=== PATIENT | male | born 1980 | race Caucasian/White ===

== ENCOUNTER 2020-04-16 01:02 | Emergency (ER) | payer OTHER, SELFPAY ==
[2020-04-16 01:09] VITALS: BP 100/69; BP 103/38; PULSE 75; PULSE 77; RESP 20; TEMP 36.5; O2SAT 96; O2SAT 99; BMI 18.4
[2020-04-16 01:20] VITALS: RESP 22
--- NOTE | 2020-04-16 01:24 | PC.NURSE ---
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 PT WAS TRIPOD POSITON UPON EMS ARRIVAL AND PALE, PT WAS NOT BALE TO SPEAK IN FULL SENTENCES. PT PUT ON NOREBREATHER AND GIVEN 125MG SOLU-MEDROL HAVING GOOD EFFECT. PT NO LONGER TRIPOD POSTIION AND UPON ARRIVAL TO ED PT WAS REMOVED FROM NONREBREATHER. PLACED ON 1L VIA NASAL CANULLA AND PT APPEARING COMFORTABLE, SPO2 99% WHILE PT AWAKE. PT STATES THAT HE USED 1 BAG OF HEROIN PRIOR TO FALLING ASLEEP AND STATES HIS BREATHING GOT COMPROMISED DURING THAT TIME WELL. DR GIMENEZ MADE AWARE, THIS RN ASKING ABOUT ADDITIONAL MEDICATIONS SUCH MAG AND BLOOD WORK, NO NEW ORDERS AT THIS TIME EXCEPT FOR MICHELLE, RT AT BEDSIDE. WILL CONTINUE TO MONITOR
--- NOTE | 2020-04-16 01:25 | ED.SOB ---
HPI - SOB/Dyspnea General Chief Complaint: Dyspnea Stated Complaint: diff breathing Time Seen by Provider: 04/16/20 01:20 Source: patient Mode of arrival: EMS Limitations: no limitations History of Present Illness HPI Narrative: alessia woke up short of breath and called the ambulance, EMS gave him oxygen and solumedrol. Patient denies fever or other cold symptoms MD elicited complaint: shortness of breath Pertinent past history: COPD Onset (ago): hour(s) Severity: severe Exacerbating factors: deep breaths Relieving factors: oxygen Known history of: COPD Related Data Previous Rx's Medication Instructions Recorded prednisone 60 mg PO DAILY #12 tab 04/16/20 Allergies Allergy/AdvReac Type Severity Reaction Status Date / Time No Known Allergies Allergy Unverified 02/23/20 17:19 Review of Systems Constitutional: Constitutional: Reports no additional constitutional complaints Eyes: Eyes: Reports no additional eye complaints ENT: Denies dizziness Cardiovascular: Cardiovascular: Reports no additional cardiovascular complaints Respiratory: Respiratory: Reports as per HPI Gastrointestinal: Gastrointestinal: Reports no additional gastrointestinal complaints Musculoskeletal: Musculoskeletal: Reports no additional musculoskeletal complaints Integumentary/Breasts: Skin/Breast: Denies rash Neurologic: Reports system reviewed and no additional complaints, except as documented, Denies dizziness and Denies Sensory deficit (Neuro) Psychiatric: Psychiatric: Denies anxiety [facility] Past Medical History Medical History (Updated 04/16/20 @ 04:32 by Mitchel Keith MD) COPD (chronic obstructive pulmonary disease) Social History Social History Alcohol intake: never Smoking Status: Current every day smoker Use of substances other than those prescribed or required for medical reasons: No Advance Directives: No Advance Directives Information Provided: Yes Physical Exam Vital Signs: Vital Signs: Last Vital Signs Temp 97.7 F 04/16/20 01:09 Pulse 74 04/16/20 04:19 Resp 14 04/16/20 04:19 BP 99/56 L 04/16/20 04:19 Pulse Ox 98 04/16/20 04:19 Body Mass Index 18.4 Const: Other: male short of breath Nutritional Appearance: average body habitus Orientation/consciousness: oriented to person and patient oriented x3 Limitations: no limitations HENMT: Head: Yes normal to inspection Ears: external ears normal General nose exam: Normal external nose present Mouth: Normal oral and palatal mucosa present and oropharynx normal Throat: Yes posterior oropharynx normal Eyes: General: appearance normal, both eyes and all related structures Neck: Other: supple Neck: Yes normal visual inspection Chest: Chest palpation & inspection: normal inspection of the chest Resp: Other: bilateral wheezing, tight, fairly good air movement Cardio: Jugular venous distension: no JVD Rate: regular rate Rhythm: regular rhythm Heart sounds: S1 normal heart sound present and S2 normal heart sound present GI: Inspection: Yes normal to inspection Palpation (GI): Soft to palpation, nontender and No hepatosplenomegaly present Auscultation: normal bowel sounds : General: Yes no CVA tenderness Back/Spine/Pelvis: Back: no CVA tenderness Skin: General skin exam: no rashes or lesions noted Neuro: General: oriented to person and patient oriented x3 Cranial nerves: Yes CN's II-XII intact bilaterally Motor exam (neuro): 5/5 motor strength present throughout Sensory Exam: No Sensory deficit (Neuro) Extrem: General: Yes normal to inspection Psych: Appearance: grossly normal Course Course Course Narrative: breathing much better, moving better air, still with some wheezing MDM - SOB/Dyspnea MDM Narrative Medical decision making narrative: patient with COPD exacerbation looking better will dc on prednisone Discharge Plan Discharge Clinical Impression: Acute exacerbation of chronic obstructive airways disease Patient Disposition: Home, Self-Care Instructions: COPD (Chronic Obstructive Pulmonary Disease) (ED) Prescriptions: New prednisone 20 mg tablet 60 mg PO DAILY Qty: 12 RF: 0 Referrals: Physician,Unknown [Primary Care Provider] - 2 days
[2020-04-16] MEDS: Albuterol/Iprat 2.5/0.5MG 3 ML AMPUL.NEB INHALE ×2 (01:42→06:11)
[2020-04-16 02:00] VITALS: BP 101/60; PULSE 60; RESP 14; O2SAT 97
[2020-04-16] MEDS: 0.9 % Sodium Chloride 500 ML 999 ML IVCONT (02:45)
--- NOTE | 2020-04-16 03:30 | PC.NURSE ---
PT STATING THAT HE IS FEELING A BIT BETTER HOWEVER STILL C/O SOB AND BEING REALLY TIGHT DR GIMENEZ MADE AWARE AND ONCE AGAIN ASKED ABOUT ADDITONAL MEDS AND/OR IMAGING AND BLOOD WORK, DR GIMENEZ STATING THAT WE WILL WATCH HIM FOR IMPROVEMENT . WILL CONTINUE TO MONITOR, PT HR 60S, SPO2 94% WHILE RESTING, LS DIM AND WHEEZY BL AND THROUGHOUT. RT TO ADMINISTER ADDITIONAL TREATMENT
[2020-04-16] MEDS: Albuterol Sulfate (0.083%) 2.5 MG/3 ML VIAL.NEB INHALE (04:05)
[2020-04-16 04:19] VITALS: BP 99/56; PULSE 74; RESP 14; O2SAT 98
--- NOTE | 2020-04-16 04:19 | PC.NURSE ---
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 PT ADMITS TO SNORTING A BAG OF HEROIN PRIOR TO GOING TO SLEEP AND HAVING SIMILAR ISSUES IN THE PAST WITH THAT BEHAVIOR. PT WAS TRIPOD POSITION UPON EMS ARRIVAL AND PALE. PT PUT ON NONREBREATHER BY EMS AND IMPROVING WORK OF BREATHING ALONG WITH SPO2 100%. UPON ARRIVAL TO ED PT REMOVED FROM NONREBREATHER AND PLACED ON NASAL CANULLA AT 1L FOR COMFORT. PT LS DIMINISHED AND WHEEZY BL AND THROUGHOUT. DR GIMENEZ MADE AWARE OF PT STATUS ALONG WITH RESP AT BEDSIDE. PT RECEIVED 125MG OF SOLUMEDROL, THIS RN ASKING ABOUT BLOOD WORK AND MAG ADMINISTRATION, NO ORDERS BY PROVIDER EXCEPT FOR DUONEB TREATMENT. WILL CONTINUE TO MONITOR
--- NOTE | 2020-04-16 05:32 | PC.NURSE ---
PLAN FOR D/C HOME PER DR GIMENEZ, PT STATING THAT HE DOES NOT FEEL READY TO GO HOME AND DOES NOT WANT TO GET UP RIGHT NOW PT LS DIM AND WHEEZY STILL. DR GIMENEZ MADE AWARE, PLAN TO DO AMBULATION TRIAL DUE TO RISK FOR PT SAFETY
--- NOTE | 2020-04-16 05:45 | PC.NURSE ---
this rn doing ambulation trial with pt to check for spo2 desat, pt able to walk about 200 feet and then needed to return to room due to not being able to breath pt spo2 dipping from 97% to 93% and pt work of breathing increasing substantially. dr suárez made aware and at bedside auscultating pt lung sounds. dr suárez only ordering duoneb at this time, will continue to monitor
[2020-04-16 06:35] VITALS: BP 122/62; PULSE 92; RESP 14; TEMP 36.8; O2SAT 94
--- NOTE | 2020-04-17 08:25 | ECG_ITS ---
Test Reason : SOB Blood Pressure : / mmHG Vent. Rate : 076 BPM Atrial Rate : 076 BPM P-R Int : 158 ms QRS Dur : 084 ms QT Int : 400 ms P-R-T Axes : 072 080 065 degrees QTc Int : 450 ms Normal sinus rhythm Normal ECG No previous ECGs available Referred By: Mitchel Keith Electronically Signed By:EMILIA DICKENS MD
== END 2020-04-16 08:27 | disposition home or self-care (01) ==
PROVIDERS: Emergency Provider Emergency Medicine
DX: J44.1 Chronic obstructive pulmonary disease with (acute) exacerbation (principal); R06.00 Dyspnea, unspecified; F17.200 Nicotine dependence, unspecified, uncomplicated; Z71.6 Tobacco abuse counseling
CPT/HCPCS: 93005; 94640; 99284; 99285

== ENCOUNTER 2020-06-01 14:51 | Inpatient (IN) | payer OTHER, SELFPAY ==
[2020-06-01] VITALS (10 sets, daily range): BP systolic 107–126; BP diastolic 57–66; PULSE 73–112; RESP 16–24; TEMP 36.5–36.6; O2SAT 88–97; BMI 18.2
--- NOTE | 2020-06-01 15:02 | XR_ITS ---
EXAMINATION: XR CHEST CLINICAL INFORMATION: Shortness of breath COMPARISON: None TECHNIQUE: Frontal view of the chest was obtained. FINDINGS: No significant abnormality is noted involving the heart, lungs, mediastinum, bony thorax or soft tissues. XR/XR chest 1V IMPRESSION: Unremarkable examination.
--- NOTE | 2020-06-01 15:02 | ECG_ITS ---
Test Reason : RESP DISTRESS Blood Pressure : / mmHG Vent. Rate : 090 BPM Atrial Rate : 090 BPM P-R Int : 154 ms QRS Dur : 082 ms QT Int : 390 ms P-R-T Axes : 080 076 060 degrees QTc Int : 477 ms Normal sinus rhythm Normal ECG When compared with ECG of 16-APR-2020 01:16, No significant change was found Referred By: Keagan Harris Electronically Signed By:SHANNON BATEMAN MD
--- NOTE | 2020-06-01 15:03 | ED.URI ---
HPI - URI/Sore Throat General Chief Complaint: Upper Respiratory Symptoms Stated Complaint: SOB Time Seen by Provider: 06/01/20 15:01 Source: patient Mode of arrival: EMS Limitations: no limitations History of Present Illness HPI Narrative: This is a 39-year-old male with history of chronic obstructive pulmonary disease who currently smokes daily presents via EMS from home with complaint of shortness of breath in the setting of cough and slight congestion ongoing for past 5 days or so. Patient was found by EMS to be in moderate respiratory distress given DuoNeb in route along with Solu-Medrol IV and gradual fluids and transferred to emergency room. Patient upon arrival pulse ox 92% on room air reports to me that he has had these URI symptoms ongoing for past 5 days or so causing sensation and his COPD. He does report he has been here in the past in April we he did a short course of prednisone. MD elicited complaint: cough Onset (ago): day(s) Severity: moderate Able to tolerate fluids by mouth: Yes Relieving factors: nothing Associated symptoms: denies other symptoms Treatments prior to arrival: other (Given DuoNeb in route, 125 mg Solu-Medrol IV. ) Related Data Home Medications Medication Instructions Recorded Confirmed albuterol sulfate 2 puff INHALATION QID PRN 06/01/20 06/01/20 budesonide-formoterol 2 puff INHALATION DAILY 06/01/20 06/01/20 umeclidinium [Incruse Ellipta] 1 puff INHALATION DAILY 06/01/20 06/01/20 Allergies Allergy/AdvReac Type Severity Reaction Status Date / Time No Known Allergies Allergy Unverified 02/23/20 17:19 [facility] Past Medical History Medical History Anxiety COPD (chronic obstructive pulmonary disease) Opioid dependence Family History Family History Other Lung cancer Social History Social History Alcohol intake: unknown Smoking Status: Current every day smoker Smoked in Last 30 Days: Yes Use of substances other than those prescribed or required for medical reasons: Yes Substance Use Type: Heroin Substance Use Frequency: Daily Last Used Substance: Just Prior to Admission Any prior treatment program specific to substance use: No Advance Directives: No Advance Directives Information Provided: Yes Physical Exam Vital Signs: Vital Signs: Last Vital Signs Temp 97.9 F 06/01/20 14:55 Pulse 90 06/01/20 19:06 Resp 16 06/01/20 19:06 BP 117/57 L 06/01/20 19:06 Pulse Ox 92 06/01/20 19:06 Body Mass Index 18.2 Course Course Course Narrative: 1508 Interview 39-year-old male with history of COPD presenting with flare current everyday smoker worsening symptoms or past 5 days worse today since noon did receive a neb EN route as well as IV Solu-Medrol. On arrival moderate respiratory distress will check labs, treat with hour long neb, IV magnesium and monitor closely. He is afebrile, slightly tachycardic secondary to the albuterol use, hypoxic secondary to the COPD. Reevaluation(s) Reevaluation #1: Symptoms/lung sounds improved and he reports feeling better after 2nd treatment/hour long. Still feels somewhat short of breath but much improved since arrival. Pulse ox 88% on room air 2 L 92%. No signs or symptoms of infectious process. Plan for admission for COPD exacerbation. He does now admit to me that he does snort IV heroin. Being followed by pulmonology at [facility]. MDM - URI/Sore Throat Lab Data Result diagrams: 06/01/20 15:32 06/01/20 15:32 Labs: Lab Results 06/01/20 06/01/20 06/01/20 Range/Units 15:08 15:32 15:32 WBC 6.9 (4.8-10.8) X10*3/uL RBC 5.03 (4.60-5.80) X10*6/uL Hgb 15.3 (14.0-18.0) g/dl Hct 46.8 (42-52) % MCV 93.0 (80-98) fL MCH 30.4 (27.0-33.0) pg MCHC 32.7 (31.0-36.0) g/dl RDW 12.2 (11.0-16.0) % Plt Count 205 (160-400) X10*3/uL MPV 9.8 (9.4-12.4) fL Immature Gran % (Auto) 0.3 (0.0-0.4) % Neut % (Auto) 62.5 (45-73) % Lymph % (Auto) 17.4 L (20-40) % [place] % (Auto) 10.9 (2-11) % Eos % (Auto) 7.9 H (0-4) % Baso % (Auto) 1.0 (0-2) % Lymph # (Auto) 1.2 (1.2-4.9) X10*3/uL [place] # (Auto) 0.8 (0.1-1.2) X10*3/uL Eos # (Auto) 0.5 H (0.0-0.4) X10*3/uL Baso # (Auto) 0.1 (0.0-0.2) X10*3/uL Abs Immat Gran (auto) 0.02 (0.00-0.03) X10*3/uL Absolute Neuts (auto) 4.3 (2.0-8.3) X10*3/uL Absolute Nucleated RBC 0.000 (0.0-0.012) X10*3/uL Nucleated RBC % (auto) 0.0 (0.0-0.2) /100WBC Sodium 140 (135-145) mmol/L Potassium 4.4 (3.3-5.1) mmol/l Chloride 102 (96-108) mmol/L Carbon Dioxide 30 H (22-29) mmol/L Anion Gap 12 (12-20) BUN 13 (9-16) mg/dL Creatinine 0.95 (0.5-1.4) mg/dL Estim Creat Clear Calc 72.0 Estimated GFR > 60 Random Glucose 103 (60-115) mg/dL Calcium 8.8 (8.4-10.2) mg/dL Total Bilirubin 0.5 (0.0-1.0) mg/dL AST 28 (5-37) U/L ALT 15 (0-40) U/L Alkaline Phosphatase 69 (39-117) U/L Troponin I High Sens (<3.5-35.0) ng/L Total Protein 6.6 (6.5-8.0) g/dL Albumin 4.5 (3.5-5.0) g/dL Coronavirus (PCR) NEGATIVE (Negative) Influenza Type A (PCR) NEGATIVE (Negative) Influenza Type B (PCR) NEGATIVE (Negative) RSV RNA Qual (PCR) NEGATIVE (Negative) 06/01/20 Range/Units 15:32 WBC (4.8-10.8) X10*3/uL RBC (4.60-5.80) X10*6/uL Hgb (14.0-18.0) g/dl Hct (42-52) % MCV (80-98) fL MCH (27.0-33.0) pg MCHC (31.0-36.0) g/dl RDW (11.0-16.0) % Plt Count (160-400) X10*3/uL MPV (9.4-12.4) fL Immature Gran % (Auto) (0.0-0.4) % Neut % (Auto) (45-73) % Lymph % (Auto) (20-40) % [place] % (Auto) (2-11) % Eos % (Auto) (0-4) % Baso % (Auto) (0-2) % Lymph # (Auto) (1.2-4.9) X10*3/uL [place] # (Auto) (0.1-1.2) X10*3/uL Eos # (Auto) (0.0-0.4) X10*3/uL Baso # (Auto) (0.0-0.2) X10*3/uL Abs Immat Gran (auto) (0.00-0.03) X10*3/uL Absolute Neuts (auto) (2.0-8.3) X10*3/uL Absolute Nucleated RBC (0.0-0.012) X10*3/uL Nucleated RBC % (auto) (0.0-0.2) /100WBC Sodium (135-145) mmol/L Potassium (3.3-5.1) mmol/l Chloride (96-108) mmol/L Carbon Dioxide (22-29) mmol/L Anion Gap (12-20) BUN (9-16) mg/dL Creatinine (0.5-1.4) mg/dL Estim Creat Clear Calc Estimated GFR Random Glucose (60-115) mg/dL Calcium (8.4-10.2) mg/dL Total Bilirubin (0.0-1.0) mg/dL AST (5-37) U/L ALT (0-40) U/L Alkaline Phosphatase (39-117) U/L Troponin I High Sens 3.7 (<3.5-35.0) ng/L Total Protein (6.5-8.0) g/dL Albumin (3.5-5.0) g/dL Coronavirus (PCR) (Negative) Influenza Type A (PCR) (Negative) Influenza Type B (PCR) (Negative) RSV RNA Qual (PCR) (Negative) Discharge Plan Discharge Clinical Impression: COPD (chronic obstructive pulmonary disease), Opioid dependence, Acute respiratory failure with hypoxia Patient Disposition: Admitted As Inpatient Interventions: Admission Worksheet (ED) Last Done: 06/01/20 20:07
[2020-06-01] MEDS: 0.9 % Sodium Chloride 1,000 ML 999 ML IV (15:12)
[2020-06-01] MEDS: Magnesium Sulfate/H2O 2 GM/50 ML PIGGYBACK IV (15:12)
[2020-06-01 15:38] LABS: Basophils Absolute Auto 0.1 X10*3/uL (0.0-0.2); Eosinophils Absolute Auto 0.5 X10*3/uL (0.0-0.4); Eosinophils Percent Auto 7.9 % (0-4); Hematocrit 46.8 % (42-52); Hemoglobin 15.3 g/dl (14.0-18.0); Imm Gran Abs Auto 0.02 X10*3/uL (0.00-0.03); Imm Gran Pct Auto 0.3 % (0.0-0.4); Lymphocytes Absolute Auto 1.2 X10*3/uL (1.2-4.9); Lymphocytes Percent Auto 17.4 % (20-40); Mean Corpuscular HGB Conc 32.7 g/dl (31.0-36.0); Mean Corpuscular Hemoglobin 30.4 pg (27.0-33.0); Mean Platelet Volume 9.8 fL (9.4-12.4); Monocytes Absolute Auto 0.8 X10*3/uL (0.1-1.2); Monocytes Percent Auto 10.9 % (2-11); Neutrophils Absolute Auto 4.3 X10*3/uL (2.0-8.3); Neutrophils Percent Auto 62.5 % (45-73); Platelet Count 205 X10*3/uL (160-400); Red Blood Count 5.03 X10*6/uL (4.60-5.80); Red Cell Distribution Width 12.2 % (11.0-16.0); White Blood Count 6.9 X10*3/uL (4.8-10.8)
[2020-06-01] MEDS: Albuterol Sulfate (0.083%) 2.5 MG/3 ML VIAL.NEB 10 MG INHALE (15:38)
--- NOTE | 2020-06-01 15:38 | PC.NURSE ---
Pt presents to the ED via ambulance with c/o sob and difficulty breathing. He is alert, rr even and slightly labored with audible wheezes throughout. He is able to speak in brief sentences, skin is pwdi, and he is in nad. Pt seen by Keagan, CABIN EQUIPMENT SUPERVISOR and orders provided. IV line previously est. by ems. Medicated per emar. RT currently in room initiating hour long breathing treatment.
[2020-06-01 15:39] LABS: MANUAL DIFF FLAG NO
[2020-06-01 16:08] LABS: Influenza A PCR NEGATIVE (Negative); Influenza B PCR NEGATIVE (Negative); Resp Syncy Virus RNA Qual PCR NEGATIVE (Negative); SARS COV2 PCR INHOUSE NEGATIVE (Negative)
[2020-06-01 16:12] LABS: Alanine Aminotransferase 15 U/L (0-40); Albumin Level 4.5 g/dL (3.5-5.0); Alkaline Phosphatase 69 U/L (39-117); Anion Gap 12 (12-20); Aspartate Amino Transferase 28 U/L (5-37); Bilirubin Total 0.5 mg/dL (0.0-1.0); Blood Urea Nitrogen 13 mg/dL (9-16); Calcium 8.8 mg/dL (8.4-10.2); Carbon Dioxide 30 mmol/L (22-29); Chloride 102 mmol/L (96-108); Estimated Glomerular Filt Rate > 60; Glucose Random 103 mg/dL (60-115); Potassium 4.4 mmol/l (3.3-5.1); Sodium 140 mmol/L (135-145); Total Protein 6.6 g/dL (6.5-8.0)
[2020-06-01 16:16] LABS: Troponin-I High Sensitivity 3.7 ng/L (<3.5-35.0)
[2020-06-01] MEDS: Azithromycin 500 MG in 0.9 % Sodium Chloride 250 ML 125 MG IV (16:44)
--- NOTE | 2020-06-01 17:21 | P.HPHOSP_ITS ---
History of Present Illness Date of Service: 06/01/20 Chief Complaint: Shortness of breath 39-year-old male with significant past medical history of severe COPD, alpha-1 antitrypsin normal, actively using inhaled heroin, presented with shortness of breath for 1-2 days. Patient states that he is short of breath on minimal exertion, this is similar to his previous exacerbations. He states he is hospitalized several times a year. He denies any fevers, chills, chest pain. COVID swab was negative. Review of Systems Review of Systems: Constitutional: Denies fever, denies Chills Eyes: denies blurry vision ENT: denies sore throat CVS: denies chest pain Respiratory: dyspnea GI: no abdominal pain : denies dysuria MSK: denies neck pain Skin: denies rash Neuro: denies specific motor weakness Psych: denies suicidal ideation Endocrine: denies heat/cold intoleratnce Hematologic: denies easy bleeding Allergy: denies hives [facility] Medical History Anxiety COPD (chronic obstructive pulmonary disease) Opioid dependence Family History Other Lung cancer Social History Alcohol intake: unknown Smoking Status: Current every day smoker Smoked in Last 30 Days: Yes Use of substances other than those prescribed or required for medical reasons: Yes Substance Use Type: Heroin Substance Use Frequency: Daily Last Used Substance: Just Prior to Admission Any prior treatment program specific to substance use: No Advance Directives: No Advance Directives Information Provided: Yes Meds Allergies Allergy/AdvReac Type Severity Reaction Status Date / Time No Known Allergies Allergy Unverified 02/23/20 17:19 Home Medications Medication Instructions Recorded Confirmed Type albuterol sulfate 2 puff INHALATION QID PRN 06/01/20 06/01/20 History budesonide-formoterol 2 puff INHALATION DAILY 06/01/20 06/01/20 History umeclidinium [Incruse Ellipta] 1 puff INHALATION DAILY 06/01/20 06/01/20 History Physical Exam Vital Signs and Narrative: Vital Signs: Last Vital Signs Temp 97.9 F 06/01/20 14:55 Pulse 103 H 06/01/20 16:36 Resp 17 06/01/20 16:36 BP 126/66 06/01/20 16:36 Pulse Ox 89 L 06/01/20 16:50 Body Mass Index 18.2 General: Cachectic, some respiratory distress HEENT: atraumatic Neck: normal to visual inspection CVS: S1, S2, RRR Resp: Diminished Chest: non tender GI: soft, non tender, non distended : no CVA tenderness Skin: no rashes Extremities: no edema Neuro: Oriented X3, grossly intact Psych: cooperative, Results Labs CBC and Chem 7: 06/01/20 15:32 06/01/20 15:32 Labs: Laboratory Results - last 24 hr 06/01/20 06/01/20 06/01/20 15:08 15:32 15:32 MCV 93.0 MCH 30.4 MCHC 32.7 RDW 12.2 Plt Count 205 MPV 9.8 Immature Gran % (Auto) 0.3 Neut % (Auto) 62.5 Lymph % (Auto) 17.4 L [place] % (Auto) 10.9 Eos % (Auto) 7.9 H Baso % (Auto) 1.0 Lymph # (Auto) 1.2 [place] # (Auto) 0.8 Eos # (Auto) 0.5 H Baso # (Auto) 0.1 Abs Immat Gran (auto) 0.02 Absolute Neuts (auto) 4.3 Absolute Nucleated RBC 0.000 Nucleated RBC % (auto) 0.0 Anion Gap 12 Estim Creat Clear Calc 72.0 Estimated GFR > 60 Random Glucose 103 Calcium 8.8 Total Bilirubin 0.5 AST 28 ALT 15 Alkaline Phosphatase 69 Troponin I High Sens Total Protein 6.6 Albumin 4.5 Coronavirus (PCR) NEGATIVE Influenza Type A (PCR) NEGATIVE Influenza Type B (PCR) NEGATIVE RSV RNA Qual (PCR) NEGATIVE 06/01/20 15:32 MCV MCH MCHC RDW Plt Count MPV Immature Gran % (Auto) Neut % (Auto) Lymph % (Auto) [place] % (Auto) Eos % (Auto) Baso % (Auto) Lymph # (Auto) [place] # (Auto) Eos # (Auto) Baso # (Auto) Abs Immat Gran (auto) Absolute Neuts (auto) Absolute Nucleated RBC Nucleated RBC % (auto) Anion Gap Estim Creat Clear Calc Estimated GFR Random Glucose Calcium Total Bilirubin AST ALT Alkaline Phosphatase Troponin I High Sens 3.7 Total Protein Albumin Coronavirus (PCR) Influenza Type A (PCR) Influenza Type B (PCR) RSV RNA Qual (PCR) Imaging Radiologist's Impressions: Impressions Chest X-Ray 06/01/20 15:02 IMPRESSION: Unremarkable examination. Assessment and Plan (1) Acute respiratory failure with hypoxia: Status: Acute (2) Opioid dependence: Qualifiers: Substance use status: in withdrawal Qualified Code(s): F11.23 - Opioid dependence with withdrawal Status: Acute (3) COPD (chronic obstructive pulmonary disease): Qualifiers: COPD type: COPD with acute exacerbation Qualified Code(s): J44.1 - Chr onic obstructive pulmonary disease with (acute) exacerbation Problem details: PFT's Complete Date of test: 01/06/2020 Test list: [place] MVV VOL(Box) DLCO Lab: [facility] Name: ALEXANDRIA CRESPO Sex: M Age: 39 Race: W Height: 63 In Weight: 125 LB BMI: 22.2 Referring: Carlos Herrera M.D. SPIROMETRY: FEV1 0.86, 25%; FVC 3.24, 77%; FEV1/FVC 27.0%; PEFR 3.17, 36% Post FEV1 1.02, 30% (19%); FVC 3.37, 80% (4%); PEFR 2.75, 32%; (-13%) Slow Vital Capacity: 3.24 77% LUNG VOLUMES (Box): TLC 7.96, 142%; FRC 5.32, 205%; RV 4.72, 337%; sGaw 0.03, predicted > 0.12 DIFFUSING CAPACITY: DLCO and KCO are 46% predicted adjusted for lung volume, barometric pressure DLCO 13.01, 43%; not adjusted for Hb INTERPRETATION: Severe obstructive defect. The vital capacity is reduced, probably due to obstructive defect noted. No significant response to bronchodilator. Gold category 4. The MVV is reduced out of proportion to the FEV1, raising the question of respiratory muscle weakness. Lung volumes are increased, consistent with obstructive defect. The specific conductance is severely reduced, consistent with obstruction. The diffusing capacity is moderately reduced, although not adjusted for hemoglobin. The finding of obstruction, elevated lung volumes, with low DLCO is consistent with emphysema. Recommend check rest and walking O2 saturations as hypoxia can occur with DLCO this low. Recommend check hemoglobin to allow better estimation of predicted DLCO. normal alpha 1 antitrypsin Status: Acute 39-year-old male presented with shortness of breath Acute hypoxic respiratory failure secondary to COPD exacerbation Steroids, bronchodilators, ceftriaxone Patient follows with pulmonology in [facility], with Dr. Herrera Has had PFT showing severe COPD, CT showing bronchiectasis and mucus, no emphysema Alpha 1 antitrypsin was normal - 138 Requesting 2nd opinion with our online editor Opiate dependence Actively using heroin Concern for withdrawal Open to Suboxone
[2020-06-01 18:26] LABS: Glucose Urine UA 250 MG/DL (NEG); Leukocyte Esterase Urine NEG (NEG); Nitrite Urine NEG (NEG); PH 5.5 (5.0-8.0); Urine Blood NEG (NEG); Urine Ketones NEG (NEG); Urine Protein NEG (NEG-TRACE)
[2020-06-01 18:29] LABS: Appearance Urine CLEAR; Color Urine STRAW; UACC Culture Trigger NO
[2020-06-01 18:37] LABS: Mucus Urine TRACE /LPF; RBC Urine 0 /HPF (0); Squamous Epithelial Cell Urine TRACE /LPF; WBC Urine 0 /HPF (0-4)
[2020-06-01 18:53] LABS: Amphetamine Screen Urine Not Detected (Not Detect); Barbiturates, Urine Not Detected (Not Detect); Benzodiazepines Screen Urine Not Detected (Not Detect); Cannabinoid Screen Urine POSITIVE (Not Detect); Cocaine Screen Urine POSITIVE (Not Detect); Opiate Screen Urine POSITIVE (Not Detect); Phencyclidine Screen Urine Not Detected (Not Detect)
--- NOTE | 2020-06-01 20:03 | PC.NURSE ---
pt is changed over into hospital attire, belongings in bag and out of pt reach due to chronic herion user. pt is pleasant calm and cooperaitve, snacks given, report given to Miranda ugarte.
[2020-06-01] MEDS: cefTRIAXone sodium 1 GM in 0.9 % Sodium Chloride 50 ML IV (21:03)
[2020-06-01] MEDS: methylPREDNISolone Sod Succ/PF 125 MG/2 ML VIAL 60 MG IV (21:03)
[2020-06-01] MEDS: 0.9 % Sodium Chloride Flush 3 ML SYRINGE IVFLUSH (21:04)
[2020-06-02 04:00] VITALS: BP 112/64; PULSE 85; RESP 20; TEMP 36.7; O2SAT 95
[2020-06-02] MEDS: hydrOXYzine HCL 25 MG TABLET PO ×2 (05:05→13:09)
[2020-06-02 06:43] LABS: MANUAL DIFF FLAG NO
[2020-06-02 06:59] LABS: Basophils Percent Auto 0.1 % (0-2); Hematocrit 44.3 % (42-52); Hemoglobin 14.8 g/dl (14.0-18.0); Imm Gran Abs Auto 0.08 X10*3/uL (0.00-0.03); Imm Gran Pct Auto 0.5 % (0.0-0.4); Lymphocytes Absolute Auto 0.8 X10*3/uL (1.2-4.9); Lymphocytes Percent Auto 5.4 % (20-40); Mean Corpuscular HGB Conc 33.4 g/dl (31.0-36.0); Mean Corpuscular Hemoglobin 30.5 pg (27.0-33.0); Mean Corpuscular Volume 91.2 fL (80-98); Mean Platelet Volume 10.4 fL (9.4-12.4); Monocytes Absolute Auto 0.7 X10*3/uL (0.1-1.2); Monocytes Percent Auto 4.8 % (2-11); Neutrophils Absolute Auto 13.4 X10*3/uL (2.0-8.3); Neutrophils Percent Auto 89.2 % (45-73); Platelet Count 225 X10*3/uL (160-400); Red Blood Count 4.86 X10*6/uL (4.60-5.80); Red Cell Distribution Width 12.1 % (11.0-16.0); White Blood Count 15.1 X10*3/uL (4.8-10.8)
[2020-06-02 07:29] LABS: Anion Gap 13 (12-20); Blood Urea Nitrogen 14 mg/dL (9-16); Calcium 9.2 mg/dL (8.4-10.2); Carbon Dioxide 24 mmol/L (22-29); Chloride 109 mmol/L (96-108); Creatinine Clr Calc Pharmacy 92.4; Estimated Glomerular Filt Rate > 60; Glucose Random 110 mg/dL (60-115); Potassium 4.5 mmol/l (3.3-5.1); Sodium 141 mmol/L (135-145)
[2020-06-02 08:00] VITALS: BP 139/68; PULSE 105; RESP 20; TEMP 36.4; O2SAT 94
[2020-06-02] MEDS: methylPREDNISolone Sod Succ/PF 125 MG/2 ML VIAL 60 MG IV ×2 (08:05→20:37)
[2020-06-02] MEDS: Buprenorphine/Naloxone 4/1 mg FILM 1 FILM SUBLINGUAL ×2 (08:07→09:34)
[2020-06-02] MEDS: 0.9 % Sodium Chloride Flush 3 ML SYRINGE IVFLUSH ×3 (08:10→20:37)
[2020-06-02] MEDS: clonazePAM 0.5 MG TABLET PO ×2 (09:59→16:37)
[2020-06-02 10:31] LABS: Base Excess VBG 0.3 mmol/L; Blood Gas Serial # 5396; HCO3 VBG 23 mmol/L; Oxygen Saturation VBG 78.9 %; PCO2 VBG 32 mmhg; PO2 VBG 38 mmhg; pH VBG 7.48 (7.32-7.43)
--- NOTE | 2020-06-02 10:42 | PM.EVENT ---
Event Note Date of Service: 06/03/20 Event Note: I HAVE SEEN THIS 39 YEARS OLD GENTLEMAN FOR PULMONARY CONSULT. HISTORY REVIEWED AND HE WAS EXAMINED IN THE BED. LAB AND CHEST X-RAY REVIEWED. FULL NOTE IS DICTATED. A:ACUTE EXERBATION OF COPD/SEVERE EMPHYSEMA ACUTE RESP.FAILURE(HYPOXEMIA ) NICOTINE DEPENDANCE. NARCOTICS ABUSE . P: AGREE WITH CURRENT TREATMENT . WATCH FOR WITHDRAWL VENOUS BGs ORDERED TO MAKE SURE HE IS NOT CO2 RETAINER.
--- NOTE | 2020-06-02 11:45 | HO.PM.IMPN ---
Subjective Subjective Date of Service: 06/02/20 Interval History: opiate withdrawl Cardiovascular Cardiovascular: Reports no additional cardiovascular complaints Genitourinary Genitourinary: Reports no additional male genitourinary complaints Physical Exam Vital Signs: Vital Signs: Last Vital Signs Temp 97.5 F 06/02/20 08:00 Pulse 105 H 06/02/20 08:00 Resp 20 06/02/20 08:00 BP 139/68 06/02/20 08:00 Pulse Ox 94 06/02/20 08:00 Body Mass Index 18.2 General: AO X 3, anxious, cachectic Resp: diminished CVS: S1,S2,RRR GI: soft, non tender, non distended Neuro: motor grossly intact Psych: appropriate affect Objective Data Current Medications Generic Name Dose Route Start Last Admin Trade Name Freq PRN Reason Stop Dose Admin Albuterol/Ipratropium 3 ml 06/01/20 20:41 Albuterol/Iprat 2.5/0.5mg 3 Ml Ampul.Neb INHALE Q2H PRN sob Buprenorphine/Naloxone 1 film 06/01/20 20:41 06/02/20 08:07 Buprenorphine/Naloxone 4/1 Mg Film SUBLINGUAL 1 film Q12H PRN Administration withdrawl Clonazepam 0.5 mg 06/02/20 09:22 06/02/20 09:59 Clonazepam 0.5 Mg Tablet PO 0.5 mg TID PRN Administration withdrawl, anxiety Enoxaparin Sodium 30 mg 06/01/20 21:00 06/01/20 21:04 Enoxaparin Sodium 30 Mg/0.3 Ml Syringe SUBCUT Not Given Q24H [facility] Hydroxyzine HCl 25 mg 06/02/20 04:50 06/02/20 05:05 Hydroxyzine Hcl 25 Mg Tablet PO 25 mg Q8H PRN Administration anxiety/restlessness Ceftriaxone Sodium 1 gm/ 50 mls @ 100 mls/hr 06/01/20 20:41 06/01/20 21:41 Sodium Chloride IV Infused Q24H [facility] Infusion Methylprednisolone Sodium Succinate 60 mg 06/01/20 21:00 06/02/20 08:05 Methylprednisolone Sod Succ/Pf 125 Mg/2 Ml Vial IV 60 mg Q12H SULY Administration Non-Formulary Medication 2 puff 06/02/20 09:00 Budesonide-Formoterol INHALE DAILY [facility] Pharmacy Consult 1 each 06/01/20 16:45 Consult Rx Perform Med Rec MISCELLANE ONCE PRN Consult order Sodium Chloride 3 ml 06/02/20 00:00 06/02/20 08:10 0.9 % Sodium Chloride Flush 3 Ml Syringe IVFLUSH 3 ml QSHIFT SULY Administration Labs CBC & Chem 7: 06/02/20 06:33 06/02/20 06:33 Assessment and Plan (1) Acute respiratory failure with hypoxia: Status: Acute (2) Opioid dependence: Status: Acute (3) COPD (chronic obstructive pulmonary disease): Problem details: PFT's Complete Date of test: 01/06/2020 Test list: [place] MVV VOL(Box) DLCO Lab: [facility] Name: ALEXANDRIA CRESPO Sex: M Age: 39 Race: W Height: 63 In Weight: 125 LB BMI: 22.2 Referring: Carlos Herrera M.D. SPIROMETRY: FEV1 0.86, 25%; FVC 3.24, 77%; FEV1/FVC 27.0%; PEFR 3.17, 36% Post FEV1 1.02, 30% (19%); FVC 3.37, 80% (4%); PEFR 2.75, 32%; (-13%) Slow Vital Capacity: 3.24 77% LUNG VOLUMES (Box): TLC 7.96, 142%; FRC 5.32, 205%; RV 4.72, 337%; sGaw 0.03, predicted > 0.12 DIFFUSING CAPACITY: DLCO and KCO are 46% predicted adjusted for lung volume, barometric pressure DLCO 13.01, 43%; not adjusted for Hb INTERPRETATION: Severe obstructive defect. The vital capacity is reduced, probably due to obstructive defect noted. No significant response to bronchodilator. Gold category 4. The MVV is reduced out of proportion to the FEV1, raising the question of respiratory muscle weakness. Lung volumes are increased, consistent with obstructive defect. The specific conductance is severely reduced, consistent with obstruction. The diffusing capacity is moderately reduced, although not adjusted for hemoglobin. The finding of obstruction, elevated lung volumes, with low DLCO is consistent with emphysema. Recommend check rest and walking O2 saturations as hypoxia can occur with DLCO this low. Recommend check hemoglobin to allow better estimation of predicted DLCO. normal alpha 1 antitrypsin Status: Acute Assessment and Plan: 39-year-old male presented with shortness of breath Acute hypoxic respiratory failure secondary to COPD exacerbation Steroids, bronchodilators, ceftriaxone Patient follows with pulmonology in [facility], with Dr. Herrera Has had PFT showing severe COPD, CT showing bronchiectasis and mucus Alpha 1 antitrypsin was normal - 138 pulmonary appreciated Opiate dependence with withdrawl suboxone, klonipin,
--- NOTE | 2020-06-02 11:52 | CONS_ITS ---
DATE OF SERVICE: 06/02/2020 HISTORY OF PRESENT ILLNESS: This gentleman is a 39-year-old male, admitted yesterday with about 5 days history of nasal congestion and increased cough along with increased shortness of breath. Denies exposure to any sick people. Has had no fever, chills, or chest pain. Because of nasal congestion and increased cough, he feels more congested in the chest and has become more short of breath than usual. The patient presented to the emergency room and was borderline hypoxemic on room air. He is admitted for treatment of an acute exacerbation of his COPD. REVIEW OF SYSTEMS: Indicative of mild nasal congestion and increased cough. Otherwise, he denies chest pain. Denies any nausea or vomiting. Denies any urinary symptoms. Denies any musculoskeletal symptoms and denies any rash etc. PAST MEDICAL HISTORY: Reviewed and includes chronic anxiety syndrome. He has longstanding chronic obstructive pulmonary disease with extensive pulmonary emphysema. He is being followed by automotive parts counterperson at [facility] and the reports indicate that his alpha-1 antitrypsin level is normal. He has never been intubated or treated with vent support. PERSONAL HISTORY: He smokes 1 pack of cigarettes a day regularly. He is opioid dependent, uses heroin almost on a daily basis. PHYSICAL EXAMINATION: GENERAL: 39-year-old gentleman of a very thin build, lying down in the bed, and seemed to be somewhat anxious at this time. He is not too much interested in conversation at this time. VITAL SIGNS: His temperature is normal, heart rate is 20, respiratory rate 22. THROAT: Clear. No infection is noted. NECK: Trachea midline. No lymphadenopathy. No jugular venous distention. CHEST: Hyper-resonant on both sides. Breath sounds are diminished. I did not hear any wheezes or rhonchi. CARDIAC: PMI in 5th intercostal space at midclavicular line. HEART: Sounds normal. No murmurs or gallops. ABDOMEN: Flat, soft, and nontender. EXTREMITIES: No clubbing or varicosities. Peripheral pulses are normal. DIAGNOSTIC DATA: Chest x-ray, hyperinflated lungs on both sides consistent with pulmonary emphysema. No evidence of any infiltrate or mass. LABORATORY DATA: White cell count 15.1, however on 06/01, it was 6.9. Leukocytosis today is reflective of steroids use. Eosinophil count 0.5. Arterial blood gases not done yet. MICROBIOLOGY: None. CLINICAL IMPRESSION: The patient has acute exacerbation of his advanced chronic obstructive pulmonary disease. Severe pulmonary emphysema, probably as a result of long-time smoking. It is interesting to find that alpha-1 antitrypsin level is normal. Pulmonary function test report from [facility] is indicative of rather severe degree of chronic obstructive pulmonary disease. RECOMMENDATIONS: Treat him for acute exacerbation of COPD with IV Solu-Medrol for a few days, then prednisone for a few more days. Course of azithromycin. Continue DuoNeb updrafts q.6 hours p.r.n. Oxygen supplementation 2 L/minute and as needed. For long-term use, this patient has been on Symbicort 2 puffs b.i.d. and that can be replaced with Breo 200 one inhalation daily over here in the hospital. He has also been on Incruse Ellipta 1 inhalation daily, but over here in the hospital, DuoNeb updrafts q.6 hours will be fine. Venous blood gases are ordered just to make sure that he is not a CO2 retainer. The patient is to be watched closely for any withdrawal syndrome. For the long-term management, he needs to quit smoking and also needs to be rehabilitated from drug abuse. Once that is achieved, this gentleman may need referral to a tertiary center for consideration of lung transplant. Thank you very much for asking me to see this patient. After discharge, he should be encouraged to continue follow up with his automotive parts counterperson at [facility]. MD TOSHA Joseph/GREY / [phone]
[2020-06-02 12:00] VITALS: BP 113/67; PULSE 80; RESP 20; TEMP 37.3; O2SAT 96
--- NOTE | 2020-06-02 12:01 | MHC.CM.PN ---
DC PLAN HOME NO SERVCEIS PT HAS OWN TRANSPORTAION HOME
[2020-06-02] MEDS: ondansetron HCL 4 MG/2 ML VIAL IVPUSH (12:51)
[2020-06-02 13:32] VITALS: BMI 18.2
--- NOTE | 2020-06-02 13:34 | MHC.CLN ---
PT IS MILDLY MALNOURISHED WILL START ENSURE BID TO INCREASE KCALS SEE ALSO CLINICAL NUTRITION ASSESSMENT
[2020-06-02 15:42] VITALS: BP 128/60; PULSE 79; RESP 18; TEMP 36.5; O2SAT 96
[2020-06-02 19:12] VITALS: BP 113/60; PULSE 82; RESP 20; TEMP 37.2; O2SAT 94
[2020-06-02] MEDS: cefTRIAXone sodium 1 GM in 0.9 % Sodium Chloride 50 ML IV (20:33)
[2020-06-03 00:04] VITALS: BP 126/79; PULSE 60; RESP 14; TEMP 36.8; O2SAT 96
[2020-06-03] MEDS: clonazePAM 0.5 MG TABLET PO ×2 (00:55→08:08)
[2020-06-03 04:03] VITALS: BP 123/78; PULSE 65; RESP 14; TEMP 36.6; O2SAT 96
[2020-06-03 08:00] VITALS: BP 125/88; PULSE 60; RESP 18; TEMP 36.9; O2SAT 97
[2020-06-03] MEDS: 0.9 % Sodium Chloride Flush 3 ML SYRINGE IVFLUSH (08:08)
[2020-06-03] MEDS: methylPREDNISolone Sod Succ/PF 125 MG/2 ML VIAL 60 MG IV (08:09)
[2020-06-03] MEDS: Fluticasone/Vilanterol 200/25 BLST.W.DEV 1 PUFF INHALE (08:29)
[2020-06-03 08:30] VITALS: PULSE 64; O2SAT 94
--- NOTE | 2020-06-03 11:29 | P.DS_ITS ---
DS: Providers Provider Date of admission: 06/01/20 17:21 Primary care physician: Unknown Physician Consults: 06/01/20 20:41 Consult to Psychiatry Routine Consulting Provider: Yuki Stephens Reason for consultation: heroin withdrawl Consult to Pulmonology Routine Consulting Provider: Matthew Tran Reason for consultation: advanced COPD in 39 year old DS: Diagnosis Discharge Diagnosis (1) Acute respiratory failure with hypoxia: Status: Acute (2) Opioid dependence: Status: Acute (3) COPD (chronic obstructive pulmonary disease): Status: Acute Problem details: PFT's Complete Date of test: 01/06/2020 Test list: [place] MVV VOL(Box) DLCO Lab: [facility] Name: ALEXANDRIA CRESPO Sex: M Age: 39 Race: W Height: 63 In Weight: 125 LB BMI: 22.2 Referring: Carlos Herrera M.D. SPIROMETRY: FEV1 0.86, 25%; FVC 3.24, 77%; FEV1/FVC 27.0%; PEFR 3.17, 36% Post FEV1 1.02, 30% (19%); FVC 3.37, 80% (4%); PEFR 2.75, 32%; (-13%) Slow Vital Capacity: 3.24 77% LUNG VOLUMES (Box): TLC 7.96, 142%; FRC 5.32, 205%; RV 4.72, 337%; sGaw 0.03, predicted > 0.12 DIFFUSING CAPACITY: DLCO and KCO are 46% predicted adjusted for lung volume, barometric pressure DLCO 13.01, 43%; not adjusted for Hb INTERPRETATION: Severe obstructive defect. The vital capacity is reduced, probably due to obstructive defect noted. No significant response to bronchodilator. Gold category 4. The MVV is reduced out of proportion to the FEV1, raising the question of respiratory muscle weakness. Lung volumes are increased, consistent with obstructive defect. The specific conductance is severely reduced, consistent with obstruction. The diffusing capacity is moderately reduced, although not adjusted for hemoglobin. The finding of obstruction, elevated lung volumes, with low DLCO is consistent with emphysema. Recommend check rest and walking O2 saturations as hypoxia can occur with DLCO this low. Recommend check hemoglobin to allow better estimation of predicted DLCO. normal alpha 1 antitrypsin DS: Medications Discharge Medications Home Medications: Home Medications Medication Instructions Recorded Confirmed Incruse Ellipta 1 puff INHALATION DAILY 06/01/20 06/01/20 albuterol sulfate 2 puff INHALATION QID PRN 06/01/20 06/01/20 budesonide-formoterol 2 puff INHALATION DAILY 06/01/20 06/01/20 Previous Rx's Medication Instructions Recorded cefuroxime axetil 500 mg PO BID #10 tab 06/03/20 prednisone 40 mg PO DAILY #10 tab 06/03/20 DS: Summary Hospital Course Hospital Course: Patient was admitted for acute hypoxic respiratory failure secondary to COPD exacerbation complicated by opiate withdrawal. he was given steroids, antibiotics, bronchodilators, suboxone. his hypoxia and withdrawl symtpoms r esolved. he will be discharged home on 5 more days of prendiosne and ceftin. he will follow up with pulmoanry and may need referal for lung transplant. Time Spent with Patient Time attestation: Total time spent providing and/or coordinating discharge services: Physical Exam Vital Signs: Vital Signs: Last Vital Signs Temp 98.4 F 06/03/20 08:00 Pulse 64 06/03/20 08:30 Resp 18 06/03/20 08:00 BP 125/88 06/03/20 08:00 Pulse Ox 97 06/03/20 08:00 Body Mass Index 18.2 General: AO X 3, no acute distress Resp: diminished CVS: S1,S2,RRR GI: soft, non tender, non distended Neuro: motor grossly intact Psych: appropriate affect DS: Data Data Completed and Pending Labs on day of discharge: 06/01/20 15:01 0.9 % Sodium Chloride [Ns] 1,000 ml IV 999 mls/hr Albuterol Sulfate (0.083%) [Ventolin (0.083%)] 10 mg INHALE ONCE ONE Magnesium Sulfate/H2O 2 gm in 50 ml IV ONCE 06/01/20 15:02 ECG 12 lead EKG Stat EKG Documentation DIRECTED XR chest 1V Stat 06/01/20 15:08 SARS-CoV2/FLU/RSV Stat 06/01/20 15:32 Complete Blood Count Auto Diff Stat Comprehensive Met. Panel Stat Troponin-I High Sensitivity Stat 06/01/20 16:19 Azithromycin [Zithromax] 500 mg 0.9 % Sodium Chloride [Ns] 250 ml IV ONCE 06/01/20 16:41 Azithromycin [Zithromax] 500 mg IV .STK-MED ONE 06/01/20 17:15 Transfer Order Routine 06/01/20 18:06 Drug Screen Urine Stat UA ClnCatch+Micro w/rflx Cult Stat 06/01/20 Dinner Regular Diet 06/01/20 20:59 cefTRIAXone sodium [Rocephin] 1 gm .ROUTE .STK-MED ONE 06/01/20 21:23 RT Smoking Initial Cessation ONCE 06/02/20 06:33 Basic Metabolic Panel DAILY@0600 Complete Blood Count Auto Diff DAILY@0600 06/02/20 09:22 Buprenorphine/Naloxone 4/1 mg [Suboxone 4/1 mg] 1 film SUBLINGUAL ONCE ONE 06/02/20 10:02 Venous Blood Gas Stat 06/02/20 20:29 cefTRIAXone sodium [Rocephin] 1 gm .ROUTE .STK-MED ONE Laboratory Last Values WBC 15.1 X10*3/uL (4.8-10.8) H 06/02/20 06:33 RBC 4.86 X10*6/uL (4.60-5.80) 06/02/20 06:33 Hgb 14.8 g/dl (14.0-18.0) 06/02/20 06:33 Hct 44.3 % (42-52) 06/02/20 06:33 MCV 91.2 fL (80-98) 06/02/20 06:33 MCH 30.5 pg (27.0-33.0) 06/02/20 06:33 MCHC 33.4 g/dl (31.0-36.0) 06/02/20 06:33 RDW 12.1 % (11.0-16.0) 06/02/20 06:33 Plt Count 225 X10*3/uL (160-400) 06/02/20 06:33 MPV 10.4 fL (9.4-12.4) 06/02/20 06:33 Immature Gran % (Auto) 0.5 % (0.0-0.4) H 06/02/20 06:33 Neut % (Auto) 89.2 % (45-73) H 06/02/20 06:33 Lymph % (Auto) 5.4 % (20-40) L 12/26/20 06:33 [place] % (Auto) 4.8 % (2-11) 06/02/20 06:33 Eos % (Auto) 0.0 % (0-4) 06/02/20 06:33 Baso % (Auto) 0.1 % (0-2) 06/02/20 06:33 Lymph # (Auto) 0.8 X10*3/uL (1.2-4.9) L 06/02/20 06:33 [place] # (Auto) 0.7 X10*3/uL (0.1-1.2) 06/02/20 06:33 Eos # (Auto) 0.0 X10*3/uL (0.0-0.4) 06/02/20 06:33 Baso # (Auto) 0.0 X10*3/uL (0.0-0.2) 06/02/20 06:33 Abs Immat Gran (auto) 0.08 X10*3/uL (0.00-0.03) H 06/02/20 06:33 Absolute Neuts (auto) 13.4 X10*3/uL (2.0-8.3) H 06/02/20 06:33 Absolute Nucleated RBC 0.000 X10*3/uL (0.0-0.012) 06/02/20 06:33 Nucleated RBC % (auto) 0.0 /100WBC (0.0-0.2) 06/02/20 06:33 VBG pH 7.48 (7.32-7.43) H 06/02/20 10:02 VBG pCO2 32 mmhg 06/02/20 10:02 VBG pO2 38 mmhg 06/02/20 10:02 VBG HCO3 23 mmol/L 06/02/20 10:02 VBG O2 Saturation 78.9 % 06/02/20 10:02 VBG Base Excess 0.3 mmol/L 06/02/20 10:02 Sodium 141 mmol/L (135-145) 06/02/20 06:33 Potassium 4.5 mmol/l (3.3-5.1) 06/02/20 06:33 Chloride 109 mmol/L (96-108) H 06/02/20 06:33 Carbon Dioxide 24 mmol/L (22-29) 06/02/20 06:33 Anion Gap 13 (12-20) 06/02/20 06:33 BUN 14 mg/dL (9-16) 06/02/20 06:33 Creatinine 0.74 mg/dL (0.5-1.4) 06/02/20 06:33 Estim Creat Clear Calc 92.4 06/02/20 06:33 Estimated GFR > 60 06/02/20 06:33 Random Glucose 110 mg/dL (60-115) 06/02/20 06:33 Calcium 9.2 mg/dL (8.4-10.2) 06/02/20 06:33 Total Bilirubin 0.5 mg/dL (0.0-1.0) 06/01/20 15:32 AST 28 U/L (5-37) 06/01/20 15:32 ALT 15 U/L (0-40) 06/01/20 15:32 Alkaline Phosphatase 69 U/L (39-117) 06/01/20 15:32 Troponin I High Sens 3.7 ng/L (<3.5-35.0) 06/01/20 15:32 Total Protein 6.6 g/dL (6.5-8.0) 06/01/20 15:32 Albumin 4.5 g/dL (3.5-5.0) 06/01/20 15:32 Urine Color STRAW 06/01/20 18:06 Urine Appearance CLEAR 06/01/20 18:06 Urine pH 5.5 (5.0-8.0) 06/01/20 18:06 Ur Specific [place] 1.020 (1.005-1.025) 06/01/20 18:06 Urine Protein NEG MG/DL (NEG-TRACE) 06/01/20 18:06 Urine Glucose (UA) 250 MG/DL (NEG) H 06/01/20 18:06 Urine Ketones NEG MG/DL (NEG) 06/01/20 18:06 Urine Blood NEG (NEG) 06/01/20 18:06 Urine Nitrite NEG (NEG) 06/01/20 18:06 Ur Leukocyte Esterase NEG (NEG) 06/01/20 18:06 Urine RBC 0 /HPF (0) 06/01/20 18:06 Urine WBC 0 /HPF (0-4) 06/01/20 18:06 Ur Squamous Epith Cells TRACE /LPF 06/01/20 18:06 Urine Bacteria NONE /LPF 06/01/20 18:06 Urine Mucus TRACE /LPF 06/01/20 18:06 Urine Opiates Screen POSITIVE (Not Detect) H 06/01/20 18:06 Ur Barbiturates Screen Not Detected (Not Detect) 06/01/20 18:06 Ur Phencyclidine Scrn Not Detected (Not Detect) 06/01/20 18:06 Ur Amphetamines Screen Not Detected (Not Detect) 06/01/20 18:06 U Benzodiazepines Scrn Not Detected (Not Detect) 06/01/20 18:06 Urine Cocaine Screen POSITIVE (Not Detect) H 06/01/20 18:06 U Marijuana (THC) Screen POSITIVE (Not Detect) H 06/01/20 18:06 Coronavirus (PCR) NEGATIVE (Negative) 06/01/20 15:08 Influenza Type A (PCR) NEGATIVE (Negative) 06/01/20 15:08 Influenza Type B (PCR) NEGATIVE (Negative) 06/01/20 15:08 RSV RNA Qual (PCR) NEGATIVE (Negative) 06/01/20 15:08 Discharge Plan Discharge Patient Disposition: Home, Self-Care Referrals: Physician,Unknown [Primary Care Provider] - Discharge Medications: New prednisone 20 mg tablet 40 mg PO DAILY Qty: 10 RF: 0 cefuroxime axetil 500 mg tablet 500 mg PO BID Qty: 10 RF: 0 Continued albuterol sulfate 90 mcg/actuation HFA aerosol inhaler 2 puff inhalation QID PRN (Reason: wheezing) RF: 0 budesonide-formoterol 160-4.5 mcg/actuation HFA aerosol inhaler 2 puff inhalation DAILY RF: 0 Incruse Ellipta 62.5 mcg/actuation blister with device 1 puff inhalation DAILY RF: 0 Discharge Orders: Discharge Order (Routine); Ordered 06/03/20 Ordered By: Sreekanth Qureshi Activity on Discharge: As tolerated Visit Report Forms: Patient Portal Discharge page Care Plan Goals: manage chronic lung disease Health Concerns: opioid and nicotine dependence, copd Plan of Treatment: 5 days prednisone, ceftin.. stop all smoking and heroin, follow up with pulmonary for possible lung transplant referal
--- NOTE | 2020-06-03 11:44 | MHC.CM.PN ---
Pt to DC home today with no services.
== END 2020-06-03 12:19 | disposition home or self-care (01) | DRG 140 ==
LOC: HO.ED 15:24 → HO.IMC 18:19
PROVIDERS: Internal Medicine; Nurse Practitioner Primary Care; Admitting Provider Internal Medicine; Emergency Provider Emergency Medicine; Visit Provider Internal Medicine
DX: J43.9 Emphysema, unspecified (principal); J96.01 Acute respiratory failure with hypoxia; F17.210 Nicotine dependence, cigarettes, uncomplicated; Z71.6 Tobacco abuse counseling; Z20.828 Contact with and (suspected) exposure to other viral communicable diseases; Z79.899 Other long term (current) drug therapy
CPT/HCPCS: 0241U; 11104; 36415; 71045; 80048; 80053; 80307; 81001; 82803; 84484; 85025; 93005; 94640; 94644; 96365; 96366; 96367; 96375; 99285; J0456; J0573; J0696; J2405; J2930; J3475

== ENCOUNTER 2022-09-26 02:10 | Inpatient (IN) | payer OTHER, SELFPAY ==
[2022-09-26] VITALS (46 sets, daily range): BP systolic 78–182; BP diastolic 49–131; PULSE 65–136; RESP 8–42; TEMP 33–36; O2SAT 88–99; BMI 28.1; BMI 17.3; BMI 17.4
--- NOTE | ~2022-09-26 | XR_ITS ---
EXAMINATION: XR CHEST CLINICAL INFORMATION: Hypoxia COMPARISON: 10/04/2022 TECHNIQUE: Frontal view of the chest was obtained. FINDINGS: Endotracheal tube tip lies approximately 5.5 cm above the payal. Enteric tube courses below the diaphragm. Right IJ central line tip in the region of the distal SVC. Pigtail catheter overlies the left base. Lung volumes are symmetric. Persistent retrocardiac opacity, which may be slightly improved from prior. No appreciable pneumothorax. Trace left pleural effusion cannot be excluded. Right lung is well-aerated. The cardiomediastinal contour is unremarkable. No acute osseous findings are seen. XR/XR chest 1V IMPRESSION: Persistent retrocardiac opacity, similar to slightly improved from 10/04/2022. Trace left pleural effusion cannot be excluded.
--- NOTE | ~2022-09-26 | XR_ITS ---
EXAMINATION: XR CHEST CLINICAL INFORMATION: Fever and hypoxia COMPARISON: Previous chest x-rays most recent from 10/13/2022 TECHNIQUE: Frontal view of the chest was obtained. FINDINGS: There is a tracheostomy tube with tip 5 cm above the payal. The cardiac and mediastinal contours are stable. There is left lower lobe atelectasis similar to previous exams. The lungs are otherwise clear. No pleural effusion or pneumothorax. Degenerative changes of the spine. XR/XR chest 1V IMPRESSION: Satisfactory position of tracheostomy tube. Chronic left lower lobe atelectasis.
--- NOTE | ~2022-09-26 | XR_ITS ---
EXAMINATION: XR CHEST CLINICAL INFORMATION: Post intubation COMPARISON: 06/01/2020 TECHNIQUE: Frontal view of the chest was obtained. FINDINGS: Endotracheal tube tip lies approximately 4.5 cm above the payal. Enteric tube courses into the stomach with side-port in the region of the gastroesophageal junction. Lung volumes are symmetric. No focal consolidation is seen. No evidence of pneumothorax, significant pleural effusion, or overt pulmonary edema. The cardiomediastinal contour is unremarkable. No acute osseous findings are seen. XR/XR chest 1V IMPRESSION: Endotracheal tube tip 4.5 cm above the payal. Enteric tube side-port in the region of the gastroesophageal junction; consider advancement.
--- NOTE | ~2022-09-26 | XR_ITS ---
EXAMINATION: XR CHEST CLINICAL INFORMATION: Hypoxia COMPARISON: 09/25/2022 TECHNIQUE: Portable 7:37 AM view of the chest was obtained. FINDINGS: Support tubes stable. Central line stable Left-sided pigtail catheter in place. No significant measurable residual pneumothorax. Partial but improving left lower lobe atelectasis. Otherwise no new findings. XR/XR chest 1V IMPRESSION: No significant residual pneumothorax. Persistent but improving left lower lobe atelectasis.
--- NOTE | ~2022-09-26 | XR_ITS ---
EXAMINATION: XR CHEST CLINICAL INFORMATION: Pneumothorax COMPARISON: 10/09/2022 TECHNIQUE: Frontal view of the chest was obtained. FINDINGS: Redemonstrated tracheostomy tube. Right IJ central line tip lies in the region of the distal SVC. Redemonstrated left chest tube pigtail catheter. Gastrostomy tube overlies the left upper quadrant of the abdomen. Suboptimal assessment due to patient rotation. Persistent dense retrocardiac left basilar opacity which may reflect atelectasis in the left lower lobe. Right lung is well-aerated. No appreciable pneumothorax. The cardiomediastinal contour is unremarkable. No acute osseous findings are seen. XR/XR chest 1V IMPRESSION: No appreciable pneumothorax. Persistent dense retrocardiac left basilar opacity which may reflect atelectasis in the left lower lobe.
--- NOTE | ~2022-09-26 | MR_ITS ---
EXAMINATION: MR BRAIN WITHOUT CONTRAST CLINICAL INFORMATION: Persistent encephalopathy. COMPARISON: MRI dated 09/29/2022. TECHNIQUE: Multiplanar, multisequence imaging of the brain was performed without contrast. Limited study with motion artifacts. FINDINGS: Previous diffusion signal abnormality in the medial thalami has resolved. No new areas of restricted diffusion identified. No new brain parenchymal signal abnormality visible. The ventricles are normal in size. No mass effect or midline shift is seen. No extra-axial fluid collections are seen. The brainstem and cerebellum are normal. The gradient refocused acquisition demonstrates no pathologic magnetic susceptibility artifact to indicate underlying acute or chronic blood products. The craniovertebral junction, marrow signal, and midline structures are normal. The major intracranial flow voids at the level of the qawalangin of Bess are preserved. The dural venous sinus flow voids are maintained. There are worsened bilateral mastoid effusions with fluid in the nasal passages and pharyngeal airway; the patient is intubated. There is worsened mucosal disease and fluid in the sphenoid sinuses and left maxillary antrum. A focal 2 cm rounded area of diffusion signal abnormality in the left maxillary sinus may be due to proteinaceous material, otherwise nonspecific. MR/MR head/brain wo con IMPRESSION: Interval resolution of previous diffusion signal abnormality in the medial thalami. No new areas of restricted diffusion in the brain parenchyma. Increased fluid accumulation in the mastoid air cells and pharyngeal airway in the setting of intubation. Worsened fluid and mucosal disease in the sphenoid sinus cavities and in the left maxillary antrum. A 2 cm soft tissue focus in the left maxillary sinus dependently with diffusion signal abnormality may be due to development of a proteinaceous retention cyst; the possibility of sinonasal infectious etiology cannot be ruled out; clinically correlate. Imaging findings reported to Dr. Sullivan at 1:27 PM on 10/06/2022.
--- NOTE | ~2022-09-26 | MR_ITS ---
EXAMINATION: MR BRAIN WITHOUT CONTRAST CLINICAL INFORMATION: Persistent encephalopathy after cardiac arrest. COMPARISON: CT head from 09/26/2022. TECHNIQUE: MRI of the brain was obtained using routine sequences without contrast. FINDINGS: Symmetric restricted diffusion predominantly within the pulvinar and central regions of the thalami bilaterally. Associated T2 FLAIR hyperintensity in these regions. No additional restricted diffusion. No evidence of acute or chronic hemorrhagic products on heme-sensitive imaging. Few additional nonspecific scattered T2 FLAIR hyperintensities. The ventricles are normal in morphology and size. No abnormal mass effect. No midline shift. Normal appearance of the pituitary gland. The cerebellar tonsils are mildly low lying, positioned 0.4 cm below the foramen magnum. The CSF space of the foramen magnum is maintained. Normal arterial and venous vascular flow voids are present. The patient is intubated with orogastric tube in place. Normal, homogeneous marrow signal. Persistent metopic suture. Layering fluid within the pharynx, presumably related to intubation. Mild mucosal thickening of the paranasal sinuses. Moderate bilateral mastoid effusions. MR/MR head/brain wo con IMPRESSION: 1. Symmetric restricted diffusion predominantly within the pulvinar and central regions of the thalami bilaterally. This may represent evolving sequela of anoxic brain injury; however, toxic/metabolic etiologies could've a similar appearance in the appropriate clinical setting. 2. No demonstrated additional acute intracranial abnormalities. 3. Mild cerebellar tonsillar ectopia.
--- NOTE | ~2022-09-26 | XR_ITS ---
EXAMINATION: XR CHEST CLINICAL INFORMATION: Pneumothorax COMPARISON: 10/03/2022 TECHNIQUE: Frontal view of the chest was obtained. FINDINGS: Endotracheal tube terminates 5 cm above the payal. Enteric tube extends into the stomach. Right internal jugular central venous catheter terminates over the mid SVC. Cardiac leads overlie the chest. Left basilar chest tube remains in place. The lungs are well expanded. Reexpansion of the left lung. No significant pneumothorax seen at this time. Persistent retrocardiac opacity. The right lung is clear. No pleural effusion. The cardiomediastinal silhouette is within normal limits. XR/XR chest 1V IMPRESSION: 1. Endotracheal tube terminates 5 cm above the payal. 2. Reexpansion of the left lung with no significant pneumothorax seen at this time. Persistent retrocardiac opacity.
--- NOTE | ~2022-09-26 | XR_ITS ---
EXAMINATION: XR CHEST CLINICAL INFORMATION: Chest tube COMPARISON: 09/29/2022 TECHNIQUE: Frontal view of the chest was obtained. FINDINGS: The endotracheal tube terminates 5 cm above the payal. Enteric tube extends into the stomach. Right internal jugular central venous catheter terminates over the lower SVC. Pigtail catheter overlies the left lung base. There is a large left-sided pneumothorax which is increased from prior. Persistent retrocardiac opacity. No pleural effusion. The cardiomediastinal silhouette is normal in size. XR/XR chest 1V IMPRESSION: 1. Endotracheal tube terminating 5 cm above the payal. 2. Large left-sided pneumothorax is increased from prior. Left basilar pigtail catheter in place. 3. Persistent retrocardiac opacity. This critical result was discussed with Wisam Tabares NP by telephone at 10/03/2022 6:21 AM and it was ascertained that the content and urgency of the report was understood at the time of direct communication.
--- NOTE | ~2022-09-26 | MR_ITS ---
EXAMINATION: MR BRAIN WITHOUT CONTRAST CLINICAL INFORMATION: Status epilepticus COMPARISON: MRI head without contrast 10/06/2022 TECHNIQUE: Multiplanar multisequence MR imaging of the brain was obtained without intravenous contrast. FINDINGS: There is no acute infarct on diffusion-weighted imaging. There is no intracranial hemorrhage on iron-sensitive imaging. No extra-axial collection or mass effect/herniation. Normal parenchymal signal characteristics. No hydrocephalus. The ventricles are normal in morphology and size. The major flow voids at the skull base are preserved. The midline structures are normal. The cerebellar tonsils are normally positioned. The craniocervical junction is normal. Marrow signal is within normal limits. The visualized soft tissues are without significant abnormality. Bilateral mastoid effusions. Complete opacification of the sphenoid and left maxillary sinuses. Layering fluid in the posterior nasal cavity and nasopharynx MR/MR head/brain wo con IMPRESSION: No acute intracranial abnormality.
--- NOTE | ~2022-09-26 | XR_ITS ---
EXAMINATION: XR CHEST CLINICAL INFORMATION: Chest tube placement COMPARISON: 09/26/2022 TECHNIQUE: Frontal view of the chest was obtained. FINDINGS: Endotracheal tube terminates 5 cm above the payal. Enteric tube extends into the stomach. Left-sided chest tube in place. Cardiac leads overlie the chest. Right internal jugular central venous catheter terminates over the lower SVC. The lungs are well expanded. There is no focal consolidation, edema, or effusion. Small left apical pneumothorax is decreased from prior. The cardiomediastinal silhouette is within normal limits. No acute osseous abnormality. XR/XR chest 1V IMPRESSION: 1. Endotracheal tube terminating 5 cm above the payal. 2. Left-sided chest tube in place with decreased size of the small left apical pneumothorax.
--- NOTE | ~2022-09-26 | XR_ITS ---
EXAMINATION: XR CHEST CLINICAL INFORMATION: Status post chest tube clamping. COMPARISON: 10/08/2022 chest radiograph. TECHNIQUE: Frontal view of the chest was obtained. FINDINGS: Support devices: Endotracheal tube with tip terminating approximately 5.5 cm proximal to payal. Right internal jugular catheter with tip terminating in the superior vena cava. Left-sided pigtail chest tube with tip overlying the left lung base without significant change. A gastrostomy tube overlies the left upper quadrant of the abdomen. The lungs are clear. No pneumothorax. The heart and mediastinal structures are unremarkable. XR/XR chest 1V IMPRESSION: No significant change. No acute cardiopulmonary process. No pneumothorax.
--- NOTE | ~2022-09-26 | XR_ITS ---
EXAMINATION: XR CHEST CLINICAL INFORMATION: Reason for Exam hypoxia COMPARISON: Chest radiograph 09/27/2022 TECHNIQUE: One view of the chest FINDINGS: Endotracheal tube tip terminates approximately 3 cm above the payal. Right internal jugular central venous catheter tip terminates in the distal superior vena cava. Enteric tube courses below the level of the diaphragm tip not imaged. Left pigtail pleural catheter in place with slight increase in a small left apical pneumothorax. Right costophrenic angle is excluded from the [id number] limiting evaluation. No left pleural effusion. Similar left streaky basilar atelectasis. Unchanged cardiomediastinal silhouette, when accounting for differences in patient rotation. XR/XR chest 1V IMPRESSION: Left pigtail pleural catheter in place with slight increase in a small left apical pneumothorax.
--- NOTE | ~2022-09-26 | US_ITS ---
EXAMINATION: US VENOUS WITH DOPPLER UPPER EXTREMITY, RIGHT CLINICAL INFORMATION: edema cellulitis r/o dvt COMPARISON: None available. TECHNIQUE: Ultrasound of the upper extremity is performed using compression sonography and color and pulse Doppler flow with assessment of augmentation of flow. There is also imaging and Doppler assessment of the jugular and subclavian veins. Spectral analysis with color-flow imaging is performed. FINDINGS: Echogenic thrombus is evident within the right subclavian vein with minimal surrounding blood flow on color Doppler. This extends into the axillary vein where the thrombus appears occlusive. Additional thrombus is seen within the basilic and cephalic veins with occlusive segments in both hips. The right ulnar, radial, and brachial veins appear patent with normal compression and blood flow on Doppler Doppler. Monophasic waveforms on spectral Doppler are consistent with the more central, downstream thrombus. The right internal jugular vein was not assessed due to limited access as a result of catheter in place. Left internal jugular vein is patent. US/US venous duplex UE RT IMPRESSION: Right upper extremity thrombus in the subclavian, axillary, basilic, and cephalic veins with occlusive segments in the axillary, basilic, and cephalic.
--- NOTE | ~2022-09-26 | CT_ITS ---
EXAMINATION: CT HEAD WITHOUT CONTRAST CLINICAL INFORMATION: Cardiac arrest COMPARISON: None available. TECHNIQUE: Contiguous axial imaging was performed from the skull base to vertex without intravenous administration of contrast. This CT examination was performed using dose optimization techniques as appropriate, variously including the following: *Automated exposure control *Adjustment of mA and/or kV according to patient size (this includes techniques or standardized protocols for targeted exams where dose is matched to indication/reason for exam; i.e. extremities or head) *Use of iterative reconstruction technique DLP: 1426 mGy-cm FINDINGS: Suboptimal assessment in some regions due to motion artifact. There is no appreciable evidence of acute intracranial hemorrhage or territorial infarction. No abnormal mass-effect or midline shift is seen. Villanueva to white matter differentiation is well preserved. No extra-axial fluid collections are identified. The ventricles are normal in size. There is no abnormal attenuation within the brain parenchyma. The osseous structures and soft tissues are normal. Partially opacified bilateral ethmoid air cells. Small mucous retention cyst in the right maxillary sinus. The mastoid air cells are well-aerated. CT/CT head/brain wo IV con IMPRESSION: Suboptimal assessment in some regions due to motion artifact. No acute findings identified.
--- NOTE | ~2022-09-26 | XR_ITS ---
EXAMINATION: XR CHEST CLINICAL INFORMATION: Hypoxia COMPARISON: Chest x-rays of 09/28/2022, 09/27/2022 and 09/26/2022 TECHNIQUE: Chest 1 view; 2 images. Frontal view of the chest was obtained. FINDINGS: An endotracheal tube terminates 5 cm above the payal. An enteric tube courses below the diaphragm, the tip is external to the [id number]. The right internal jugular approach catheter tip projects over the expected location of the lower SVC. Left chest pigtail catheter is in place, considering technical differences it does not appear to be significantly changed in position. Cardiomediastinal silhouette is stable with normal cardiac size. The lungs are mildly hyperinflated. Very small left apical pneumothorax is suspected, likely not significantly changed compared to previous x-ray of 09/28/2022. Patchy airspace opacities are noted in the left mid and lower lung zone including in the left retrocardiac region which are new/increased compared to previous x-rays. No evidence of significant pleural effusion or changes of pulmonary edema. No displaced rib fractures are appreciated. XR/XR chest 1V IMPRESSION: 1. Endotracheal tube terminates 5 cm above the payal. Other tubes and lines as described above. 2. No significant interval change is noted in the small left apical pneumothorax compared to last chest x-ray. 3. New patchy airspace opacities in the left mid and lower lung zone including in the left retrocardiac region. These are nonspecific and could reflect inflammatory/infectious infiltrates and/or atelectasis. If there is history of trauma contusions can have similar appearance.
--- NOTE | ~2022-09-26 | US_ITS ---
EXAMINATION: US ABDOMEN LIMITED CLINICAL INFORMATION: Elevated LFTs with fever. COMPARISON: None available. TECHNIQUE: Real-time imaging of the right upper quadrant abdominal viscera. FINDINGS: PANCREAS: Normal. LIVER: The liver is enlarged and demonstrates borderline increased echogenicity suggesting hepatic steatosis. , The liver contour is normal. Parenchymal echogenicity is normal. No focal hepatic lesion. There is no intrahepatic biliary duct dilatation seen. The main portal vein is prominent at 1.4 cm. GALLBLADDER: The gallbladder is contracted with ringdown artifact at the fundus which could represent stones or sludge. Evaluation somewhat adequate because of contraction COMMON BILE DUCT: Normal in caliber measuring 0.2 cm in diameter. RIGHT KIDNEY: Normal. No hydronephrosis. No renal calculi or focal parenchymal lesions. The kidney measures 11.1 cm in maximum dimension. FREE FLUID: Trace amount of free fluid seen in Morison's pouch. US/US abdomen limited IMPRESSION: 1. Hepatomegaly with borderline increased echogenicity suggesting hepatic steatosis. 2. Contracted gallbladder with ringdown artifact at the fundus which could represent stones or sludge. Recommend a fasting exam if clinically important. 3. Trace amount of free fluid in Morison's pouch.
--- NOTE | ~2022-09-26 | XR_ITS ---
EXAMINATION: XR CHEST CLINICAL INFORMATION: Fever, white blood cell count COMPARISON: 10/10/2022 TECHNIQUE: Frontal view of the chest was obtained. FINDINGS: Redemonstrated tracheostomy tube. Persistent dense retrocardiac opacity. Right lung remains well-aerated. No evidence of pneumothorax. Trace left pleural effusion cannot be excluded. No overt pulmonary edema. The cardiomediastinal silhouette is stable. No acute osseous findings are seen. XR/XR chest 1V IMPRESSION: Persistent dense retrocardiac opacity, similar to prior, which may reflect atelectasis or possibly consolidation. Possible trace left pleural effusion.
--- NOTE | ~2022-09-26 | XR_ITS ---
EXAMINATION: XR CHEST CLINICAL INFORMATION: TLC placement COMPARISON: Chest 09/26/2022 at 2:25 AM. TECHNIQUE: Frontal view of the chest was obtained. FINDINGS: The new TLC catheter tip is in mid SVC. Endotracheal tube is approximately 2.7 cm above the payal. The enteric tube tip is below diaphragm with the end hole at the GE junction. There is a left pneumothorax extending from the left apex to the left base and approximately 20%. There is no mediastinal shift. There is no right-sided pneumothorax. No acute pneumonic process seen. There is no pleural effusion or limited exam XR/XR chest 1V IMPRESSION: New left-sided pneumothorax approximately 20%. No shift. New TLC catheter tip in mid SVC. Endotracheal tube is in satisfactory position. The end hole of the enteric tube is at the GE junction and needs to be advanced by 5 cm. No acute pneumonic process seen. Results were called to Timur the perennial house manager in ICU immediately after the read at 7:30 AM
--- NOTE | ~2022-09-26 | XR_ITS ---
EXAMINATION: XR CHEST CLINICAL INFORMATION: Assess for pneumothorax COMPARISON: 09/26/2022 TECHNIQUE: Frontal view of the chest was obtained. FINDINGS: Persistent trace left apical pneumothorax. Pigtail catheter remains in place unchanged. Support tubes and lines appear similar. Lungs notable for minor retrocardiac left lower lobe atelectasis. No CHF. XR/XR chest 1V IMPRESSION: Persistent trace left apical pneumothorax.
--- NOTE | 2022-09-26 02:12 | ECG_ITS ---
Test Reason : UNRESPONSIVE Blood Pressure : / mmHG Vent. Rate : 111 BPM Atrial Rate : 000 BPM P-R Int : 000 ms QRS Dur : 098 ms QT Int : 288 ms P-R-T Axes : 000 076 197 degrees QTc Int : 391 ms Atrial fibrillation with rapid ventricular response Marked ST abnormality, possible anterior subendocardial injury Abnormal ECG When compared to the previous EKG of 01 jun 2020, rhythm change Referred By: Mario Patterson Electronically Signed By:TJ MAGANA
--- NOTE | 2022-09-26 02:15 | ECG_ITS ---
Test Reason : OD Blood Pressure : / mmHG Vent. Rate : 074 BPM Atrial Rate : 074 BPM P-R Int : 164 ms QRS Dur : 088 ms QT Int : 432 ms P-R-T Axes : 077 078 046 degrees QTc Int : 479 ms Normal sinus rhythm Septal infarct , age undetermined Abnormal ECG When compared with ECG of 26-SEP-2022 02:12, Sinus rhythm has replaced Atrial fibrillation Vent. rate has decreased BY 37 BPM Septal infarct is now Present ST no longer depressed in Anterolateral leads Referred By: Mario Patterson Electronically Signed By:TJ MAGANA
--- NOTE | 2022-09-26 02:17 | ED_ITS ---
HPI - CPR General Chief Complaint: Cardiac Arrest/CPR Stated Complaint: Overdose? Time Seen by Provider: 09/26/22 02:15 Mode of arrival: other History of Present Illness HPI narrative: Patient brought by bystanders unresponsive history of drug overuse details not available patient came apneic cyanosed pale with asystole. CPR started immediately Ambu bagged, Narcanx2 was given in the triage Related Data Allergies Allergy/AdvReac Type Severity Reaction Status Date / Time No Known Allergies Allergy Verified 09/26/22 02:15 Review of Systems Review of Systems: Yes Unobtainable due to mental condition PMFSH Social History Social History Advance Directives: No Advance Directives Information Provided: No Physical Exam Vital Signs: Vital Signs: Last Vital Signs Temp 95.9 F L 09/26/22 06:00 Pulse 85 09/26/22 06:00 Resp 27 H 09/26/22 06:00 BP 96/55 L 09/26/22 06:00 Pulse Ox 91 L 09/26/22 06:00 O2 Del Method Mechanical Ventil ation 09/26/22 06:00 FiO2 100 09/26/22 06:00 BMI result Body Mass Index 17.3 Appearance: Pale vomitus in the mouth Eyes: Pupils dilated bilateral equal ENT: Vomitus in the mouth Neck: Normal inspection. Neck supple. CVS: Asystole CPR in progress Respiratory: No spontaneous respiration Abdomen: Soft not distend no signs of trauma Skin: Skin warm pale Extremities: No lower extremity edema. Neuro: Obtunded Medications Administered Generic Name Dose Route Start Last Admin Trade Name Freq PRN Reason Stop Dose Admin Chlorhexidine Gluconate 15 ml 09/26/22 06:00 09/26/22 06:49 Chlorhexidine Gluc Oral Rinse 15 Ml Mouthwash BUCCAL Not Given Q8H SULY Propofol 1,000 mg in 100 mls @ 0 mls/hr 09/26/22 02:30 09/26/22 05:41 Diprivan IVCONT 50 mcg/kg/min .Q0M SULY 24.49 mls/hr Administration Protocol Per Protocol Dexmedetomidine HCl 400 mcg in 100 mls @ 0 mls/hr 09/26/22 03:30 09/26/22 05:35 Precedex IVCONT 1 mcg/kg/hr .Q0M SULY 12.53 mls/hr Titration Protocol Per Protocol Sodium Chloride 1,000 mls @ 100 mls/hr 09/26/22 05:15 09/26/22 05:32 Sodium Chloride 0.45 % IVCONT 100 mls/hr .Q10H SULY Administration Discontinued Medications Generic Name Dose Route Start Last Admin Trade Name Freq PRN Reason Stop Dose Admin Albuterol Sulfate 10 mg 09/26/22 02:29 09/26/22 03:52 Albuterol Sulfate (0.083%) 2.5 Mg/3 Ml Vial.Neb INHALE 09/26/22 02:30 10 mg ONCE ONE Administration Fentanyl 50 mcg 09/26/22 05:06 09/26/22 05:00 Fentanyl Citrate/Pf 100 Mcg/2 Ml Vial IVPUSH 09/26/22 05:07 50 mcg ONCE ONE Administration Protocol Sodium Chloride 1,000 mls @ 999 mls/hr 09/26/22 02:15 09/26/22 03:38 Ns IV 09/26/22 03:15 Infused .Q1H1M ONE Infusion Magnesium Sulfate 2 gm in 50 mls @ 100 mls/hr 09/26/22 02:52 09/26/22 03:59 Magnesium Sulfate/H2o IV 09/26/22 03:21 Infused ONCE ONE Infusion Methylprednisolone Sodium Succinate 125 mg 09/26/22 02:51 09/26/22 03:09 Methylprednisolone Sod Succ 125 Mg/2 Ml Vial IVPUSH 09/26/22 02:52 125 mg ONCE ONE Administration Midazolam HCl 2 mg 09/26/22 04:10 09/26/22 04:17 Midazolam Hcl/Pf 2 Mg/2 Ml Vial IVPUSH 09/26/22 04:11 2 mg ONCE ONE Administration Propofol 20 mg 09/26/22 03:40 09/26/22 03:44 Propofol 200 Mg/20 Ml Vial IVPUSH 09/26/22 03:41 20 mg ONCE ONE Administration Medical Decision Making Medical Decision Making MDM Narrative: Patient with fentanyl overdose with history of asthma code in the field, ROSC after CPR and Narcan in the ER intubated admit to ICU for further evaluation Consult Healthcare Provider Management of the patient was discussed with: Sharepoint Application Developer Pastry Decorator Lab Data MDM Lab Attestation statement: I reviewed the patient's lab results. 09/26/22 02:19 04/21/23 02:19 Labs: Lab Results 09/26/22 09/26/22 09/26/22 Range/Units 02:19 02:19 02:19 WBC 12.9 H (4.8-10.8) X10*3/uL RBC 4.68 (4.60-5.80) X10*6/uL Hgb 14.3 (14.0-18.0) g/dl Hct 47.0 (42.0-52.0) % MCV 100.4 H (80.0-98.0) fL MCH 30.6 (27.0-33.0) pg MCHC 30.4 L (31.0-36.0) g/dl RDW 12.9 (11.0-16.0) % Plt Count 266 (160-400) X10*3/uL MPV 10.2 (9.4-12.4) fL Immature Gran % (Auto) 0.9 H (0.0-0.4) % Neut % (Auto) 28.9 L (45-73) % Lymph % (Auto) 48.4 H (20-40) % [place] % (Auto) 12.2 H (2-11) % Eos % (Auto) 8.4 H (0-4) % Baso % (Auto) 1.2 (0-2) % Lymph # (Auto) 6.2 H (1.2-4.9) X10*3/uL [place] # (Auto) 1.6 H (0.1-1.2) X10*3/uL Eos # (Auto) 1.1 H (0.0-0.4) X10*3/uL Baso # (Auto) 0.2 (0.0-0.2) X10*3/uL Abs Immat Gran (auto) 0.12 H (0.00-0.03) X10*3/uL Absolute Neuts (auto) 3.7 (2.0-8.3) x10*3/uL Absolute Nucleated RBC 0.020 H (0.0-0.012) X10*3/uL Nucleated RBC % (auto) 0.2 (0.0-0.2) /100WBC Smear Tech's Comments VERIFIED PT 15.5 H (10.0-13.1) SEC INR 1.3 H (0.9-1.1) Sodium 152 H (135-145) mmol/L Potassium 4.5 (3.3-5.1) mmol/L Chloride 108 (96-108) mmol/L Carbon Dioxide 19 L (22-29) mmol/L Anion Gap 30 H (12-20) BUN 13 (9-16) mg/dL Creatinine 1.21 (0.5-1.4) mg/dL Estim Creat Clear Calc 57.5 Estimated GFR > 60 Random Glucose 158 H (60-115) mg/dL Calcium 9.8 (8.4-10.2) mg/dL Total Bilirubin 0.3 (0.0-1.0) mg/dL AST 119 H (5-37) U/L ALT 65 H (0-40) U/L Alkaline Phosphatase 79 (39-117) U/L Troponin I High Sens (<3.5-35.0) ng/L Total Protein 5.7 L (6.5-8.0) g/dL Albumin 4.0 (3.5-5.0) g/dL COVID-19 (NIKKI) (Negative) COVID-19 Clin Com 09/26/22 09/26/22 Range/Units 02:20 02:20 WBC (4.8-10.8) X10*3/uL RBC (4.60-5.80) X10*6/uL Hgb (14.0-18.0) g/dl Hct (42.0-52.0) % MCV (80.0-98.0) fL MCH (27.0-33.0) pg MCHC (31.0-36.0) g/dl RDW (11.0-16.0) % Plt Count (160-400) X10*3/uL MPV (9.4-12.4) fL Immature Gran % (Auto) (0.0-0.4) % Neut % (Auto) (45-73) % Lymph % (Auto) (20-40) % [place] % (Auto) (2-11) % Eos % (Auto) (0-4) % Baso % (Auto) (0-2) % Lymph # (Auto) (1.2-4.9) X10*3/uL [place] # (Auto) (0.1-1.2) X10*3/uL Eos # (Auto) (0.0-0.4) X10*3/uL Baso # (Auto) (0.0-0.2) X10*3/uL Abs Immat Gran (auto) (0.00-0.03) X10*3/uL Absolute Neuts (auto) (2.0-8.3) x10*3/uL Absolute Nucleated RBC (0.0-0.012) X10*3/uL Nucleated RBC % (auto) (0.0-0.2) /100WBC Smear Tech's Comments PT (10.0-13.1) SEC INR (0.9-1.1) Sodium (135-145) mmol/L Potassium (3.3-5.1) mmol/L Chloride (96-108) mmol/L Carbon Dioxide (22-29) mmol/L Anion Gap (12-20) BUN (9-16) mg/dL Creatinine (0.5-1.4) mg/dL Estim Creat Clear Calc Estimated GFR Random Glucose (60-115) mg/dL Calcium (8.4-10.2) mg/dL Total Bilirubin (0.0-1.0) mg/dL AST (5-37) U/L ALT (0-40) U/L Alkaline Phosphatase (39-117) U/L Troponin I High Sens < 2.7 (<3.5-35.0) ng/L Total Protein (6.5-8.0) g/dL Albumin (3.5-5.0) g/dL COVID-19 (NIKKI) Negative (Negative) COVID-19 Clin Com See Note Procedures Intubation Time out performed: Yes Laryngoscope: Emmy ET Tube Size: 8 ET Tube Uncuffed: No Tube Secured Depth (cm): 24 Tube Secured Location: lips Tube Placement Confirmation: visualized tube passing through cords and equal breath sounds bilaterally Patient Tolerated Procedure: well Discharge Plan Discharge Clinical Impression: Overdose Patient Disposition: Admitted As Inpatient Interventions: Admission Worksheet (ED) Last Done: 09/26/22 04:53 Discharge Date/Time: 09/26/22 04:55
[2022-09-26] MEDS: 0.9 % Sodium Chloride 1,000 ML 999 ML IV (02:23)
[2022-09-26 02:26] LABS: Basophils Percent Auto 1.2 % (0-2); Imm Gran Abs Auto 0.12 X10*3/uL (0.00-0.03); Imm Gran Pct Auto 0.9 % (0.0-0.4); Red Cell Distribution Width 12.9 % (11.0-16.0); SCAN SMEAR FLAG 1
[2022-09-26 02:34] LABS: INTERNATIONAL NORM RATIO 1.3 (0.9-1.1); Prothrombin Time 15.5 SEC (10.0-13.1)
[2022-09-26] MEDS: propofoL 1,000 MG/100 ML VIAL 14.7 MG IVCONT (02:34)
[2022-09-26 02:38] LABS: Basophils Absolute Auto 0.2 X10*3/uL (0.0-0.2); Eosinophils Absolute Auto 1.1 X10*3/uL (0.0-0.4); Eosinophils Percent Auto 8.4 % (0-4); Hemoglobin 14.3 g/dl (14.0-18.0); Lymphocytes Percent Auto 48.4 % (20-40); MANUAL DIFF FLAG SCAN; Mean Corpuscular HGB Conc 30.4 g/dl (31.0-36.0); Mean Corpuscular Hemoglobin 30.6 pg (27.0-33.0); Mean Corpuscular Volume 100.4 fL (80.0-98.0); Mean Platelet Volume 10.2 fL (9.4-12.4); Monocytes Absolute Auto 1.6 X10*3/uL (0.1-1.2); Monocytes Percent Auto 12.2 % (2-11); NRBC Pct Auto 0.2 /100WBC (0.0-0.2); Neutrophils Absolute Auto 3.7 x10*3/uL (2.0-8.3); Neutrophils Percent Auto 28.9 % (45-73); Platelet Count 266 X10*3/uL (160-400); Red Blood Count 4.68 X10*6/uL (4.60-5.80); White Blood Count 12.9 X10*3/uL (4.8-10.8)
[2022-09-26 02:41] LABS: COVID-19 Test Negative (Negative); IDNOW Serial# BCCEAD1C
--- NOTE | 2022-09-26 02:43 | PC.NURSE ---
Addendum entered by Eri Perry RN 09/26/22 02:55: OG tube placed. orange/brown fluid coming out. Original Note: Pt was found in the backseat of a car, dropped off by 2 men who reported that the pt does have hx of drug use. Pt was unresponsive, no pulse, no breathing, with brown/blue skin color throughout. CPR was initiated and pt was brought to room 5. , respiratory, RN, techs at bedside. Bilateral IV's inserted, 2 mg narcan, 1 mg epi, and 1,000mL saline given through IV's per verbal order from Dr Todd. Pt was intubated and manual respirations continued. Pt did achieve ROSC and CPR was stopped. Propofol started. Initial RASS Score -5 POC was obtained, blood was sent to lab. A 16fr temp sensing swann catheter was inserted successfully. No initial output as pt had an episode of incontinence prior to insertion. Temp reading 94.5. Pt will likely be brought to ICU. Will continue to monitor with RT at bedside.
[2022-09-26 02:46] LABS: Alanine Aminotransferase 65 U/L (0-40); Alkaline Phosphatase 79 U/L (39-117); Anion Gap 30 (12-20); Aspartate Amino Transferase 119 U/L (5-37); Bilirubin Total 0.3 mg/dL (0.0-1.0); Blood Urea Nitrogen 13 mg/dL (9-16); Calcium 9.8 mg/dL (8.4-10.2); Carbon Dioxide 19 mmol/L (22-29); Chloride 108 mmol/L (96-108); Creatinine Clr Calc Pharmacy 57.5; Estimated Glomerular Filt Rate > 60; Glucose Random 158 mg/dL (60-115); Lymphocytes Absolute Auto 6.2 X10*3/uL (1.2-4.9); Potassium 4.5 mmol/L (3.3-5.1); SLIDE REVIEW VERIFIED; Sodium 152 mmol/L (135-145); Total Protein 5.7 g/dL (6.5-8.0)
[2022-09-26 02:55] LABS: Troponin-I High Sensitivity < 2.7 ng/L (<3.5-35.0)
--- NOTE | 2022-09-26 03:07 | PC.NURSE ---
Pt starting to move his extremities, propofol increased to 40 mcg/kg/hr. OG tube producing dark brown fluid. CO2 58. RT at bedside Temp 94.3. We will initiate the bare hugger.
[2022-09-26] MEDS: Magnesium Sulfate/H2O 2 GM/50 ML PIGGYBACK IV (03:09)
[2022-09-26] MEDS: methylPREDNISolone Sod Succ 125 MG/2 ML VIAL IVPUSH (03:09)
[2022-09-26] MEDS: dexmedeTOMIDidine HCL/NS 400 MCG/100 ML INFUS..BTL 12.53 MCG IVCONT ×4 (03:35→23:34)
[2022-09-26] MEDS: propofoL 200 MG/20 ML VIAL 20 MG IVPUSH (03:44)
--- NOTE | 2022-09-26 03:46 | PC.NURSE ---
Addendum entered by Eri Perry RN 09/26/22 03:48: Due to infiltration, precedex did not start until 03:47 Original Note: IV in right forearm infiltrated. Inserted new 18g into right hand. Pt still having nonpurposeful movements and tremors, asynchronous to vent.
[2022-09-26 03:47] LABS: Appearance Urine Cloudy; Color Urine Yellow; Glucose Urine UA 250 mg/dL (Negative); Leukocyte Esterase Urine Negative (Negative); Nitrite Urine Negative (Negative); Specific Gravity - Urine >= 1.030 (1.005-1.025); UMIC TRIGGER UACC YES; Urine Blood Large (3+) (Negative); Urine Ketones Negative (Negative); Urine Protein 100 (2+) mg/dL (Neg-Trace)
--- NOTE | 2022-09-26 03:49 | PC.NURSE ---
18g IV inserted into the right upper arm. Pt responding to pain. Precedex and proprofol are running.
[2022-09-26] MEDS: Albuterol Sulfate (0.083%) 2.5 MG/3 ML VIAL.NEB 10 MG INHALE (03:52)
--- NOTE | 2022-09-26 03:53 | PC.NURSE ---
Propofol running at 50 mcg/kg/hr into left AC Precedex running at 1 mcg/kg/hr into to right upper arm Pt still having unpurposeful movements and twitches.
[2022-09-26 03:56] LABS: Amphetamine Screen Urine Not Detected (Not Detect); Barbiturates, Urine Not Detected (Not Detect); Benzodiazepines Screen Urine Not Detected (Not Detect); Cannabinoid Screen Urine Not Detected (Not Detect); Cocaine Screen Urine POSITIVE (Not Detect); Fentanyl, urine POSITIVE (Not Detect); Opiate Screen Urine Not Detected (Not Detect); Phencyclidine Screen Urine Not Detected (Not Detect)
[2022-09-26 03:59] LABS: Bacteria Urine 3+ (None Seen); Granular Casts Urine Present; Hyaline Casts Urine >20 /LPF (0-2); Other Crystals Urine Present; RBC Urine >20 /HPF (0-2); UACC Culture Trigger YES; WBC Urine 21-50 /HPF (0-5)
--- NOTE | 2022-09-26 04:06 | PM.CCHP ---
History of Present Illness Date of Service: 09/26/22 Attending physician on admission: Daniel Sullivan Chief Complaint: Cardiac Arrest Mr. Pan is a 41-year-old male?with a reported history of drug abuse who was found unresponsive and brought into the emergency room by bystanders. The patient was cyanotic, apneic, in asystole. CPR with ambu bag was started immediately and he was given 4mg intranasal narcan. Rosc was acheived after 7 minutes of CPR with 1 mg of epi and an additional 2 mg of Narcan IV. Advanced airway obtained upon achieving ROSC. Laboratory data significant for WBC of 12.9,? sodium 152, potassium 4.5, chloride 108, CO2 19, AST 119, ALT 65. ? Urine drug screen was positive for fentanyl and cocaine. ? Imaging:??? Chest x-ray showed no focal lung consolidation.? No evidence of pneumothorax, pleural effusion, pulmonary edema. ED course:? the patient received 1 L normal saline, Solu-Medrol 125 mg, Mag sulfate 2 g in addition to ACLS meds. The patient is admitted to ICU for post cardiac arrest care. Review of Systems Review of Systems: Yes Unobtainable due to mental condition PMFSH Past Medical History Medical History Anxiety COPD (chronic obstructive pulmonary disease) Opioid dependence Family History Family History Other Lung cancer Social History Social History (System 09/26/22 @ 07:06 by Steph Moeller) Household Members: Friend(s) Housing: Apartment Do you presently have visiting nurse or other home services: No Alcohol intake: unknown Second Hand Smoke Exposure: No Substance Use Type: Crack/Cocaine, Marijuana and Opiates Advance Directives: No Advance Directives Information Provided: No service: No Meds Allergies Allergy/AdvReac Type Severity Reaction Status Date / Time No Known Allergies Allergy Unverified 09/26/22 07:06 Active Medications: Current Medications Chlorhexidine Gluconate (Chlorhexidine Gluc Oral Rinse 15 Ml Mouthwash) 15 ml BUCCAL Q8H SULY Heparin Sodium (Porcine) (Heparin Sodium,Porcine 5,000 Unit/Ml Vial) 5,000 unit SUBCUT Q12H SULY Propofol (Diprivan) 1,000 mg in 100 mls @ 0 mls/hr IVCONT .Q0M SULY; Protocol Last Titration: 09/26/22 03:13 Dose: 50 mcg/kg/min, 24.49 mls/hr Dexmedetomidine HCl (Precedex) 400 mcg in 100 mls @ 0 mls/hr IVCONT .Q0M SULY; Protocol Last Titration: 09/26/22 03:57 Dose: 1.2 mcg/kg/hr, 15.03 mls/hr Home Medications Medication Instructions Recorded Confirmed Last Taken Type albuterol sulfate 90 mcg/actuation 2 puff inhalation QID PRN wheezing 06/01/20 06/01/20 Unknown History aerosol inhaler budesonide-formoterol HFA 160 2 puff inhalation DAILY 06/01/20 06/01/20 Unknown History mcg-4.5 mcg/actuation aerosol inhaler umeclidinium 62.5 mcg/actuation 1 puff inhalation DAILY 06/01/20 06/01/20 Unknown History blister powder for inhalation (Incruse Ellipta) Physical Exam Vital Signs: Vital Signs: Last Vital Signs Temp 94.1 F L 09/26/22 03:54 Pulse 73 09/26/22 03:57 Resp 18 09/26/22 03:57 BP 155/89 H 09/26/22 03:57 Pulse Ox 98 09/26/22 03:57 O2 Del Method Mechanical Ventil ation 09/26/22 03:54 BMI result Body Mass Index 17.3 Const: Nutritional Appearance: thin Orientation/consciousness: Other orientation findings (Unresponsive) HEENT: Head: Yes normocephalic and Yes atraumatic General nose exam: Normal external nose present (Nares patent, septum midline, sinuses nontender bilaterally.) Mouth: Normal oral and palatal mucosa present (No thrush, tongue in midline, mucosa moist.) Throat: Yes other (No erythema, no exudate.) Eyes: Pupils: Fixed pupils bilaterally, Pupils not reactive bilaterally and Pupil size comments (2mm) bilaterally Neck: Neck: Yes supple (no thyromegaly, trachea midline.) Carotids: normal carotid upstroke Resp: Auscultation: clear to auscultation bilaterally Cardio: Jugular venous distension: no JVD Rate: regular rate Rhythm: regular rhythm Heart sounds: no gallops, no murmurs and no rubs Peripheral pulses: Peripheral pulses 2+ throughout GI: Palpation (GI): Soft to palpation (nondistended.) and nontender Skin: General skin exam: no rashes or lesions noted Neuro: Cranial nerves: No Normal gag reflex present (no cough) Comatose Patient: No response to noxious stimuli present Extrem: General: Yes capillary refill normal and Yes no clubbing, cyanosis or edema Results Labs 09/26/22 02:19 09/26/22 02:19 Labs: Laboratory Results - last 24 hr 09/26/22 09/26/22 09/26/22 02:19 02:19 02:19 MCV 100.4 H MCH 30.6 MCHC 30.4 L RDW 12.9 Plt Count 266 MPV 10.2 Immature Gran % (Auto) 0.9 H Neut % (Auto) 28.9 L Lymph % (Auto) 48.4 H [place] % (Auto) 12.2 H Eos % (Auto) 8.4 H Baso % (Auto) 1.2 Lymph # (Auto) 6.2 H [place] # (Auto) 1.6 H Eos # (Auto) 1.1 H Baso # (Auto) 0.2 Abs Immat Gran (auto) 0.12 H Absolute Neuts (auto) 3.7 Absolute Nucleated RBC 0.020 H Nucleated RBC % (auto) 0.2 Smear Tech's Comments VERIFIED PT 15.5 H INR 1.3 H Anion Gap 30 H Estim Creat Clear Calc 57.5 Estimated GFR > 60 Random Glucose 158 H Calcium 9.8 Total Bilirubin 0.3 AST 119 H ALT 65 H Alkaline Phosphatase 79 Troponin I High Sens Total Protein 5.7 L Albumin 4.0 Urine Color Urine Appearance Urine pH Ur Specific [place] Urine Protein Urine Glucose (UA) Urine Ketones Urine Blood Urine Nitrite Ur Leukocyte Esterase Urine RBC Urine WBC Ur Squamous Epith Cells Other Crystals Urine Bacteria Hyaline Casts Granular Casts Urine Opiates Screen Urine Fentanyl Screen Ur Barbiturates Screen Ur Phencyclidine Scrn Ur Amphetamines Screen U Benzodiazepines Scrn Urine Cocaine Screen U Marijuana (THC) Screen COVID-19 (NIKKI) COVID-19 Clin Com 09/26/22 09/26/22 09/26/22 02:20 02:20 03:40 MCV MCH MCHC RDW Plt Count MPV Immature Gran % (Auto) Neut % (Auto) Lymph % (Auto) [place] % (Auto) Eos % (Auto) Baso % (Auto) Lymph # (Auto) [place] # (Auto) Eos # (Auto) Baso # (Auto) Abs Immat Gran (auto) Absolute Neuts (auto) Absolute Nucleated RBC Nucleated RBC % (auto) Smear Tech's Comments PT INR Anion Gap Estim Creat Clear Calc Estimated GFR Random Glucose Calcium Total Bilirubin AST ALT Alkaline Phosphatase Troponin I High Sens < 2.7 Total Protein Albumin Urine Color Yellow Urine Appearance Cloudy Urine pH 6.0 Ur Specific [place] >= 1.030 H Urine Protein 100 (2+) H Urine Glucose (UA) 250 H Urine Ketones Negative Urine Blood Large (3+) H Urine Nitrite Negative Ur Leukocyte Esterase Negative Urine RBC >20 H Urine WBC 21-50 H Ur Squamous Epith Cells 3-5 Other Crystals Present Urine Bacteria 3+ Hyaline Casts >20 Granular Casts Present Urine Opiates Screen Urine Fentanyl Screen Ur Barbiturates Screen Ur Phencyclidine Scrn Ur Amphetamines Screen U Benzodiazepines Scrn Urine Cocaine Screen U Marijuana (THC) Screen COVID-19 (NIKKI) Negative COVID-19 Clin Com See Note 09/26/22 03:40 MCV MCH MCHC RDW Plt Count MPV Immature Gran % (Auto) Neut % (Auto) Lymph % (Auto) [place] % (Auto) Eos % (Auto) Baso % (Auto) Lymph # (Auto) [place] # (Auto) Eos # (Auto) Baso # (Auto) Abs Immat Gran (auto) Absolute Neuts (auto) Absolute Nucleated RBC Nucleated RBC % (auto) Smear Tech's Comments PT INR Anion Gap Estim Creat Clear Calc Estimated GFR Random Glucose Calcium Total Bilirubin AST ALT Alkaline Phosphatase Troponin I High Sens Total Protein Albumin Urine Color Urine Appearance Urine pH Ur Specific [place] Urine Protein Urine Glucose (UA) Urine Ketones Urine Blood Urine Nitrite Ur Leukocyte Esterase Urine RBC Urine WBC Ur Squamous Epith Cells Other Crystals Urine Bacteria Hyaline Casts Granular Casts Urine Opiates Screen Not Detected Urine Fentanyl Screen POSITIVE H Ur Barbiturates Screen Not Detected Ur Phencyclidine Scrn Not Detected Ur Amphetamines Screen Not Detected U Benzodiazepines Scrn Not Detected Urine Cocaine Screen POSITIVE H U Marijuana (THC) Screen Not Detected COVID-19 (NIKKI) COVID-19 Clin Com Imaging Radiologist's Impressions: Impressions Chest X-Ray 09/26/22 02:25 IMPRESSION: Endotracheal tube tip 4.5 cm above the payal. Enteric tube side-port in the region of the gastroesophageal junction; consider advancement. Assessment and Plan (1) Overdose: (2) Cardiac arrest: Plan Patient is a 41-year-old male with a history of drug abuse admitted to the ICU for care after cardiac arrest. Neuro:? Pt is unresponsive, fixed pupils, no cough/gag. Head/brain CT pending.? Cardiac:? s/p cardiac arrest. Sinus rhythm, HR in the 80s.?Keep MAP >65. No need for pressure support at this time, but will consider if patient becomes hypotensive. Pulmonary:? No acute issues Renal: Sodium 152. Urine specific gravity > 1.030. IVF ordered. Monitor electrolytes, urine output. Endo:? No acute issues.?? GI:? No acute issues. ID:? No acute issues Heme/Onc:? No acute issues. Psych: Substance abuse/overdose. Prophylaxis:? Heparin, Famotidine Diet:? NPO? Time Spent With Patient Time: Total time managing care of this patient today ____ minutes.
--- NOTE | 2022-09-26 04:10 | PC.NURSE ---
Spoke with Jacob MOORE to give report. Pt is not relaxed enough to get a CT so BLANKET FOLDER ordered 4 of versed.
[2022-09-26] MEDS: Midazolam HCl/PF 2 MG/2 ML VIAL IVPUSH ×2 (04:17→22:41)
--- NOTE | 2022-09-26 04:46 | PC.NURSE ---
Dosing weight for propofol is incorrect. Dose rate was confirmed by RN and charge. Calling pharmacy to get dosing changed and corrected.
[2022-09-26] MEDS: fentaNYL citrate/PF 100 MCG/2 ML VIAL 50 MCG IVPUSH (05:00)
[2022-09-26 05:09] LABS: ABG Base Excess -2.4 mmol/L; ABG HCO3 32 mmol/L (22-26); ABG pCO2 118 mmHg (32-45); ABG pH 7.03 (7.35-7.45); ABG pO2 583 mmHg (83-108)
[2022-09-26 05:23] LABS: ABG Refer to POC result
[2022-09-26] MEDS: Sodium Chloride 0.45 % 1,000 ML 100 ML IVCONT (05:32)
[2022-09-26] MEDS: propofoL 1,000 MG/100 ML VIAL 24.49 MG IVCONT ×5 (05:41→23:22)
[2022-09-26 06:15] LABS: ABG Base Excess 1.3 mmol/L; ABG HCO3 32 mmol/L (22-26); ABG pCO2 82 mmHg (32-45); ABG pH 7.19 (7.35-7.45); ABG pO2 78 mmHg (83-108)
[2022-09-26] MEDS: Norepinephrine Bitartrate/D5W 8 MG/250 ML PLAST..BAG 4.72 MG IV (06:30)
--- NOTE | 2022-09-26 06:36 | PC.NURSE ---
ADMIT TO 252-1 APPROX 04:10...INTUBATED/VCV-AC VENT SUPPORT INITIALY...PROPOFOL 50 MCG/KG/MIN AND PRECIDEX DRIP 1.4 MCG...UNRESPONSIVE..PUPILS FIXED AT 3MM...NO GAG/COUGH REFLEXES..EXTREMETIES FLACCID...RR 40-44 ON AC VENT SETTINGS...ALRMING HIGH PEAK PRESURES...ABG= pH 7.03 PCO2 118.....FENTANYL 50 MCG IVP X1 PREVIOUSLY GIVEN W/O EFFECT...RT PRESENT..VENT CHANGED TO CPAP 5/PSV 30 AND FIO2 1005....rr 30-34...REPEAT ABG= pH 7.19 PCO2 82... 1/2 NS STARTED 100 CC/HR...SBP 80'S ..PERIPHERAL LEVOPHED STARTED AND TITRATE TO 0.1 MC//MIN...NR NO ECTOPY
--- NOTE | 2022-09-26 07:00 | CA_ITS ---
Transthoracic Echocardiogram Patient (Last, First, Middle): Fletcher Berry, Gender: Male Date of : 1980 Age: 41 Procedure Date: 09/26/2022 Procedure Type: Transthoracic Echocardiogram Location: ICU Height: 170.18 cm Weight: 49.9 kg BSA: 1.57 m2 Heart Rate: 74 bpm BP: 101 / 64 mmHg Fixture Builder: SB Referring MD: Daniel Sullivan MD Symptoms: s/p cardiac arrest Study Quality: Technically Difficult ECG Rhythm: Sinus Conclusions: - Estimated LVEF about 40%. Basal segments are hypokinetic but apical portion contractile. - No obvious valvular pathology seen on this study. Findings Procedure Information The quality of the study was technically difficult. The study quality is limited by patients body habitus and the presence of a ventilator. Left Ventricle Normal left ventricular cavity size. There is normal left ventricular wall thickness. The left ventricular systolic function is mild to moderately decreased. Estimated LVEF about 40%. Basal segments are hypokinetic but apical portion contractile. Right Ventricle Normal right ventricular cavity size and systolic function. Atria Both atria are normal in size. Aortic Valve There is a normal trileaflet aortic valve. There is no aortic valve stenosis. There is no aortic valve regurgitation. Mitral Valve The mitral valve appears normal. There is no mitral valve regurgitation. There is no mitral valve stenosis. Pulmonic Valve The pulmonic valve is likely normal. Tricuspid Valve Normal tricuspid valve structure. There is trace tricuspid valve regurgitation. The right ventricular systolic pressure is not calculated. Great Vessels The aorta was not well visualized. Venous The inferior vena cava is mildly dilated. On ventilator. Pericardium/Pleural There is no evidence of pericardial effusion. Prior Study Comparison No prior study available for comparison. Recommendations, Care & Conclusions No obvious valvular pathology seen on this study. Measurements 2D Linear Measurements IVSd: 0.38 0.6-0.9/0.6-1.0 cm LVIDd: 4.63 3.9-5.3/4.2-5.9 cm LVIDd Index: 2.95 2.4-3.2/2.2-3.1 cm/m2 LVIDs: 3.55 2.0-3.6 cm LVPWd: 0.59 0.7-1.1 cm LV Mass: 79.91 67-162/88-224 g LV Mass Index: 50.90 43-95/49-115 g/m2 LVOT Diam: 1.60 3.0+(-)1.3 cm 2D Systolic Function EF 4C: 40.20 >55% Mitral Valve MV Pk E: 0.60 MV PK A: 0.68 MV Decel Time: 135.00 E/A: 0.90 E'Lateral: 8.58 E'Medial: 5.95 E/E' Med: 10.10 E/E' Lat: 7.00 PHT: 39.00 MVA PHT: 5.64 Decel [place]: 4.46 Aortic Valve AoV Pk Deep: 1.01 AoV Pk Grad: 4.00 VASYL: 1.73 LVOT LVOT Pk Deep: 0.84 LVOT Mn Deep: 0.59 LVOT VTI: 0.16 LVOT Pk Grad: 3.00 LVOT Mn Grad: 2.00 LVOT Diam: 1.60 LVOT Area: 2.01 Diastolic Function MV Pk E: 0.60 MV Pk A: 0.68 E/A: 0.90 E'Medial: 5.95 E/E' Med: 10.10 E' Laterial: 8.58 E/E' Lat: 7.00 Right Ventricle TAPSE (mm): 19.90 TVS' Deep: 10.70 Tricuspid Valve TR Pk Deep: 1.93 TR Pk Grad: 15.00 RA Press: 8.00 RVSP: 23.00 Great Vessels Aorta Sinus of Valsalva: 2.20 2.0-3.5 cm Pulmonary Valve PV Pk Deep: 0.68 Peak PV Grad: 2.00 Updated in Other Vendor System with Status of Final Neymar Gonzalez MD electronically signed on 09/26/2022 2:48:28 PM with status of Final
--- NOTE | 2022-09-26 07:17 | P.PCNCC_ITS ---
Procedures Date of Service Date of Service: 09/26/22 Central Line Placement Right IJ: Central Line Comments: The right neck was widely prepped and draped in full sterile fashion.? Under US? guidance, the right IJ vein was cannulated on the 1st pass of the 18 g thin wall needle, with return of dark, nonpulsatile blood. ? The wire was threaded without incident.? The 16 cm x 7 Amharic triple-lumen CVC was advanced into the vein up to the hub via the Seldinger technique without incident.? There was good blood return x3.? The catheter was sutured x2 and a Biopatch and dry sterile dressing were applied. Postop chest x-ray showed the line in good position with no pneumothorax.? The patient tolerated the procedure well with no complications. Consent for Procedure: Emergent-no informed consent obtained Time out performed: Yes Sterile Technique Used: Yes Patient placed on monitor/pulse ox: Yes prep: mask, gown and gloves Central line prep: Chlorhexidine scrub and sterile drapes applied Ultrasound used for placement: Yes Central line lumen inserted: triple Post procedure: sutured in place, good blood return, all ports aspirated, flushed, capped and sterile dressing applied Post procedure x-ray: tip of catheter in good position and no pneumothorax seen Patient tolerated procedure: well and no complications Complications: none
[2022-09-26 07:21] LABS: ABG Refer to POC result
[2022-09-26 07:35] LABS: Glucose, Whole Blood 71 mg/dL (60-115)
[2022-09-26] MEDS: Famotidine/PF 20 MG/2 ML VIAL IVPUSH (08:35)
[2022-09-26] MEDS: Heparin Sodium,Porcine 5,000 UNIT/ML VIAL 5000 UNIT SUBCUT ×2 (08:38→20:34)
[2022-09-26] MEDS: levETIRAcetam in NaCl (iso-os) 1,000 MG/100 ML PIGGYBACK 1000 MG IV (08:39)
--- NOTE | 2022-09-26 09:22 | PHA.MEDREC ---
Pharmacy Consult ? Medication Reconciliation Pharmacy has completed the medication reconciliation. Pt unable to provide any information. Med rec complete using claim history.
--- NOTE | 2022-09-26 10:13 | W.PM.CCHP ---
Procedures Date of Service Date of Service: 09/26/22 Chest Tube Chest Tube 1: Progress: Left midclavicular 14 [place] chest tube emergently placed using modified Seldinger technique for increasing pneumothorax with acute hypercapnia while on ventilatory support with no immediate complications. Chest tube secured to the skin with suture. Air bubbles in the collection chamber up on placement. Chest tube position and improvement in pneumothorax verified with chest x-ray.
[2022-09-26 10:40] LABS: ABG Base Excess -4.5 mmol/L; ABG HCO3 22 mmol/L (22-26); ABG pCO2 45 mmHg (32-45); ABG pH 7.29 (7.35-7.45); ABG pO2 82 mmHg (83-108)
--- NOTE | 2022-09-26 10:55 | MHC.CM.PN ---
This proposal lead writer met with patient's father and sister @ the bedside. they confirmed pt's current address and report that patient is living with roommate named Ozzy . They also report that patient has been sober for about 1 year, and has been to several rehab facilities including [facility] and [place]. They do not know if patient is currently employed. They are unable to verify if patient has PCP. It was also reported patient may be taking Suboxone. CM will continue to follow patient for discharge planning needs as appropriate. Thong Berry , Home: SisterHalina Raza [phone]
[2022-09-26] MEDS: Chlorhexidine Gluc Oral Rinse 15 ML MOUTHWASH BUCCAL ×2 (13:38→20:49)
[2022-09-26 14:20] LABS: ABG Refer to POC result
[2022-09-26] MEDS: levETIRAcetam 1,000 MG TABLET 1000 MG PO (20:48)
--- NOTE | 2022-09-26 23:30 | PC.NURSE ---
ASSUMED CARE OF PT AT 1900. PT ON PRESSURE SUPPORT VENT SETTINGS AND TOLERATING WELL ON PROPOFOL AND PRECEDEX DRIPS. NO COUGH OR GAG REFLEX NOTED AND NO RESPONSE TO PAIN. PT IS FLACCID. PUPILS 2MM AND RTL. PT WAS HAVING TWITCHING MOVEMENTS OF HIS UPPER BODY INTERMITTENTLY BUT AFTER DOING CARE AT 2230, TURNING, REPOSITIONING AND A PARTIAL BATH, PT STARTED ACTIVELY SEIZING ENTIRE BODY, FACE AND EXTREMITIES. 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 VERSED 2MG IV ORDERED AND GIVEN WITH IMPROVEMENT. NO SEIZURE ACTIVITY SINCE. VITALS STABLE. BP STABLE ON LEVOPHED DRIP. MONITOR SHOWS NSR, 60'S-70'S, NO ECTOPY. U/O GOOD. REPORT GIVEN TO ONCOMING OSCAR CORDOBA.
[2022-09-26] MEDS: Norepinephrine Bitartrate/D5W 8 MG/250 ML PLAST..BAG 12.26 MG IV (23:32)
[2022-09-27] VITALS (37 sets, daily range): BP systolic 84–114; BP diastolic 52–81; PULSE 68–90; RESP 14–30; TEMP 34.7–39.3; O2SAT 27–98; BMI 18.0
[2022-09-27] MEDS: Midazolam HCl/PF 2 MG/2 ML VIAL IVPUSH ×11 (03:00→21:56)
[2022-09-27] MEDS: dexmedeTOMIDidine HCL/NS 400 MCG/100 ML INFUS..BTL 12.53 MCG IVCONT ×3 (04:04→19:17)
[2022-09-27] MEDS: propofoL 1,000 MG/100 ML VIAL 24.49 MG IVCONT ×5 (04:06→23:34)
[2022-09-27 05:30] LABS: VBG Base Excess 3.8 mmol/L; VBG HCO3 30 mmol/L (22-26); VBG pCO2 51 mmHg; VBG pH 7.37 (7.32-7.43); VBG pO2 49 mmHg
[2022-09-27 05:33] LABS: Basophils Absolute Auto 0.1 X10*3/uL (0.0-0.2); Basophils Percent Auto 0.2 % (0-2); Hematocrit 44.2 % (42.0-52.0); Hemoglobin 15.2 g/dl (14.0-18.0); Imm Gran Abs Auto 0.29 X10*3/uL (0.00-0.03); Imm Gran Pct Auto 0.9 % (0.0-0.4); Lymphocytes Absolute Auto 1.3 X10*3/uL (1.2-4.9); Lymphocytes Percent Auto 3.8 % (20-40); MANUAL DIFF FLAG SCAN; Mean Corpuscular HGB Conc 34.4 g/dl (31.0-36.0); Mean Corpuscular Hemoglobin 30.3 pg (27.0-33.0); Mean Platelet Volume 9.9 fL (9.4-12.4); Monocytes Percent Auto 8.7 % (2-11); Neutrophils Absolute Auto 29.2 x10*3/uL (2.0-8.3); Neutrophils Percent Auto 86.4 % (45-73); Platelet Count 246 X10*3/uL (160-400); Red Blood Count 5.02 X10*6/uL (4.60-5.80); Red Cell Distribution Width 12.8 % (11.0-16.0); SCAN SMEAR FLAG 1
[2022-09-27 05:36] LABS: White Blood Count 33.8 X10*3/uL (4.8-10.8)
[2022-09-27 05:53] LABS: SLIDE REVIEW VERIFIED
[2022-09-27 05:54] LABS: Alanine Aminotransferase 108 U/L (0-40); Albumin Level 3.7 g/dL (3.5-5.0); Alkaline Phosphatase 88 U/L (39-117); Anion Gap 13 (12-20); Aspartate Amino Transferase 81 U/L (5-37); Bilirubin Total 0.5 mg/dL (0.0-1.0); Blood Urea Nitrogen 20 mg/dL (9-16); Calcium 8.9 mg/dL (8.4-10.2); Carbon Dioxide 24 mmol/L (22-29); Chloride 110 mmol/L (96-108); Creatinine Clr Calc Pharmacy 94.3; Estimated Glomerular Filt Rate > 60; Glucose Random 101 mg/dL (60-115); Magnesium 1.9 mg/dL (1.6-2.6); Phosphorus 3.7 mg/dL (2.7-4.5); Potassium 5.5 mmol/L (3.3-5.1); Sodium 141 mmol/L (135-145); Total Protein 5.6 g/dL (6.5-8.0)
[2022-09-27] MEDS: Chlorhexidine Gluc Oral Rinse 15 ML MOUTHWASH BUCCAL ×3 (06:00→22:12)
--- NOTE | 2022-09-27 06:17 | PC.NURSE ---
CARE ASSUMED 23:15....REMAINS TUBED/VENTED....CPAP/PSV VENT SUPPORT..RR 22-24...Ve 12-13 L/M.....CONTINUES PROPOFOL AND PRECIDEX DRIPS PER SERVICE CENTER MANAGER PER SHIFT REPORT AND ICU PARACHUTE/COMBATANT DIVER OFFICER...UNRESPONSIVE..NO GAG/COUGH REFLEXES..EXTREMETIES FLACCID...PUPILS 2-3MM AND MINIMALLY REACTIVE...TREMULOUS TWITCHING OF FACE TO NOXIOUS STIMULI...3AM PATIENT WITH GENERALIZED SEIZURE ACTIVITY..PARACHUTE/COMBATANT DIVER OFFICER AT BEDSIDE....VERSED 2MG IV GIVEN WITH RESOLUTION OF SEIZURE ACTIVITY...OG-TUBE ASPIRATED 650ML BROWN DRAINAGE 12AM...ADDITIONAL 150ML 6AM...RALPH WITH MARGINAL OUTPUT...AM WBC 33.8...BLOOD CULTURES AND LACTIC ORDERED/PENDING...URINE C&S PENDING FROM 09/26/22...LEFT APICAL PIGTAIL CHEST TUBE TO -20 CM SUCTION...(+) 1-2 AIR LEAK....AM CXR DONE AND REVIEWED BY PARACHUTE/COMBATANT DIVER OFFICER...NSR..NO ECTOPY
[2022-09-27 06:36] LABS: Lactic Acid 1.6 mmol/L (0.5-2.0)
[2022-09-27 07:36] LABS: Venous Blood Gas Refer to POC result
[2022-09-27] MEDS: Heparin Sodium,Porcine 5,000 UNIT/ML VIAL 5000 UNIT SUBCUT (08:32)
[2022-09-27] MEDS: Famotidine/PF 20 MG/2 ML VIAL IVPUSH (08:32)
[2022-09-27] MEDS: levETIRAcetam in NaCl (iso-os) 1,000 MG/100 ML PIGGYBACK 400 MG IV ×2 (08:39→19:48)
--- NOTE | 2022-09-27 09:29 | PM.CCPN ---
Subjective Subjective Date of Service: 09/27/22 Interval History: 41-year-old gentleman with underlying history of substance abuse admitted on 09/26/2022 with an out of hospital cardiac arrest with unclear down time. Patient was brought to ER without pulse with CPR started immediately and returned spontaneous circulation achieved after approximately 7 minutes with patient intubated during the CPR and transferred to the intensive care unit thereafter. Hospital course complicated by left-sided pneumothorax, likely secondary to CPR, now status post placement of chest tube, still with air leak. Also, developmental of myoclonic jerks, loaded with Keppra and phenytoin, still intermittently requiring Versed. Critical Care Time (minutes): 45 Physical Exam Vital Signs: Vital Signs: Last Vital Signs Temp 97.9 F 09/27/22 09:00 Pulse 70 09/27/22 09:00 Resp 22 H 09/27/22 09:00 BP 98/66 09/27/22 09:00 Pulse Ox 98 09/27/22 09:00 O2 Del Method Mechanical Ventil ation 09/27/22 09:00 O2 Flow Rate 40 09/26/22 20:55 FiO2 40 09/27/22 09:00 BMI result Body Mass Index 18.0 Const: General: no acute distress and other (comatose) Eyes: Sclerae: sclerae normal Pupils: Fixed pupils and Pinpoint pupils Neck: Neck: Yes no lymphadenopathy, Yes trachea midline and Yes supple Resp: Effort & Inspection: normal respiratory effort and no respiratory distress Auscultation: clear to auscultation bilaterally Cardio: Rate: regular rate Rhythm: regular rhythm Heart sounds: no gallops, no murmurs and no rubs GI: Palpation (GI): Soft to palpation and Other GI palpation findings present ( Nontender) Auscultation: normal bowel sounds Extrem: General: Yes no pedal edema, No clubbing and No cyanosis Objective Data Labs 09/27/22 05:25 09/27/22 05:25 Labs: Laboratory Results - last 24 hr 09/26/22 09/26/22 09/27/22 02:19 10:32 05:21 WBC RBC Hgb Hct MCV MCH MCHC RDW Plt Count MPV Immature Gran % (Auto) Neut % (Auto) Lymph % (Auto) [place] % (Auto) Eos % (Auto) Baso % (Auto) Lymph # (Auto) [place] # (Auto) Eos # (Auto) Baso # (Auto) Abs Immat Gran (auto) Absolute Neuts (auto) Absolute Nucleated RBC Nucleated RBC % (auto) Smear Tech's Comments Smear Path Review SEE NOTE O2 Saturation 96.0 ABG pH at Pt Temp 7.29 L ABG pCO2 at Pt Temp 45 ABG pO2 at Pt Temp 82 L ABG HCO3 22 ABG Base Excess (Actual) -4.5 VBG pH 7.37 VBG pCO2 51 VBG pO2 49 VBG HCO3 30 H VBG O2 Saturation 77.0 VBG Base Excess 3.8 Sodium Potassium Chloride Carbon Dioxide Anion Gap BUN Creatinine Estim Creat Clear Calc Estimated GFR Random Glucose Lactic Acid Calcium Phosphorus Magnesium Total Bilirubin AST ALT Alkaline Phosphatase Total Protein Albumin 09/27/22 09/27/22 09/27/22 05:25 05:25 05:25 WBC 33.8 H* RBC 5.02 Hgb 15.2 Hct 44.2 MCV 88.0 D MCH 30.3 MCHC 34.4 RDW 12.8 Plt Count 246 MPV 9.9 Immature Gran % (Auto) 0.9 H Neut % (Auto) 86.4 H Lymph % (Auto) 3.8 L [place] % (Auto) 8.7 Eos % (Auto) 0.0 Baso % (Auto) 0.2 Lymph # (Auto) 1.3 [place] # (Auto) 3.0 H Eos # (Auto) 0.0 Baso # (Auto) 0.1 Abs Immat Gran (auto) 0.29 H Absolute Neuts (auto) 29.2 H Absolute Nucleated RBC 0.000 Nucleated RBC % (auto) 0.0 Smear Tech's Comments VERIFIED Smear Path Review O2 Saturation ABG pH at Pt Temp ABG pCO2 at Pt Temp ABG pO2 at Pt Temp ABG HCO3 ABG Base Excess (Actual) VBG pH VBG pCO2 VBG pO2 VBG HCO3 VBG O2 Saturation VBG Base Excess Sodium 141 Cancelled Potassium 5.5 H D Cancelled Chloride 110 H Cancelled Carbon Dioxide 24 Cancelled Anion Gap 13 Cancelled BUN 20 H Cancelled Creatinine 0.77 Cancelled Estim Creat Clear Calc 94.3 Cancelled Estimated GFR > 60 Cancelled Random Glucose 101 Cancelled Lactic Acid Calcium 8.9 D Cancelled Phosphorus 3.7 Cancelled Magnesium 1.9 Cancelled Total Bilirubin 0.5 AST 81 H ALT 108 H Alkaline Phosphatase 88 Total Protein 5.6 L Albumin 3.7 Cancelled 09/27/22 06:18 WBC RBC Hgb Hct MCV MCH MCHC RDW Plt Count MPV Immature Gran % (Auto) Neut % (Auto) Lymph % (Auto) [place] % (Auto) Eos % (Auto) Baso % (Auto) Lymph # (Auto) [place] # (Auto) Eos # (Auto) Baso # (Auto) Abs Immat Gran (auto) Absolute Neuts (auto) Absolute Nucleated RBC Nucleated RBC % (auto) Smear Tech's Comments Smear Path Review O2 Saturation ABG pH at Pt Temp ABG pCO2 at Pt Temp ABG pO2 at Pt Temp ABG HCO3 ABG Base Excess (Actual) VBG pH VBG pCO2 VBG pO2 VBG HCO3 VBG O2 Saturation VBG Base Excess Sodium Potassium Chloride Carbon Dioxide Anion Gap BUN Creatinine Estim Creat Clear Calc Estimated GFR Random Glucose Lactic Acid 1.6 Calcium Phosphorus Magnesium Total Bilirubin AST ALT Alkaline Phosphatase Total Protein Albumin Progress Note: A&P Assessment and plan (1) Cardiac arrest: Status: Acute (2) Pneumothorax, left: Status: Acute (3) Acute respiratory failure with hypoxia: Status: Acute (4) Overdose: Status: Acute (5) Substance abuse: Status: Acute (6) Encephalopathy acute: Status: Acute Plan Assessment: 41-year-old gentleman with underlying substance abuse admitted with out of hospital cardiac arrest with CPR started in emergency room and return of spontaneous circulation achieved after approximately 7 minutes of CPR with patient intubated during the CPR Plan: Neuro: Acute encephalopathy after cardiac arrest, if no improvement will consider MRI. Lary and p.r.myrtle. Versed for seizures suppression. Cardiac: Out of hospital cardiac arrest with CPR in emergency room and return of spontaneous circulation achieved. Continue to titrate off pressors as tolerated. Results of 2D echocardiogram reviewed with cardiology and appear to show a Takotsubo's variant. Pulmonary: Intubated during the CPR, continue to titrate off as tolerated. Renal: No acute issues. Endo: No acute issues. GI: No acute issues. ID: No acute issues Heme/Onc: No acute issues. Psych: No acute issues. Miscellaneous: No acute issues. Prophylaxis: Heparin, famotidine Diet: NPO Critical care time spent: 45 minutes Quality Stroke Does the patient have a stroke diagnosis?: No VTE Prior VTE?: No VTE Risk Level:: Medical - moderate - high VTE Device Contraindication: N/A - Device Ordered VTE Drug Contraindication: N/A - Med Ordered
--- NOTE | 2022-09-27 14:01 | MHC.CM.PN ---
Pt remains on ventilatory support in ICU following CPR. ? assessment of neuro function as pt was pulseless >5 minutes. Family in to visit. CM to follow for finalization of d/c needs as pt's functional abilities cannot be assessed at this time.
[2022-09-27 14:07] LABS: Anion Gap 13 (12-20); Blood Urea Nitrogen 22 mg/dL (9-16); Calcium 8.9 mg/dL (8.4-10.2); Carbon Dioxide 25 mmol/L (22-29); Chloride 110 mmol/L (96-108); Creatinine Clr Calc Pharmacy 87.5; Estimated Glomerular Filt Rate > 60; Glucose Random 104 mg/dL (60-115); Potassium 5.7 mmol/L (3.3-5.1); Sodium 142 mmol/L (135-145)
--- NOTE | 2022-09-27 18:29 | PC.NURSE ---
PATIENT FOUND IN BED HAVING SEIZURE DURING MORNING ASSESSMENT. MD CONTACTED AND PRN IVP 2MG VERSED ORDER PLACED. 2 MG VERSED IVP GIVEN WITH GOOD EFFECT NOTICED AFTER APPROXIMATELY 15-20 SECONDS, WITH COMPLETE STOP OF CONVULSIONS AFTER APPROXIMATELY 30 SECONDS. MD ORDERED PHENYTOIN GTT AFTER THIRD SEIZURE. PHENYTOIN GTT GIVEN, SEE EMAR. SEIZURES ACTIVITY CONTINUED THROUGHOUT DAY. OVER THE COURSE OF THE DAY THE PATIENT WOULD CONTINUE TO HAVE A TOTAL OF 7 SEIZURES. PRN VERSED GIVEN FOR EACH WITH SIMILAR EFFECT NOTED PREVIOUSLY DESCRIBED. SEE EMAR FOR COMPLETE LIST OF TIMES AND DOCUMENTATION. PATIENT NOTICED TO BE CONNECTED TO INTERMITTANT WALL SUCTION WHILE HAVE LARGE AMOUNTS OF BROWN GASTRIC CONTENTS BEING EMPTIED. MD MADE AWARE, PO KEPPRA SWITCHED TO IV KEPPRA. PATIENT BATHED, REPOSITIONED Q2HR, ROUTINE ORAL CARE PREFORMED, PATIENT AND FAMILY INFORMED ON CURRENT HEALTH STATUS.
[2022-09-27] MEDS: Norepinephrine Bitartrate/D5W 8 MG/250 ML PLAST..BAG 12.26 MG IV (19:10)
[2022-09-27] MEDS: Acetaminophen 325 MG TABLET 650 MG PO (19:34)
[2022-09-28] VITALS (40 sets, daily range): BP systolic 102–146; BP diastolic 62–87; PULSE 70–126; RESP 11–36; TEMP 34.1–39; O2SAT 78–99; BMI 17.9
[2022-09-28] MEDS: Midazolam HCl/PF 2 MG/2 ML VIAL IVPUSH ×9 (02:04→13:42)
[2022-09-28] MEDS: dexmedeTOMIDidine HCL/NS 400 MCG/100 ML INFUS..BTL 12.53 MCG IVCONT ×3 (02:09→18:03)
[2022-09-28] MEDS: propofoL 1,000 MG/100 ML VIAL 24.49 MG IVCONT ×4 (04:55→22:42)
[2022-09-28 05:29] LABS: VBG Base Excess 6.6 mmol/L; VBG HCO3 30 mmol/L (22-26); VBG pCO2 41 mmHg; VBG pH 7.47 (7.32-7.43); VBG pO2 47 mmHg
[2022-09-28 05:30] LABS: Venous Blood Gas Refer to POC result
[2022-09-28 05:33] LABS: Basophils Absolute Auto 0.1 X10*3/uL (0.0-0.2); Basophils Percent Auto 0.4 % (0-2); Hematocrit 42.2 % (42.0-52.0); Hemoglobin 13.9 g/dl (14.0-18.0); Imm Gran Abs Auto 0.25 X10*3/uL (0.00-0.03); Imm Gran Pct Auto 1.1 % (0.0-0.4); Lymphocytes Absolute Auto 1.5 X10*3/uL (1.2-4.9); Lymphocytes Percent Auto 6.8 % (20-40); MANUAL DIFF FLAG SCAN; Mean Corpuscular HGB Conc 32.9 g/dl (31.0-36.0); Mean Corpuscular Hemoglobin 30.2 pg (27.0-33.0); Mean Corpuscular Volume 91.5 fL (80.0-98.0); Mean Platelet Volume 10.6 fL (9.4-12.4); Monocytes Absolute Auto 2.7 X10*3/uL (0.1-1.2); Monocytes Percent Auto 12.2 % (2-11); Neutrophils Absolute Auto 17.5 x10*3/uL (2.0-8.3); Neutrophils Percent Auto 79.5 % (45-73); Platelet Count 200 X10*3/uL (160-400); Red Blood Count 4.61 X10*6/uL (4.60-5.80); Red Cell Distribution Width 13.8 % (11.0-16.0); SCAN SMEAR FLAG 1; White Blood Count 22.1 X10*3/uL (4.8-10.8)
[2022-09-28 05:51] LABS: SLIDE REVIEW VERIFIED
[2022-09-28] MEDS: Chlorhexidine Gluc Oral Rinse 15 ML MOUTHWASH BUCCAL ×3 (05:58→20:19)
[2022-09-28 06:19] LABS: Alanine Aminotransferase 63 U/L (0-40); Albumin Level 3.4 g/dL (3.5-5.0); Alkaline Phosphatase 77 U/L (39-117); Anion Gap 12 (12-20); Aspartate Amino Transferase 37 U/L (5-37); Bilirubin Total 0.5 mg/dL (0.0-1.0); Blood Urea Nitrogen 20 mg/dL (9-16); Calcium 8.6 mg/dL (8.4-10.2); Carbon Dioxide 26 mmol/L (22-29); Chloride 111 mmol/L (96-108); Creatinine Clr Calc Pharmacy 91.4; Estimated Glomerular Filt Rate > 60; Glucose Random 106 mg/dL (60-115); Magnesium 1.7 mg/dL (1.6-2.6); Phosphorus 2.5 mg/dL (2.7-4.5); Potassium 4.2 mmol/L (3.3-5.1); Sodium 145 mmol/L (135-145); Total Protein 5.3 g/dL (6.5-8.0)
[2022-09-28] MEDS: Famotidine/PF 20 MG/2 ML VIAL IVPUSH (08:17)
[2022-09-28] MEDS: levETIRAcetam in NaCl (iso-os) 1,000 MG/100 ML PIGGYBACK 400 MG IV ×2 (08:23→20:17)
[2022-09-28] MEDS: Midazolam HCl/NS 50 MG/50 ML PLAST..BAG IVCONT (09:56)
--- NOTE | 2022-09-28 11:26 | P.PNCC_ITS ---
Subjective Subjective Date of Service: 09/28/22 Interval History: 41-year-old gentleman with underlying history of substance abuse admitted on 09/26/2022 with an out of hospital cardiac arrest with unclear down time. Patient was brought to ER without pulse with CPR started immediately and returned spontaneous circulation achieved after approximately 7 minutes with patient intubated during the CPR and transferred to the intensive care unit thereafter. Hospital course complicated by left-sided pneumothorax, likely secondary to CPR, now status post placement of chest tube, still with air leak. Also, developmental of myoclonic jerks, loaded with Keppra and phenytoin, still intermittently requiring Versed. Overnight worsening myoclonus burden, started on Versed drip. Critical Care Time (minutes): 30 Physical Exam Vital Signs: Vital Signs: Last Vital Signs Temp 97.0 F 09/28/22 11:00 Pulse 71 09/28/22 11:00 Resp 27 H 09/28/22 11:00 BP 109/71 09/28/22 11:00 Pulse Ox 92 09/28/22 11:00 O2 Del Method Mechanical Ventil ation 09/28/22 11:00 O2 Flow Rate 40 09/28/22 03:00 FiO2 40 09/28/22 11:00 BMI result Body Mass Index 17.9 Const: General: no acute distress and other (comatose) Eyes: Sclerae: sclerae normal Pupils: Fixed pupils and Pinpoint pupils Neck: Neck: Yes no lymphadenopathy, Yes trachea midline and Yes supple Resp: Auscultation: clear to auscultation bilaterally Cardio: Rate: regular rate Rhythm: regular rhythm Heart sounds: no gallops, no murmurs and no rubs GI: Palpation (GI): Soft to palpation and Other GI palpation findings present ( Nontender) Auscultation: normal bowel sounds Extrem: General: Yes no pedal edema, No clubbing and No cyanosis Objective Data Labs 09/28/22 05:25 09/28/22 05:25 Labs: Laboratory Results - last 24 hr 09/27/22 09/28/22 09/28/22 13:49 05:21 05:25 WBC 22.1 H RBC 4.61 Hgb 13.9 L Hct 42.2 MCV 91.5 MCH 30.2 MCHC 32.9 RDW 13.8 Plt Count 200 MPV 10.6 Immature Gran % (Auto) 1.1 H Neut % (Auto) 79.5 H Lymph % (Auto) 6.8 L [place] % (Auto) 12.2 H Eos % (Auto) 0.0 Baso % (Auto) 0.4 Lymph # (Auto) 1.5 [place] # (Auto) 2.7 H Eos # (Auto) 0.0 Baso # (Auto) 0.1 Abs Immat Gran (auto) 0.25 H Absolute Neuts (auto) 17.5 H Absolute Nucleated RBC 0.000 Nucleated RBC % (auto) 0.0 Smear Tech's Comments VERIFIED VBG pH 7.47 H VBG pCO2 41 VBG pO2 47 VBG HCO3 30 H VBG O2 Saturation 76.0 VBG Base Excess 6.6 Sodium 142 Potassium 5.7 H Chloride 110 H Carbon Dioxide 25 Anion Gap 13 BUN 22 H Creatinine 0.83 Estim Creat Clear Calc 87.5 Estimated GFR > 60 Random Glucose 104 Calcium 8.9 Phosphorus Magnesium Total Bilirubin AST ALT Alkaline Phosphatase Total Protein Albumin 09/28/22 05:25 WBC RBC Hgb Hct MCV MCH MCHC RDW Plt Count MPV Immature Gran % (Auto) Neut % (Auto) Lymph % (Auto) [place] % (Auto) Eos % (Auto) Baso % (Auto) Lymph # (Auto) [place] # (Auto) Eos # (Auto) Baso # (Auto) Abs Immat Gran (auto) Absolute Neuts (auto) Absolute Nucleated RBC Nucleated RBC % (auto) Smear Tech's Comments VBG pH VBG pCO2 VBG pO2 VBG HCO3 VBG O2 Saturation VBG Base Excess Sodium 145 Potassium 4.2 D Chloride 111 H Carbon Dioxide 26 Anion Gap 12 BUN 20 H Creatinine 0.79 Estim Creat Clear Calc 91.4 Estimated GFR > 60 Random Glucose 106 Calcium 8.6 Phosphorus 2.5 L Magnesium 1.7 Total Bilirubin 0.5 AST 37 ALT 63 H Alkaline Phosphatase 77 Total Protein 5.3 L Albumin 3.4 L Microbiology Microbiology Results: Microbiology 09/27/22 06:18 Blood - Venous Blood Culture - Preliminary No growth after 24 hours. 09/27/22 06:18 Blood - Venous Blood Culture - Preliminary No growth after 24 hours. 09/26/22 03:34 Urine clean catch - Urine brown top Urine Culture - Final No growth. Progress Note: A&P Assessment and plan (1) Encephalopathy acute: Status: Acute (2) Substance abuse: Status: Acute (3) Pneumothorax, left: Status: Acute (4) Acute respiratory failure with hypoxia: Status: Acute (5) Overdose: Status: Acute (6) Cardiac arrest: Status: Acute Plan Assessment: 41-year-old gentleman with underlying substance abuse admitted with out of hospital cardiac arrest with CPR started in emergency room and return of spontaneous circulation achieved after approximately 7 minutes of CPR with patient intubated during the CPR Plan: Neuro: Acute encephalopathy after cardiac arrest with worsening myoclonus, now on Keppra, phenytoin, propofol/Versed drips. MRI brain in a.m. Cardiac: Out of hospital cardiac arrest with CPR in emergency room and return of spontaneous circulation achieved. Continue to titrate off pressors as tolerated. Results of 2D echocardiogram reviewed with cardiology and appear to show a Takotsubo's variant. Pulmonary: Intubated during the CPR, continue to titrate off as tolerated. Renal: No acute issues. Endo: No acute issues. GI: No acute issues. ID: No acute issues Heme/Onc: No acute issues. Psych: No acute issues. Miscellaneous: No acute issues. Prophylaxis: Heparin, famotidine Diet: NPO Critical care time spent: 30 minutes Quality Stroke Does the patient have a stroke diagnosis?: No VTE Prior VTE?: No VTE Risk Level:: Medical - moderate - high VTE Device Contraindication: N/A - Device Ordered VTE Drug Contraindication: N/A - Med Ordered
[2022-09-28] MEDS: fentaNYL citrate/PF 100 MCG/2 ML VIAL 50 MCG IVPUSH (13:21)
[2022-09-28] MEDS: Cisatracurium Besylate 20 MG/10 ML VIAL IVPUSH ×2 (13:38→15:14)
[2022-09-28] MEDS: Norepinephrine Bitartrate/D5W 8 MG/250 ML PLAST..BAG 10.37 MG IV (15:39)
[2022-09-28] MEDS: Cisatracurium Besylate 100 MG in 0.9 % Sodium Chloride 40 ML IVCONT (16:47)
--- NOTE | 2022-09-28 19:08 | W.PM.CCHP ---
Procedures Date of Service Date of Service: 09/28/22 Bronchoscopy Bronchoscopy Comments: Patient with progressive development of hypoxia refractory to 100% FiO2 via ventilator with some improvement with in-line suctioning. Emergent bedside bronchoscopy for secretion clearance performed with flexible bronchoscope advanced cleared ET tube through the tracheobronchial tree with copious mucoid secretions cleared bilaterally and normal mucosa noted under the secretions. Patient with improvement in oxygenation after procedure. Patient tolerated procedure well.
--- NOTE | 2022-09-28 19:16 | PC.NURSE ---
PATIENT FOUND IN BED HAVING SEIZURE DURING MORNING ASSESSMENT. 2 MG VERSED IVP GIVEN WITH GOOD EFFECT NOTICED AFTER APPROXIMATELY 15-20 SECONDS, WITH COMPLETE STOP OF CONVULSIONS AFTER APPROXIMATELY 30 SECONDS. SEIZURES ACTIVITY CONTINUED THROUGHOUT MORNING AND INTO AFTERNOON. OVER THE COURSE OF THE SHIFT THE PATIENT WOULD CONTINUE TO HAVE SEIZURES. PRN VERSED GIVEN FOR EACH WITH SIMILAR EFFECT NOTED PREVIOUSLY DESCRIBED. SEE EMAR FOR COMPLETE LIST OF TIMES AND DOCUMENTATION. MD AND RN CONVERSATION HELD ABOUT PATIENT TREATMENT AND GOALS. MD ORDERED VERSED GTT TO BE ADMINISTER. SEE EMAR. PATIENT BEGAN TO HAVE SIGNS OF RESPIRATORY DISTRESS. WOB INCREASED TO HIGH 30'S. MD CONTACTED, FENTANYL IVP ORDERED, SEE EMAR. NO EFFECTED NOTED POST ADMINISTRATION. RN PREFORMED DEEP SUCTION, LAVAGE WITH NO EFFECT. RT CONTACTED. MD RECONTACTED. PATIENT WOB LOW TO MID 40'S. NIMBEX IVP PRN AND GTT ORDERED. NIMBEX PRN IVP GIVEN WITH GOOD EFFECT, RT SWITCHING PATIENT TO ACVC VENT SETTING. PATIENT IN SYNCHRONY WITH VENT, NO SIGNS OF DISTRESS. SEE EMAR. SECOND PRN IVP NIMBEX GIVEN TO PATIENT WHILE WAITING FOR NIMBEX GTT TO BE MADE AND DELIVERED BY PHARMACY. SEE EMAR. PATIENT BATHED, REPOSITIONED Q2HR, ROUTINE ORAL CARE PREFORMED, PATIENT AND FAMILY INFORMED ON CURRENT HEALTH STATUS.
[2022-09-28] MEDS: Ampicillin Sodium/Sulbactam Na 3 GM in 0.9 % Sodium Chloride 100 ML IV (19:40)
[2022-09-28] MEDS: Tobramycin Sulfate 80 MG/2 ML VIAL 300 MG INHALE (22:21)
[2022-09-29] VITALS (39 sets, daily range): BP systolic 90–131; BP diastolic 58–82; PULSE 110–128; RESP 18–44; TEMP 33.8–39.4; O2SAT 89–97; BMI 19.0
--- NOTE | 2022-09-29 | ECG_ITS ---
Test Reason : tachycardia Blood Pressure : / mmHG Vent. Rate : 115 BPM Atrial Rate : 115 BPM P-R Int : 136 ms QRS Dur : 086 ms QT Int : 344 ms P-R-T Axes : 080 086 057 degrees QTc Int : 475 ms Sinus tachycardia Biatrial enlargement Anterior infarct , age undetermined Abnormal ECG When compared with ECG of 26-SEP-2022 02:12, Sinus rhythm has replaced Atrial fibrillation ST no longer depressed in Anterolateral leads T wave inversion no longer evident in Inferior leads T wave inversion no longer evident in Lateral leads Referred By: Janis Rowan Electronically Signed By:Junaid Marmolejo
--- NOTE | 2022-09-29 | EEG_ITS ---
FINDINGS: Background activity consists of a low voltage frequencies with superimposed burst-suppression patterns of polyspike discharges lasting up to 2 seconds followed by periods of bursts and suppression in a generalized distribution. IMPRESSION: This is a markedly abnormal EEG with a burst-suppression pattern that is generally seen with very severe hypoxic encephalopathy and has poor prognostic signs. MD JORDEN Hays/GREY / [id number]
[2022-09-29] MEDS: Cisatracurium Besylate 100 MG in 0.9 % Sodium Chloride 40 ML IVCONT (00:11)
[2022-09-29] MEDS: Midazolam HCl/NS 50 MG/50 ML PLAST..BAG IVCONT ×2 (00:12→10:09)
[2022-09-29] MEDS: Ampicillin Sodium/Sulbactam Na 3 GM in 0.9 % Sodium Chloride 100 ML IV ×4 (01:45→19:30)
[2022-09-29] MEDS: propofoL 1,000 MG/100 ML VIAL 24.49 MG IVCONT ×4 (03:22→14:05)
[2022-09-29 05:35] LABS: VBG Base Excess -3.6 mmol/L; VBG HCO3 30 mmol/L (22-26); VBG pCO2 101 mmHg; VBG pH 7.07 (7.32-7.43); VBG pO2 60 mmHg
[2022-09-29 05:37] LABS: Venous Blood Gas Refer to POC result
[2022-09-29 05:44] LABS: Hematocrit 52.9 % (42.0-52.0); Hemoglobin 15.9 g/dl (14.0-18.0); Mean Corpuscular HGB Conc 30.1 g/dl (31.0-36.0); Mean Corpuscular Hemoglobin 30.5 pg (27.0-33.0); Mean Corpuscular Volume 101.5 fL (80.0-98.0); Mean Platelet Volume 10.8 fL (9.4-12.4); Platelet Count 221 X10*3/uL (160-400); Red Blood Count 5.21 X10*6/uL (4.60-5.80)
[2022-09-29 05:46] LABS: VBG Base Excess -2.5 mmol/L; VBG HCO3 31 mmol/L (22-26); VBG pCO2 102 mmHg; VBG pH 7.08 (7.32-7.43); VBG pO2 60 mmHg
[2022-09-29] MEDS: Chlorhexidine Gluc Oral Rinse 15 ML MOUTHWASH BUCCAL ×3 (05:54→20:33)
[2022-09-29 05:55] LABS: WBC ABN SCTR FOR CBC 1
[2022-09-29 05:56] LABS: White Blood Count 32.7 X10*3/uL (4.8-10.8)
[2022-09-29 06:01] LABS: Venous Blood Gas Refer to POC result
[2022-09-29 06:01] LABS: Alanine Aminotransferase 49 U/L (0-40); Albumin Level 3.5 g/dL (3.5-5.0); Alkaline Phosphatase 100 U/L (39-117); Anion Gap 20 (12-20); Aspartate Amino Transferase 37 U/L (5-37); Bilirubin Total 0.5 mg/dL (0.0-1.0); Blood Urea Nitrogen 35 mg/dL (9-16); Carbon Dioxide 30 mmol/L (22-29); Chloride 108 mmol/L (96-108); Creatinine Clr Calc Pharmacy 65.8; Estimated Glomerular Filt Rate > 60; Glucose Random 79 mg/dL (60-115); Magnesium 2.4 mg/dL (1.6-2.6); Phosphorus 8.3 mg/dL (2.7-4.5); Potassium 5.4 mmol/L (3.3-5.1); Sodium 153 mmol/L (135-145)
[2022-09-29 06:06] LABS: Band Neutrophils Percent 25 % (3-5); Lymphocytes Absolute Manual 0.3 X10*3/uL (1.2-4.9); Lymphocytes Percent Manual 1 % (20-40); Metamyelocytes Percent 3 %; Monocytes Absolute Manual 2.9 X10*3/uL (0.1-1.2); Monocytes Percent Manual 9 % (2-11); Neutrophils Absolute Manual 28.4 X10*3/uL (2.0-8.3); Neutrophils Percent Manual 62 % (45-73)
[2022-09-29 06:07] LABS: Platelet Estimate NORMAL (NORMAL); Platelet Morphology Comment NORMAL; RBC Morphology NORMAL
[2022-09-29 06:10] LABS: Dohle Bodies PRESENT; Toxic Vacuolation PRESENT
[2022-09-29] MEDS: Dextrose 5 % 1,000 ML 50 ML IVCONT (06:27)
[2022-09-29 06:43] LABS: VBG HCO3 31 mmol/L (22-26); VBG pCO2 101 mmHg; VBG pO2 70 mmHg
[2022-09-29] MEDS: Tobramycin Sulfate 80 MG/2 ML VIAL 300 MG INHALE ×2 (07:39→20:17)
[2022-09-29] MEDS: Famotidine/PF 20 MG/2 ML VIAL IVPUSH (08:02)
[2022-09-29] MEDS: levETIRAcetam in NaCl (iso-os) 1,000 MG/100 ML PIGGYBACK 400 MG IV ×2 (08:02→20:27)
[2022-09-29 08:48] LABS: VBG Base Excess -1.3 mmol/L; VBG HCO3 30 mmol/L (22-26); VBG pCO2 86 mmHg; VBG pH 7.14 (7.32-7.43); VBG pO2 55 mmHg
[2022-09-29 09:40] LABS: VBG Base Excess 0.6 mmol/L; VBG HCO3 28 mmol/L (22-26); VBG pCO2 60 mmHg; VBG pH 7.28 (7.32-7.43); VBG pO2 48 mmHg
--- NOTE | 2022-09-29 09:57 | MHC.CLN ---
F/U DISCUSSED AT ROUNDS WITH PT REMAINS NPO MRI SCHEDULED FOR TODAY PT WITH POOR PROGNOSIS FOLLOWING WITH TEAM CONSULT RD IF NUTRITION TO ADVANCE
--- NOTE | 2022-09-29 10:46 | MHC.CM.PN ---
Patient remains in ICU, CM will continue to follow for needs as appropriate.
[2022-09-29 11:02] LABS: Venous Blood Gas Refer to POC result
[2022-09-29 11:02] LABS: Venous Blood Gas Refer to POC result
--- NOTE | 2022-09-29 11:06 | P.PNCC_ITS ---
Subjective Subjective Date of Service: 09/29/22 Interval History: 41-year-old gentleman with underlying history of substance abuse admitted on 09/26/2022 with an out of hospital cardiac arrest with unclear down time. Patient was brought to ER without pulse with CPR started immediately and returned spontaneous circulation achieved after approximately 7 minutes with patient intubated during the CPR and transferred to the intensive care unit thereafter. Hospital course complicated by left-sided pneumothorax, likely secondary to CPR, now status post placement of chest tube, still with air leak. Also, developmental of myoclonic jerks, loaded with Keppra and phenytoin, still intermittently requiring Versed. Overnight with increasing ventilation requirements. Critical Care Time (minutes): 45 Physical Exam Vital Signs: Vital Signs: Last Vital Signs Temp 101.5 F H 09/29/22 10:00 Pulse 118 H 09/29/22 10:00 Resp 33 H 09/29/22 10:00 BP 105/69 09/29/22 10:00 Pulse Ox 93 09/29/22 10:00 O2 Del Method Mechanical Ventil ation 09/29/22 10:00 O2 Flow Rate 40 09/28/22 03:00 FiO2 60 09/29/22 11:01 BMI result Body Mass Index 19.0 Const: General: other (comatose) Eyes: Sclerae: sclerae normal Neck: Neck: Yes no lymphadenopathy, Yes trachea midline and Yes supple Resp: Auscultation: crackles (Bibasilar) Cardio: Rate: tachycardic Rhythm: regular rhythm Heart sounds: no gallops, no murmurs and no rubs GI: Palpation (GI): Soft to palpation and Other GI palpation findings present ( Nontender) Auscultation: normal bowel sounds Extrem: General: Yes no pedal edema, No clubbing and No cyanosis Objective Data Labs 09/29/22 05:22 09/29/22 05:22 Labs: Laboratory Results - last 24 hr 09/29/22 09/29/22 09/29/22 05:22 05:22 05:26 WBC 32.7 H* RBC 5.21 Hgb 15.9 Hct 52.9 H D MCV 101.5 H D MCH 30.5 MCHC 30.1 L RDW 14.0 Plt Count 221 MPV 10.8 Immature Gran % (Auto) Cancelled Neut % (Auto) Cancelled Lymph % (Auto) Cancelled [place] % (Auto) Cancelled Eos % (Auto) Cancelled Baso % (Auto) Cancelled Lymph # (Auto) Cancelled [place] # (Auto) Cancelled Eos # (Auto) Cancelled Baso # (Auto) Cancelled Abs Immat Gran (auto) Cancelled Absolute Neuts (auto) Cancelled Absolute Nucleated RBC 0.000 Nucleated RBC % (auto) 0.0 Neutrophils % (Manual) 62 Band Neutrophils % 25 H Lymphocytes % (Manual) 1 L Monocytes % (Manual) 9 Metamyelocytes % 3 Abs Neuts (Manual) 28.4 H Lymphocytes # (Manual) 0.3 L Monocytes # (Manual) 2.9 H Metamyelocytes # 1.0 Toxic Vacuolation PRESENT Dohle Bodies PRESENT Platelet Estimate NORMAL Plt Morphology Comment NORMAL RBC Morphology NORMAL VBG pH 7.07 L* VBG pCO2 101 VBG pO2 60 VBG HCO3 30 H VBG O2 Saturation 86.0 VBG Base Excess -3.6 Sodium 153 H Potassium 5.4 H D Chloride 108 Carbon Dioxide 30 H Anion Gap 20 BUN 35 H Creatinine 1.16 Estim Creat Clear Calc 65.8 Estimated GFR > 60 Random Glucose 79 Calcium 9.0 Phosphorus 8.3 H Magnesium 2.4 Total Bilirubin 0.5 AST 37 ALT 49 H Alkaline Phosphatase 100 Total Protein 6.0 L Albumin 3.5 09/29/22 09/29/22 09/29/22 05:37 06:32 08:40 WBC RBC Hgb Hct MCV MCH MCHC RDW Plt Count MPV Immature Gran % (Auto) Neut % (Auto) Lymph % (Auto) [place] % (Auto) Eos % (Auto) Baso % (Auto) Lymph # (Auto) [place] # (Auto) Eos # (Auto) Baso # (Auto) Abs Immat Gran (auto) Absolute Neuts (auto) Absolute Nucleated RBC Nucleated RBC % (auto) Neutrophils % (Manual) Band Neutrophils % Lymphocytes % (Manual) Monocytes % (Manual) Metamyelocytes % Abs Neuts (Manual) Lymphocytes # (Manual) Monocytes # (Manual) Metamyelocytes # Toxic Vacuolation Dohle Bodies Platelet Estimate Plt Morphology Comment RBC Morphology VBG pH 7.08 L* 7.10 L* 7.14 L* VBG pCO2 102 101 86 VBG pO2 60 70 55 VBG HCO3 31 H 31 H 30 H VBG O2 Saturation 87.0 94.0 84.0 VBG Base Excess -2.5 TNP -1.3 Sodium Potassium Chloride Carbon Dioxide Anion Gap BUN Creatinine Estim Creat Clear Calc Estimated GFR Random Glucose Calcium Phosphorus Magnesium Total Bilirubin AST ALT Alkaline Phosphatase Total Protein Albumin 09/29/22 09:31 WBC RBC Hgb Hct MCV MCH MCHC RDW Plt Count MPV Immature Gran % (Auto) Neut % (Auto) Lymph % (Auto) [place] % (Auto) Eos % (Auto) Baso % (Auto) Lymph # (Auto) [place] # (Auto) Eos # (Auto) Baso # (Auto) Abs Immat Gran (auto) Absolute Neuts (auto) Absolute Nucleated RBC Nucleated RBC % (auto) Neutrophils % (Manual) Band Neutrophils % Lymphocytes % (Manual) Monocytes % (Manual) Metamyelocytes % Abs Neuts (Manual) Lymphocytes # (Manual) Monocytes # (Manual) Metamyelocytes # Toxic Vacuolation Dohle Bodies Platelet Estimate Plt Morphology Comment RBC Morphology VBG pH 7.28 L VBG pCO2 60 VBG pO2 48 VBG HCO3 28 H VBG O2 Saturation 82.0 VBG Base Excess 0.6 Sodium Potassium Chloride Carbon Dioxide Anion Gap BUN Creatinine Estim Creat Clear Calc Estimated GFR Random Glucose Calcium Phosphorus Magnesium Total Bilirubin AST ALT Alkaline Phosphatase Total Protein Albumin Microbiology Microbiology Results: Microbiology 09/27/22 06:18 Blood - Venous Blood Culture - Preliminary No growth after 48 hours. 09/27/22 06:18 Blood - Venous Blood Culture - Preliminary No growth after 48 hours. 09/26/22 03:34 Urine clean catch - Urine brown top Urine Culture - Final No growth. Progress Note: A&P Assessment and plan (1) Acute kidney injury: Status: Acute (2) Encephalopathy acute: Status: Acute (3) Substance abuse: Status: Acute (4) Pneumothorax, left: Status: Acute (5) Acute respiratory failure with hypoxia: Status: Acute (6) Overdose: Status: Acute (7) Cardiac arrest: Status: Acute Plan Assessment: 41-year-old gentleman with underlying substance abuse admitted with out of hospital cardiac arrest with CPR started in emergency room and return of spontaneous circulation achieved after approximately 7 minutes of CPR with patient intubated during the CPR Plan: Neuro: Acute encephalopathy after cardiac arrest with worsening myoclonus, now on Keppra, phenytoin, propofol/Versed drips. MRI brain today. Cardiac: Out of hospital cardiac arrest with CPR in emergency room and return of spontaneous circulation achieved. Continue to titrate off pressors as tolerated. Results of 2D echocardiogram reviewed with cardiology and appear to show a Takotsubo's variant. Pulmonary: Intubated during the CPR, continue to titrate off as tolerated. Overnight with increased FiO2 requirements and large born of secretions requiring bedside bronchoscopy with secretion clearance with improvement in FiO2 requirements. Started on nebulized tobramycin and Unasyn. Renal: Acute kidney injury likely secondary to volume depletion, started on IV fluids. Continue to monitor renal indices and urine output. Endo: No acute issues. GI: Persistent feculent output through G-tube, likely secondary to GI mucosal ischemia. No evidence of metabolic acidosis. ID: Cultures negative to date. Likely leukocytosis from stress response. Now on empiric Unasyn and tobramycin for increased pulmonary secretions. Chest x- ray without evidence of consolidation. Heme/Onc: No acute issues. Psych: No acute issues. Miscellaneous: No acute issues. Prophylaxis: Heparin, famotidine Diet: NPO Critical care time spent: 45 minutes Quality Stroke Does the patient have a stroke diagnosis?: No VTE Prior VTE?: No VTE Risk Level:: Medical - moderate - high VTE Device Contraindication: N/A - Device Ordered VTE Drug Contraindication: N/A - Med Ordered
--- NOTE | 2022-09-29 11:08 | P.CDIM_ITS ---
PROVIDER RESPONSE TEXT: To clarify, the appropriate diagnosis supported by the clinical indicators: Anoxic QUERY TEXT: PHYSICIAN'S DOCUMENTATION REQUEST Date of Query: 09/29/2022 09:30 AM EDT Patient Name: ALEXANDRIA CRESPO Admit Date: 09/26/2022 Dear Daniel Sullivan, A review of the medical record indicates additional documentation may be needed. Please review below and update the documentation accordingly. Clinical Indicators: ED: 09/26 - Patient with Fentanyl overdose, Narcan given in Ed triage, CPR, intubated and admitted to ICU. Urine drug screening positive for Fentanyl and Cocaine. PN 09/28 - Acute encephalopathy after cardiac arrest now with worsening myoclonus, now on Keppra, phen ytoin, propofol/Versed drips. Based on the above, please further specify, in the Progress Notes, the known or suspected type of the documented encephalopathy: Metabolic Toxic Toxic metabolic Anoxic Other Other (explain) Clinically unable to determine (explain) Thank you, Melba Child, CCS, CDIS Use of terms such as suspected, likely, concern for, or probable (associated with a specific diagnosi s that is being evaluated, monitored, or treated as if it exists) are acceptable and can be coded in the inpatient se tting, when documented at the time of discharge. Please use your independent medical judgment in providing your response. THIS QUERY IS PART OF THE PERMANENT MEDICAL RECORD
[2022-09-29] MEDS: Cisatracurium Besylate 20 MG/10 ML VIAL IVPUSH (11:50)
--- NOTE | 2022-09-29 13:03 | PC.RT ---
11:35 pt placed on transport vent for transport to MRI. pt tolerating settings well. pt placed on MRI table for scan, tolerated trip well. pt returned to INC at 12:45, placed back on vent, on previous vent settings. pt appears comfortable at this time. h/r 119/r/r 32, spo2 94%.
[2022-09-29] MEDS: Heparin Sodium,Porcine 5,000 UNIT/ML VIAL 5000 UNIT SUBCUT ×2 (13:12→19:32)
--- NOTE | 2022-09-29 15:32 | PC.NURSE ---
Addendum entered by Mariela Johns RN 09/29/22 17:10: Plan for EEG tomorrow; Proprofol & Versed to be turned off in AM per MD VO. Family updated by MD. ANABELLE updated. Unable to obtained end tidal on monitor - RT called to bedside to change out. Continued on standby at this time. Original Note: Assumed care at 0700; Patient sedated on Propofol & Versed, Nimbex turned off at 0830 by MD; Absent cough, gag & pain response, flaccid all four extremities, pupils PERRLA 3mm. Temp up to 101.1 - MD aware, no new orders. Initiate cooling blanket protocol if >103.0 per MD. BC negative x2. MRI ordered and complete - see report. Neuro consulted and pending. ST 110's, no ectopy, T wave elevation - no new orders per MD; No edema; Positive pedal pulses w/ Doppler. Off Pressor support, MAP maintaining >65. K 5.4, Phos 8.3 - MD aware, no new orders. R IJ TLC, #18 RAC, #18 RH, #20 LAC - all patent w/ good blood return, dressing dated & c/d/i. LS clear throughout right, intermittent in/ex rhonchi left; no in line secretions, small amount of cream oral secretions. 0840 VBGs: 7.14/86/55/30 - vent settings changed from AC 32/430/10/90% to AC 32/500/10/60% by MD, MV 15.4; repeat VBGs @ 0931: 7.28/60/48/28 - no new vent changes per MD. Continued on Tobramycin & Unasyn. R anterior chest tube in place, -20 continuos suction, no tidaling - md aware, no air leak, no crepitus, dressing c/d/i, approx 20cc serous output. Continued NPO; OGT patent to low intermittent wall suction; approx 150cc dark brown foul smelling output. Absent bowel sounds. No BM during hospital course. Lerma patent draining dark yellow urine; U/O increased to 200cc/hr but back down to 0-30cc/hr. D5 @ 50cc/hr continued, NA 153. Skin pink, dry, warm. No skin integrity concerns; Prevlon system in place; On turning bed w/ repo q2hr; Oral care completed q2hr. [employer] consulted and at bedside for chart review & accepted for donation; Awaiting family arrival for conversation regarding MRI results.
--- NOTE | 2022-09-29 15:34 | MHC.CM.PN ---
PER EMR REVIEW, PT REMAINS IN ICU, VENTED WITH CHEST TUBE. BRAIN MRI DONE TODAY. CM WILL CONTINUE TO FOLLOW FOR PLAN.
[2022-09-29] MEDS: propofoL 1,000 MG/100 ML VIAL 15.03 MG IVCONT (19:32)
[2022-09-30] VITALS (32 sets, daily range): BP systolic 107–136; BP diastolic 59–91; PULSE 73–125; RESP 24–32; TEMP 33.8–39.2; O2SAT 88–100; BMI 19.1
[2022-09-30] MEDS: propofoL 1,000 MG/100 ML VIAL 15.03 MG IVCONT (00:14)
[2022-09-30] MEDS: Ampicillin Sodium/Sulbactam Na 3 GM in 0.9 % Sodium Chloride 100 ML IV ×4 (01:59→19:30)
[2022-09-30] MEDS: Dextrose 5 % 1,000 ML 50 ML IVCONT (02:00)
[2022-09-30] MEDS: Chlorhexidine Gluc Oral Rinse 15 ML MOUTHWASH BUCCAL ×3 (04:24→21:11)
[2022-09-30] MEDS: Heparin Sodium,Porcine 5,000 UNIT/ML VIAL 5000 UNIT SUBCUT ×3 (04:24→19:30)
[2022-09-30 04:34] LABS: VBG Base Excess 6.9 mmol/L; VBG HCO3 29 mmol/L (22-26); VBG pCO2 35 mmHg; VBG pH 7.52 (7.32-7.43); VBG pO2 47 mmHg
[2022-09-30 04:37] LABS: Venous Blood Gas Refer to POC result
[2022-09-30 05:46] LABS: Basophils Absolute Auto 0.1 X10*3/uL (0.0-0.2); Basophils Percent Auto 0.5 % (0-2); Eosinophils Absolute Auto 0.1 X10*3/uL (0.0-0.4); Eosinophils Percent Auto 0.3 % (0-4); Hemoglobin 13.9 g/dl (14.0-18.0); Imm Gran Abs Auto 0.37 X10*3/uL (0.00-0.03); Imm Gran Pct Auto 1.6 % (0.0-0.4); Lymphocytes Absolute Auto 0.9 X10*3/uL (1.2-4.9); Lymphocytes Percent Auto 4.2 % (20-40); MANUAL DIFF FLAG SCAN; Mean Corpuscular HGB Conc 32.3 g/dl (31.0-36.0); Mean Corpuscular Hemoglobin 30.2 pg (27.0-33.0); Mean Corpuscular Volume 93.3 fL (80.0-98.0); Mean Platelet Volume 11.5 fL (9.4-12.4); Monocytes Absolute Auto 1.7 X10*3/uL (0.1-1.2); Monocytes Percent Auto 7.4 % (2-11); Neutrophils Absolute Auto 19.4 x10*3/uL (2.0-8.3); Platelet Count 181 X10*3/uL (160-400); Red Blood Count 4.61 X10*6/uL (4.60-5.80); SCAN SMEAR FLAG 1; White Blood Count 22.6 X10*3/uL (4.8-10.8)
[2022-09-30 05:50] LABS: Anion Gap 17 (12-20); Blood Urea Nitrogen 35 mg/dL (9-16); Calcium 8.3 mg/dL (8.4-10.2); Carbon Dioxide 29 mmol/L (22-29); Chloride 107 mmol/L (96-108); Creatinine Clr Calc Pharmacy 89.8; Estimated Glomerular Filt Rate > 60; Glucose Random 206 mg/dL (60-115); Magnesium 2.2 mg/dL (1.6-2.6); Phosphorus 1.6 mg/dL (2.7-4.5); Potassium 3.8 mmol/L (3.3-5.1); Sodium 149 mmol/L (135-145)
[2022-09-30 06:11] LABS: SLIDE REVIEW VERIFIED
[2022-09-30] MEDS: Famotidine/PF 20 MG/2 ML VIAL IVPUSH (07:31)
[2022-09-30] MEDS: Tobramycin Sulfate 80 MG/2 ML VIAL 300 MG INHALE ×2 (07:36→20:38)
[2022-09-30] MEDS: levETIRAcetam in NaCl (iso-os) 1,000 MG/100 ML PIGGYBACK 400 MG IV ×2 (08:35→21:11)
[2022-09-30] MEDS: Potassium Phosphate/NS 15 MMOL/250 ML PLAST..BAG 62.5 MMOL IV ×2 (08:41→12:39)
[2022-09-30] MEDS: Albumin Human 25 % 100 ML IV ×3 (08:41→20:25)
--- NOTE | 2022-09-30 09:00 | P.CDIM_ITS ---
PROVIDER RESPONSE TEXT: To clarify, the appropriate diagnosis supported by the clinical indicators: Hypernatremia or other etiology of lab findings QUERY TEXT: PHYSICIAN'S DOCUMENTATION REQUEST Date of Query: 09/30/2022 08:21 AM EDT Patient Name: ALEXANDRIA CRESPO Admit Date: 09/26/2022 Dear Daniel Sullivan, A review of the medical record indicates additional documentation may be needed. Please review below and update the documentation accordingly. Clinical Indicators: LAB FINDINGS: sodium 153 H IV fluids Based on the above, is there a diagnosis that correlates to these lab findings above: Hypernatremia or other etiology of lab findings Other Unable to determine Other (explain) Clinically unable to determine (explain) Thank you, Melba Child, CCS, CDIS Use of terms such as suspected, likely, concern for, or probable (associated with a specific diagnosi s that is being evaluated, monitored, or treated as if it exists) are acceptable and can be coded in the inpatient se tting, when documented at the time of discharge. Please use your independent medical judgment in providing your response. THIS QUERY IS PART OF THE PERMANENT MEDICAL RECORD
[2022-09-30] MEDS: Midazolam HCl/PF 2 MG/2 ML VIAL 4 MG IVPUSH (10:29)
--- NOTE | 2022-09-30 10:29 | MHC.CLN ---
F/U PT REMAINS INTUBATED AND SEDATED DISCUSSED AT ROUNDS WITH TF STARTED PROMOTE AT 20ML/HR RECOMMEND CHANGING FORMULA TO JEVITY 1.0 AT MAX GOAL RATE 60ML/HR TO RPOVIDE 1526KCALS (30KCALS/KG), 64G PROTEIN, 1274ML FROM FORMULA MONITOR TOLERANCE, RESIDUALS AND LYTES
--- NOTE | 2022-09-30 10:54 | P.PNCC_ITS ---
Subjective Subjective Date of Service: 09/30/22 Interval History: 41-year-old gentleman with underlying history of substance abuse admitted on 09/26/2022 with an out of hospital cardiac arrest with unclear down time. Patient was brought to ER without pulse with CPR started immediately and returned spontaneous circulation achieved after approximately 7 minutes with patient intubated during the CPR and transferred to the intensive care unit thereafter. Hospital course complicated by left-sided pneumothorax, likely secondary to CPR, now status post placement of chest tube, still with air leak. Also, developmental of myoclonic jerks, loaded with Keppra and phenytoin, still intermittently requiring Versed. MRI with bilateral cell line make lesions, but no diffuse injury. Evaluated by neurology, EEG today consistent with status epilepticus vs diffuse anoxia. No events overnight. Critical Care Time (minutes): 60 Physical Exam Vital Signs: Vital Signs: Last Vital Signs Temp 100.4 F 09/30/22 10:00 Pulse 113 H 09/30/22 10:00 Resp 29 H 09/30/22 10:00 BP 127/83 09/30/22 10:00 Pulse Ox 93 09/30/22 10:00 O2 Del Method Mechanical Ventil ation 09/30/22 10:00 O2 Flow Rate 40 09/28/22 03:00 FiO2 50 09/30/22 10:00 BMI result Body Mass Index 19.1 Const: General: other (comatose) Eyes: Sclerae: sclerae normal Neck: Neck: Yes no lymphadenopathy, Yes trachea midline and Yes supple Resp: Effort & Inspection: normal respiratory effort and no respiratory distress Auscultation: clear to auscultation bilaterally Cardio: Rate: tachycardic Rhythm: regular rhythm Heart sounds: no gallops, no murmurs and no rubs GI: Palpation (GI): Soft to palpation and Other GI palpation findings present ( Nontender) Auscultation: normal bowel sounds Extrem: General: Yes no pedal edema, No clubbing and No cyanosis Objective Data Labs 09/30/22 04:26 09/30/22 04:26 Labs: Laboratory Results - last 24 hr 09/30/22 09/30/22 09/30/22 04:26 04:26 04:26 WBC 22.6 H RBC 4.61 Hgb 13.9 L Hct 43.0 MCV 93.3 D MCH 30.2 MCHC 32.3 RDW 14.0 Plt Count 181 MPV 11.5 Immature Gran % (Auto) 1.6 H Neut % (Auto) 86.0 H Lymph % (Auto) 4.2 L [place] % (Auto) 7.4 Eos % (Auto) 0.3 Baso % (Auto) 0.5 Lymph # (Auto) 0.9 L [place] # (Auto) 1.7 H Eos # (Auto) 0.1 Baso # (Auto) 0.1 Abs Immat Gran (auto) 0.37 H Absolute Neuts (auto) 19.4 H Absolute Nucleated RBC 0.000 Nucleated RBC % (auto) 0.0 Smear Tech's Comments VERIFIED VBG pH 7.52 H VBG pCO2 35 VBG pO2 47 VBG HCO3 29 H VBG O2 Saturation 84.0 VBG Base Excess 6.9 Sodium 149 H Potassium 3.8 D Chloride 107 Carbon Dioxide 29 Anion Gap 17 BUN 35 H Creatinine 0.85 Estim Creat Clear Calc 89.8 Estimated GFR > 60 Random Glucose 206 H Calcium 8.3 L D Phosphorus 1.6 L Magnesium 2.2 Albumin 3.0 L Microbiology Microbiology Results: Microbiology 09/27/22 06:18 Blood - Venous Blood Culture - Preliminary No growth after 48 hours. 09/27/22 06:18 Blood - Venous Blood Culture - Preliminary No growth after 48 hours. 09/26/22 03:34 Urine clean catch - Urine brown top Urine Culture - Final No growth. Progress Note: A&P Assessment and plan (1) Encephalopathy acute: Status: Acute (2) Acute kidney injury: Status: Acute (3) Substance abuse: Status: Acute (4) Pneumothorax, left: Status: Acute (5) Acute respiratory failure with hypoxia: Status: Acute (6) Overdose: Status: Acute (7) Cardiac arrest: Status: Acute (8) Hyperkalemia: Status: Acute Plan Assessment: 41-year-old gentleman with underlying substance abuse admitted with out of hospital cardiac arrest with CPR started in emergency room and return of spontaneous circulation achieved after approximately 7 minutes of CPR with patient intubated during the CPR Plan: Neuro: Acute encephalopathy after cardiac arrest with worsening myoclonus, now on Keppra, phenytoin, propofol/Versed drips. MRI brain with bilateral thalamic injury, but no evidence of diffuse injury. neurology service care appreciated. EEG today with status epilepticus versus diffuse anoxia. Loaded with phenobarb. Continue Keppra, Dilantin, Versed and propofol drips. Repeat EEG in a.m.. Cardiac: Out of hospital cardiac arrest with CPR in emergency room and return of spontaneous circulation achieved. Continue to titrate off pressors as tolerated. Results of 2D echocardiogram reviewed with cardiology and appear to show a Takotsubo's variant. Pulmonary: Intubated during the CPR, continue to titrate off as tolerated. Overnight with increased FiO2 requirements and large burden of secretions requiring bedside bronchoscopy with secretion clearance with improvement in FiO2 requirements. Continue on nebulized tobramycin and Unasyn. Renal: Acute kidney injury likely secondary to volume depletion, Improved with IV fluids. Non oliguric. Continue to monitor renal indices and urine output. Endo: No acute issues. GI: Persistent feculent output through G-tube, likely secondary to GI mucosal ischemia. No evidence of metabolic acidosis. ID: Cultures negative to date. Likely leukocytosis from stress response. Now on empiric Unasyn and tobramycin for increased pulmonary secretions. Chest x- ray without evidence of consolidation. Heme/Onc: No acute issues. Psych: No acute issues. Miscellaneous: No acute issues. Prophylaxis: Heparin, famotidine Diet: tube feeds Critical care time spent: 60 minutes Quality Stroke Does the patient have a stroke diagnosis?: No VTE Prior VTE?: No VTE Risk Level:: Medical - moderate - high VTE Device Contraindication: N/A - Device Ordered VTE Drug Contraindication: N/A - Med Ordered
--- NOTE | 2022-09-30 11:04 | PM.NEUROCN ---
History of Present Illness Data of Consult Service Date: 09/30/22 Primary Care Provider: None Physician HPI Reason for consult: Encephalopathy 41 years old man with cardiac arrest and ultimately intubated and admitted in hospital. He was also noted to be seizing or shaking all over and was treated with and tie epileptics. This consultation was requested because of abnormal MRI that was obtained. He was unable to provide any history. Review of Systems Review of Systems: Could not be done with [facility] Past Medical History Medical History (Updated 09/29/22 @ 11:07 by Daniel Sullivan MD) Anxiety COPD (chronic obstructive pulmonary disease) Depression Opioid dependence Family History Family History Other Lung cancer Social History Social History (System 09/26/22 @ 07:06 by Steph Moeller) Household Members: Friend(s) Housing: Apartment Do you presently have visiting nurse or other home services: No Alcohol intake: unknown Second Hand Smoke Exposure: No Substance Use Type: Crack/Cocaine, Marijuana and Opiates Currently Displaying Signs/Symptoms of Drug Intoxication Withdrawal: No Advance Directives: No Advance Directives Information Provided: No service: No Current occupational status: other Meds Allergies Allergy/AdvReac Type Severity Reaction Status Date / Time No Known Allergies Allergy Verified 09/26/22 09:09 Active Medications: Current Medications Chlorhexidine Gluconate (Chlorhexidine Gluc Oral Rinse 15 Ml Mouthwash) 15 ml BUCCAL Q8H [facility] Last Admin: 09/30/22 04:24 Dose: 15 ml Cisatracurium Besylate (Cisatracurium Besylate 20 Mg/10 Ml Vial) 20 mg IVPUSH Q30M PRN PRN Reason: ventilator synchrony Last Admin: 09/28/22 15:14 Dose: 20 mg Famotidine (Famotidine/Pf 20 Mg/2 Ml Vial) 20 mg IVPUSH DAILY [facility] Last Admin: 09/30/22 07:31 Dose: 20 mg Heparin Sodium (Porcine) (Heparin Sodium,Porcine 5,000 Unit/Ml Vial) 5,000 unit SUBCUT Q8H [facility] Last Admin: 09/30/22 04:24 Dose: 5,000 unit Propofol (Diprivan) 1,000 mg in 100 mls @ 0 mls/hr IVCONT .Q0M [facility]; Protocol Last Titration: 09/30/22 07:11 Dose: 0 mcg/kg/min, 0 mls/hr Norepinephrine Bitartrate (Levophed) 8 mg in 250 mls @ 0 mls/hr IV .Q0M [facility]; Protocol Last Titration: 09/29/22 14:54 Dose: Infused Levetiracetam (Keppra) 1,000 mg in 100 mls @ 400 mls/hr IV Q12H [facility] Last Infusion: 09/30/22 09:04 Dose: Infused Phenytoin Sodium 150 mg/ (Sodium Chloride) 103 mls @ 100 mls/hr IV BID [facility] Last Infusion: 09/30/22 09:42 Dose: Infused Midazolam HCl (Versed) 50 mg in 50 mls @ 2 mls/hr IVCONT .Q24H [facility] Last Infusion: 09/30/22 07:12 Dose: 0 mg/hr, 0 mls/hr Cisatracurium Besylate 100 mg/ (Sodium Chloride) 50 mls @ 3.12 mls/hr IVCONT .Q16H2M [facility]; Protocol Last Admin: 09/29/22 20:37 Dose: Not Given Ampicillin Sodium/Sulbactam (Sodium 3 gm/ Sodium Chloride) 100 mls @ 200 mls/hr IV Q6H [facility] Last Infusion: 09/30/22 08:01 Dose: Infused Dextrose (D5w) 1,000 mls @ 50 mls/hr IVCONT .Q20H [facility] Last Admin: 09/30/22 02:00 Dose: 50 mls/hr Potassium Phosphate (Kphos) 15 mmol in 250 mls @ 62.5 mls/hr IV Q4H [facility] Stop: 09/30/22 16:29 Last Admin: 09/30/22 08:41 Dose: 62.5 mls/hr Albumin Human (Kedbumin 25 %) 100 mls @ 100 mls/hr IV Q6H [facility] Stop: 10/01/22 03:29 Last Infusion: 09/30/22 09:42 Dose: Infused Midazolam HCl (Midazolam Hcl/Pf 2 Mg/2 Ml Vial) 2 mg IVPUSH Q15M PRN PRN Reason: Seizures Last Admin: 09/28/22 13:42 Dose: 2 mg Tobramycin Sulfate (Tobramycin Sulfate 80 Mg/2 Ml Vial) 300 mg INHALE RBID [facility] Last Admin: 09/30/22 07:36 Dose: 300 mg Home Medications Medication Instructions Recorded Confirmed Last Taken Type albuterol sulfate 90 mcg/actuation 2 puff inhalation QID PRN wheezing 06/01/20 09/26/22 Unknown History aerosol inhaler Physical Exam Vital Signs: Vital Signs: Last Vital Signs Temp 100.4 F 09/30/22 10:00 Pulse 113 H 09/30/22 10:00 Resp 29 H 09/30/22 10:00 BP 127/83 09/30/22 10:00 Pulse Ox 93 09/30/22 10:00 O2 Del Method Mechanical Ventil ation 09/30/22 10:00 O2 Flow Rate 40 09/28/22 03:00 FiO2 50 09/30/22 11:02 BMI result Body Mass Index 19.1 Neuro: Other: Examination was done of propofol. He was intubated and unresponsive to verbal and pain stimuli. Pupils were about 3-4 mm probably reactive. I was able to move his eyes. Corneal reflexes were absent. Gag reflex was absent. Deep tendon reflexes were absent with flat plantars. There was no movement or posturing. Results Labs 09/30/22 04:26 09/30/22 04:26 Labs: Short CBC 09/30/22 Range/Units 04:26 WBC 22.6 H (4.8-10.8) X10*3/uL Hgb 13.9 L (14.0-18.0) g/dl Hct 43.0 (42.0-52.0) % Plt Count 181 (160-400) X10*3/uL BMP 09/30/22 04:26 Sodium 149 H Potassium 3.8 D Chloride 107 Carbon Dioxide 29 BUN 35 H Creatinine 0.85 Calcium 8.3 L D Liver Function 09/30/22 Range/Units 04:26 Albumin 3.0 L (3.5-5.0) g/dL EEG revealed burst suppression pattern. MRI of brain revealed mid thalamic bilateral hyper intensity of nonspecific nature Microbiology Microbiology Results: Microbiology 09/27/22 06:18 Blood - Venous Blood Culture - Preliminary No growth after 48 hours. 09/27/22 06:18 Blood - Venous Blood Culture - Preliminary No growth after 48 hours. 09/26/22 03:34 Urine clean catch - Urine brown top Urine Culture - Final No growth. 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 There is also possibility of nonconvulsive status epilepticus. My recommendation is to add phenobarbital. He is already treated with levetiracetam and phenytoin. Prognosis of this condition is poor but because of his relatively young age and not too much pathology seen on his brain MRI, I recommend further treatment. As far as his brain examination is concerned, no cortical signs were noted and some brainstem signs were present. Time Spent With Patient Time: Total time managing care of this patient today ____ minutes. Procedures Date of Service Date of Service: 09/30/22
[2022-09-30] MEDS: propofoL 1,000 MG/100 ML VIAL 9.02 MG IVCONT ×2 (12:36→19:29)
[2022-09-30] MEDS: Midazolam HCl/NS 50 MG/50 ML PLAST..BAG IVCONT (14:50)
[2022-09-30] MEDS: Midazolam HCl/PF 2 MG/2 ML VIAL IVPUSH ×2 (17:57→18:33)
[2022-09-30] MEDS: Albuterol Sulfate (0.083%) 2.5 MG/3 ML VIAL.NEB INHALE (20:38)
[2022-10-01] VITALS (31 sets, daily range): BP systolic 112–134; BP diastolic 66–96; PULSE 68–117; RESP 15–36; TEMP 34.6–38.8; O2SAT 91–100; BMI 19.1
[2022-10-01] MEDS: Ampicillin Sodium/Sulbactam Na 3 GM in 0.9 % Sodium Chloride 100 ML IV ×4 (01:46→19:33)
[2022-10-01] MEDS: Albumin Human 25 % 100 ML IV (01:46)
[2022-10-01] MEDS: propofoL 1,000 MG/100 ML VIAL 9.02 MG IVCONT ×3 (02:38→19:26)
[2022-10-01] MEDS: Albuterol Sulfate (0.083%) 2.5 MG/3 ML VIAL.NEB INHALE ×2 (04:22→20:00)
[2022-10-01] MEDS: Heparin Sodium,Porcine 5,000 UNIT/ML VIAL 5000 UNIT SUBCUT ×2 (04:33→19:47)
[2022-10-01 04:57] LABS: VBG Base Excess 7.1 mmol/L; VBG HCO3 29 mmol/L (22-26); VBG pCO2 33 mmHg; VBG pH 7.55 (7.32-7.43); VBG pO2 43 mmHg
[2022-10-01 05:01] LABS: Venous Blood Gas Refer to POC result
[2022-10-01] MEDS: Chlorhexidine Gluc Oral Rinse 15 ML MOUTHWASH BUCCAL ×3 (05:01→21:36)
[2022-10-01 05:09] LABS: Basophils Percent Auto 0.2 % (0-2); Eosinophils Absolute Auto 0.1 X10*3/uL (0.0-0.4); Eosinophils Percent Auto 0.7 % (0-4); Hematocrit 33.8 % (42.0-52.0); Hemoglobin 10.9 g/dl (14.0-18.0); Imm Gran Abs Auto 0.21 X10*3/uL (0.00-0.03); Imm Gran Pct Auto 1.3 % (0.0-0.4); Lymphocytes Absolute Auto 1.2 X10*3/uL (1.2-4.9); Lymphocytes Percent Auto 7.2 % (20-40); MANUAL DIFF FLAG SCAN; Mean Corpuscular HGB Conc 32.2 g/dl (31.0-36.0); Mean Corpuscular Hemoglobin 29.4 pg (27.0-33.0); Mean Corpuscular Volume 91.1 fL (80.0-98.0); Monocytes Absolute Auto 1.7 X10*3/uL (0.1-1.2); Monocytes Percent Auto 10.2 % (2-11); Neutrophils Percent Auto 80.4 % (45-73); Platelet Count 123 X10*3/uL (160-400); Red Blood Count 3.71 X10*6/uL (4.60-5.80); Red Cell Distribution Width 13.9 % (11.0-16.0); SCAN SMEAR FLAG 1; White Blood Count 16.2 X10*3/uL (4.8-10.8)
[2022-10-01 05:25] LABS: Anion Gap 11 (12-20); Blood Urea Nitrogen 25 mg/dL (9-16); Calcium 8.4 mg/dL (8.4-10.2); Carbon Dioxide 31 mmol/L (22-29); Chloride 113 mmol/L (96-108); Creatinine Clr Calc Pharmacy 119.7; Estimated Glomerular Filt Rate > 60; Glucose Random 128 mg/dL (60-115); Phosphorus 1.1 mg/dL (2.7-4.5); Potassium 2.7 mmol/L (3.3-5.1); Sodium 152 mmol/L (135-145)
[2022-10-01 05:30] LABS: SLIDE REVIEW VERIFIED
[2022-10-01] MEDS: Midazolam HCl/PF 2 MG/2 ML VIAL IVPUSH ×5 (05:30→19:41)
[2022-10-01] MEDS: Potassium Phosphate/NS 15 MMOL/250 ML PLAST..BAG 62.5 MMOL IV ×2 (06:25→10:29)
[2022-10-01] MEDS: Lactulose 20 GM/30 ML SOLUTION OG-TUBE (07:33)
[2022-10-01] MEDS: Famotidine/PF 20 MG/2 ML VIAL IVPUSH (08:07)
[2022-10-01] MEDS: levETIRAcetam in NaCl (iso-os) 1,000 MG/100 ML PIGGYBACK 400 MG IV ×2 (08:08→21:36)
[2022-10-01] MEDS: Tobramycin Sulfate 80 MG/2 ML VIAL 300 MG INHALE ×2 (08:51→19:58)
--- NOTE | 2022-10-01 09:00 | EEG_ITS ---
This is a 16-channel portable EEG performed in ICU. The patient is intubated and unresponsive. Propofol and Versed were stopped for this EEG. EEG again revealed a typical burst suppression pattern with suppression of amplitudes for few seconds, followed by half second to 2-3 seconds of generalized sharply controlled activity. During later part of the tracing, propofol was restarted and amplitude declined. IMPRESSION: No significant change from yesterday's EEG of generalize discharges suggestive of status epilepticus versus burst suppression pattern from anoxic encephalopathy. MD VISHNU Stewart/GREY / [id number]
[2022-10-01] MEDS: Potassium Chloride/H20 40 MEQ/100 ML PIGGYBACK 100 MEQ IV (09:05)
[2022-10-01] MEDS: Midazolam HCl/PF 2 MG/2 ML VIAL 4 MG IVPUSH ×2 (09:06→09:11)
--- NOTE | 2022-10-01 10:24 | MHC.CLN ---
F/U PT REMAINS INTUBATED AND SEDATED DISCUSSED AT ROUNDS WITH PT RECEIVING JEVITY 1.0 AT MAX GOAL RATE 60ML/HR WITH 300ML Q 4 HRS PROVIDES 1526KCALS (30KCALS/KG), 64G PROTEIN (1.3G/KG), 3074ML TOTAL WATER FROM FORMULA AND FLUSHES (61ML/KG) MONITOR TOLERANCE, RESIDUALS AND LYTES
--- NOTE | 2022-10-01 11:12 | W.PM.CCHP ---
Procedures Date of Service Date of Service: 10/01/22 Lumbar Puncture Lumbar Puncture Comments: An elective lumbar puncture performed after obtaining informed consent in L3/L4 intervertebral space with 24 gauge needle obtaining sample for testing. Patient tolerated procedure well. Consent for Procedure: Elective - informed consent obtained Time out performed: No Patient position: left lateral decubitus Skin prep: Povidone-Iodine 1% Spinal needle gauge: 24G Interspace used: L3-L4 Fluid initially obtained: clear Complications: none
--- NOTE | 2022-10-01 11:26 | P.PNCC_ITS ---
Subjective Subjective Date of Service: 10/01/22 Interval History: 41-year-old gentleman with underlying history of substance abuse admitted on 09/26/2022 with an out of hospital cardiac arrest with unclear down time. Patient was brought to ER without pulse with CPR started immediately and returned spontaneous circulation achieved after approximately 7 minutes with patient intubated during the CPR and transferred to the intensive care unit thereafter. Hospital course complicated by left-sided pneumothorax, likely secondary to CPR, now status post placement of chest tube, still with air leak. Also, developmental of myoclonic jerks, loaded with Keppra and phenytoin, still intermittently requiring Versed. MRI with bilateral cell line make lesions, but no diffuse injury. Evaluated by neurology, EEG today consistent with status epilepticus vs diffuse anoxia. Repeat EEG today with status epilepticus, interrupted with Versed 4 mg x2. Lumbar puncture obtained after neurology rec ommendations. No events overnight. Critical Care Time (minutes): 60 Physical Exam Vital Signs: Vital Signs: Last Vital Signs Temp 98.5 F 10/01/22 11:00 Pulse 97 10/01/22 11:00 Resp 20 10/01/22 11:00 BP 117/70 10/01/22 11:00 Pulse Ox 95 10/01/22 11:00 O2 Del Method Mechanical Ventil ation 10/01/22 11:00 O2 Flow Rate 40 09/28/22 03:00 FiO2 40 10/01/22 11:00 BMI result Body Mass Index 19.1 Const: General: other (comatose) Eyes: Sclerae: sclerae normal Neck: Neck: Yes no lymphadenopathy, Yes trachea midline and Yes supple Resp: Auscultation: clear to auscultation bilaterally Cardio: Rate: regular rate Rhythm: regular rhythm Heart sounds: no gallops, no murmurs and no rubs GI: Palpation (GI): Soft to palpation and Other GI palpation findings present ( Nontender) Auscultation: normal bowel sounds Extrem: General: Yes no pedal edema, No clubbing and No cyanosis Objective Data Labs 10/01/22 04:42 10/01/22 04:42 Labs: Laboratory Results - last 24 hr 10/01/22 10/01/22 10/01/22 04:42 04:42 04:48 WBC 16.2 H RBC 3.71 L Hgb 10.9 L D Hct 33.8 L D MCV 91.1 MCH 29.4 MCHC 32.2 RDW 13.9 Plt Count 123 L D MPV 11.0 Immature Gran % (Auto) 1.3 H Neut % (Auto) 80.4 H Lymph % (Auto) 7.2 L [place] % (Auto) 10.2 Eos % (Auto) 0.7 Baso % (Auto) 0.2 Lymph # (Auto) 1.2 [place] # (Auto) 1.7 H Eos # (Auto) 0.1 Baso # (Auto) 0.0 Abs Immat Gran (auto) 0.21 H Absolute Neuts (auto) 13.0 H Absolute Nucleated RBC 0.000 Nucleated RBC % (auto) 0.0 Smear Tech's Comments VERIFIED VBG pH 7.55 H VBG pCO2 33 VBG pO2 43 VBG HCO3 29 H VBG O2 Saturation 76.0 VBG Base Excess 7.1 Sodium 152 H Potassium 2.7 L D Chloride 113 H Carbon Dioxide 31 H Anion Gap 11 L BUN 25 H Creatinine 0.64 Estim Creat Clear Calc 119.7 Estimated GFR > 60 Random Glucose 128 H Calcium 8.4 Phosphorus 1.1 L Magnesium 2.0 Albumin 4.0 Microbiology Microbiology Results: Microbiology 09/27/22 06:18 Blood - Venous Blood Culture - Preliminary No growth after 48 hours. 09/27/22 06:18 Blood - Venous Blood Culture - Preliminary No growth after 48 hours. 09/26/22 03:34 Urine clean catch - Urine brown top Urine Culture - Final No growth. Progress Note: A&P Assessment and plan (1) Acute kidney injury: Status: Acute (2) Encephalopathy acute: Status: Acute (3) Status epilepticus: Status: Acute (4) Substance abuse: Status: Acute (5) Pneumothorax, left: Status: Acute (6) Acute respiratory failure with hypoxia: Status: Acute (7) Overdose: Status: Acute (8) Cardiac arrest: Status: Acute Plan Assessment: 41-year-old gentleman with underlying substance abuse admitted with out of hospital cardiac arrest with CPR started in emergency room and return of spontaneous circulation achieved after approximately 7 minutes of CPR with patient intubated during the CPR Plan: Neuro: Acute encephalopathy after cardiac arrest with worsening myoclonus, now on Keppra, phenytoin, propofol/Versed drips. MRI brain with bilateral thalamic injury, but no evidence of diffuse injury. neurology service care appreciated. Repeat EEG today with status epilepticus versus diffuse anoxia. Interrupted with Versed 4 mg x2. Lumbar puncture performed and specimen sent for testing. Continue Keppra, Dilantin, Versed and propofol drips. Repeat EEG in a.m.. Cardiac: Out of hospital cardiac arrest with CPR in emergency room and return of spontaneous circulation achieved. Continue to titrate off pressors as tolerated. Results of 2D echocardiogram reviewed with cardiology and appear to show a Takotsubo's variant. Pulmonary: Intubated during the CPR, continue to titrate off as tolerated. Renal: Acute kidney injury likely secondary to volume depletion, resolved. Continue to monitor renal indices and urine output. Endo: No acute issues. GI: Persistent feculent output through G-tube, likely secondary to GI mucosal ischemia. No evidence of metabolic acidosis. ID: Cultures negative to date. Likely leukocytosis from stress response. Now on empiric Unasyn and tobramycin for increased pulmonary secretions. Empiric acyclovir and vancomycin added after lumbar puncture. Heme/Onc: No acute issues. Psych: No acute issues. Miscellaneous: No acute issues. Prophylaxis: Heparin, famotidine Diet: tube feeds Critical care time spent: 60 minutes Quality Stroke Does the patient have a stroke diagnosis?: No VTE Prior VTE?: No VTE Risk Level:: Medical - moderate - high VTE Device Contraindication: N/A - Device Ordered VTE Drug Contraindication: N/A - Med Ordered
[2022-10-01] MEDS: vancomycin HCL 1,500 MG in 0.9 % Sodium Chloride 500 ML 333.33 MG IV (11:46)
[2022-10-01 11:57] LABS: CSF Appearance Clear, Colorless
[2022-10-01 11:58] LABS: CSF Tube # 1
[2022-10-01 12:06] LABS: Glucose CSF 94 mg/dL; Total Protein CSF 24.8 mg/dL (15-45)
[2022-10-01 13:00] LABS: Appearance CSF CLEAR; CSF Tube # 3; Color CSF COLORLESS; Neutrophils CSF 100 %; Red Blood Cell CSF 3 MM*3; White Blood Cell CSF 1 MM*3
--- NOTE | 2022-10-01 13:10 | P.CDIM_ITS ---
PROVIDER RESPONSE TEXT: To clarify, the appropriate diagnosis supported by the clinical indicators: Underweight QUERY TEXT: PHYSICIAN'S DOCUMENTATION REQUEST Date of Query: 10/01/2022 08:35 AM EDT Patient Name: ALEXANDRIA CRESPO Admit Date: 09/26/2022 Dear Daniel Sullivan, A review of the medical record indicates additional documentation may be needed. Please review below and update the documentation accordingly. Clinical Indicators: Nutrition notes 09/26 - Underweight, inadequate oral intake, currently NPO BMI 17.4 Follow with team for nutritional support. If possible, please provide an associated diagnosis related to the abnormal BMI, such as: Underweight Weight loss Anorexia Unable to determine Other (explain) Clinically unable to determine (explain) Thank you, Melba Child, CCS, CDIS Use of terms such as suspected, likely, concern for, or probable (associated with a specific diagnosi s that is being evaluated, monitored, or treated as if it exists) are acceptable and can be coded in the inpatient se tting, when documented at the time of discharge. Please use your independent medical judgment in providing your response. THIS QUERY IS PART OF THE PERMANENT MEDICAL RECORD
--- NOTE | 2022-10-01 13:18 | PHA.PROG ---
Admission Date/Time: September 26, 2022 02:59 Indication: Other Weight in k.4 kg Adjusted body weight in K.8 Terrell body weight in K.1 Obesity Dosing Indication % IBW: Not Obese Serum Creatinine - Last 168 Hours 09/26/22 09/27/22 09/27/22 02:19 05:25 05:25 Creatinine 1.21 0.77 Cancelled 09/27/22 09/28/22 09/29/22 13:49 05:25 05:22 Creatinine 0.83 0.79 1.16 09/30/22 10/01/22 04:26 04:42 Creatinine 0.85 0.64 Estimated CrCl and GFR - Last 168 Hours 09/26/22 09/27/22 09/27/22 02:19 05:25 05:25 Estim Creat Clear Calc 57.5 94.3 Cancelled Estimated GFR > 60 > 60 Cancelled 09/27/22 09/28/22 09/29/22 13:49 05:25 05:22 Estim Creat Clear Calc 87.5 91.4 65.8 Estimated GFR > 60 > 60 > 60 09/30/22 10/01/22 04:26 04:42 Estim Creat Clear Calc 89.8 119.7 Estimated GFR > 60 > 60 Vancomycin Loading Dose: 1500 mg x 1 Current Vancomycin Dosing Regimen: 1000 mg Q12H Vancomycin Monitoring using AUC goal of 400 - 600 range with trough as surrogate marker: 445 mg/L/hr Date and Time for next Vancomycin Level to be drawn: 10/03 @1000 Pharmacist Comments on Vancomycin Plan: Getting level after 4 doses due to the timing of the medication. I want pharmacy to be able to follow and change any dosing based on levels. Vancomycin dosing will take advantage of [employer] as a clinical decision support tool that uses Bayesian modeling to calculate individual patient's pharmacokinetic parameters and forecast the patient's drug concentration time course with the target goal AUC 24 range of 400 - 600 mg/L/hr.
[2022-10-01 13:22] LABS: Cryptococcus neoformans/gattii Not Detected (Not Detect.); Enterovirus Not Detected (Not Detect.); Escherichia coli K1 Not Detected (Not Detect.); Haemophilus influenzae Not Detected (Not Detect.); Herpes simplex virus 1 Not Detected (Not Detect.); Herpes simplex virus 2 Not Detected (Not Detect.); Human herpesvirus 6 Not Detected (Not Detect.); Human parechovirus Not Detected (Not Detect.); Listeria monocytogenes Not Detected (Not Detect.); Neisseria meningitidis Not Detected (Not Detect.); Streptococcus agalactiae Not Detected (Not Detect.); Streptococcus pneumoniae Not Detected (Not Detect.); Varicella zoster virus Not Detected (Not Detect.)
--- NOTE | 2022-10-01 14:27 | P.CNNE_ITS ---
History of Present Illness Data of Consult Service Date: 10/01/22 Primary Care Provider: None Physician HPI Reason for consult: Encephalopathy 41 years old man status post cardiac arrest brought to hospital and intubated. EEG yesterday was suggestive of either severe anoxic encephalopathy or status epilepticus. He was treated with multiple antiepileptics an EEG was repeated this morning. There has been no significant change in his clinical status. Review of Systems Review of Systems: Could not be done with [facility] Past Medical History Medical History (Updated 10/01/22 @ 11:28 by Daniel Sullivan MD) Anxiety COPD (chronic obstructive pulmonary disease) Depression Opioid dependence Family History Family History Other Lung cancer Social History Social History (System 09/26/22 @ 07:06 by Steph Moeller) Household Members: Friend(s) Housing: Apartment Do you presently have visiting nurse or other home services: No Alcohol intake: unknown Second Hand Smoke Exposure: No Substance Use Type: Crack/Cocaine, Marijuana and Opiates Currently Displaying Signs/Symptoms of Drug Intoxication Withdrawal: No Advance Directives: No Advance Directives Information Provided: No service: No Current occupational status: other Meds Allergies Allergy/AdvReac Type Severity Reaction Status Date / Time No Known Allergies Allergy Verified 09/26/22 09:09 Active Medications: Current Medications Albuterol Sulfate (Albuterol Sulfate (0.083%) 2.5 Mg/3 Ml Vial.Neb) 2.5 mg INHALE Q4H PRN PRN Reason: Wheezing Last Admin: 10/01/22 04:22 Dose: 2.5 mg Chlorhexidine Gluconate (Chlorhexidine Gluc Oral Rinse 15 Ml Mouthwash) 15 ml BUCCAL Q8H [facility] Last Admin: 10/01/22 13:46 Dose: 15 ml Cisatracurium Besylate (Cisatracurium Besylate 20 Mg/10 Ml Vial) 20 mg IVPUSH Q30M PRN PRN Reason: ventilator synchrony Last Admin: 09/28/22 15:14 Dose: 20 mg Famotidine (Famotidine/Pf 20 Mg/2 Ml Vial) 20 mg IVPUSH DAILY [facility] Last Admin: 10/01/22 08:07 Dose: 20 mg Heparin Sodium (Porcine) (Heparin Sodium,Porcine 5,000 Unit/Ml Vial) 5,000 unit SUBCUT Q8H [facility] Last Admin: 10/01/22 11:05 Dose: Not Given Propofol (Diprivan) 1,000 mg in 100 mls @ 0 mls/hr IVCONT .Q0M [facility]; Protocol Last Admin: 10/01/22 13:45 Dose: 30 mcg/kg/min, 9.02 mls/hr Norepinephrine Bitartrate (Levophed) 8 mg in 250 mls @ 0 mls/hr IV .Q0M [facility]; Protocol Last Titration: 09/29/22 14:54 Dose: Infused Levetiracetam (Keppra) 1,000 mg in 100 mls @ 400 mls/hr IV Q12H [facility] Last Infusion: 10/01/22 09:02 Dose: Infused Phenytoin Sodium 150 mg/ (Sodium Chloride) 103 mls @ 100 mls/hr IV BID [facility] Last Infusion: 10/01/22 09:12 Dose: Infused Midazolam HCl (Versed) 50 mg in 50 mls @ 2 mls/hr IVCONT .Q24H [facility] Last Infusion: 10/01/22 09:56 Dose: 2 mg/hr, 2 mls/hr Cisatracurium Besylate 100 mg/ (Sodium Chloride) 50 mls @ 3.12 mls/hr IVCONT .Q16H2M [facility]; Protocol Last Admin: 10/01/22 06:50 Dose: Not Given Ampicillin Sodium/Sulbactam (Sodium 3 gm/ Sodium Chloride) 100 mls @ 200 mls/hr IV Q6H [facility] Last Admin: 10/01/22 13:46 Dose: 200 mls/hr Acyclovir Sodium 554 mg/ (Sodium Chloride) 111.08 mls @ 111.08 mls/hr IV Q8H [facility] Last Infusion: 10/01/22 13:44 Dose: Infused Vancomycin HCl 1,000 mg/ (Sodium Chloride) 270 mls @ 270 mls/hr IV Q12H [facility] Midazolam HCl (Midazolam Hcl/Pf 2 Mg/2 Ml Vial) 2 mg IVPUSH Q15M PRN PRN Reason: Seizures Last Admin: 10/01/22 08:26 Dose: 2 mg Pharmacy Consult (Consult Rx Vancomycin Dosing) 1 each MISCELLANE DAILY PRN PRN Reason: Consult order Tobramycin Sulfate (Tobramycin Sulfate 80 Mg/2 Ml Vial) 300 mg INHALE RBID [facility] Last Admin: 10/01/22 08:51 Dose: 300 mg Home Medications Medication Instructions Recorded Confirmed Last Taken Type albuterol sulfate 90 mcg/actuation 2 puff inhalation QID PRN wheezing 06/01/20 09/26/22 Unknown History aerosol inhaler Physical Exam Vital Signs: Vital Signs: Last Vital Signs Temp 101.2 F H 10/01/22 14:00 Pulse 111 H 10/01/22 14:00 Resp 25 H 10/01/22 14:00 BP 131/76 10/01/22 14:00 Pulse Ox 92 10/01/22 14:00 O2 Del Method Mechanical Ventil ation 10/01/22 14:00 O2 Flow Rate 40 09/28/22 03:00 FiO2 40 10/01/22 14:00 BMI result Body Mass Index 19.1 Neuro: Other: No significant change Results Labs 10/01/22 04:42 10/01/22 04:42 Labs: Short CBC 10/01/22 Range/Units 04:42 WBC 16.2 H (4.8-10.8) X10*3/uL Hgb 10.9 L D (14.0-18.0) g/dl Hct 33.8 L D (42.0-52.0) % Plt Count 123 L D (160-400) X10*3/uL BMP 10/01/22 04:42 Sodium 152 H Potassium 2.7 L D Chloride 113 H Carbon Dioxide 31 H BUN 25 H Creatinine 0.64 Calcium 8.4 Liver Function 10/01/22 Range/Units 04:42 Albumin 4.0 (3.5-5.0) g/dL EEG did not reveal any significant change compared to yesterday's E Microbiology Microbiology Results: Microbiology 10/01/22 11:14 Cerebrospinal Fluid Gram Stain - Final 10/01/22 11:14 Cerebrospinal Fluid CSF Examination - Final 10/01/22 11:14 Cerebrospinal Fluid Fluid Description - Final 09/27/22 06:18 Blood - Venous Blood Culture - Preliminary No growth after 48 hours. 09/27/22 06:18 Blood - Venous Blood Culture - Preliminary No growth after 48 hours. 09/26/22 03:34 Urine clean catch - Urine brown top Urine Culture - Final No growth. Assessment and Plan (1) Status epilepticus: Status: Acute No change clinically or electrophysiologically. At this time my recommendation is to cover him with acyclovir and perform lumbar puncture to rule out any signs of viral encephalitis. I recommend sending for meningoencephalitis panel. Time Spent With Patient Time: Total time managing care of this patient today ____ minutes. Procedures Date of Service Date of Service: 10/01/22
[2022-10-01] MEDS: Midazolam HCl/NS 50 MG/50 ML PLAST..BAG IVCONT (16:06)
--- NOTE | 2022-10-01 16:31 | PC.NURSE ---
Assumed care at 0700. Sedated on Propofol & Versed per EMAR. Positive cough, absent gag and pain response. Pupils 4mm PERRLA. Continued on Keppra & Dilantin. EEG ordered and completed - Prop & Versed paused per MD SORIANO. Continued seizure activity during EEG - see report. MD at bedside. Versed 4mg IVP x2 ordered and administered per MD w/o effect. Neuro at bedside. Lumbar puncture preformed at bedside by Jig Borer - labs pending. Started on Acyclovir q8 & Vanco BID - loading dose administered and trough ordered for 10/02 1000. Plan for repeat EEG tomorrow. Temp up to 101.8 - MD notified and cooling blanket restarted. Sinus 90-100's, no ectopy or ST changes. R IJ TLC patent w/ good blood return, dressing changed. PRN angios patent w/ good blood return. K 2.7 & Phos 1.1 - completed KPhos 15mmol x2 & KCL 40meq x1 per EMAR. Repeat labs for AM ordered. 1200 Heparin held post LP. Pneumatics in place. Continued off pressors, MAP maintaining >65. LS expiratory rhonchi right, clear left. #8 ETT, 25cm @ lip. VBGs: 7.55/33/43/29. Vent settings changed from AC 18/500/5/40% to AC 18/400/5/40%, O2 sat maintaining >95%. Continued on Unasyn, Tobra & Duonebs. RT at bedside for CPT. Abdomen soft, positive bowel sounds q4 quadrants. Lactulose x1 administered. Patient had large hard BM then multiple liquid BMs - rectal tube placed and patent. Continued on Jevity @ goal rate, no residuals. NA 152 - water flushes increased from 120 q4hr to 300 q4hr, tolerating well. Continued on Pepcid for PPI. Lerma patent, draining concentrated dark yellow urine. Approx. 10-150cc/hr. Stage 1 L buttocks - barrier cream applied, patient on turning bed and repo q2hr. Prevlon system in place. Patient bathed, oral care q2hr. Family at bedside and updated by . NEDS updated by this RN & MD.
[2022-10-01] MEDS: vancomycin HCL 1,000 MG in 0.9 % Sodium Chloride 250 ML 270 MG IV (23:31)
[2022-10-02] VITALS (32 sets, daily range): BP systolic 104–140; BP diastolic 63–94; PULSE 66–110; RESP 18–39; TEMP 35–38.3; O2SAT 88–100; BMI 19.5
[2022-10-02] MEDS: Midazolam HCl/PF 2 MG/2 ML VIAL IVPUSH ×5 (00:13→06:06)
[2022-10-02] MEDS: Ampicillin Sodium/Sulbactam Na 3 GM in 0.9 % Sodium Chloride 100 ML IV ×4 (02:09→20:16)
[2022-10-02] MEDS: propofoL 1,000 MG/100 ML VIAL 9.02 MG IVCONT ×3 (02:13→20:17)
[2022-10-02] MEDS: Heparin Sodium,Porcine 5,000 UNIT/ML VIAL 5000 UNIT SUBCUT ×3 (03:51→20:16)
[2022-10-02] MEDS: Chlorhexidine Gluc Oral Rinse 15 ML MOUTHWASH BUCCAL ×3 (05:10→20:16)
[2022-10-02 05:18] LABS: VBG Base Excess -0.7 mmol/L; VBG HCO3 22 mmol/L (22-26); VBG pCO2 31 mmHg; VBG pH 7.45 (7.32-7.43); VBG pO2 44 mmHg
[2022-10-02 05:29] LABS: Venous Blood Gas Refer to POC result
[2022-10-02 05:31] LABS: MANUAL DIFF FLAG NO
[2022-10-02 05:35] LABS: Basophils Percent Auto 0.4 % (0-2); Eosinophils Absolute Auto 0.4 X10*3/uL (0.0-0.4); Eosinophils Percent Auto 3.3 % (0-4); Hematocrit 34.7 % (42.0-52.0); Hemoglobin 11.2 g/dl (14.0-18.0); Imm Gran Pct Auto 0.9 % (0.0-0.4); Lymphocytes Absolute Auto 1.1 X10*3/uL (1.2-4.9); Lymphocytes Percent Auto 10.4 % (20-40); Mean Corpuscular HGB Conc 32.3 g/dl (31.0-36.0); Mean Corpuscular Hemoglobin 29.4 pg (27.0-33.0); Mean Corpuscular Volume 91.1 fL (80.0-98.0); Mean Platelet Volume 11.1 fL (9.4-12.4); Monocytes Absolute Auto 1.4 X10*3/uL (0.1-1.2); Monocytes Percent Auto 12.4 % (2-11); Neutrophils Absolute Auto 7.9 x10*3/uL (2.0-8.3); Neutrophils Percent Auto 72.6 % (45-73); Platelet Count 116 X10*3/uL (160-400); Red Blood Count 3.81 X10*6/uL (4.60-5.80); Red Cell Distribution Width 14.2 % (11.0-16.0); White Blood Count 10.9 X10*3/uL (4.8-10.8)
[2022-10-02 05:54] LABS: Albumin Level 3.3 g/dL (3.5-5.0); Anion Gap 11 (12-20); Blood Urea Nitrogen 13 mg/dL (9-16); Calcium 7.9 mg/dL (8.4-10.2); Carbon Dioxide 23 mmol/L (22-29); Chloride 114 mmol/L (96-108); Creatinine Clr Calc Pharmacy 145.1; Estimated Glomerular Filt Rate > 60; Glucose Random 103 mg/dL (60-115); Magnesium 1.7 mg/dL (1.6-2.6); Phosphorus 2.9 mg/dL (2.7-4.5); Potassium 3.4 mmol/L (3.3-5.1); Sodium 145 mmol/L (135-145)
[2022-10-02] MEDS: Tobramycin Sulfate 80 MG/2 ML VIAL 300 MG INHALE ×2 (07:57→19:56)
[2022-10-02] MEDS: levETIRAcetam in NaCl (iso-os) 1,000 MG/100 ML PIGGYBACK 400 MG IV ×2 (08:02→20:17)
[2022-10-02] MEDS: Famotidine/PF 20 MG/2 ML VIAL IVPUSH (08:06)
[2022-10-02] MEDS: Midazolam HCl/PF 2 MG/2 ML VIAL 4 MG IVPUSH ×11 (08:10→23:45)
[2022-10-02] MEDS: Potassium Chloride/H20 40 MEQ/100 ML PIGGYBACK 100 MEQ IV (08:21)
[2022-10-02] MEDS: Magnesium Sulfate/D5W 1 GM/100 ML PIGGYBACK IV (08:21)
--- NOTE | 2022-10-02 09:00 | EEG_ITS ---
This is a 16-channel portable EEG performed in ICU. This EEG is compared to previous 2 days of EEG. This EEG again continues to reveal generalize sharply controlled discharges followed by complete resolution of the rhythm. No significant change from previous EEGs was noted. Cardiac lead did not reveal any significant abnormality. IMPRESSION: This EEG continues to reveal signs of small generalize epileptiform discharges suggestive of status epilepticus. MD VISHNU Stewart/GREY / [id number]
[2022-10-02 10:35] LABS: Vancomycin Random 6.5 mcg/mL (15-20)
--- NOTE | 2022-10-02 11:04 | HE.PHANOTE ---
VANCO DOSING BASED ON SCR AND TROUGH DOSE INCREASE TO 1250 Q 12H. MAY HAVE TO INCREASE TO 1000Q8 STARTING 10/03. NEXT TROUGH 10/03 @ 1000
[2022-10-02] MEDS: vancomycin HCL 1,250 MG in 0.9 % Sodium Chloride 250 ML 166.67 MG IV (11:45)
--- NOTE | 2022-10-02 11:57 | P.PNCC_ITS ---
Subjective Subjective Date of Service: 10/02/22 Interval History: 41-year-old gentleman with underlying history of substance abuse admitted on 09/26/2022 with an out of hospital cardiac arrest with unclear down time. Patient was brought to ER without pulse with CPR started immediately and returned spontaneous circulation achieved after approximately 7 minutes with patient intubated during the CPR and transferred to the intensive care unit thereafter. Hospital course complicated by left-sided pneumothorax, likely secondary to CPR, now status post placement of chest tube, still with air leak. Also, developmental of myoclonic jerks, loaded with Keppra and phenytoin, still intermittently requiring Versed. MRI with bilateral cell line make lesions, but no diffuse injury. Evaluated by neurology, EEG today consistent with status epilepticus vs diffuse anoxia. Lumbar puncture obtained after neurology recommendations. EEG today with the same pattern Of status epilepticus versus diffuse anoxia. No events overnight. Critical Care Time (minutes): 45 Physical Exam Vital Signs: Vital Signs: Last Vital Signs Temp 98.2 F 10/02/22 10:59 Pulse 72 10/02/22 10:59 Resp 18 10/02/22 10:59 BP 112/85 10/02/22 10:59 Pulse Ox 92 10/02/22 10:59 O2 Del Method Mechanical Ventil ation 10/02/22 10:59 O2 Flow Rate 40 09/28/22 03:00 FiO2 35 10/02/22 11:36 BMI result Body Mass Index 19.5 Const: General: other (comatose) Eyes: Sclerae: sclerae normal Neck: Neck: Yes no lymphadenopathy, Yes trachea midline and Yes supple Resp: Auscultation: clear to auscultation bilaterally Cardio: Rate: regular rate Rhythm: regular rhythm Heart sounds: no gallops, no murmurs and no rubs GI: Palpation (GI): Soft to palpation and Other GI palpation findings present ( Nontender) Auscultation: normal bowel sounds Extrem: General: Yes no pedal edema, No clubbing and No cyanosis Objective Data Labs 10/02/22 05:04 10/02/22 05:04 Labs: Laboratory Results - last 24 hr 10/01/22 10/01/22 10/01/22 11:14 11:14 11:15 WBC RBC Hgb Hct MCV MCH MCHC RDW Plt Count MPV Immature Gran % (Auto) Neut % (Auto) Lymph % (Auto) [place] % (Auto) Eos % (Auto) Baso % (Auto) Lymph # (Auto) [place] # (Auto) Eos # (Auto) Baso # (Auto) Abs Immat Gran (auto) Absolute Neuts (auto) Absolute Nucleated RBC Nucleated RBC % (auto) VBG pH VBG pCO2 VBG pO2 VBG HCO3 VBG O2 Saturation VBG Base Excess Sodium Potassium Chloride Carbon Dioxide Anion Gap BUN Creatinine Estim Creat Clear Calc Estimated GFR Random Glucose Calcium Phosphorus Magnesium Albumin CSF Tube Number 3 1 CSF Volume 2.0 CSF Appearance CLEAR CSF Color COLORLESS CSF WBC 1 CSF RBC 3 CSF Neutrophils 100 CSF Appearance (b) Clear, Colorless CSF Glucose 94 CSF Total Protein 24.8 CSF C.neoform/gat PCR Not Detected CSF CMV DNA (PCR) Not Detected CSF Enterovirus (PCR) Not Detected CSF E. coli K1 (PCR) Not Detected CSF H. influenzae (PCR) Not Detected CSF HSV I (PCR) Not Detected CSF HSV II (PCR) Not Detected CSF HHV 6 (PCR) Not Detected CSF L.monocytogenes PCR Not Detected CSF N. meningitidis PCR Not Detected CSF Parechovirus (PCR) Not Detected CSF S. agalactiae (PCR) Not Detected CSF S. pneumoniae (PCR) Not Detected CSF VZV (PCR) Not Detected Random Vancomycin 10/02/22 10/02/22 10/02/22 05:04 05:04 05:09 WBC 10.9 H RBC 3.81 L Hgb 11.2 L Hct 34.7 L MCV 91.1 MCH 29.4 MCHC 32.3 RDW 14.2 Plt Count 116 L MPV 11.1 Immature Gran % (Auto) 0.9 H Neut % (Auto) 72.6 Lymph % (Auto) 10.4 L Charlotte % (Auto) 12.4 H Eos % (Auto) 3.3 Baso % (Auto) 0.4 Lymph # (Auto) 1.1 L Charlotte # (Auto) 1.4 H Eos # (Auto) 0.4 Baso # (Auto) 0.0 Abs Immat Gran (auto) 0.10 H Absolute Neuts (auto) 7.9 Absolute Nucleated RBC 0.000 Nucleated RBC % (auto) 0.0 VBG pH 7.45 H VBG pCO2 31 VBG pO2 44 VBG HCO3 22 VBG O2 Saturation 72.0 VBG Base Excess -0.7 Sodium 145 Potassium 3.4 D Chloride 114 H Carbon Dioxide 23 Anion Gap 11 L BUN 13 Creatinine 0.53 Estim Creat Clear Calc 145.1 Estimated GFR > 60 Random Glucose 103 Calcium 7.9 L Phosphorus 2.9 Magnesium 1.7 Albumin 3.3 L CSF Tube Number CSF Volume CSF Appearance CSF Color CSF WBC CSF RBC CSF Neutrophils CSF Appearance (b) CSF Glucose CSF Total Protein CSF C.neoform/gat PCR CSF CMV DNA (PCR) CSF Enterovirus (PCR) CSF E. coli K1 (PCR) CSF H. influenzae (PCR) CSF HSV I (PCR) CSF HSV II (PCR) CSF HHV 6 (PCR) CSF L.monocytogenes PCR CSF N. meningitidis PCR CSF Parechovirus (PCR) CSF S. agalactiae (PCR) CSF S. pneumoniae (PCR) CSF VZV (PCR) Random Vancomycin 10/02/22 09:57 WBC RBC Hgb Hct MCV MCH MCHC RDW Plt Count MPV Immature Gran % (Auto) Neut % (Auto) Lymph % (Auto) Charlotte % (Auto) Eos % (Auto) Baso % (Auto) Lymph # (Auto) Charlotte # (Auto) Eos # (Auto) Baso # (Auto) Abs Immat Gran (auto) Absolute Neuts (auto) Absolute Nucleated RBC Nucleated RBC % (auto) VBG pH VBG pCO2 VBG pO2 VBG HCO3 VBG O2 Saturation VBG Base Excess Sodium Potassium Chloride Carbon Dioxide Anion Gap BUN Creatinine Estim Creat Clear Calc Estimated GFR Random Glucose Calcium Phosphorus Magnesium Albumin CSF Tube Number CSF Volume CSF Appearance CSF Color CSF WBC CSF RBC CSF Neutrophils CSF Appearance (b) CSF Glucose CSF Total Protein CSF C.neoform/gat PCR CSF CMV DNA (PCR) CSF Enterovirus (PCR) CSF E. coli K1 (PCR) CSF H. influenzae (PCR) CSF HSV I (PCR) CSF HSV II (PCR) CSF HHV 6 (PCR) CSF L.monocytogenes PCR CSF N. meningitidis PCR CSF Parechovirus (PCR) CSF S. agalactiae (PCR) CSF S. pneumoniae (PCR) CSF VZV (PCR) Random Vancomycin 6.5 L Microbiology Microbiology Results: Microbiology 10/01/22 11:14 Cerebrospinal Fluid Gram Stain - Final 10/01/22 11:14 Cerebrospinal Fluid CSF Examination - Final 10/01/22 11:14 Cerebrospinal Fluid Fluid Description - Final 10/01/22 11:14 Cerebrospinal Fluid CSF Culture - Preliminary No growth after 1 day 09/27/22 06:18 Blood - Venous Blood Culture - Final No growth after 5 days. 09/27/22 06:18 Blood - Venous Blood Culture - Final No growth after 5 days. 09/26/22 03:34 Urine clean catch - Urine brown top Urine Culture - Final No growth. Progress Note: A&P Assessment and plan (1) Status epilepticus: Status: Acute (2) Acute kidney injury: Status: Acute (3) Encephalopathy acute: Status: Acute (4) Substance abuse: Status: Acute (5) Pneumothorax, left: Status: Acute (6) Acute respiratory failure with hypoxia: Status: Acute (7) Overdose: Status: Acute (8) Cardiac arrest: Status: Acute Plan Assessment: 41-year-old gentleman with underlying substance abuse admitted with out of hospital cardiac arrest with CPR started in emergency room and return of spontaneous circulation achieved after approximately 7 minutes of CPR with patient intubated during the CPR Plan: Neuro: Acute encephalopathy after cardiac arrest with worsening myoclonus, now on Keppra, phenytoin, propofol/Versed drips. MRI brain with bilateral thalamic injury, but no evidence of diffuse injury. Neurology service care appreciated. Repeat EEG today with status epilepticus versus diffuse anoxia. Lumbar puncture performed results normal. Continue Keppra, Dilantin, Versed and propofol drips. Discussions of goals of care ongoing with family. Cardiac: Out of hospital cardiac arrest with CPR in emergency room and return of spontaneous circulation achieved. Continue to titrate off pressors as tolerated. Results of 2D echocardiogram reviewed with cardiology and appear to show a Takotsubo's variant. Pulmonary: Intubated during the CPR, continue to titrate off as tolerated. Renal: Acute kidney injury likely secondary to volume depletion, resolved. Cont inue to monitor renal indices and urine output. Endo: No acute issues. GI: No acute issues. ID: Cultures negative to date. Likely leukocytosis from stress response. Now on empiric Unasyn and tobramycin for increased pulmonary secretions. Empiric acyclovir and vancomycin added after lumbar puncture. Heme/Onc: No acute issues. Psych: No acute issues. Miscellaneous: No acute issues. Prophylaxis: Heparin, famotidine Diet: tube feeds Critical care time spent: 45 minutes Quality Stroke Does the patient have a stroke diagnosis?: No VTE Prior VTE?: No VTE Risk Level:: Medical - moderate - high VTE Device Contraindication: N/A - Device Ordered VTE Drug Contraindication: N/A - Med Ordered
--- NOTE | 2022-10-02 14:13 | MHC.CM.PN ---
Pt continues on ventilatory support in ICU: LP preliminary results do not indicate infection: brain imaging consistent w/anoxic injury: Family will consider STONECUTTER ASSISTANT status once all tests have resulted and options for recovery are poor. CM to follow. No referrals made or d/c planning finalized.
[2022-10-02] MEDS: Midazolam HCl/NS 50 MG/50 ML PLAST..BAG IVCONT (16:53)
[2022-10-03] VITALS (29 sets, daily range): BP systolic 102–144; BP diastolic 72–98; PULSE 72–130; RESP 15–44; TEMP 35–38.6; O2SAT 90–100; BMI 19.4
[2022-10-03] MEDS: vancomycin HCL 1,250 MG in 0.9 % Sodium Chloride 250 ML 166.67 MG IV (00:04)
[2022-10-03] MEDS: propofoL 1,000 MG/100 ML VIAL 9.02 MG IVCONT ×3 (01:36→21:09)
[2022-10-03] MEDS: Ampicillin Sodium/Sulbactam Na 3 GM in 0.9 % Sodium Chloride 100 ML IV ×4 (02:39→19:18)
[2022-10-03] MEDS: Heparin Sodium,Porcine 5,000 UNIT/ML VIAL 5000 UNIT SUBCUT ×3 (03:38→19:19)
[2022-10-03 04:28] LABS: VBG Base Excess 0.5 mmol/L; VBG HCO3 25 mmol/L (22-26); VBG pCO2 39 mmHg; VBG pH 7.41 (7.32-7.43); VBG pO2 50 mmHg
[2022-10-03 04:41] LABS: Basophils Absolute Auto 0.1 X10*3/uL (0.0-0.2); Basophils Percent Auto 0.5 % (0-2); Hematocrit 39.2 % (42.0-52.0); Hemoglobin 12.6 g/dl (14.0-18.0); Imm Gran Abs Auto 0.19 X10*3/uL (0.00-0.03); Imm Gran Pct Auto 1.2 % (0.0-0.4); Lymphocytes Absolute Auto 1.6 X10*3/uL (1.2-4.9); Lymphocytes Percent Auto 9.9 % (20-40); MANUAL DIFF FLAG SCAN; Mean Corpuscular HGB Conc 32.1 g/dl (31.0-36.0); Mean Corpuscular Volume 90.3 fL (80.0-98.0); Mean Platelet Volume 10.9 fL (9.4-12.4); Monocytes Absolute Auto 1.6 X10*3/uL (0.1-1.2); Monocytes Percent Auto 9.7 % (2-11); Neutrophils Absolute Auto 11.8 x10*3/uL (2.0-8.3); Neutrophils Percent Auto 72.7 % (45-73); Platelet Count 146 X10*3/uL (160-400); Red Blood Count 4.34 X10*6/uL (4.60-5.80); Red Cell Distribution Width 13.7 % (11.0-16.0); SCAN SMEAR FLAG 1; White Blood Count 16.2 X10*3/uL (4.8-10.8)
[2022-10-03 05:03] LABS: SLIDE REVIEW VERIFIED
[2022-10-03 05:06] LABS: Anion Gap 12 (12-20); Blood Urea Nitrogen 13 mg/dL (9-16); Calcium 8.4 mg/dL (8.4-10.2); Carbon Dioxide 24 mmol/L (22-29); Chloride 113 mmol/L (96-108); Creatinine Clr Calc Pharmacy 139.6; Estimated Glomerular Filt Rate > 60; Glucose Random 109 mg/dL (60-115); Magnesium 1.8 mg/dL (1.6-2.6); Phosphorus 3.6 mg/dL (2.7-4.5); Sodium 145 mmol/L (135-145)
[2022-10-03] MEDS: Chlorhexidine Gluc Oral Rinse 15 ML MOUTHWASH BUCCAL ×3 (05:20→21:05)
[2022-10-03 05:22] LABS: Venous Blood Gas Refer to POC result
[2022-10-03] MEDS: Midazolam HCl/PF 2 MG/2 ML VIAL 4 MG IVPUSH ×16 (06:24→22:37)
--- NOTE | 2022-10-03 06:36 | PC.NURSE ---
CARE AUMED 23;15...PROPOFOL AND VERSED DRIPS MAINTAINED PER AUG..REMAINS TUBED/VENTED...VCV VENT SUPPORT...CONTINUED INTERMITTANT SEIZURE ACTIVITY...PRN VERSED X2 GIVEN...LEFT APICAL CHEST TUBE REMAINED CLAMPED OVERNIGHT...44 28-32...NSR HR 80'S-90'S...INCREASED RR/HR THIS AM...CXR DONE...RETURN OF PNEUMOTHORAX PER PARIMUTUEL TICKET CHECKER...CHEST TUBE RETURNED TO -20CM SUCTION...TRANSIENT AIRLEAK OBTAINED THEN NO FURTHER AIRLEAK...(+) FLUCTUATION IN TUBE...SUCTION INCREASED TO -30CM PER PARIMUTUEL TICKET CHECKER...HR DIRECTOR UPDATED BY PARIMUTUEL TICKET CHECKER..RADIOLOGY PAGED FOR REPEAT STAT CXR...FIO2 TITRATED FROM 40% TO 60%...CURRENTLY RR 36/BP 135/86/HR 120
[2022-10-03] MEDS: Famotidine/PF 20 MG/2 ML VIAL IVPUSH (08:29)
[2022-10-03] MEDS: Tobramycin Sulfate 80 MG/2 ML VIAL 300 MG INHALE ×2 (08:32→19:03)
[2022-10-03] MEDS: levETIRAcetam in NaCl (iso-os) 1,000 MG/100 ML PIGGYBACK 400 MG IV ×2 (08:33→20:19)
--- NOTE | 2022-10-03 09:52 | MHC.CM.PN ---
Addendum entered by Elza Merida 10/03/22 10:20: Pt does not have a HCP and will need guardianship pursuance for placement. Will await peg/trach orders then request guardianship through the court. Original Note: Pt remains on vent support in ICU: Per MD, neuro cannot say w/certainty that pt will not have some recovery as MRI didn't support catastrophic damage. Family is opting to continue full support and MD will discuss trach/peg and LTAC w/family in anticipation of future care needs. CM to follow up w/family next week for information on options. Will refer to MELINA in the interim. CM to follow
[2022-10-03] MEDS: Midazolam HCl/NS 50 MG/50 ML PLAST..BAG IVCONT ×2 (10:06→21:07)
--- NOTE | 2022-10-03 10:48 | MHC.CLN ---
F/U PT REMAINS INTUBATED AND SEDATED DISCUSSED AT ROUNDS WITH PT RECEIVING JEVITY 1.0 AT MAX GOAL RATE 60ML/HR WITH 240ML Q 4 HRS PROVIDES 1526KCALS (30KCALS/KG), 64G PROTEIN (1.3G/KG), 2714ML TOTAL WATER FROM FORMULA AND FLUSHES (49ML/KG) TOLERATING WELL WITH LOW RESIDUALS CONTINUE TO MONITOR TOLERANCE, RESIDUALS AND LYTES
[2022-10-03 11:06] LABS: Vancomycin Random 7.6 mcg/mL (15-20)
--- NOTE | 2022-10-03 11:50 | P.PNCC_ITS ---
Subjective Subjective Date of Service: 10/03/22 Interval History: 41-year-old gentleman with underlying history of substance abuse admitted on 09/26/2022 with an out of hospital cardiac arrest with unclear down time. Patient was brought to ER without pulse with CPR started immediately and returned spontaneous circulation achieved after approximately 7 minutes with patient intubated during the CPR and transferred to the intensive care unit thereafter. Hospital course complicated by left-sided pneumothorax, likely secondary to CPR, now status post placement of chest tube, still with air leak. Also, developmental of myoclonic jerks, loaded with Keppra and phenytoin, still intermittently requiring Versed. MRI with bilateral cell line make lesions, but no diffuse injury. Evaluated by neurology, EEG today consistent with status epilepticus vs diffuse anoxia. Lumbar puncture obtained after neurology recommendations. EEG today with the same pattern Of status epilepticus versus diffuse anoxia. Chest tube clamped overnight, but with redevelopment of pneumothorax, restarted on suction. Today with minimal improvement - pupils are now reactive to light bilaterally. Critical Care Time (minutes): 45 Physical Exam Vital Signs: Vital Signs: Last Vital Signs Temp 100.8 F H 10/03/22 11:00 Pulse 110 H 10/03/22 11:00 Resp 32 H 10/03/22 11:00 BP 128/75 10/03/22 11:00 Pulse Ox 100 10/03/22 11:00 O2 Del Method Mechanical Ventil ation 10/03/22 11:00 O2 Flow Rate 40 09/28/22 03:00 FiO2 60 10/03/22 11:42 BMI result Body Mass Index 19.4 Const: General: no acute distress and other (comatose) Eyes: Sclerae: sclerae normal Pupils: Equal, round and reactive pupils present Neck: Neck: Yes no lymphadenopathy, Yes trachea midline and Yes supple Resp: Effort & Inspection: normal respiratory effort and no respiratory distress Auscultation: clear to auscultation bilaterally Cardio: Rate: regular rate Rhythm: regular rhythm Heart sounds: no gallops, no murmurs and no rubs GI: Palpation (GI): Soft to palpation and Other GI palpation findings present ( Nontender) Auscultation: normal bowel sounds Neuro: Cranial nerves: Yes Equal, round and reactive pupils present Extrem: General: Yes no pedal edema, No clubbing and No cyanosis Objective Data Labs 10/03/22 04:25 10/03/22 04:25 Labs: Laboratory Results - last 24 hr 10/03/22 10/03/22 10/03/22 04:20 04:25 04:25 WBC 16.2 H RBC 4.34 L Hgb 12.6 L Hct 39.2 L MCV 90.3 MCH 29.0 MCHC 32.1 RDW 13.7 Plt Count 146 L D MPV 10.9 Immature Gran % (Auto) 1.2 H Neut % (Auto) 72.7 Lymph % (Auto) 9.9 L [place] % (Auto) 9.7 Eos % (Auto) 6.0 H Baso % (Auto) 0.5 Lymph # (Auto) 1.6 [place] # (Auto) 1.6 H Eos # (Auto) 1.0 H Baso # (Auto) 0.1 Abs Immat Gran (auto) 0.19 H Absolute Neuts (auto) 11.8 H Absolute Nucleated RBC 0.000 Nucleated RBC % (auto) 0.0 Smear Tech's Comments VERIFIED VBG pH 7.41 VBG pCO2 39 VBG pO2 50 VBG HCO3 25 VBG O2 Saturation 77.0 VBG Base Excess 0.5 Sodium 145 Potassium 4.0 Chloride 113 H Carbon Dioxide 24 Anion Gap 12 BUN 13 Creatinine 0.56 Estim Creat Clear Calc 139.6 Estimated GFR > 60 Random Glucose 109 Calcium 8.4 D Phosphorus 3.6 Magnesium 1.8 Random Vancomycin 10/03/22 10:22 WBC RBC Hgb Hct MCV MCH MCHC RDW Plt Count MPV Immature Gran % (Auto) Neut % (Auto) Lymph % (Auto) Cand[place] % (Auto) Eos % (Auto) Baso % (Auto) Lymph # (Auto) [place] # (Auto) Eos # (Auto) Baso # (Auto) Abs Immat Gran (auto) Absolute Neuts (auto) Absolute Nucleated RBC Nucleated RBC % (auto) Smear Tech's Comments VBG pH VBG pCO2 VBG pO2 VBG HCO3 VBG O2 Saturation VBG Base Excess Sodium Potassium Chloride Carbon Dioxide Anion Gap BUN Creatinine Estim Creat Clear Calc Estimated GFR Random Glucose Calcium Phosphorus Magnesium Random Vancomycin 7.6 L Microbiology Microbiology Results: Microbiology 10/01/22 11:14 Cerebrospinal Fluid Gram Stain - Final 10/01/22 11:14 Cerebrospinal Fluid CSF Examination - Final 10/01/22 11:14 Cerebrospinal Fluid Fluid Description - Final 10/01/22 11:14 Cerebrospinal Fluid CSF Culture - Preliminary No growth after 2 days 09/27/22 06:18 Blood - Venous Blood Culture - Final No growth after 5 days. 09/27/22 06:18 Blood - Venous Blood Culture - Final No growth after 5 days. 09/26/22 03:34 Urine clean catch - Urine brown top Urine Culture - Final No growth. Progress Note: A&P Assessment and plan (1) Status epilepticus: Status: Acute (2) Hyperkalemia: Status: Acute (3) Acute kidney injury: Status: Acute (4) Encephalopathy acute: Status: Acute (5) Substance abuse: Status: Acute (6) Pneumothorax, left: Status: Acute (7) Acute respiratory failure with hypoxia: Status: Acute (8) Overdose: Status: Acute (9) Cardiac arrest: Status: Acute Plan Assessment: 41-year-old gentleman with underlying substance abuse admitted with out of hospital cardiac arrest with CPR started in emergency room and return of spontaneous circulation achieved after approximately 7 minutes of CPR with patient intubated during the CPR Plan: Neuro: Acute encephalopathy after cardiac arrest with worsening myoclonus, now on Keppra, phenytoin, propofol/Versed drips. MRI brain with bilateral thalamic injury, but no evidence of diffuse injury. Neurology service care appreciated. Repeat EEG with continuation of status epilepticus versus diffuse anoxia. Lumbar puncture performed are results normal. Continue Keppra, Dilantin, Versed and propofol drips. Discussions of goals of care ongoing with family. Today with minimal improvements - opens his eyes and pupils reactive bilaterally to light. Cardiac: Out of hospital cardiac arrest with CPR in emergency room and return of spontaneous circulation achieved. Continue to titrate off pressors as tolerated. Results of 2D echocardiogram reviewed with cardiology and appear to show a Takotsubo's variant. Pulmonary: Intubated during the CPR, continue to titrate off as tolerated. Renal: Acute kidney injury likely secondary to volume depletion, resolved. Continue to monitor renal indices and urine output. Endo: No acute issues. GI: No acute issues. ID: Cultures negative to date. Now on empiric Unasyn and tobramycin for increased pulmonary secretions. Empiric acyclovir and vancomycin stopped as lumbar puncture results are normal. Heme/Onc: No acute issues. Psych: No acute issues. Miscellaneous: No acute issues. Prophylaxis: Heparin, famotidine Diet: tube feeds Critical care time spent: 45 minutes Quality Stroke Does the patient have a stroke diagnosis?: No VTE Prior VTE?: No VTE Risk Level:: Medical - moderate - high VTE Device Contraindication: N/A - Device Ordered VTE Drug Contraindication: N/A - Med Ordered
[2022-10-04] VITALS (32 sets, daily range): BP systolic 99–150; BP diastolic 56–91; PULSE 111–127; RESP 26–40; TEMP 34.9–38.7; O2SAT 63–97; BMI 19.3
[2022-10-04 00:03] LABS: Glucose, Whole Blood 152 mg/dL (60-115)
[2022-10-04] MEDS: Ampicillin Sodium/Sulbactam Na 3 GM in 0.9 % Sodium Chloride 100 ML IV ×4 (02:07→19:13)
[2022-10-04] MEDS: Midazolam HCl/PF 2 MG/2 ML VIAL 4 MG IVPUSH ×6 (03:25→11:15)
[2022-10-04] MEDS: propofoL 1,000 MG/100 ML VIAL 9.02 MG IVCONT (04:07)
[2022-10-04] MEDS: Heparin Sodium,Porcine 5,000 UNIT/ML VIAL 5000 UNIT SUBCUT ×3 (04:08→19:13)
[2022-10-04] MEDS: Chlorhexidine Gluc Oral Rinse 15 ML MOUTHWASH BUCCAL ×3 (05:11→21:04)
[2022-10-04 05:33] LABS: VBG Base Excess 0.6 mmol/L; VBG HCO3 23 mmol/L (22-26); VBG pCO2 31 mmHg; VBG pH 7.47 (7.32-7.43); VBG pO2 54 mmHg
[2022-10-04 05:37] LABS: Venous Blood Gas Refer to POC result
[2022-10-04 05:57] LABS: Basophils Absolute Auto 0.1 X10*3/uL (0.0-0.2); Basophils Percent Auto 0.4 % (0-2); Eosinophils Absolute Auto 0.6 X10*3/uL (0.0-0.4); Eosinophils Percent Auto 2.6 % (0-4); Hematocrit 39.3 % (42.0-52.0); Hemoglobin 12.9 g/dl (14.0-18.0); Imm Gran Pct Auto 1.8 % (0.0-0.4); Lymphocytes Absolute Auto 1.8 X10*3/uL (1.2-4.9); Lymphocytes Percent Auto 8.1 % (20-40); MANUAL DIFF FLAG SCAN; Mean Corpuscular HGB Conc 32.8 g/dl (31.0-36.0); Mean Corpuscular Hemoglobin 29.7 pg (27.0-33.0); Mean Corpuscular Volume 90.3 fL (80.0-98.0); Monocytes Absolute Auto 1.8 X10*3/uL (0.1-1.2); Monocytes Percent Auto 7.8 % (2-11); Neutrophils Absolute Auto 17.9 x10*3/uL (2.0-8.3); Neutrophils Percent Auto 79.3 % (45-73); Platelet Count 257 X10*3/uL (160-400); Red Blood Count 4.35 X10*6/uL (4.60-5.80); Red Cell Distribution Width 13.5 % (11.0-16.0); SCAN SMEAR FLAG 1; White Blood Count 22.6 X10*3/uL (4.8-10.8)
[2022-10-04 06:13] LABS: Albumin Level 3.5 g/dL (3.5-5.0); Anion Gap 13 (12-20); Blood Urea Nitrogen 16 mg/dL (9-16); Calcium 8.4 mg/dL (8.4-10.2); Carbon Dioxide 23 mmol/L (22-29); Chloride 110 mmol/L (96-108); Estimated Glomerular Filt Rate > 60; Glucose Random 123 mg/dL (60-115); Magnesium 1.8 mg/dL (1.6-2.6); Phosphorus 3.1 mg/dL (2.7-4.5); Potassium 4.2 mmol/L (3.3-5.1); Sodium 142 mmol/L (135-145)
[2022-10-04 06:18] LABS: SLIDE REVIEW VERIFIED
[2022-10-04] MEDS: Nystatin Oral Susp 500,000 UNIT/5 ML ORAL.SUSP 500000 UNIT BUCCAL ×3 (06:23→21:04)
[2022-10-04] MEDS: Tobramycin Sulfate 80 MG/2 ML VIAL 300 MG INHALE ×2 (07:41→18:57)
[2022-10-04] MEDS: levETIRAcetam in NaCl (iso-os) 1,000 MG/100 ML PIGGYBACK 400 MG IV ×2 (08:43→20:57)
[2022-10-04] MEDS: Famotidine/PF 20 MG/2 ML VIAL IVPUSH (08:44)
[2022-10-04] MEDS: Midazolam HCl/NS 50 MG/50 ML PLAST..BAG IVCONT ×2 (09:25→19:13)
[2022-10-04 11:17] LABS: Glucose, Whole Blood 139 mg/dL (60-115)
[2022-10-04] MEDS: propofoL 1,000 MG/100 ML VIAL 15.03 MG IVCONT ×3 (11:44→23:44)
--- NOTE | 2022-10-04 12:26 | PM.CCPN ---
Subjective Subjective Date of Service: 10/04/22 Interval History: 41-year-old gentleman with underlying history of substance abuse admitted on 09/26/2022 with an out of hospital cardiac arrest with unclear down time. Patient was brought to ER without pulse with CPR started immediately and returned spontaneous circulation achieved after approximately 7 minutes with patient intubated during the CPR and transferred to the intensive care unit thereafter. Hospital course complicated by left-sided pneumothorax, likely secondary to CPR, now status post placement of chest tube, still with air leak. Also, developmental of myoclonic jerks, loaded with Keppra and phenytoin, still intermittently requiring Versed. MRI with bilateral cell line make lesions, but no diffuse injury. Evaluated by neurology, EEG today consistent with status epilepticus vs diffuse anoxia. Lumbar puncture obtained after neurology recommendations. EEG today with the same pattern Of status epilepticus versus diffuse anoxia. No events overnight, myoclonus this a.m., given additional Versed and phenobarbital. Critical Care Time (minutes): 45 Physical Exam Vital Signs: Vital Signs: Last Vital Signs Temp 100.9 F H 10/04/22 12:00 Pulse 124 H 10/04/22 12:00 Resp 26 H 10/04/22 12:00 BP 132/82 10/04/22 12:00 Pulse Ox 93 10/04/22 12:00 O2 Del Method Mechanical Ventil ation 10/04/22 12:00 O2 Flow Rate 40 09/28/22 03:00 FiO2 50 10/04/22 12:00 BMI result Body Mass Index 19.3 Const: General: no acute distress and other (comatose) Eyes: Sclerae: sclerae normal Pupils: Equal, round and reactive pupils present Neck: Neck: Yes no lymphadenopathy, Yes trachea midline and Yes supple Resp: Effort & Inspection: normal respiratory effort and no respiratory distress Auscultation: clear to auscultation bilaterally Cardio: Rate: tachycardic Rhythm: regular rhythm Heart sounds: no gallops, no murmurs and no rubs GI: Palpation (GI): Soft to palpation and Other GI palpation findings present ( Nontender) Auscultation: normal bowel sounds Neuro: Cranial nerves: Yes Equal, round and reactive pupils present Extrem: General: Yes no pedal edema, No clubbing and No cyanosis Objective Data Labs 10/04/22 05:06 10/04/22 05:06 Labs: Laboratory Results - last 24 hr 10/03/22 10/04/22 10/04/22 23:57 05:06 05:06 WBC 22.6 H RBC 4.35 L Hgb 12.9 L Hct 39.3 L MCV 90.3 MCH 29.7 MCHC 32.8 RDW 13.5 Plt Count 257 D MPV 11.0 Immature Gran % (Auto) 1.8 H Neut % (Auto) 79.3 H Lymph % (Auto) 8.1 L Major % (Auto) 7.8 Eos % (Auto) 2.6 Baso % (Auto) 0.4 Lymph # (Auto) 1.8 Major # (Auto) 1.8 H Eos # (Auto) 0.6 H Baso # (Auto) 0.1 Abs Immat Gran (auto) 0.40 H Absolute Neuts (auto) 17.9 H Absolute Nucleated RBC 0.000 Nucleated RBC % (auto) 0.0 Smear Tech's Comments VERIFIED VBG pH VBG pCO2 VBG pO2 VBG HCO3 VBG O2 Saturation VBG Base Excess Sodium 142 Potassium 4.2 Chloride 110 H Carbon Dioxide 23 Anion Gap 13 BUN 16 Creatinine 0.63 Estim Creat Clear Calc 123.0 Estimated GFR > 60 POC Glucose 152 H Random Glucose 123 H Calcium 8.4 Phosphorus 3.1 Magnesium 1.8 Albumin 3.5 10/04/22 10/04/22 05:26 11:14 WBC RBC Hgb Hct MCV MCH MCHC RDW Plt Count MPV Immature Gran % (Auto) Neut % (Auto) Lymph % (Auto) Major % (Auto) Eos % (Auto) Baso % (Auto) Lymph # (Auto) Major # (Auto) Eos # (Auto) Baso # (Auto) Abs Immat Gran (auto) Absolute Neuts (auto) Absolute Nucleated RBC Nucleated RBC % (auto) Smear Tech's Comments VBG pH 7.47 H VBG pCO2 31 VBG pO2 54 VBG HCO3 23 VBG O2 Saturation 85.0 VBG Base Excess 0.6 Sodium Potassium Chloride Carbon Dioxide Anion Gap BUN Creatinine Estim Creat Clear Calc Estimated GFR POC Glucose 139 H Random Glucose Calcium Phosphorus Magnesium Albumin Microbiology Microbiology Results: Microbiology 10/01/22 11:14 Cerebrospinal Fluid Gram Stain - Final 10/01/22 11:14 Cerebrospinal Fluid CSF Examination - Final 10/01/22 11:14 Cerebrospinal Fluid Fluid Description - Final 10/01/22 11:14 Cerebrospinal Fluid CSF Culture - Final No growth after 3 days. 09/27/22 06:18 Blood - Venous Blood Culture - Final No growth after 5 days. 09/27/22 06:18 Blood - Venous Blood Culture - Final No growth after 5 days. 09/26/22 03:34 Urine clean catch - Urine brown top Urine Culture - Final No growth. Progress Note: A&P Assessment and plan (1) Status epilepticus: Status: Acute (2) Encephalopathy acute: Status: Acute (3) Substance abuse: Status: Acute (4) Pneumothorax, left: Status: Acute (5) Acute respiratory failure with hypoxia: Status: Acute (6) Overdose: Status: Acute (7) Cardiac arrest: Status: Acute Plan Assessment: 41-year-old gentleman with underlying substance abuse admitted with out of hospital cardiac arrest with CPR started in emergency room and return of spontaneous circulation achieved after approximately 7 minutes of CPR with patient intubated during the CPR Plan: Neuro: Acute encephalopathy after cardiac arrest with worsening myoclonus, now on Keppra, phenytoin, propofol/Versed drips. MRI brain with bilateral thalamic injury, but no evidence of diffuse injury. Neurology service care appreciated. Repeat EEG with continuation of status epilepticus versus diffuse anoxia. Lumbar puncture performed are results normal. Continue Keppra, Dilantin, Versed and propofol drips. Discussions of goals of care ongoing with family. Cardiac: Out of hospital cardiac arrest with CPR in emergency room and return of spontaneous circulation achieved. Continue to titrate off pressors as tolerated. Results of 2D echocardiogram reviewed with cardiology and appear to show a Takotsubo's variant. Pulmonary: Intubated during the CPR, continue to titrate off as tolerated. Renal: Acute kidney injury likely secondary to volume depletion, resolved. Continue to monitor renal indices and urine output. Endo: No acute issues. GI: No acute issues. ID: Cultures negative to date. Now on empiric Unasyn and tobramycin for increased pulmonary secretions. Empiric acyclovir and vancomycin stopped as lumbar puncture results are normal. Heme/Onc: No acute issues. Psych: No acute issues. Miscellaneous: No acute issues. Prophylaxis: Heparin, famotidine Diet: tube feeds Critical care time spent: 45 minutes Quality Stroke Does the patient have a stroke diagnosis?: No VTE Prior VTE?: No VTE Risk Level:: Medical - moderate - high VTE Device Contraindication: N/A - Device Ordered VTE Drug Contraindication: N/A - Med Ordered
[2022-10-04 13:13] LABS: JC Polyoma Virus RT CSF Not Detected (Not Detected)
[2022-10-04 17:57] LABS: Glucose, Whole Blood 126 mg/dL (60-115)
[2022-10-04 23:40] LABS: Glucose, Whole Blood 134 mg/dL (60-115)
[2022-10-05] VITALS (34 sets, daily range): BP systolic 95–131; BP diastolic 48–80; PULSE 103–118; RESP 19–35; TEMP 35–38.6; O2SAT 89–98; BMI 19.1
[2022-10-05] MEDS: Ampicillin Sodium/Sulbactam Na 3 GM in 0.9 % Sodium Chloride 100 ML IV ×4 (01:41→20:12)
[2022-10-05] MEDS: Heparin Sodium,Porcine 5,000 UNIT/ML VIAL 5000 UNIT SUBCUT ×3 (03:21→20:26)
[2022-10-05] MEDS: propofoL 1,000 MG/100 ML VIAL 15.03 MG IVCONT ×4 (03:46→22:31)
[2022-10-05] MEDS: Chlorhexidine Gluc Oral Rinse 15 ML MOUTHWASH BUCCAL ×3 (05:31→21:19)
[2022-10-05 05:35] LABS: VBG Base Excess 0.2 mmol/L; VBG HCO3 24 mmol/L (22-26); VBG pCO2 37 mmHg; VBG pH 7.42 (7.32-7.43); VBG pO2 52 mmHg
[2022-10-05 05:36] LABS: Venous Blood Gas Refer to POC result
[2022-10-05 05:48] LABS: Glucose, Whole Blood 124 mg/dL (60-115)
[2022-10-05 06:27] LABS: Basophils Absolute Auto 0.1 X10*3/uL (0.0-0.2); Basophils Percent Auto 0.6 % (0-2); Eosinophils Absolute Auto 0.7 X10*3/uL (0.0-0.4); Eosinophils Percent Auto 3.5 % (0-4); Hematocrit 38.4 % (42.0-52.0); Hemoglobin 12.5 g/dl (14.0-18.0); Imm Gran Abs Auto 0.41 X10*3/uL (0.00-0.03); Imm Gran Pct Auto 2.1 % (0.0-0.4); Lymphocytes Absolute Auto 1.7 X10*3/uL (1.2-4.9); Lymphocytes Percent Auto 8.8 % (20-40); MANUAL DIFF FLAG SCAN; Mean Corpuscular HGB Conc 32.6 g/dl (31.0-36.0); Mean Corpuscular Hemoglobin 30.2 pg (27.0-33.0); Mean Corpuscular Volume 92.8 fL (80.0-98.0); Mean Platelet Volume 11.3 fL (9.4-12.4); Monocytes Absolute Auto 1.9 X10*3/uL (0.1-1.2); Monocytes Percent Auto 9.6 % (2-11); Neutrophils Absolute Auto 14.7 x10*3/uL (2.0-8.3); Neutrophils Percent Auto 75.4 % (45-73); Platelet Count 369 X10*3/uL (160-400); Red Blood Count 4.14 X10*6/uL (4.60-5.80); SCAN SMEAR FLAG 1; White Blood Count 19.6 X10*3/uL (4.8-10.8)
[2022-10-05 06:29] LABS: Alanine Aminotransferase 38 U/L (0-40); Albumin Level 3.4 g/dL (3.5-5.0); Alkaline Phosphatase 150 U/L (39-117); Anion Gap 13 (12-20); Aspartate Amino Transferase 47 U/L (5-37); Bilirubin Total 0.4 mg/dL (0.0-1.0); Blood Urea Nitrogen 17 mg/dL (9-16); Calcium 8.4 mg/dL (8.4-10.2); Carbon Dioxide 24 mmol/L (22-29); Chloride 112 mmol/L (96-108); Creatinine Clr Calc Pharmacy 121.9; Estimated Glomerular Filt Rate > 60; Glucose Random 116 mg/dL (60-115); Phosphorus 3.8 mg/dL (2.7-4.5); Potassium 4.4 mmol/L (3.3-5.1); Sodium 145 mmol/L (135-145); Total Protein 5.9 g/dL (6.5-8.0)
[2022-10-05] MEDS: Midazolam HCl/NS 50 MG/50 ML PLAST..BAG IVCONT ×2 (06:36→20:12)
[2022-10-05] MEDS: Tobramycin Sulfate 80 MG/2 ML VIAL 300 MG INHALE ×2 (07:38→19:46)
[2022-10-05 07:39] LABS: SLIDE REVIEW VERIFIED
[2022-10-05] MEDS: Nystatin Oral Susp 500,000 UNIT/5 ML ORAL.SUSP 500000 UNIT BUCCAL ×3 (07:45→20:14)
[2022-10-05] MEDS: Famotidine/PF 20 MG/2 ML VIAL IVPUSH (07:45)
[2022-10-05] MEDS: levETIRAcetam in NaCl (iso-os) 1,000 MG/100 ML PIGGYBACK 400 MG IV ×2 (08:16→20:15)
--- NOTE | 2022-10-05 11:19 | P.PNCC_ITS ---
Subjective Subjective Date of Service: 10/05/22 Interval History: 41-year-old gentleman with underlying history of substance abuse admitted on 09/26/2022 with an out of hospital cardiac arrest with unclear down time. Patient was brought to ER without pulse with CPR started immediately and returned spontaneous circulation achieved after approximately 7 minutes with patient intubated during the CPR and transferred to the intensive care unit thereafter. Hospital course complicated by left-sided pneumothorax, likely secondary to CPR, now status post placement of chest tube, still with air leak. Also, developmental of myoclonic jerks, loaded with Keppra and phenytoin, still intermittently requiring Versed. MRI with bilateral cell line make lesions, but no diffuse injury. Evaluated by neurology, EEG consistent with status epilepticus vs diffuse anoxia. Lumbar puncture obtained after neurology recommendations. Repeat EEG with the same pattern of status epilepticus versus diffuse anoxia. No events overnight. Critical Care Time (minutes): 45 Physical Exam Vital Signs: Vital Signs: Last Vital Signs Temp 99 F 10/05/22 10:51 Pulse 109 H 10/05/22 10:51 Resp 31 H 10/05/22 10:51 BP 112/72 10/05/22 10:51 Pulse Ox 94 10/05/22 10:51 O2 Del Method Mechanical Ventil ation 10/05/22 10:51 O2 Flow Rate 40 09/28/22 03:00 FiO2 50 10/05/22 10:51 BMI result Body Mass Index 19.1 Const: General: no acute distress and other (Sedated on the vent) Eyes: Sclerae: sclerae normal Neck: Neck: Yes no lymphadenopathy, Yes trachea midline and Yes supple Resp: Auscultation: clear to auscultation bilaterally Cardio: Rate: tachycardic Rhythm: regular rhythm Heart sounds: no gallops, no murmurs and no rubs GI: Palpation (GI): Soft to palpation and Other GI palpation findings present ( Nontender) Auscultation: normal bowel sounds Extrem: General: Yes no pedal edema, No clubbing and No cyanosis Objective Data Labs 10/05/22 05:19 10/05/22 05:19 Labs: Laboratory Results - last 24 hr 10/01/22 10/04/22 10/04/22 11:14 17:54 23:29 WBC RBC Hgb Hct MCV MCH MCHC RDW Plt Count MPV Immature Gran % (Auto) Neut % (Auto) Lymph % (Auto) [place] % (Auto) Eos % (Auto) Baso % (Auto) Lymph # (Auto) [place] # (Auto) Eos # (Auto) Baso # (Auto) Abs Immat Gran (auto) Absolute Neuts (auto) Absolute Nucleated RBC Nucleated RBC % (auto) Smear Tech's Comments VBG pH VBG pCO2 VBG pO2 VBG HCO3 VBG O2 Saturation VBG Base Excess Sodium Potassium Chloride Carbon Dioxide Anion Gap BUN Creatinine Estim Creat Clear Calc Estimated GFR POC Glucose 126 H 134 H Random Glucose Calcium Phosphorus Magnesium Total Bilirubin AST ALT Alkaline Phosphatase Total Protein Albumin LESA Virus DNA Rpt Status Not Detected 10/05/22 10/05/22 10/05/22 05:19 05:19 05:26 WBC 19.6 H RBC 4.14 L Hgb 12.5 L Hct 38.4 L MCV 92.8 MCH 30.2 MCHC 32.6 RDW 14.0 Plt Count 369 D MPV 11.3 Immature Gran % (Auto) 2.1 H Neut % (Auto) 75.4 H Lymph % (Auto) 8.8 L [place] % (Auto) 9.6 Eos % (Auto) 3.5 Baso % (Auto) 0.6 Lymph # (Auto) 1.7 [place] # (Auto) 1.9 H Eos # (Auto) 0.7 H Baso # (Auto) 0.1 Abs Immat Gran (auto) 0.41 H Absolute Neuts (auto) 14.7 H Absolute Nucleated RBC 0.000 Nucleated RBC % (auto) 0.0 Smear Tech's Comments VERIFIED VBG pH 7.42 VBG pCO2 37 VBG pO2 52 VBG HCO3 24 VBG O2 Saturation 81.0 VBG Base Excess 0.2 Sodium 145 Potassium 4.4 Chloride 112 H Carbon Dioxide 24 Anion Gap 13 BUN 17 H Creatinine 0.63 Estim Creat Clear Calc 121.9 Estimated GFR > 60 POC Glucose Random Glucose 116 H Calcium 8.4 Phosphorus 3.8 Magnesium 2.0 Total Bilirubin 0.4 AST 47 H ALT 38 Alkaline Phosphatase 150 H Total Protein 5.9 L Albumin 3.4 L LESA Virus DNA Rpt Status 10/05/22 05:39 WBC RBC Hgb Hct MCV MCH MCHC RDW Plt Count MPV Immature Gran % (Auto) Neut % (Auto) Lymph % (Auto) [place] % (Auto) Eos % (Auto) Baso % (Auto) Lymph # (Auto) [place] # (Auto) Eos # (Auto) Baso # (Auto) Abs Immat Gran (auto) Absolute Neuts (auto) Absolute Nucleated RBC Nucleated RBC % (auto) Smear Tech's Comments VBG pH VBG pCO2 VBG pO2 VBG HCO3 VBG O2 Saturation VBG Base Excess Sodium Potassium Chloride Carbon Dioxide Anion Gap BUN Creatinine Estim Creat Clear Calc Estimated GFR POC Glucose 124 H Random Glucose Calcium Phosphorus Magnesium Total Bilirubin AST ALT Alkaline Phosphatase Total Protein Albumin LESA Virus DNA Rpt Status Microbiology Microbiology Results: Microbiology 10/01/22 11:14 Cerebrospinal Fluid Gram Stain - Final 10/01/22 11:14 Cerebrospinal Fluid CSF Examination - Final 10/01/22 11:14 Cerebrospinal Fluid Fluid Description - Final 10/01/22 11:14 Cerebrospinal Fluid CSF Culture - Final No growth after 3 days. 09/27/22 06:18 Blood - Venous Blood Culture - Final No growth after 5 days. 09/27/22 06:18 Blood - Venous Blood Culture - Final No growth after 5 days. 09/26/22 03:34 Urine clean catch - Urine brown top Urine Culture - Final No growth. Progress Note: A&P Assessment and plan (1) Status epilepticus: Status: Acute (2) Encephalopathy acute: Status: Acute (3) Substance abuse: Status: Acute (4) Pneumothorax, left: Status: Acute (5) Acute respiratory failure with hypoxia: Status: Acute (6) Overdose: Status: Acute (7) Cardiac arrest: Status: Acute Plan Assessment: 41-year-old gentleman with underlying substance abuse admitted with out of hospital cardiac arrest with CPR started in emergency room and return of spontaneous circulation achieved after approximately 7 minutes of CPR with patient intubated during the CPR Plan: Neuro: Acute encephalopathy after cardiac arrest with worsening myoclonus, now on Keppra, phenytoin, propofol/Versed drips. MRI brain with bilateral thalamic injury, but no evidence of diffuse injury. Neurology service care appreciated. Repeat EEG with continuation of status epilepticus versus diffuse anoxia. Lumbar puncture performed are results normal. Continue Keppra, Dilantin, Versed and propofol drips. Discussions of goals of care ongoing with family. Cardiac: Out of hospital cardiac arrest with CPR in emergency room and return of spontaneous circulation achieved. Continue to titrate off pressors as tolerated. Results of 2D echocardiogram reviewed with cardiology and appear to show a Takotsubo's variant. Pulmonary: Intubated during the CPR, continue to titrate off as tolerated. Renal: Acute kidney injury likely secondary to volume depletion, resolved. Continue to monitor renal indices and urine output. Endo: No acute issues. GI: No acute issues. ID: Cultures negative to date. Now on empiric Unasyn and tobramycin for increased pulmonary secretions. Empiric acyclovir and vancomycin stopped as lumbar puncture results are normal. Heme/Onc: No acute issues. Psych: No acute issues. Miscellaneous: No acute issues. Prophylaxis: Heparin, famotidine Diet: tube feeds Critical care time spent: 45 minutes Quality Stroke Does the patient have a stroke diagnosis?: No VTE Prior VTE?: No VTE Risk Level:: Medical - moderate - high VTE Device Contraindication: N/A - Device Ordered VTE Drug Contraindication: N/A - Med Ordered
[2022-10-05 11:46] LABS: Glucose, Whole Blood 120 mg/dL (60-115)
[2022-10-05 18:05] LABS: Glucose, Whole Blood 121 mg/dL (60-115)
[2022-10-05] MEDS: Midazolam HCl/PF 2 MG/2 ML VIAL 4 MG IVPUSH (21:18)
[2022-10-05] MEDS: Albuterol Sulfate (0.083%) 2.5 MG/3 ML VIAL.NEB INHALE (21:24)
[2022-10-05 23:47] LABS: Glucose, Whole Blood 132 mg/dL (60-115)
[2022-10-06] VITALS (29 sets, daily range): BP systolic 94–135; BP diastolic 54–89; PULSE 103–113; RESP 16–34; TEMP 35–38.5; O2SAT 89–95; BMI 18.4
[2022-10-06] MEDS: propofoL 1,000 MG/100 ML VIAL 15.03 MG IVCONT ×5 (02:27→23:08)
[2022-10-06] MEDS: Ampicillin Sodium/Sulbactam Na 3 GM in 0.9 % Sodium Chloride 100 ML IV ×4 (02:28→19:30)
[2022-10-06] MEDS: Heparin Sodium,Porcine 5,000 UNIT/ML VIAL 5000 UNIT SUBCUT ×3 (04:54→19:30)
[2022-10-06 05:14] LABS: VBG HCO3 29 mmol/L (22-26); VBG pCO2 42 mmHg; VBG pH 7.44 (7.32-7.43); VBG pO2 50 mmHg
[2022-10-06 05:19] LABS: Venous Blood Gas Refer to POC result
[2022-10-06] MEDS: Midazolam HCl/PF 2 MG/2 ML VIAL 4 MG IVPUSH ×2 (05:20→19:21)
[2022-10-06 05:31] LABS: Basophils Absolute Auto 0.1 X10*3/uL (0.0-0.2); Basophils Percent Auto 0.6 % (0-2); Eosinophils Absolute Auto 0.6 X10*3/uL (0.0-0.4); Eosinophils Percent Auto 4.1 % (0-4); Hematocrit 36.6 % (42.0-52.0); Hemoglobin 11.7 g/dl (14.0-18.0); Imm Gran Abs Auto 0.19 X10*3/uL (0.00-0.03); Imm Gran Pct Auto 1.3 % (0.0-0.4); Lymphocytes Absolute Auto 1.6 X10*3/uL (1.2-4.9); MANUAL DIFF FLAG SCAN; Mean Corpuscular Hemoglobin 29.5 pg (27.0-33.0); Mean Corpuscular Volume 92.2 fL (80.0-98.0); Mean Platelet Volume 10.4 fL (9.4-12.4); Monocytes Absolute Auto 1.6 X10*3/uL (0.1-1.2); Monocytes Percent Auto 11.3 % (2-11); Neutrophils Absolute Auto 10.4 x10*3/uL (2.0-8.3); Neutrophils Percent Auto 71.7 % (45-73); Platelet Count 387 X10*3/uL (160-400); Red Blood Count 3.97 X10*6/uL (4.60-5.80); Red Cell Distribution Width 14.2 % (11.0-16.0); SCAN SMEAR FLAG 1; White Blood Count 14.5 X10*3/uL (4.8-10.8)
[2022-10-06 05:42] LABS: Glucose, Whole Blood 120 mg/dL (60-115)
[2022-10-06] MEDS: Chlorhexidine Gluc Oral Rinse 15 ML MOUTHWASH BUCCAL ×3 (05:46→21:06)
[2022-10-06 05:47] LABS: Albumin Level 3.3 g/dL (3.5-5.0); Anion Gap 13 (12-20); Blood Urea Nitrogen 16 mg/dL (9-16); Calcium 8.6 mg/dL (8.4-10.2); Carbon Dioxide 27 mmol/L (22-29); Chloride 108 mmol/L (96-108); Creatinine Clr Calc Pharmacy 123.8; Estimated Glomerular Filt Rate > 60; Glucose Random 109 mg/dL (60-115); Magnesium 2.1 mg/dL (1.6-2.6); Phosphorus 3.3 mg/dL (2.7-4.5); Potassium 4.9 mmol/L (3.3-5.1); Sodium 143 mmol/L (135-145)
[2022-10-06 05:59] LABS: SLIDE REVIEW VERIFIED
--- NOTE | 2022-10-06 06:56 | PC.NURSE ---
Addendum entered by Mik Wise RN 10/06/22 07:02: Mildly febrile, 101.9 tmax, was treated with ice cold washcloths to forehead with good effect, down to 100.4 Original Note: Assumed care at 19:00. Patient sedated on Propofol 50 gtt and versed 4 gtt, no gag, positive cough, flaccid extremities, plantar flexion in feet, noted to have right downward gaze, disconjugate gaze, was able to shift gaze of left eye beyond midline to look at/track speaker briefly and inconsistently. Brisk reactive pupils. PEGGER notified, in to assess patient, Patient was given PRN versed for seizure activity but also to help with accessory muscle use with upper accessory breathing muscles, accompanied with tachypnea--versed with temporary good effect. Patient continues on ventilator, AC settings, see ventilator assessment. No Output on left anterior chest tube. No tidaling, PEGGER aware. Fasciculations of facial muscles recur with stimulation, PEGGER aware, and PRN versed given a second time for this. No BM ovenight. tolerating feeds.
[2022-10-06] MEDS: Tobramycin Sulfate 80 MG/2 ML VIAL 300 MG INHALE ×2 (07:55→20:42)
[2022-10-06] MEDS: Midazolam HCl/NS 50 MG/50 ML PLAST..BAG IVCONT ×3 (08:01→23:03)
[2022-10-06] MEDS: levETIRAcetam in NaCl (iso-os) 1,000 MG/100 ML PIGGYBACK 400 MG IV ×2 (08:02→21:06)
[2022-10-06] MEDS: Famotidine/PF 20 MG/2 ML VIAL IVPUSH (08:02)
[2022-10-06] MEDS: Nystatin Oral Susp 500,000 UNIT/5 ML ORAL.SUSP 500000 UNIT BUCCAL ×3 (08:02→21:06)
[2022-10-06] MEDS: Furosemide 40 MG/4 ML VIAL IVPUSH (08:38)
--- NOTE | 2022-10-06 09:57 | MHC.CM.PN ---
Pt continues care in ICU: vented and continuous post ictal state per EEG. Pt to have a repeat MRI today to assess for neurological function return potential. D/C planning remains on hold pending clinical outcomes
--- NOTE | 2022-10-06 10:04 | MHC.CLN ---
F/U PT REMAINS INTUBATED AND SEDATED DISCUSSED AT ROUNDS WITH PT RECEIVING JEVITY 1.0 AT MAX GOAL RATE 60ML/HR WITH 240ML Q 6 HRS PROVIDES 1526KCALS (1923 WITH SEDATION; 35KCALS/KG), 64G PROTEIN (1.3G/KG), 2234ML TOTAL WATER FROM FORMULA AND FLUSHES (40.6ML/KG) TOLERATING WELL WITH LOW RESIDUALS CONTINUE TO MONITOR TOLERANCE, RESIDUALS AND LYTES
--- NOTE | 2022-10-06 11:11 | P.PNCC_ITS ---
Subjective Subjective Date of Service: 10/06/22 Interval History: 41-year-old gentleman with underlying history of substance abuse admitted on 09/26/2022 with an out of hospital cardiac arrest with unclear down time. Patient was brought to ER without pulse with CPR started immediately and returned spontaneous circulation achieved after approximately 7 minutes with patient intubated during the CPR and transferred to the intensive care unit thereafter. Hospital course complicated by left-sided pneumothorax, likely secondary to CPR, now status post placement of chest tube, still with air leak. Also, developmental of myoclonic jerks, loaded with Keppra and phenytoin, still intermittently requiring Versed. MRI with bilateral cell line make lesions, but no diffuse injury. Evaluated by neurology, EEG consistent with status epilepticus vs diffuse anoxia. Lumbar puncture obtained after neurology recommendations. Repeat EEG with the same pattern of status epilepticus versus diffuse anoxia. No events overnight. Critical Care Time (minutes): 45 Physical Exam Vital Signs: Vital Signs: Last Vital Signs Temp 99.9 F 10/06/22 09:00 Pulse 111 H 10/06/22 11:00 Resp 30 H 10/06/22 11:00 BP 117/67 10/06/22 11:00 Pulse Ox 92 10/06/22 11:00 O2 Del Method Mechanical Ventil ation 10/06/22 11:00 O2 Flow Rate 40 09/28/22 03:00 FiO2 50 10/06/22 11:00 BMI result Body Mass Index 18.4 Const: General: no acute distress and other (Sedated on the vent) Eyes: Sclerae: sclerae normal Pupils: Equal, round and reactive pupils pre sent Neck: Neck: Yes no lymphadenopathy, Yes trachea midline and Yes supple Resp: Auscultation: clear to auscultation bilaterally Cardio: Rate: tachycardic Rhythm: regular rhythm Heart sounds: no gallops, no murmurs and no rubs GI: Palpation (GI): Soft to palpation and Other GI palpation findings present ( Nontender) Auscultation: normal bowel sounds Neuro: Cranial nerves: Yes Equal, round and reactive pupils present Extrem: General: Yes no pedal edema, No clubbing and No cyanosis Objective Data Labs 10/06/22 05:02 10/06/22 05:02 Labs: Laboratory Results - last 24 hr 10/05/22 10/05/22 10/05/22 11:40 18:01 23:40 WBC RBC Hgb Hct MCV MCH MCHC RDW Plt Count MPV Immature Gran % (Auto) Neut % (Auto) Lymph % (Auto) [place] % (Auto) Eos % (Auto) Baso % (Auto) Lymph # (Auto) [place] # (Auto) Eos # (Auto) Baso # (Auto) Abs Immat Gran (auto) Absolute Neuts (auto) Absolute Nucleated RBC Nucleated RBC % (auto) Smear Tech's Comments VBG pH VBG pCO2 VBG pO2 VBG HCO3 VBG O2 Saturation VBG Base Excess Sodium Potassium Chloride Carbon Dioxide Anion Gap BUN Creatinine Estim Creat Clear Calc Estimated GFR POC Glucose 120 H 121 H 132 H Random Glucose Calcium Phosphorus Magnesium Albumin 10/06/22 10/06/22 10/06/22 05:02 05:02 05:05 WBC 14.5 H RBC 3.97 L Hgb 11.7 L Hct 36.6 L MCV 92.2 MCH 29.5 MCHC 32.0 RDW 14.2 Plt Count 387 MPV 10.4 Immature Gran % (Auto) 1.3 H Neut % (Auto) 71.7 Lymph % (Auto) 11.0 L [place] % (Auto) 11.3 H Eos % (Auto) 4.1 H Baso % (Auto) 0.6 Lymph # (Auto) 1.6 [place] # (Auto) 1.6 H Eos # (Auto) 0.6 H Baso # (Auto) 0.1 Abs Immat Gran (auto) 0.19 H Absolute Neuts (auto) 10.4 H Absolute Nucleated RBC 0.000 Nucleated RBC % (auto) 0.0 Smear Tech's Comments VERIFIED VBG pH 7.44 H VBG pCO2 42 VBG pO2 50 VBG HCO3 29 H VBG O2 Saturation 81.0 VBG Base Excess 5.0 Sodium 143 Potassium 4.9 Chloride 108 Carbon Dioxide 27 Anion Gap 13 BUN 16 Creatinine 0.62 Estim Creat Clear Calc 123.8 Estimated GFR > 60 POC Glucose Random Glucose 109 Calcium 8.6 Phosphorus 3.3 Magnesium 2.1 Albumin 3.3 L 10/06/22 05:35 WBC RBC Hgb Hct MCV MCH MCHC RDW Plt Count MPV Immature Gran % (Auto) Neut % (Auto) Lymph % (Auto) [place] % (Auto) Eos % (Auto) Baso % (Auto) Lymph # (Auto) [place] # (Auto) Eos # (Auto) Baso # (Auto) Abs Immat Gran (auto) Absolute Neuts (auto) Absolute Nucleated RBC Nucleated RBC % (auto) Smear Tech's Comments VBG pH VBG pCO2 VBG pO2 VBG HCO3 VBG O2 Saturation VBG Base Excess Sodium Potassium Chloride Carbon Dioxide Anion Gap BUN Creatinine Estim Creat Clear Calc Estimated GFR POC Glucose 120 H Random Glucose Calcium Phosphorus Magnesium Albumin Microbiology Microbiology Results: Microbiology 10/01/22 11:14 Cerebrospinal Fluid Gram Stain - Final 10/01/22 11:14 Cerebrospinal Fluid CSF Examination - Final 10/01/22 11:14 Cerebrospinal Fluid Fluid Description - Final 10/01/22 11:14 Cerebrospinal Fluid CSF Culture - Final No growth after 3 days. 09/27/22 06:18 Blood - Venous Blood Culture - Final No growth after 5 days. 09/27/22 06:18 Blood - Venous Blood Culture - Final No growth after 5 days. 09/26/22 03:34 Urine clean catch - Urine brown top Urine Culture - Final No growth. Progress Note: A&P Assessment and plan (1) Status epilepticus: Status: Acute (2) Acute kidney injury: Status: Acute (3) Encephalopathy acute: Status: Acute (4) Substance abuse: Status: Acute (5) Pneumothorax, left: Status: Acute (6) Acute respiratory failure with hypoxia: Status: Acute (7) Overdose: Status: Acute (8) Cardiac arrest: Status: Acute Plan Assessment: 41-year-old gentleman with underlying substance abuse admitted with out of hospital cardiac arrest with CPR started in emergency room and return of spontaneous circulation achieved after approximately 7 minutes of CPR with patient intubated during the CPR Plan: Neuro: Acute encephalopathy after cardiac arrest with worsening myoclonus, now on Keppra, phenytoin, propofol/Versed drips. MRI brain with bilateral thalamic injury, but no evidence of diffuse injury. Neurology service care appreciated. Repeat EEG with continuation of status epilepticus versus diffuse anoxia. Lumbar puncture performed are results normal. Continue Keppra, Dilantin, Versed and propofol drips. Discussions of goals of care ongoing with family. No seizure activity for the last 24 hours+. Repeat MRI today. Cardiac: Out of hospital cardiac arrest with CPR in emergency room and return of spontaneous circulation achieved. Continue to titrate off pressors as regi ated. Results of 2D echocardiogram reviewed with cardiology and appear to show a Takotsubo's variant. Pulmonary: Intubated during the CPR, continue to titrate off as tolerated. Renal: Acute kidney injury likely secondary to volume depletion, resolved. Continue to monitor renal indices and urine output. Endo: No acute issues. GI: No acute issues. ID: Cultures negative to date. Now on empiric Unasyn and tobramycin for increased pulmonary secretions. Empiric acyclovir and vancomycin stopped as lumbar puncture results are normal. Heme/Onc: No acute issues. Psych: No acute issues. Miscellaneous: No acute issues. Prophylaxis: Heparin, famotidine Diet: tube feeds Critical care time spent: 45 minutes Quality Stroke Does the patient have a stroke diagnosis?: No VTE Prior VTE?: No VTE Risk Level:: Medical - moderate - high VTE Device Contraindication: N/A - Device Ordered VTE Drug Contraindication: N/A - Med Ordered
[2022-10-06 11:29] LABS: Glucose, Whole Blood 122 mg/dL (60-115)
[2022-10-06 17:56] LABS: Glucose, Whole Blood 147 mg/dL (60-115)
[2022-10-06 23:32] LABS: Glucose, Whole Blood 123 mg/dL (60-115)
[2022-10-07] VITALS (34 sets, daily range): BP systolic 93–129; BP diastolic 56–87; PULSE 96–115; RESP 23–33; TEMP 34.8–38.3; O2SAT 88–95; BMI 17.7
[2022-10-07] MEDS: Ampicillin Sodium/Sulbactam Na 3 GM in 0.9 % Sodium Chloride 100 ML IV ×2 (02:04→08:14)
[2022-10-07] MEDS: Heparin Sodium,Porcine 5,000 UNIT/ML VIAL 5000 UNIT SUBCUT ×3 (03:50→20:47)
[2022-10-07] MEDS: propofoL 1,000 MG/100 ML VIAL 15.03 MG IVCONT ×4 (03:51→23:43)
[2022-10-07] MEDS: Midazolam HCl/NS 50 MG/50 ML PLAST..BAG IVCONT ×2 (04:21→17:07)
[2022-10-07 05:16] LABS: VBG Base Excess 7.1 mmol/L; VBG HCO3 30 mmol/L (22-26); VBG pCO2 40 mmHg; VBG pH 7.48 (7.32-7.43); VBG pO2 52 mmHg
[2022-10-07 05:18] LABS: Venous Blood Gas Refer to POC result
[2022-10-07 05:41] LABS: Glucose, Whole Blood 121 mg/dL (60-115)
[2022-10-07 05:45] LABS: Basophils Absolute Auto 0.1 X10*3/uL (0.0-0.2); Basophils Percent Auto 0.7 % (0-2); Eosinophils Absolute Auto 0.6 X10*3/uL (0.0-0.4); Eosinophils Percent Auto 4.4 % (0-4); Hematocrit 35.7 % (42.0-52.0); Hemoglobin 11.6 g/dl (14.0-18.0); Imm Gran Abs Auto 0.15 X10*3/uL (0.00-0.03); Imm Gran Pct Auto 1.1 % (0.0-0.4); Lymphocytes Absolute Auto 1.7 X10*3/uL (1.2-4.9); Lymphocytes Percent Auto 12.7 % (20-40); MANUAL DIFF FLAG SCAN; Mean Corpuscular HGB Conc 32.5 g/dl (31.0-36.0); Mean Corpuscular Hemoglobin 30.4 pg (27.0-33.0); Mean Corpuscular Volume 93.5 fL (80.0-98.0); Mean Platelet Volume 10.9 fL (9.4-12.4); Monocytes Absolute Auto 1.6 X10*3/uL (0.1-1.2); Monocytes Percent Auto 12.4 % (2-11); Neutrophils Absolute Auto 9.1 x10*3/uL (2.0-8.3); Neutrophils Percent Auto 68.7 % (45-73); Platelet Count 461 X10*3/uL (160-400); Red Blood Count 3.82 X10*6/uL (4.60-5.80); Red Cell Distribution Width 14.5 % (11.0-16.0); SCAN SMEAR FLAG 1; White Blood Count 13.3 X10*3/uL (4.8-10.8)
[2022-10-07] MEDS: Chlorhexidine Gluc Oral Rinse 15 ML MOUTHWASH BUCCAL ×3 (06:02→20:52)
[2022-10-07 06:08] LABS: SLIDE REVIEW VERIFIED
[2022-10-07 06:12] LABS: Albumin Level 3.3 g/dL (3.5-5.0); Anion Gap 13 (12-20); Blood Urea Nitrogen 21 mg/dL (9-16); Calcium 8.4 mg/dL (8.4-10.2); Carbon Dioxide 27 mmol/L (22-29); Chloride 105 mmol/L (96-108); Creatinine Clr Calc Pharmacy 128.1; Estimated Glomerular Filt Rate > 60; Glucose Random 111 mg/dL (60-115); Magnesium 2.1 mg/dL (1.6-2.6); Phosphorus 3.2 mg/dL (2.7-4.5); Potassium 4.7 mmol/L (3.3-5.1); Sodium 140 mmol/L (135-145)
[2022-10-07] MEDS: Midazolam HCl/PF 2 MG/2 ML VIAL 4 MG IVPUSH ×3 (08:12→21:33)
[2022-10-07] MEDS: Famotidine/PF 20 MG/2 ML VIAL IVPUSH (08:13)
[2022-10-07] MEDS: levETIRAcetam in NaCl (iso-os) 1,000 MG/100 ML PIGGYBACK 400 MG IV ×2 (08:14→20:49)
[2022-10-07] MEDS: Nystatin Oral Susp 500,000 UNIT/5 ML ORAL.SUSP 500000 UNIT BUCCAL ×3 (08:14→20:50)
[2022-10-07] MEDS: Tobramycin Sulfate 80 MG/2 ML VIAL 300 MG INHALE ×2 (08:14→20:00)
[2022-10-07] MEDS: Furosemide 40 MG/4 ML VIAL IVPUSH (08:29)
--- NOTE | 2022-10-07 10:58 | PC.NURSE ---
Sedation vacation initiated at 0822 per MD - patient eyes open, not tracking or following commands. Positive cough, absent gag and pain response. HR 110's, RR 28-32, O2 sat down to 84% on 55% Fio2 - 100% Fio2 administered and RT called to bedside -pt lavaged by RT w/ scant clear inline secretions. Pt continued to desat to mid 80's. MD notified. Pt placed on 100%. VO Dr Sullivan Versed 4mg IVP ordered and administered for seizure activity w/ good effect. O2 sat up to 93%.
--- NOTE | 2022-10-07 12:59 | P.PNCC_ITS ---
Subjective Subjective Date of Service: 10/07/22 Interval History: 41-year-old gentleman with underlying history of substance abuse admitted on 09/26/2022 with an out of hospital cardiac arrest with unclear down time. Patient was brought to ER without pulse with CPR started immediately and returned spontaneous circulation achieved after approximately 7 minutes with patient intubated during the CPR and transferred to the intensive care unit thereafter. Hospital course complicated by left-sided pneumothorax, likely secondary to CPR, now status post placement of chest tube, still with air leak. Also, developmental of myoclonic jerks, loaded with Keppra and phenytoin, still intermittently requiring Versed. MRI with bilateral cell line make lesions, but no diffuse injury. Evaluated by neurology, EEG consistent with status epilepticus vs diffuse anoxia. Lumbar puncture obtained after neurology recommendations. Repeat EEG with the same pattern of status epilepticus versus diffuse anoxia. No events overnight. This a.m. with resumption of seizure activity after discontinuation of propofol. Critical Care Time (minutes): 45 Physical Exam Vital Signs: Vital Signs: Last Vital Signs Temp 100.4 F 10/07/22 12:00 Pulse 103 H 10/07/22 12:00 Resp 25 H 10/07/22 12:00 BP 97/56 L 10/07/22 12:00 Pulse Ox 94 10/07/22 12:00 O2 Del Method Mechanical Ventil ation 10/07/22 12:00 O2 Flow Rate 40 09/28/22 03:00 FiO2 80 10/07/22 12:00 BMI result Body Mass Index 17.7 Const: General: no acute distress and other (Sedated on the vent) Eyes: Sclerae: sclerae normal Pupils: Equal, round and reactive pupils present Neck: Neck: Yes no lymphadenopathy, Yes trachea midline and Yes supple Resp: Auscultation: clear to auscultation bilaterally Cardio: Rate: tachycardic Rhythm: regular rhythm Heart sounds: no gallop s, no murmurs and no rubs GI: Palpation (GI): Soft to palpation and Other GI palpation findings present ( Nontender) Auscultation: normal bowel sounds Neuro: Cranial nerves: Yes Equal, round and reactive pupils present Extrem: General: Yes no pedal edema, No clubbing and No cyanosis Objective Data Labs 10/07/22 05:10 10/07/22 05:10 Labs: Laboratory Results - last 24 hr 10/06/22 10/06/22 10/07/22 17:45 23:24 05:08 WBC RBC Hgb Hct MCV MCH MCHC RDW Plt Count MPV Immature Gran % (Auto) Neut % (Auto) Lymph % (Auto) [place] % (Auto) Eos % (Auto) Baso % (Auto) Lymph # (Auto) [place] # (Auto) Eos # (Auto) Baso # (Auto) Abs Immat Gran (auto) Absolute Neuts (auto) Absolute Nucleated RBC Nucleated RBC % (auto) Smear Tech's Comments VBG pH 7.48 H VBG pCO2 40 VBG pO2 52 VBG HCO3 30 H VBG O2 Saturation 83.0 VBG Base Excess 7.1 Sodium Potassium Chloride Carbon Dioxide Anion Gap BUN Creatinine Estim Creat Clear Calc Estimated GFR POC Glucose 147 H 123 H Random Glucose Calcium Phosphorus Magnesium Albumin 10/07/22 10/07/22 10/07/22 05:10 05:10 05:33 WBC 13.3 H RBC 3.82 L Hgb 11.6 L Hct 35.7 L MCV 93.5 MCH 30.4 MCHC 32.5 RDW 14.5 Plt Count 461 H MPV 10.9 Immature Gran % (Auto) 1.1 H Neut % (Auto) 68.7 Lymph % (Auto) 12.7 L [place] % (Auto) 12.4 H Eos % (Auto) 4.4 H Baso % (Auto) 0.7 Lymph # (Auto) 1.7 [place] # (Auto) 1.6 H Eos # (Auto) 0.6 H Baso # (Auto) 0.1 Abs Immat Gran (auto) 0.15 H Absolute Neuts (auto) 9.1 H Absolute Nucleated RBC 0.000 Nucleated RBC % (auto) 0.0 Smear Tech's Comments VERIFIED VBG pH VBG pCO2 VBG pO2 VBG HCO3 VBG O2 Saturation VBG Base Excess Sodium 140 Potassium 4.7 Chloride 105 Carbon Dioxide 27 Anion Gap 13 BUN 21 H Creatinine 0.58 Estim Creat Clear Calc 128.1 Estimated GFR > 60 POC Glucose 121 H Random Glucose 111 Calcium 8.4 Phosphorus 3.2 Magnesium 2.1 Albumin 3.3 L Microbiology Microbiology Results: Microbiology 10/01/22 11:14 Cerebrospinal Fluid Gram Stain - Final 10/01/22 11:14 Cerebrospinal Fluid CSF Examination - Final 10/01/22 11:14 Cerebrospinal Fluid Fluid Description - Final 10/01/22 11:14 Cerebrospinal Fluid CSF Culture - Final No growth after 3 days. 09/27/22 06:18 Blood - Venous Blood Culture - Final No growth after 5 days. 09/27/22 06:18 Blood - Venous Blood Culture - Final No growth after 5 days. 09/26/22 03:34 Urine clean catch - Urine brown top Urine Culture - Final No growth. Progress Note: A&P Assessment and plan (1) Status epilepticus: Status: Acute (2) Encephalopathy acute: Status: Acute (3) Substance abuse: Status: Acute (4) Pneumothorax, left: Status: Acute (5) Acute respiratory failure with hypoxia: Status: Acute (6) Overdose: Status: Acute (7) Cardiac arrest: Status: Acute Plan Assessment: 41-year-old gentleman with underlying substance abuse admitted with out of hospital cardiac arrest with CPR started in emergency room and return of spontaneous circulation achieved after approximately 7 minutes of CPR with patient intubated during the CPR Plan: Neuro: Acute encephalopathy after cardiac arrest with worsening myoclonus, now on Keppra, phenytoin, propofol/Versed drips. MRI brain with bilateral thalamic injury, but no evidence of diffuse injury. Neurology service care appreciated. Repeat EEG with continuation of status epilepticus versus diffuse anoxia. Lumbar puncture performed are results normal. Continue Keppra, Dilantin, Versed and propofol drips. Discussions of goals of care ongoing with family. No seizure activity for the last 24 hours+. Repeat MRI with resolution of thalamic findings. Still with seizure activity after discontinuation of propofol. Cardiac: Out of hospital cardiac arrest with CPR in emergency room and return of spontaneous circulation achieved. Continue to titrate off pressors as tolerated. Results of 2D echocardiogram reviewed with cardiology and appear to show a Takotsubo's variant. Pulmonary: Intubated during the CPR, planned for tracheostomy and gastrostomy placement. Renal: Acute kidney injury likely secondary to volume depletion, resolved. Continue to monitor renal indices and urine output. Endo: No acute issues. GI: No acute issues. ID: No acute issues. Heme/Onc: No acute issues. Psych: No acute issues. Miscellaneous: No acute issues. Prophylaxis: Heparin, famotidine Diet: tube feeds Critical care time spent: 45 minutes Quality Stroke Does the patient have a stroke diagnosis?: No VTE Prior VTE?: No VTE Risk Level:: Medical - moderate - high VTE Device Contraindication: N/A - Device Ordered VTE Drug Contraindication: N/A - Med Ordered
--- NOTE | 2022-10-07 13:01 | P.CDIM_ITS ---
PROVIDER RESPONSE TEXT: To clarify, the appropriate diagnosis supported by the clinical indicators: Pressure (decubitus) ulcer/injury Stage 2 left buttock QUERY TEXT: PHYSICIAN'S DOCUMENTATION REQUEST Date of Query: 10/07/2022 08:41 AM EDT Patient Name: ALEXANDRIA CRESPO Admit Date: 09/26/2022 Dear Daniel Sullivan, A review of the medical record indicates additional documentation may be needed. Please review below and update the documentation accordingly. Clinical Indicators: Wound assessment 10/06: Pressure injury/ulcer left buttock Stage 2 Macerated, pink, open to air Barrier cream Based on the above, could you please provide further information regarding the ulcer/wound: Pressure (decubitus) ulcer/injury Stage 2 left buttock Other Unable to determine Other (explain) Clinically unable to determine (explain) Thank you, Melba Child, CCS, CDIS Use of terms such as suspected, likely, concern for, or probable (associated with a specific diagnosi s that is being evaluated, monitored, or treated as if it exists) are acceptable and can be coded in the inpatient se tting, when documented at the time of discharge. Please use your independent medical judgment in providing your response. THIS QUERY IS PART OF THE PERMANENT MEDICAL RECORD
--- NOTE | 2022-10-07 15:24 | P.CONGS_ITS ---
History of Present Illness Consult details Consult date: 10/07/22 Narrative: 41-year-old male referred for PEG tube placement and tracheostomy tube placement. He was admitted to the ICU on 09/26/2022. He was found on the field unresponsive, in cardio-respiratory arrest. He was given Narcan and epinephrine with CPR and had return of spontaneous circulation. He has been in the ICU since then. He has had some myoclonus/seizures need to be secondary to his anoxic encephalopathy. He has had a left-sided pneumonia and had a chest tube placed for this as well. He remains vent dependent so I have been requested to place the PEG tube and tracheostomy tube. Review of Systems Review of Systems: Yes unobtainable due to endotracheal tube, Unobtainable due to mental condition and Unobtainable due to mental status PMFSH Past Medical History Medical History Anxiety COPD (chronic obstructive pulmonary disease) Depression Opioid dependence Family History Family History Other Lung cancer Social History Social History Household Members: Friend(s) Housing: Apartment Do you presently have visiting nurse or other home services: No Alcohol intake: unknown Second Hand Smoke Exposure: No Substance Use Type: Crack/Cocaine, Marijuana and Opiates Currently Displaying Signs/Symptoms of Drug Intoxication Withdrawal: No Advance Directives: No Advance Directives Information Provided: No service: No Current occupational status: other Meds Allergies Allergy/AdvReac Type Severity Reaction Status Date / Time No Known Allergies Allergy Verified 09/26/22 09:09 Active Medications: Current Medications Albuterol Sulfate (Albuterol Sulfate (0.083%) 2.5 Mg/3 Ml Vial.Neb) 2.5 mg INHALE Q4H PRN PRN Reason: Wheezing Last Admin: 10/05/22 21:24 Dose: 2.5 mg Chlorhexidine Gluconate (Chlorhexidine Gluc Oral Rinse 15 Ml Mouthwash) 15 ml BUCCAL Q8H SULY Last Admin: 10/07/22 14:11 Dose: 15 ml Cisatracurium Besylate (Cisatracurium Besylate 20 Mg/10 Ml Vial) 20 mg IVPUSH Q30M PRN PRN Reason: ventilator synchrony Last Admin: 09/28/22 15:14 Dose: 20 mg Famotidine (Famotidine/Pf 20 Mg/2 Ml Vial) 20 mg IVPUSH DAILY [facility] Last Admin: 10/07/22 08:13 Dose: 20 mg Heparin Sodium (Porcine) (Heparin Sodium,Porcine 5,000 Unit/Ml Vial) 5,000 unit SUBCUT Q8H SULY Last Admin: 10/07/22 11:04 Dose: 5,000 unit Propofol (Diprivan) 1,000 mg in 100 mls @ 0 mls/hr IVCONT .Q0M SULY; Protocol Last Admin: 10/07/22 11:26 Dose: 50 mcg/kg/min, 15.03 mls/hr Norepinephrine Bitartrate (Levophed) 8 mg in 250 mls @ 0 mls/hr IV .Q0M [facility]; Protocol Last Titration: 09/29/22 14:54 Dose: Infused Levetiracetam (Keppra) 1,000 mg in 100 mls @ 400 mls/hr IV Q12H [facility] Last Infusion: 10/07/22 08:31 Dose: Infused Phenytoin Sodium 150 mg/ (Sodium Chloride) 103 mls @ 100 mls/hr IV BID [facility] Last Infusion: 10/07/22 09:27 Dose: Infused Nystatin (Nystatin Oral Susp 500,000 Unit/5 Ml Oral.Susp) 500,000 unit BUCCAL TID [facility]; Protocol Last Admin: 10/07/22 14:11 Dose: 500,000 unit Tobramycin Sulfate (Tobramycin Sulfate 80 Mg/2 Ml Vial) 300 mg INHALE RBID [facility] Last Admin: 10/07/22 08:14 Dose: 300 mg Home Medications Medication Instructions Recorded Confirmed Last Taken Type albuterol sulfate 90 mcg/actuation 2 puff inhalation QID PRN wheezing 06/01/20 09/26/22 Unknown History aerosol inhaler Physical Exam Vital Signs: Vital Signs: Last Vital Signs Temp 100.6 F H 10/07/22 15:00 Pulse 112 H 10/07/22 15:00 Resp 27 H 10/07/22 15:00 BP 120/72 10/07/22 15:00 Pulse Ox 92 10/07/22 15:00 O2 Del Method Mechanical Ventil ation 10/07/22 15:00 O2 Flow Rate 40 09/28/22 03:00 FiO2 80 05/02/23 15:00 BMI result Body Mass Index 17.7 Const: Other: Intubated, on the ventilator General: no acute distress Neck: Other: Trachea palpable on midline Neck: Yes no lymphadenopathy Resp: Other: On ventilator Cardio: Rhythm: regular rhythm GI: Other: No surgical scars Palpation (GI): Soft to palpation, nontender and no guarding Results Labs 10/07/22 05:10 10/07/22 05:10 Labs: Abnormal lab results 10/06/22 10/06/22 10/07/22 Range/Units 17:45 23:24 05:08 WBC (4.8-10.8) X10*3/uL RBC (4.60-5.80) X10*6/uL Hgb (14.0-18.0) g/dl Hct (42.0-52.0) % Plt Count (160-400) X10*3/uL Immature Gran % (Auto) (0.0-0.4) % Lymph % (Auto) (20-40) % [place] % (Auto) (2-11) % Eos % (Auto) (0-4) % [place] # (Auto) (0.1-1.2) X10*3/uL Eos # (Auto) (0.0-0.4) X10*3/uL Abs Immat Gran (auto) (0.00-0.03) X10*3/uL Absolute Neuts (auto) (2.0-8.3) x10*3/uL VBG pH 7.48 H (7.32-7.43) VBG HCO3 30 H (22-26) mmol/L BUN (9-16) mg/dL POC Glucose 147 H 123 H (60-115) mg/dL Albumin (3.5-5.0) g/dL 10/07/22 10/07/22 10/07/22 Range/Units 05:10 05:10 05:33 WBC 13.3 H (4.8-10.8) X10*3/uL RBC 3.82 L (4.60-5.80) X10*6/uL Hgb 11.6 L (14.0-18.0) g/dl Hct 35.7 L (42.0-52.0) % Plt Count 461 H (160-400) X10*3/uL Immature Gran % (Auto) 1.1 H (0.0-0.4) % Lymph % (Auto) 12.7 L (20-40) % [place] % (Auto) 12.4 H (2-11) % Eos % (Auto) 4.4 H (0-4) % [place] # (Auto) 1.6 H (0.1-1.2) X10*3/uL Eos # (Auto) 0.6 H (0.0-0.4) X10*3/uL Abs Immat Gran (auto) 0.15 H (0.00-0.03) X10*3/uL Absolute Neuts (auto) 9.1 H (2.0-8.3) x10*3/uL VBG pH (7.32-7.43) VBG HCO3 (22-26) mmol/L BUN 21 H (9-16) mg/dL POC Glucose 121 H (60-115) mg/dL Albumin 3.3 L (3.5-5.0) g/dL Short CBC 10/07/22 Range/Units 05:10 WBC 13.3 H (4.8-10.8) X10*3/uL Hgb 11.6 L (14.0-18.0) g/dl Hct 35.7 L (42.0-52.0) % Plt Count 461 H (160-400) X10*3/uL BMP 10/07/22 05:10 Sodium 140 Potassium 4.7 Chloride 105 Carbon Dioxide 27 BUN 21 H Creatinine 0.58 Calcium 8.4 Liver Function 10/07/22 Range/Units 05:10 Albumin 3.3 L (3.5-5.0) g/dL Urine 09/26/22 Range/Units 03:40 Urine Color Yellow Urine Appearance Cloudy Urine pH 6.0 (5.0-9.0) Ur Specific [place] >= 1.030 H (1.005-1.025) Urine Protein 100 (2+) H (Neg-Trace) mg/dL Urine Glucose (UA) 250 H (Negative) mg/dL All other labs normal. Assessment and Plan (1) Acute respiratory failure with hypoxia: Status: Acute The patient remains on the ventilator after being admitted on 09/26/2022 for cardiopulmonary arrest likely secondary to narcotic overdose. I have therefore been requested to place a PEG tube as well as tracheostomy tube. I will discuss this with his healthcare proxy and schedule him in the operating room for these procedures. Time Spent With Patient Time: Total time managing care of this patient today ____ minutes. Procedures Date of Service Date of Service: 10/07/22
[2022-10-07] MEDS: Albuterol Sulfate (0.083%) 2.5 MG/3 ML VIAL.NEB INHALE ×2 (19:48→23:04)
[2022-10-07] MEDS: fentaNYL citrate/PF 100 MCG/2 ML VIAL 50 MCG IVPUSH (22:46)
[2022-10-08] VITALS (33 sets, daily range): BP systolic 93–129; BP diastolic 52–78; PULSE 99–121; RESP 12–34; TEMP 34–38.8; O2SAT 80–98; BMI 17.6
[2022-10-08] MEDS: Cisatracurium Besylate 20 MG/10 ML VIAL IVPUSH (00:05)
[2022-10-08] MEDS: Acetaminophen Oral Liquid 650 MG/20.3 ML SOLUTION PO (00:48)
--- NOTE | 2022-10-08 02:16 | PC.NURSE ---
ASSUMED CARE OF PT AT 1900. PT ON AC VENT SETTINGS. FIO2 WAS 70% BUT WEANED TO 65% PER RESPIRATORY THERAPY. PT DESATTED WITH CARE, HIGH PRESSURE ALARMS RINGING. ETT SUCTIONED FOR SMALL TO MOD AMT OF CLEAR SPUTUM. RESP RATE HIGH 30'S. PT NOTED TO HAVE TWITCHING OF UPPER BODY, SHOULDERS AND FACE. WAS GIVEN VERSED 4MG IV ORDERED BY DEV ELENA WITH SOME EFFECT BUT SHORT LIVED. CONTINUED WITH HIGH RESP RATE IN THE 30'S. ONE DOSE OF FENTANYL 50 MCG IV GIVEN WITH SOME EFFECT TO BRING RR DOWN TO 25-29. PT WAS CALM FOR ABOUT AN HOUR AFTER THOSE INTERVENTIONS THEN WAS INCONTINENT OF NORMAL BROWN FORMED BM. PT CARE GIVEN AND PT STARTED TO STACK BREATHS WITH INADEQUATE VENTILATION AND RECEIVED NIMBEX WITH GOOD EFFECT. RESP THERAPIST AND ULICES MÉNDEZ AT BEDSIDE. PROPOFOL INFUSING AT 50 MCG/KG/HR AND VERSED AT 4 MG/HR. TEMP LOW GRADE 100.4-100.8. ONE DOSE OF TYLENOL ORDERED AND GIVEN. TEMP NOW 99.8 CORE.
[2022-10-08] MEDS: Heparin Sodium,Porcine 5,000 UNIT/ML VIAL 5000 UNIT SUBCUT ×2 (04:10→20:42)
[2022-10-08] MEDS: propofoL 1,000 MG/100 ML VIAL 15.03 MG IVCONT ×4 (04:53→22:23)
[2022-10-08] MEDS: Midazolam HCl/NS 50 MG/50 ML PLAST..BAG IVCONT ×3 (04:55→21:47)
[2022-10-08] MEDS: Chlorhexidine Gluc Oral Rinse 15 ML MOUTHWASH BUCCAL ×3 (05:02→20:52)
[2022-10-08 05:10] LABS: VBG Base Excess 7.5 mmol/L; VBG HCO3 34 mmol/L (22-26); VBG pCO2 55 mmHg; VBG pH 7.39 (7.32-7.43); VBG pO2 55 mmHg
[2022-10-08 05:28] LABS: Basophils Absolute Auto 0.1 X10*3/uL (0.0-0.2); Basophils Percent Auto 0.7 % (0-2); Eosinophils Absolute Auto 0.5 X10*3/uL (0.0-0.4); Eosinophils Percent Auto 2.6 % (0-4); Hematocrit 38.3 % (42.0-52.0); Hemoglobin 12.1 g/dl (14.0-18.0); Imm Gran Abs Auto 0.18 X10*3/uL (0.00-0.03); Lymphocytes Absolute Auto 1.5 X10*3/uL (1.2-4.9); MANUAL DIFF FLAG SCAN; Mean Corpuscular HGB Conc 31.6 g/dl (31.0-36.0); Mean Corpuscular Hemoglobin 29.6 pg (27.0-33.0); Mean Corpuscular Volume 93.6 fL (80.0-98.0); Mean Platelet Volume 10.1 fL (9.4-12.4); Monocytes Percent Auto 10.6 % (2-11); Neutrophils Absolute Auto 14.5 x10*3/uL (2.0-8.3); Neutrophils Percent Auto 77.1 % (45-73); Platelet Count 507 X10*3/uL (160-400); Red Blood Count 4.09 X10*6/uL (4.60-5.80); Red Cell Distribution Width 14.3 % (11.0-16.0); SCAN SMEAR FLAG 1; White Blood Count 18.8 X10*3/uL (4.8-10.8)
[2022-10-08 05:49] LABS: Albumin Level 3.5 g/dL (3.5-5.0); Anion Gap 10 (12-20); Blood Urea Nitrogen 21 mg/dL (9-16); Calcium 8.8 mg/dL (8.4-10.2); Carbon Dioxide 33 mmol/L (22-29); Chloride 102 mmol/L (96-108); Creatinine Clr Calc Pharmacy 112.2; Estimated Glomerular Filt Rate > 60; Glucose Random 95 mg/dL (60-115); Magnesium 2.2 mg/dL (1.6-2.6); Phosphorus 3.9 mg/dL (2.7-4.5); Potassium 5.2 mmol/L (3.3-5.1); Sodium 140 mmol/L (135-145)
[2022-10-08 05:53] LABS: SLIDE REVIEW VERIFIED
[2022-10-08] MEDS: levETIRAcetam in NaCl (iso-os) 1,000 MG/100 ML PIGGYBACK 400 MG IV (07:41)
[2022-10-08] MEDS: Nystatin Oral Susp 500,000 UNIT/5 ML ORAL.SUSP 500000 UNIT BUCCAL ×3 (07:44→20:52)
[2022-10-08] MEDS: Famotidine/PF 20 MG/2 ML VIAL IVPUSH (07:44)
[2022-10-08 08:17] LABS: INTERNATIONAL NORM RATIO 1.2 (0.9-1.1)
[2022-10-08 08:19] LABS: Partial Thromboplastin Time 24.5 SEC (26.0-36.4)
[2022-10-08] MEDS: Tobramycin Sulfate 80 MG/2 ML VIAL 300 MG INHALE ×2 (08:24→19:05)
[2022-10-08 08:34] LABS: Venous Blood Gas Refer to POC result
--- NOTE | 2022-10-08 09:18 | MHC.CLN ---
F/U PT REMAINS INTUBATED AND SEDATED PT IS CURRENTLY NPO SCHEDULED FOR PROCEDURE TODAY IF TF NEEDED; RECOMMEND JEVITY 1.0 AT MAX GOAL RATE OF 60ML/HR WITH 240ML Q 6 HRS TO PROVIDE 1526KCALS, 64G PROTEIN (1.3G/KG), 2234ML TOTAL WATER FROM FORMULA AND FLUSHES (40.6ML/KG) MONITOR TOLERANCE, RESIDUALS AND LYTES FOLLOWING WITH TEAM
--- NOTE | 2022-10-08 13:54 | P.CONAN_ITS ---
[facility] Active Problems Active Problems: All Active Problems (Updated 10/01/22 @ 11:28 by Daniel Sullivan MD) Status epilepticus (Acute) Hyperkalemia (Acute) Acute kidney injury (Acute) Encephalopathy acute (Acute) Substance abuse (Acute) Pneumothorax, left (Acute) Acute respiratory failure with hypoxia (Acute) Overdose (Acute) Cardiac arrest (Acute) Anxiety (Acute) Opioid dependence (Acute) COPD (chronic obstructive pulmonary disease) (Acute) Past Medical History Medical History Anxiety COPD (chronic obstructive pulmonary disease) Depression Opioid dependence Family History Family History Other Lung cancer Social History Social History Household Members: Friend(s) Housing: Apartment Do you presently have visiting nurse or other home services: No Alcohol intake: unknown Second Hand Smoke Exposure: No Substance Use Type: Crack/Cocaine, Marijuana and Opiates Currently Displaying Signs/Symptoms of Drug Intoxication Withdrawal: No Advance Directives: No Advance Directives Information Provided: No service: No Current occupational status: other Meds Allergies Allergy/AdvReac Type Severity Reaction Status Date / Time No Known Allergies Allergy Verified 09/26/22 09:09 Active Medications: Current Medications Albuterol Sulfate (Albuterol Sulfate (0.083%) 2.5 Mg/3 Ml Vial.Neb) 2.5 mg INHALE Q4H PRN PRN Reason: Wheezing Last Admin: 10/07/22 23:04 Dose: 2.5 mg Chlorhexidine Gluconate (Chlorhexidine Gluc Oral Rinse 15 Ml Mouthwash) 15 ml BUCCAL Q8H [facility] Last Admin: 10/08/22 05:02 Dose: 15 ml Cisatracurium Besylate (Cisatracurium Besylate 20 Mg/10 Ml Vial) 20 mg IVPUSH Q30M PRN PRN Reason: ventilator synchrony Last Admin: 10/08/22 00:05 Dose: 20 mg Famotidine (Famotidine/Pf 20 Mg/2 Ml Vial) 20 mg IVPUSH DAILY [facility] Last Admin: 10/08/22 07:44 Dose: 20 mg Heparin Sodium (Porcine) (Heparin Sodium,Porcine 5,000 Unit/Ml Vial) 5,000 unit SUBCUT Q8H [facility] Last Admin: 10/08/22 11:12 Dose: Not Given Propofol (Diprivan) 1,000 mg in 100 mls @ 0 mls/hr IVCONT .Q0M [facility]; Protocol Last Admin: 10/08/22 10:49 Dose: 50 mcg/kg/min, 15.03 mls/hr Norepinephrine Bitartrate (Levophed) 8 mg in 250 mls @ 0 mls/hr IV .Q0M [facility]; Protocol Last Titration: 09/29/22 14:54 Dose: Infused Levetiracetam (Keppra) 1,000 mg in 100 mls @ 400 mls/hr IV Q12H [facility] Last Infusion: 10/08/22 08:14 Dose: Infused Phenytoin Sodium 150 mg/ (Sodium Chloride) 103 mls @ 100 mls/hr IV BID [facility] Last Infusion: 10/08/22 09:04 Dose: Infused Midazolam HCl (Versed) 50 mg in 50 mls @ 4 mls/hr IVCONT .[id number] [facility] Last Admin: 10/08/22 04:55 Dose: 4 mg/hr, 4 mls/hr Nystatin (Nystatin Oral Susp 500,000 Unit/5 Ml Oral.Susp) 500,000 unit BUCCAL TID [facility]; Protocol Last Admin: 10/08/22 07:44 Dose: 500,000 unit Tobramycin Sulfate (Tobramycin Sulfate 80 Mg/2 Ml Vial) 300 mg INHALE RBID [facility] Last Admin: 10/08/22 08:24 Dose: 300 mg Home Medications Medication Instructions Recorded Confirmed Last Taken Type albuterol sulfate 90 mcg/actuation 2 puff inhalation QID PRN wheezing 06/01/20 09/26/22 Unknown History aerosol inhaler Exam Exam Date and Time: October 08, 2022 1354 Height,Weight and Vital Signs: Height 5 ft 7 in Weight 50.9 kg Last Vital Signs Temp 100.4 F 10/08/22 12:00 Pulse 112 H 10/08/22 12:00 Resp 29 H 10/08/22 12:00 BP 119/78 10/08/22 12:00 Pulse Ox 91 L 10/08/22 12:00 O2 Del Method Mechanical Ventilation 10/08/22 12:00 O2 Flow Rate 40 09/28/22 03:00 FiO2 80 10/08/22 12:00 Pertinent Lab Results Pertinent Lab Results: Laboratory Tests 09/26/22 09/26/22 09/26/22 02:10 02:19 02:19 WBC 12.9 H RBC 4.68 Hgb 14.3 Hct 47.0 MCV 100.4 H MCH 30.6 MCHC 30.4 L RDW 12.9 Plt Count 266 MPV 10.2 Immature Gran % (Auto) 0.9 H Neut % (Auto) 28.9 L Lymph % (Auto) 48.4 H [place] % (Auto) 12.2 H Eos % (Auto) 8.4 H Baso % (Auto) 1.2 Lymph # (Auto) 6.2 H [place] # (Auto) 1.6 H Eos # (Auto) 1.1 H Baso # (Auto) 0.2 Abs Immat Gran (auto) 0.12 H Absolute Neuts (auto) 3.7 Absolute Nucleated RBC 0.020 H Nucleated RBC % (auto) 0.2 Neutrophils % (Manual) Band Neutrophils % Lymphocytes % (Manual) Monocytes % (Manual) Metamyelocytes % Abs Neuts (Manual) Lymphocytes # (Manual) Monocytes # (Manual) Metamyelocytes # Toxic Vacuolation Dohle Bodies Platelet Estimate Plt Morphology Comment RBC Morphology Smear Tech's Comments VERIFIED Smear Path Review SEE NOTE PT INR APTT O2 Saturation ABG pH at Pt Temp ABG pCO2 at Pt Temp ABG pO2 at Pt Temp ABG HCO3 ABG Base Excess (Actual) VBG pH VBG pCO2 VBG pO2 VBG HCO3 VBG O2 Saturation VBG Base Excess Sodium 152 H Potassium 4.5 Chloride 108 Carbon Dioxide 19 L Anion Gap 30 H BUN 13 Creatinine 1.21 Estim Creat Clear Calc 57.5 Estimated GFR > 60 POC Glucose 71 Random Glucose 158 H Lactic Acid Calcium 9.8 Phosphorus Magnesium Total Bilirubin 0.3 AST 119 H ALT 65 H Alkaline Phosphatase 79 Troponin I High Sens Total Protein 5.7 L Albumin 4.0 Urine Color Urine Appearance Urine pH Ur Specific [place] Urine Protein Urine Glucose (UA) Urine Ketones Urine Blood Urine Nitrite Ur Leukocyte Esterase Urine RBC Urine WBC Ur Squamous Epith Cells Other Crystals Urine Bacteria Hyaline Casts Granular Casts CSF Tube Number CSF Volume CSF Appearance CSF Color CSF WBC CSF RBC CSF Neutrophils CSF Appearance (b) CSF Glucose CSF Total Protein CSF C.neoform/gat PCR CSF CMV DNA (PCR) CSF Enterovirus (PCR) CSF E. coli K1 (PCR) CSF H. influenzae (PCR) CSF HSV I (PCR) CSF HSV II (PCR) CSF HHV 6 (PCR) CSF L.monocytogenes PCR CSF N. meningitidis PCR LESA Virus DNA Rpt Status CSF Parechovirus (PCR) CSF S. agalactiae (PCR) CSF S. pneumoniae (PCR) CSF VZV (PCR) Random Vancomycin Urine Opiates Screen Urine Fentanyl Screen Ur Barbiturates Screen Ur Phencyclidine Scrn Ur Amphetamines Screen U Benzodiazepines Scrn Urine Cocaine Screen U Marijuana (THC) Screen COVID-19 (NIKKI) COVID-19 Clin Com 09/26/22 09/26/22 09/26/22 02:19 02:20 02:20 WBC RBC Hgb Hct MCV MCH MCHC RDW Plt Count MPV Immature Gran % (Auto) Neut % (Auto) Lymph % (Auto) [place] % (Auto) Eos % (Auto) Baso % (Auto) Lymph # (Auto) [place] # (Auto) Eos # (Auto) Baso # (Auto) Abs Immat Gran (auto) Absolute Neuts (auto) Absolute Nucleated RBC Nucleated RBC % (auto) Neutrophils % (Manual) Band Neutrophils % Lymphocytes % (Manual) Monocytes % (Manual) Metamyelocytes % Abs Neuts (Manual) Lymphocytes # (Manual) Monocytes # (Manual) Metamyelocytes # Toxic Vacuolation Dohle Bodies Platelet Estimate Plt Morphology Comment RBC Morphology Smear Tech's Comments Smear Path Review PT 15.5 H INR 1.3 H APTT O2 Saturation ABG pH at Pt Temp ABG pCO2 at Pt Temp ABG pO2 at Pt Temp ABG HCO3 ABG Base Excess (Actual) VBG pH VBG pCO2 VBG pO2 VBG HCO3 VBG O2 Saturation VBG Base Excess Sodium Potassium Chloride Carbon Dioxide Anion Gap BUN Creatinine Estim Creat Clear Calc Estimated GFR POC Glucose Random Glucose Lactic Acid Calcium Phosphorus Magnesium Total Bilirubin AST ALT Alkaline Phosphatase Troponin I High Sens < 2.7 Total Protein Albumin Urine Color Urine Appearance Urine pH Ur Specific [place] Urine Protein Urine Glucose (UA) Urine Ketones Urine Blood Urine Nitrite Ur Leukocyte Esterase Urine RBC Urine WBC Ur Squamous Epith Cells Other Crystals Urine Bacteria Hyaline Casts Granular Casts CSF Tube Number CSF Volume CSF Appearance CSF Color CSF WBC CSF RBC CSF Neutrophils CSF Appearance (b) CSF Glucose CSF Total Protein CSF C.neoform/gat PCR CSF CMV DNA (PCR) CSF Enterovirus (PCR) CSF E. coli K1 (PCR) CSF H. influenzae (PCR) CSF HSV I (PCR) CSF HSV II (PCR) CSF HHV 6 (PCR) CSF L.monocytogenes PCR CSF N. meningitidis PCR LESA Virus DNA Rpt Status CSF Parechovirus (PCR) CSF S. agalactiae (PCR) CSF S. pneumoniae (PCR) CSF VZV (PCR) Random Vancomycin Urine Opiates Screen Urine Fentanyl Screen Ur Barbiturates Screen Ur Phencyclidine Scrn Ur Amphetamines Screen U Benzodiazepines Scrn Urine Cocaine Screen U Marijuana (THC) Screen COVID-19 (NIKKI) Negative COVID-19 Clin Com See Note 09/26/22 09/26/22 09/26/22 03:40 03:40 04:52 WBC RBC Hgb Hct MCV MCH MCHC RDW Plt Count MPV Immature Gran % (Auto) Neut % (Auto) Lymph % (Auto) [place] % (Auto) Eos % (Auto) Baso % (Auto) Lymph # (Auto) [place] # (Auto) Eos # (Auto) Baso # (Auto) Abs Immat Gran (auto) Absolute Neuts (auto) Absolute Nucleated RBC Nucleated RBC % (auto) Neutrophils % (Manual) Band Neutrophils % Lymphocytes % (Manual) Monocytes % (Manual) Metamyelocytes % Abs Neuts (Manual) Lymphocytes # (Manual) Monocytes # (Manual) Metamyelocytes # Toxic Vacuolation Dohle Bodies Platelet Estimate Plt Morphology Comment RBC Morphology Smear Tech's Comments Smear Path Review PT INR APTT O2 Saturation 99.0 ABG pH at Pt Temp 7.03 L* ABG pCO2 at Pt Temp 118 H* ABG pO2 at Pt Temp 583 H ABG HCO3 32 H ABG Base Excess (Actual) -2.4 VBG pH VBG pCO2 VBG pO2 VBG HCO3 VBG O2 Saturation VBG Base Excess Sodium Potassium Chloride Carbon Dioxide Anion Gap BUN Creatinine Estim Creat Clear Calc Estimated GFR POC Glucose Random Glucose Lactic Acid Calcium Phosphorus Magnesium Total Bilirubin AST ALT Alkaline Phosphatase Troponin I High Sens Total Protein Albumin Urine Color Yellow Urine Appearance Cloudy Urine pH 6.0 Ur Specific [place] >= 1.030 H Urine Protein 100 (2+) H Urine Glucose (UA) 250 H Urine Ketones Negative Urine Blood Large (3+) H Urine Nitrite Negative Ur Leukocyte Esterase Negative Urine RBC >20 H Urine WBC 21-50 H Ur Squamous Epith Cells 3-5 Other Crystals Present Urine Bacteria 3+ Hyaline Casts >20 Granular Casts Present CSF Tube Number CSF Volume CSF Appearance CSF Color CSF WBC CSF RBC CSF Neutrophils CSF Appearance (b) CSF Glucose CSF Total Protein CSF C.neoform/gat PCR CSF CMV DNA (PCR) CSF Enterovirus (PCR) CSF E. coli K1 (PCR) CSF H. influenzae (PCR) CSF HSV I (PCR) CSF HSV II (PCR) CSF HHV 6 (PCR) CSF L.monocytogenes PCR CSF N. meningitidis PCR LESA Virus DNA Rpt Status CSF Parechovirus (PCR) CSF S. agalactiae (PCR) CSF S. pneumoniae (PCR) CSF VZV (PCR) Random Vancomycin Urine Opiates Screen Not Detected Urine Fentanyl Screen POSITIVE H Ur Barbiturates Screen Not Detected Ur Phencyclidine Scrn Not Detected Ur Amphetamines Screen Not Detected U Benzodiazepines Scrn Not Detected Urine Cocaine Screen POSITIVE H U Marijuana (THC) Screen Not Detected COVID-19 (NIKKI) COVID-19 Clin Com 09/26/22 09/26/22 09/27/22 06:06 10:32 05:21 WBC RBC Hgb Hct MCV MCH MCHC RDW Plt Count MPV Immature Gran % (Auto) Neut % (Auto) Lymph % (Auto) [place] % (Auto) Eos % (Auto) Baso % (Auto) Lymph # (Auto) [place] # (Auto) Eos # (Auto) Baso # (Auto) Abs Immat Gran (auto) Absolute Neuts (auto) Absolute Nucleated RBC Nucleated RBC % (auto) Neutrophils % (Manual) Band Neutrophils % Lymphocytes % (Manual) Monocytes % (Manual) Metamyelocytes % Abs Neuts (Manual) Lymphocytes # (Manual) Monocytes # (Manual) Metamyelocytes # Toxic Vacuolation Dohle Bodies Platelet Estimate Plt Morphology Comment RBC Morphology Smear Tech's Comments Smear Path Review PT INR APTT O2 Saturation 93.0 96.0 ABG pH at Pt Temp 7.19 L* 7.29 L ABG pCO2 at Pt Temp 82 H* 45 ABG pO2 at Pt Temp 78 L 82 L ABG HCO3 32 H 22 ABG Base Excess (Actual) 1.3 -4.5 VBG pH 7.37 VBG pCO2 51 VBG pO2 49 VBG HCO3 30 H VBG O2 Saturation 77.0 VBG Base Excess 3.8 Sodium Potassium Chloride Carbon Dioxide Anion Gap BUN Creatinine Estim Creat Clear Calc Estimated GFR POC Glucose Random Glucose Lactic Acid Calcium Phosphorus Magnesium Total Bilirubin AST ALT Alkaline Phosphatase Troponin I High Sens Total Protein Albumin Urine Color Urine Appearance Urine pH Ur Specific [place] Urine Protein Urine Glucose (UA) Urine Ketones Urine Blood Urine Nitrite Ur Leukocyte Esterase Urine RBC Urine WBC Ur Squamous Epith Cells Other Crystals Urine Bacteria Hyaline Casts Granular Casts CSF Tube Number CSF Volume CSF Appearance CSF Color CSF WBC CSF RBC CSF Neutrophils CSF Appearance (b) CSF Glucose CSF Total Protein CSF C.neoform/gat PCR CSF CMV DNA (PCR) CSF Enterovirus (PCR) CSF E. coli K1 (PCR) CSF H. influenzae (PCR) CSF HSV I (PCR) CSF HSV II (PCR) CSF HHV 6 (PCR) CSF L.monocytogenes PCR CSF N. meningitidis PCR LESA Virus DNA Rpt Status CSF Parechovirus (PCR) CSF S. agalactiae (PCR) CSF S. pneumoniae (PCR) CSF VZV (PCR) Random Vancomycin Urine Opiates Screen Urine Fentanyl Screen Ur Barbiturates Screen Ur Phencyclidine Scrn Ur Amphetamines Screen U Benzodiazepines Scrn Urine Cocaine Screen U Marijuana (THC) Screen COVID-19 (NIKKI) COVID-19 Clin Com 09/27/22 09/27/22 09/27/22 05:25 05:25 05:25 WBC 33.8 H* RBC 5.02 Hgb 15.2 Hct 44.2 MCV 88.0 D MCH 30.3 MCHC 34.4 RDW 12.8 Plt Count 246 MPV 9.9 Immature Gran % (Auto) 0.9 H Neut % (Auto) 86.4 H Lymph % (Auto) 3.8 L [place] % (Auto) 8.7 Eos % (Auto) 0.0 Baso % (Auto) 0.2 Lymph # (Auto) 1.3 [place] # (Auto) 3.0 H Eos # (Auto) 0.0 Baso # (Auto) 0.1 Abs Immat Gran (auto) 0.29 H Absolute Neuts (auto) 29.2 H Absolute Nucleated RBC 0.000 Nucleated RBC % (auto) 0.0 Neutrophils % (Manual) Band Neutrophils % Lymphocytes % (Manual) Monocytes % (Manual) Metamyelocytes % Abs Neuts (Manual) Lymphocytes # (Manual) Monocytes # (Manual) Metamyelocytes # Toxic Vacuolation Dohle Bodies Platelet Estimate Plt Morphology Comment RBC Morphology Smear Tech's Comments VERIFIED Smear Path Review PT INR APTT O2 Saturation ABG pH at Pt Temp ABG pCO2 at Pt Temp ABG pO2 at Pt Temp ABG HCO3 ABG Base Excess (Actual) VBG pH VBG pCO2 VBG pO2 VBG HCO3 VBG O2 Saturation VBG Base Excess Sodium 141 Cancelled Potassium 5.5 H D Cancelled Chloride 110 H Cancelled Carbon Dioxide 24 Cancelled Anion Gap 13 Cancelled BUN 20 H Cancelled Creatinine 0.77 Cancelled Estim Creat Clear Calc 94.3 Cancelled Estimated GFR > 60 Cancelled POC Glucose Random Glucose 101 Cancelled Lactic Acid Calcium 8.9 D Cancelled Phosphorus 3.7 Cancelled Magnesium 1.9 Cancelled Total Bilirubin 0.5 AST 81 H ALT 108 H Alkaline Phosphatase 88 Troponin I High Sens Total Protein 5.6 L Albumin 3.7 Cancelled Urine Color Urine Appearance Urine pH Ur Specific [place] Urine Protein Urine Glucose (UA) Urine Ketones Urine Blood Urine Nitrite Ur Leukocyte Esterase Urine RBC Urine WBC Ur Squamous Epith Cells Other Crystals Urine Bacteria Hyaline Casts Granular Casts CSF Tube Number CSF Volume CSF Appearance CSF Color CSF WBC CSF RBC CSF Neutrophils CSF Appearance (b) CSF Glucose CSF Total Protein CSF C.neoform/gat PCR CSF CMV DNA (PCR) CSF Enterovirus (PCR) CSF E. coli K1 (PCR) CSF H. influenzae (PCR) CSF HSV I (PCR) CSF HSV II (PCR) CSF HHV 6 (PCR) CSF L.monocytogenes PCR CSF N. meningitidis PCR LESA Virus DNA Rpt Status CSF Parechovirus (PCR) CSF S. agalactiae (PCR) CSF S. pneumoniae (PCR) CSF VZV (PCR) Random Vancomycin Urine Opiates Screen Urine Fentanyl Screen Ur Barbiturates Screen Ur Phencyclidine Scrn Ur Amphetamines Screen U Benzodiazepines Scrn Urine Cocaine Screen U Marijuana (THC) Screen COVID-19 (NIKKI) COVID-19 Clin Com 09/27/22 09/27/22 09/28/22 06:18 13:49 05:21 WBC RBC Hgb Hct MCV MCH MCHC RDW Plt Count MPV Immature Gran % (Auto) Neut % (Auto) Lymph % (Auto) [place] % (Auto) Eos % (Auto) Baso % (Auto) Lymph # (Auto) [place] # (Auto) Eos # (Auto) Baso # (Auto) Abs Immat Gran (auto) Absolute Neuts (auto) Absolute Nucleated RBC Nucleated RBC % (auto) Neutrophils % (Manual) Band Neutrophils % Lymphocytes % (Manual) Monocytes % (Manual) Metamyelocytes % Abs Neuts (Manual) Lymphocytes # (Manual) Monocytes # (Manual) Metamyelocytes # Toxic Vacuolation Dohle Bodies Platelet Estimate Plt Morphology Comment RBC Morphology Smear Tech's Comments Smear Path Review PT INR APTT O2 Saturation ABG pH at Pt Temp ABG pCO2 at Pt Temp ABG pO2 at Pt Temp ABG HCO3 ABG Base Excess (Actual) VBG pH 7.47 H VBG pCO2 41 VBG pO2 47 VBG HCO3 30 H VBG O2 Saturation 76.0 VBG Base Excess 6.6 Sodium 142 Potassium 5.7 H Chloride 110 H Carbon Dioxide 25 Anion Gap 13 BUN 22 H Creatinine 0.83 Estim Creat Clear Calc 87.5 Estimated GFR > 60 POC Glucose Random Glucose 104 Lactic Acid 1.6 Calcium 8.9 Phosphorus Magnesium Total Bilirubin AST ALT Alkaline Phosphatase Troponin I High Sens Total Protein Albumin Urine Color Urine Appearance Urine pH Ur Specific [place] Urine Protein Urine Glucose (UA) Urine Ketones Urine Blood Urine Nitrite Ur Leukocyte Esterase Urine RBC Urine WBC Ur Squamous Epith Cells Other Crystals Urine Bacteria Hyaline Casts Granular Casts CSF Tube Number CSF Volume CSF Appearance CSF Color CSF WBC CSF RBC CSF Neutrophils CSF Appearance (b) CSF Glucose CSF Total Protein CSF C.neoform/gat PCR CSF CMV DNA (PCR) CSF Enterovirus (PCR) CSF E. coli K1 (PCR) CSF H. influenzae (PCR) CSF HSV I (PCR) CSF HSV II (PCR) CSF HHV 6 (PCR) CSF L.monocytogenes PCR CSF N. meningitidis PCR LESA Virus DNA Rpt Status CSF Parechovirus (PCR) CSF S. agalactiae (PCR) CSF S. pneumoniae (PCR) CSF VZV (PCR) Random Vancomycin Urine Opiates Screen Urine Fentanyl Screen Ur Barbiturates Screen Ur Phencyclidine Scrn Ur Amphetamines Screen U Benzodiazepines Scrn Urine Cocaine Screen U Marijuana (THC) Screen COVID-19 (NIKKI) COVID-19 Clin Com 09/28/22 09/28/22 09/29/22 05:25 05:25 05:22 WBC 22.1 H 32.7 H* RBC 4.61 5.21 Hgb 13.9 L 15.9 Hct 42.2 52.9 H D MCV 91.5 101.5 H D MCH 30.2 30.5 MCHC 32.9 30.1 L RDW 13.8 14.0 Plt Count 200 221 MPV 10.6 10.8 Immature Gran % (Auto) 1.1 H Cancelled Neut % (Auto) 79.5 H Cancelled Lymph % (Auto) 6.8 L Cancelled [place] % (Auto) 12.2 H Cancelled Eos % (Auto) 0.0 Cancelled Baso % (Auto) 0.4 Cancelled Lymph # (Auto) 1.5 Cancelled [place] # (Auto) 2.7 H Cancelled Eos # (Auto) 0.0 Cancelled Baso # (Auto) 0.1 Cancelled Abs Immat Gran (auto) 0.25 H Cancelled Absolute Neuts (auto) 17.5 H Cancelled Absolute Nucleated RBC 0.000 0.000 Nucleated RBC % (auto) 0.0 0.0 Neutrophils % (Manual) 62 Band Neutrophils % 25 H Lymphocytes % (Manual) 1 L Monocytes % (Manual) 9 Metamyelocytes % 3 Abs Neuts (Manual) 28.4 H Lymphocytes # (Manual) 0.3 L Monocytes # (Manual) 2.9 H Metamyelocytes # 1.0 Toxic Vacuolation PRESENT Dohle Bodies PRESENT Platelet Estimate NORMAL Plt Morphology Comment NORMAL RBC Morphology NORMAL Smear Tech's Comments VERIFIED Smear Path Review PT INR APTT O2 Saturation ABG pH at Pt Temp ABG pCO2 at Pt Temp ABG pO2 at Pt Temp ABG HCO3 ABG Base Excess (Actual) VBG pH VBG pCO2 VBG pO2 VBG HCO3 VBG O2 Saturation VBG Base Excess Sodium 145 Potassium 4.2 D Chloride 111 H Carbon Dioxide 26 Anion Gap 12 BUN 20 H Creatinine 0.79 Estim Creat Clear Calc 91.4 Estimated GFR > 60 POC Glucose Random Glucose 106 Lactic Acid Calcium 8.6 Phosphorus 2.5 L Magnesium 1.7 Total Bilirubin 0.5 AST 37 ALT 63 H Alkaline Phosphatase 77 Troponin I High Sens Total Protein 5.3 L Albumin 3.4 L Urine Color Urine Appearance Urine pH Ur Specific [place] Urine Protein Urine Glucose (UA) Urine Ketones Urine Blood Urine Nitrite Ur Leukocyte Esterase Urine RBC Urine WBC Ur Squamous Epith Cells Other Crystals Urine Bacteria Hyaline Casts Granular Casts CSF Tube Number CSF Volume CSF Appearance CSF Color CSF WBC CSF RBC CSF Neutrophils CSF Appearance (b) CSF Glucose CSF Total Protein CSF C.neoform/gat PCR CSF CMV DNA (PCR) CSF Enterovirus (PCR) CSF E. coli K1 (PCR) CSF H. influenzae (PCR) CSF HSV I (PCR) CSF HSV II (PCR) CSF HHV 6 (PCR) CSF L.monocytogenes PCR CSF N. meningitidis PCR LESA Virus DNA Rpt Status CSF Parechovirus (PCR) CSF S. agalactiae (PCR) CSF S. pneumoniae (PCR) CSF VZV (PCR) Random Vancomycin Urine Opiates Screen Urine Fentanyl Screen Ur Barbiturates Screen Ur Phencyclidine Scrn Ur Amphetamines Screen U Benzodiazepines Scrn Urine Cocaine Screen U Marijuana (THC) Screen COVID-19 (NIKKI) COVID-19 Clin Com 09/29/22 09/29/22 09/29/22 05:22 05:26 05:37 WBC RBC Hgb Hct MCV MCH MCHC RDW Plt Count MPV Immature Gran % (Auto) Neut % (Auto) Lymph % (Auto) [place] % (Auto) Eos % (Auto) Baso % (Auto) Lymph # (Auto) [place] # (Auto) Eos # (Auto) Baso # (Auto) Abs Immat Gran (auto) Absolute Neuts (auto) Absolute Nucleated RBC Nucleated RBC % (auto) Neutrophils % (Manual) Band Neutrophils % Lymphocytes % (Manual) Monocytes % (Manual) Metamyelocytes % Abs Neuts (Manual) Lymphocytes # (Manual) Monocytes # (Manual) Metamyelocytes # Toxic Vacuolation Dohle Bodies Platelet Estimate Plt Morphology Comment RBC Morphology Smear Tech's Comments Smear Path Review PT INR APTT O2 Saturation ABG pH at Pt Temp ABG pCO2 at Pt Temp ABG pO2 at Pt Temp ABG HCO3 ABG Base Excess (Actual) VBG pH 7.07 L* 7.08 L* VBG pCO2 101 102 VBG pO2 60 60 VBG HCO3 30 H 31 H VBG O2 Saturation 86.0 87.0 VBG Base Excess -3.6 -2.5 Sodium 153 H Potassium 5.4 H D Chloride 108 Carbon Dioxide 30 H Anion Gap 20 BUN 35 H Creatinine 1.16 Estim Creat Clear Calc 65.8 Estimated GFR > 60 POC Glucose Random Glucose 79 Lactic Acid Calcium 9.0 Phosphorus 8.3 H Magnesium 2.4 Total Bilirubin 0.5 AST 37 ALT 49 H Alkaline Phosphatase 100 Troponin I High Sens Total Protein 6.0 L Albumin 3.5 Urine Color Urine Appearance Urine pH Ur Specific [place] Urine Protein Urine Glucose (UA) Urine Ketones Urine Blood Urine Nitrite Ur Leukocyte Esterase Urine RBC Urine WBC Ur Squamous Epith Cells Other Crystals Urine Bacteria Hyaline Casts Granular Casts CSF Tube Number CSF Volume CSF Appearance CSF Color CSF WBC CSF RBC CSF Neutrophils CSF Appearance (b) CSF Glucose CSF Total Protein CSF C.neoform/gat PCR CSF CMV DNA (PCR) CSF Enterovirus (PCR) CSF E. coli K1 (PCR) CSF H. influenzae (PCR) CSF HSV I (PCR) CSF HSV II (PCR) CSF HHV 6 (PCR) CSF L.monocytogenes PCR CSF N. meningitidis PCR LESA Virus DNA Rpt Status CSF Parechovirus (PCR) CSF S. agalactiae (PCR) CSF S. pneumoniae (PCR) CSF VZV (PCR) Random Vancomycin Urine Opiates Screen Urine Fentanyl Screen Ur Barbiturates Screen Ur Phencyclidine Scrn Ur Amphetamines Screen U Benzodiazepines Scrn Urine Cocaine Screen U Marijuana (THC) Screen COVID-19 (NIKKI) COVID-19 Clin Com 09/29/22 09/29/22 09/29/22 06:32 08:40 09:31 WBC RBC Hgb Hct MCV MCH MCHC RDW Plt Count MPV Immature Gran % (Auto) Neut % (Auto) Lymph % (Auto) [place] % (Auto) Eos % (Auto) Baso % (Auto) Lymph # (Auto) [place] # (Auto) Eos # (Auto) Baso # (Auto) Abs Immat Gran (auto) Absolute Neuts (auto) Absolute Nucleated RBC Nucleated RBC % (auto) Neutrophils % (Manual) Band Neutrophils % Lymphocytes % (Manual) Monocytes % (Manual) Metamyelocytes % Abs Neuts (Manual) Lymphocytes # (Manual) Monocytes # (Manual) Metamyelocytes # Toxic Vacuolation Dohle Bodies Platelet Estimate Plt Morphology Comment RBC Morphology Smear Tech's Comments Smear Path Review PT INR APTT O2 Saturation ABG pH at Pt Temp ABG pCO2 at Pt Temp ABG pO2 at Pt Temp ABG HCO3 ABG Base Excess (Actual) VBG pH 7.10 L* 7.14 L* 7.28 L VBG pCO2 101 86 60 VBG pO2 70 55 48 VBG HCO3 31 H 30 H 28 H VBG O2 Saturation 94.0 84.0 82.0 VBG Base Excess TNP -1.3 0.6 Sodium Potassium Chloride Carbon Dioxide Anion Gap BUN Creatinine Estim Creat Clear Calc Estimated GFR POC Glucose Random Glucose Lactic Acid Calcium Phosphorus Magnesium Total Bilirubin AST ALT Alkaline Phosphatase Troponin I High Sens Total Protein Albumin Urine Color Urine Appearance Urine pH Ur Specific [place] Urine Protein Urine Glucose (UA) Urine Ketones Urine Blood Urine Nitrite Ur Leukocyte Esterase Urine RBC Urine WBC Ur Squamous Epith Cells Other Crystals Urine Bacteria Hyaline Casts Granular Casts CSF Tube Number CSF Volume CSF Appearance CSF Color CSF WBC CSF RBC CSF Neutrophils CSF Appearance (b) CSF Glucose CSF Total Protein CSF C.neoform/gat PCR CSF CMV DNA (PCR) CSF Enterovirus (PCR) CSF E. coli K1 (PCR) CSF H. influenzae (PCR) CSF HSV I (PCR) CSF HSV II (PCR) CSF HHV 6 (PCR) CSF L.monocytogenes PCR CSF N. meningitidis PCR LESA Virus DNA Rpt Status CSF Parechovirus (PCR) CSF S. agalactiae (PCR) CSF S. pneumoniae (PCR) CSF VZV (PCR) Random Vancomycin Urine Opiates Screen Urine Fentanyl Screen Ur Barbiturates Screen Ur Phencyclidine Scrn Ur Amphetamines Screen U Benzodiazepines Scrn Urine Cocaine Screen U Marijuana (THC) Screen COVID-19 (NIKKI) COVID-19 Clin Com 09/30/22 09/30/22 09/30/22 04:26 04:26 04:26 WBC 22.6 H RBC 4.61 Hgb 13.9 L Hct 43.0 MCV 93.3 D MCH 30.2 MCHC 32.3 RDW 14.0 Plt Count 181 MPV 11.5 Immature Gran % (Auto) 1.6 H Neut % (Auto) 86.0 H Lymph % (Auto) 4.2 L [place] % (Auto) 7.4 Eos % (Auto) 0.3 Baso % (Auto) 0.5 Lymph # (Auto) 0.9 L [place] # (Auto) 1.7 H Eos # (Auto) 0.1 Baso # (Auto) 0.1 Abs Immat Gran (auto) 0.37 H Absolute Neuts (auto) 19.4 H Absolute Nucleated RBC 0.000 Nucleated RBC % (auto) 0.0 Neutrophils % (Manual) Band Neutrophils % Lymphocytes % (Manual) Monocytes % (Manual) Metamyelocytes % Abs Neuts (Manual) Lymphocytes # (Manual) Monocytes # (Manual) Metamyelocytes # Toxic Vacuolation Dohle Bodies Platelet Estimate Plt Morphology Comment RBC Morphology Smear Tech's Comments VERIFIED Smear Path Review PT INR APTT O2 Saturation ABG pH at Pt Temp ABG pCO2 at Pt Temp ABG pO2 at Pt Temp ABG HCO3 ABG Base Excess (Actual) VBG pH 7.52 H VBG pCO2 35 VBG pO2 47 VBG HCO3 29 H VBG O2 Saturation 84.0 VBG Base Excess 6.9 Sodium 149 H Potassium 3.8 D Chloride 107 Carbon Dioxide 29 Anion Gap 17 BUN 35 H Creatinine 0.85 Estim Creat Clear Calc 89.8 Estimated GFR > 60 POC Glucose Random Glucose 206 H Lactic Acid Calcium 8.3 L D Phosphorus 1.6 L Magnesium 2.2 Total Bilirubin AST ALT Alkaline Phosphatase Troponin I High Sens Total Protein Albumin 3.0 L Urine Color Urine Appearance Urine pH Ur Specific [place] Urine Protein Urine Glucose (UA) Urine Ketones Urine Blood Urine Nitrite Ur Leukocyte Esterase Urine RBC Urine WBC Ur Squamous Epith Cells Other Crystals Urine Bacteria Hyaline Casts Granular Casts CSF Tube Number CSF Volume CSF Appearance CSF Color CSF WBC CSF RBC CSF Neutrophils CSF Appearance (b) CSF Glucose CSF Total Protein CSF C.neoform/gat PCR CSF CMV DNA (PCR) CSF Enterovirus (PCR) CSF E. coli K1 (PCR) CSF H. influenzae (PCR) CSF HSV I (PCR) CSF HSV II (PCR) CSF HHV 6 (PCR) CSF L.monocytogenes PCR CSF N. meningitidis PCR LESA Virus DNA Rpt Status CSF Parechovirus (PCR) CSF S. agalactiae (PCR) CSF S. pneumoniae (PCR) CSF VZV (PCR) Random Vancomycin Urine Opiates Screen Urine Fentanyl Screen Ur Barbiturates Screen Ur Phencyclidine Scrn Ur Amphetamines Screen U Benzodiazepines Scrn Urine Cocaine Screen U Marijuana (THC) Screen COVID-19 (NIKKI) COVID-19 Clin Com 10/01/22 10/01/22 10/01/22 04:42 04:42 04:48 WBC 16.2 H RBC 3.71 L Hgb 10.9 L D Hct 33.8 L D MCV 91.1 MCH 29.4 MCHC 32.2 RDW 13.9 Plt Count 123 L D MPV 11.0 Immature Gran % (Auto) 1.3 H Neut % (Auto) 80.4 H Lymph % (Auto) 7.2 L [place] % (Auto) 10.2 Eos % (Auto) 0.7 Baso % (Auto) 0.2 Lymph # (Auto) 1.2 [place] # (Auto) 1.7 H Eos # (Auto) 0.1 Baso # (Auto) 0.0 Abs Immat Gran (auto) 0.21 H Absolute Neuts (auto) 13.0 H Absolute Nucleated RBC 0.000 Nucleated RBC % (auto) 0.0 Neutrophils % (Manual) Band Neutrophils % Lymphocytes % (Manual) Monocytes % (Manual) Metamyelocytes % Abs Neuts (Manual) Lymphocytes # (Manual) Monocytes # (Manual) Metamyelocytes # Toxic Vacuolation Dohle Bodies Platelet Estimate Plt Morphology Comment RBC Morphology Smear Tech's Comments VERIFIED Smear Path Review PT INR APTT O2 Saturation ABG pH at Pt Temp ABG pCO2 at Pt Temp ABG pO2 at Pt Temp ABG HCO3 ABG Base Excess (Actual) VBG pH 7.55 H VBG pCO2 33 VBG pO2 43 VBG HCO3 29 H VBG O2 Saturation 76.0 VBG Base Excess 7.1 Sodium 152 H Potassium 2.7 L D Chloride 113 H Carbon Dioxide 31 H Anion Gap 11 L BUN 25 H Creatinine 0.64 Estim Creat Clear Calc 119.7 Estimated GFR > 60 POC Glucose Random Glucose 128 H Lactic Acid Calcium 8.4 Phosphorus 1.1 L Magnesium 2.0 Total Bilirubin AST ALT Alkaline Phosphatase Troponin I High Sens Total Protein Albumin 4.0 Urine Color Urine Appearance Urine pH Ur Specific [place] Urine Protein Urine Glucose (UA) Urine Ketones Urine Blood Urine Nitrite Ur Leukocyte Esterase Urine RBC Urine WBC Ur Squamous Epith Cells Other Crystals Urine Bacteria Hyaline Casts Granular Casts CSF Tube Number CSF Volume CSF Appearance CSF Color CSF WBC CSF RBC CSF Neutrophils CSF Appearance (b) CSF Glucose CSF Total Protein CSF C.neoform/gat PCR CSF CMV DNA (PCR) CSF Enterovirus (PCR) CSF E. coli K1 (PCR) CSF H. influenzae (PCR) CSF HSV I (PCR) CSF HSV II (PCR) CSF HHV 6 (PCR) CSF L.monocytogenes PCR CSF N. meningitidis PCR LESA Virus DNA Rpt Status CSF Parechovirus (PCR) CSF S. agalactiae (PCR) CSF S. pneumoniae (PCR) CSF VZV (PCR) Random Vancomycin Urine Opiates Screen Urine Fentanyl Screen Ur Barbiturates Screen Ur Phencyclidine Scrn Ur Amphetamines Screen U Benzodiazepines Scrn Urine Cocaine Screen U Marijuana (THC) Screen COVID-19 (NIKKI) COVID-19 Clin Com 10/01/22 10/01/22 10/01/22 11:14 11:14 11:14 WBC RBC Hgb Hct MCV MCH MCHC RDW Plt Count MPV Immature Gran % (Auto) Neut % (Auto) Lymph % (Auto) [place] % (Auto) Eos % (Auto) Baso % (Auto) Lymph # (Auto) [place] # (Auto) Eos # (Auto) Baso # (Auto) Abs Immat Gran (auto) Absolute Neuts (auto) Absolute Nucleated RBC Nucleated RBC % (auto) Neutrophils % (Manual) Band Neutrophils % Lymphocytes % (Manual) Monocytes % (Manual) Metamyelocytes % Abs Neuts (Manual) Lymphocytes # (Manual) Monocytes # (Manual) Metamyelocytes # Toxic Vacuolation Dohle Bodies Platelet Estimate Plt Morphology Comment RBC Morphology Smear Tech's Comments Smear Path Review PT INR APTT O2 Saturation ABG pH at Pt Temp ABG pCO2 at Pt Temp ABG pO2 at Pt Temp ABG HCO3 ABG Base Excess (Actual) VBG pH VBG pCO2 VBG pO2 VBG HCO3 VBG O2 Saturation VBG Base Excess Sodium Potassium Chloride Carbon Dioxide Anion Gap BUN Creatinine Estim Creat Clear Calc Estimated GFR POC Glucose Random Glucose Lactic Acid Calcium Phosphorus Magnesium Total Bilirubin AST ALT Alkaline Phosphatase Troponin I High Sens Total Protein Albumin Urine Color Urine Appearance Urine pH Ur Specific [place] Urine Protein Urine Glucose (UA) Urine Ketones Urine Blood Urine Nitrite Ur Leukocyte Esterase Urine RBC Urine WBC Ur Squamous Epith Cells Other Crystals Urine Bacteria Hyaline Casts Granular Casts CSF Tube Number 3 CSF Volume 2.0 CSF Appearance CLEAR CSF Color COLORLESS CSF WBC 1 CSF RBC 3 CSF Neutrophils 100 CSF Appearance (b) CSF Glucose CSF Total Protein CSF C.neoform/gat PCR Not Detected CSF CMV DNA (PCR) Not Detected CSF Enterovirus (PCR) Not Detected CSF E. coli K1 (PCR) Not Detected CSF H. influenzae (PCR) Not Detected CSF HSV I (PCR) Not Detected CSF HSV II (PCR) Not Detected CSF HHV 6 (PCR) Not Detected CSF L.monocytogenes PCR Not Detected CSF N. meningitidis PCR Not Detected LESA Virus DNA Rpt Status Not Detected CSF Parechovirus (PCR) Not Detected CSF S. agalactiae (PCR) Not Detected CSF S. pneumoniae (PCR) Not Detected CSF VZV (PCR) Not Detected Random Vancomycin Urine Opiates Screen Urine Fentanyl Screen Ur Barbiturates Screen Ur Phencyclidine Scrn Ur Amphetamines Screen U Benzodiazepines Scrn Urine Cocaine Screen U Marijuana (THC) Screen COVID-19 (NIKKI) COVID-19 Clin Com 10/01/22 10/02/22 10/02/22 11:15 05:04 05:04 WBC 10.9 H RBC 3.81 L Hgb 11.2 L Hct 34.7 L MCV 91.1 MCH 29.4 MCHC 32.3 RDW 14.2 Plt Count 116 L MPV 11.1 Immature Gran % (Auto) 0.9 H Neut % (Auto) 72.6 Lymph % (Auto) 10.4 L [place] % (Auto) 12.4 H Eos % (Auto) 3.3 Baso % (Auto) 0.4 Lymph # (Auto) 1.1 L [place] # (Auto) 1.4 H Eos # (Auto) 0.4 Baso # (Auto) 0.0 Abs Immat Gran (auto) 0.10 H Absolute Neuts (auto) 7.9 Absolute Nucleated RBC 0.000 Nucleated RBC % (auto) 0.0 Neutrophils % (Manual) Band Neutrophils % Lymphocytes % (Manual) Monocytes % (Manual) Metamyelocytes % Abs Neuts (Manual) Lymphocytes # (Manual) Monocytes # (Manual) Metamyelocytes # Toxic Vacuolation Dohle Bodies Platelet Estimate Plt Morphology Comment RBC Morphology Smear Tech's Comments Smear Path Review PT INR APTT O2 Saturation ABG pH at Pt Temp ABG pCO2 at Pt Temp ABG pO2 at Pt Temp ABG HCO3 ABG Base Excess (Actual) VBG pH VBG pCO2 VBG pO2 VBG HCO3 VBG O2 Saturation VBG Base Excess Sodium 145 Potassium 3.4 D Chloride 114 H Carbon Dioxide 23 Anion Gap 11 L BUN 13 Creatinine 0.53 Estim Creat Clear Calc 145.1 Estimated GFR > 60 POC Glucose Random Glucose 103 Lactic Acid Calcium 7.9 L Phosphorus 2.9 Magnesium 1.7 Total Bilirubin AST ALT Alkaline Phosphatase Troponin I High Sens Total Protein Albumin 3.3 L Urine Color Urine Appearance Urine pH Ur Specific [place] Urine Protein Urine Glucose (UA) Urine Ketones Urine Blood Urine Nitrite Ur Leukocyte Esterase Urine RBC Urine WBC Ur Squamous Epith Cells Other Crystals Urine Bacteria Hyaline Casts Granular Casts CSF Tube Number 1 CSF Volume CSF Appearance CSF Color CSF WBC CSF RBC CSF Neutrophils CSF Appearance (b) Clear, Colorless CSF Glucose 94 CSF Total Protein 24.8 CSF C.neoform/gat PCR CSF CMV DNA (PCR) CSF Enterovirus (PCR) CSF E. coli K1 (PCR) CSF H. influenzae (PCR) CSF HSV I (PCR) CSF HSV II (PCR) CSF HHV 6 (PCR) CSF L.monocytogenes PCR CSF N. meningitidis PCR LESA Virus DNA Rpt Status CSF Parechovirus (PCR) CSF S. agalactiae (PCR) CSF S. pneumoniae (PCR) CSF VZV (PCR) Random Vancomycin Urine Opiates Screen Urine Fentanyl Screen Ur Barbiturates Screen Ur Phencyclidine Scrn Ur Amphetamines Screen U Benzodiazepines Scrn Urine Cocaine Screen U Marijuana (THC) Screen COVID-19 (NIKKI) COVID-19 Clin Com 10/02/22 10/02/22 10/03/22 05:09 09:57 04:20 WBC RBC Hgb Hct MCV MCH MCHC RDW Plt Count MPV Immature Gran % (Auto) Neut % (Auto) Lymph % (Auto) [place] % (Auto) Eos % (Auto) Baso % (Auto) Lymph # (Auto) [place] # (Auto) Eos # (Auto) Baso # (Auto) Abs Immat Gran (auto) Absolute Neuts (auto) Absolute Nucleated RBC Nucleated RBC % (auto) Neutrophils % (Manual) Band Neutrophils % Lymphocytes % (Manual) Monocytes % (Manual) Metamyelocytes % Abs Neuts (Manual) Lymphocytes # (Manual) Monocytes # (Manual) Metamyelocytes # Toxic Vacuolation Dohle Bodies Platelet Estimate Plt Morphology Comment RBC Morphology Smear Tech's Comments Smear Path Review PT INR APTT O2 Saturation ABG pH at Pt Temp ABG pCO2 at Pt Temp ABG pO2 at Pt Temp ABG HCO3 ABG Base Excess (Actual) VBG pH 7.45 H 7.41 VBG pCO2 31 39 VBG pO2 44 50 VBG HCO3 22 25 VBG O2 Saturation 72.0 77.0 VBG Base Excess -0.7 0.5 Sodium Potassium Chloride Carbon Dioxide Anion Gap BUN Creatinine Estim Creat Clear Calc Estimated GFR POC Glucose Random Glucose Lactic Acid Calcium Phosphorus Magnesium Total Bilirubin AST ALT Alkaline Phosphatase Troponin I High Sens Total Protein Albumin Urine Color Urine Appearance Urine pH Ur Specific [place] Urine Protein Urine Glucose (UA) Urine Ketones Urine Blood Urine Nitrite Ur Leukocyte Esterase Urine RBC Urine WBC Ur Squamous Epith Cells Other Crystals Urine Bacteria Hyaline Casts Granular Casts CSF Tube Number CSF Volume CSF Appearance CSF Color CSF WBC CSF RBC CSF Neutrophils CSF Appearance (b) CSF Glucose CSF Total Protein CSF C.neoform/gat PCR CSF CMV DNA (PCR) CSF Enterovirus (PCR) CSF E. coli K1 (PCR) CSF H. influenzae (PCR) CSF HSV I (PCR) CSF HSV II (PCR) CSF HHV 6 (PCR) CSF L.monocytogenes PCR CSF N. meningitidis PCR LESA Virus DNA Rpt Status CSF Parechovirus (PCR) CSF S. agalactiae (PCR) CSF S. pneumoniae (PCR) CSF VZV (PCR) Random Vancomycin 6.5 L Urine Opiates Screen Urine Fentanyl Screen Ur Barbiturates Screen Ur Phencyclidine Scrn Ur Amphetamines Screen U Benzodiazepines Scrn Urine Cocaine Screen U Marijuana (THC) Screen COVID-19 (NIKKI) COVID-19 Clin Com 10/03/22 10/03/22 10/03/22 04:25 04:25 10:22 WBC 16.2 H RBC 4.34 L Hgb 12.6 L Hct 39.2 L MCV 90.3 MCH 29.0 MCHC 32.1 RDW 13.7 Plt Count 146 L D MPV 10.9 Immature Gran % (Auto) 1.2 H Neut % (Auto) 72.7 Lymph % (Auto) 9.9 L [place] % (Auto) 9.7 Eos % (Auto) 6.0 H Baso % (Auto) 0.5 Lymph # (Auto) 1.6 [place] # (Auto) 1.6 H Eos # (Auto) 1.0 H Baso # (Auto) 0.1 Abs Immat Gran (auto) 0.19 H Absolute Neuts (auto) 11.8 H Absolute Nucleated RBC 0.000 Nucleated RBC % (auto) 0.0 Neutrophils % (Manual) Band Neutrophils % Lymphocytes % (Manual) Monocytes % (Manual) Metamyelocytes % Abs Neuts (Manual) Lymphocytes # (Manual) Monocytes # (Manual) Metamyelocytes # Toxic Vacuolation Dohle Bodies Platelet Estimate Plt Morphology Comment RBC Morphology Smear Tech's Comments VERIFIED Smear Path Review PT INR APTT O2 Saturation ABG pH at Pt Temp ABG pCO2 at Pt Temp ABG pO2 at Pt Temp ABG HCO3 ABG Base Excess (Actual) VBG pH VBG pCO2 VBG pO2 VBG HCO3 VBG O2 Saturation VBG Base Excess Sodium 145 Potassium 4.0 Chloride 113 H Carbon Dioxide 24 Anion Gap 12 BUN 13 Creatinine 0.56 Estim Creat Clear Calc 139.6 Estimated GFR > 60 POC Glucose Random Glucose 109 Lactic Acid Calcium 8.4 D Phosphorus 3.6 Magnesium 1.8 Total Bilirubin AST ALT Alkaline Phosphatase Troponin I High Sens Total Protein Albumin Urine Color Urine Appearance Urine pH Ur Specific [place] Urine Protein Urine Glucose (UA) Urine Ketones Urine Blood Urine Nitrite Ur Leukocyte Esterase Urine RBC Urine WBC Ur Squamous Epith Cells Other Crystals Urine Bacteria Hyaline Casts Granular Casts CSF Tube Number CSF Volume CSF Appearance CSF Color CSF WBC CSF RBC CSF Neutrophils CSF Appearance (b) CSF Glucose CSF Total Protein CSF C.neoform/gat PCR CSF CMV DNA (PCR) CSF Enterovirus (PCR) CSF E. coli K1 (PCR) CSF H. influenzae (PCR) CSF HSV I (PCR) CSF HSV II (PCR) CSF HHV 6 (PCR) CSF L.monocytogenes PCR CSF N. meningitidis PCR LESA Virus DNA Rpt Status CSF Parechovirus (PCR) CSF S. agalactiae (PCR) CSF S. pneumoniae (PCR) CSF VZV (PCR) Random Vancomycin 7.6 L Urine Opiates Screen Urine Fentanyl Screen Ur Barbiturates Screen Ur Phencyclidine Scrn Ur Amphetamines Screen U Benzodiazepines Scrn Urine Cocaine Screen U Marijuana (THC) Screen COVID-19 (NIKKI) COVID-19 Clin Com 10/03/22 10/04/22 10/04/22 23:57 05:06 05:06 WBC 22.6 H RBC 4.35 L Hgb 12.9 L Hct 39.3 L MCV 90.3 MCH 29.7 MCHC 32.8 RDW 13.5 Plt Count 257 D MPV 11.0 Immature Gran % (Auto) 1.8 H Neut % (Auto) 79.3 H Lymph % (Auto) 8.1 L [place] % (Auto) 7.8 Eos % (Auto) 2.6 Baso % (Auto) 0.4 Lymph # (Auto) 1.8 [place] # (Auto) 1.8 H Eos # (Auto) 0.6 H Baso # (Auto) 0.1 Abs Immat Gran (auto) 0.40 H Absolute Neuts (auto) 17.9 H Absolute Nucleated RBC 0.000 Nucleated RBC % (auto) 0.0 Neutrophils % (Manual) Band Neutrophils % Lymphocytes % (Manual) Monocytes % (Manual) Metamyelocytes % Abs Neuts (Manual) Lymphocytes # (Manual) Monocytes # (Manual) Metamyelocytes # Toxic Vacuolation Dohle Bodies Platelet Estimate Plt Morphology Comment RBC Morphology Smear Tech's Comments VERIFIED Smear Path Review PT INR APTT O2 Saturation ABG pH at Pt Temp ABG pCO2 at Pt Temp ABG pO2 at Pt Temp ABG HCO3 ABG Base Excess (Actual) VBG pH VBG pCO2 VBG pO2 VBG HCO3 VBG O2 Saturation VBG Base Excess Sodium 142 Potassium 4.2 Chloride 110 H Carbon Dioxide 23 Anion Gap 13 BUN 16 Creatinine 0.63 Estim Creat Clear Calc 123.0 Estimated GFR > 60 POC Glucose 152 H Random Glucose 123 H Lactic Acid Calcium 8.4 Phosphorus 3.1 Magnesium 1.8 Total Bilirubin AST ALT Alkaline Phosphatase Troponin I High Sens Total Protein Albumin 3.5 Urine Color Urine Appearance Urine pH Ur Specific [place] Urine Protein Urine Glucose (UA) Urine Ketones Urine Blood Urine Nitrite Ur Leukocyte Esterase Urine RBC Urine WBC Ur Squamous Epith Cells Other Crystals Urine Bacteria Hyaline Casts Granular Casts CSF Tube Number CSF Volume CSF Appearance CSF Color CSF WBC CSF RBC CSF Neutrophils CSF Appearance (b) CSF Glucose CSF Total Protein CSF C.neoform/gat PCR CSF CMV DNA (PCR) CSF Enterovirus (PCR) CSF E. coli K1 (PCR) CSF H. influenzae (PCR) CSF HSV I (PCR) CSF HSV II (PCR) CSF HHV 6 (PCR) CSF L.monocytogenes PCR CSF N. meningitidis PCR LESA Virus DNA Rpt Status CSF Parechovirus (PCR) CSF S. agalactiae (PCR) CSF S. pneumoniae (PCR) CSF VZV (PCR) Random Vancomycin Urine Opiates Screen Urine Fentanyl Screen Ur Barbiturates Screen Ur Phencyclidine Scrn Ur Amphetamines Screen U Benzodiazepines Scrn Urine Cocaine Screen U Marijuana (THC) Screen COVID-19 (NIKKI) COVID-19 Clin Com 10/04/22 10/04/22 10/04/22 05:26 11:14 17:54 WBC RBC Hgb Hct MCV MCH MCHC RDW Plt Count MPV Immature Gran % (Auto) Neut % (Auto) Lymph % (Auto) [place] % (Auto) Eos % (Auto) Baso % (Auto) Lymph # (Auto) [place] # (Auto) Eos # (Auto) Baso # (Auto) Abs Immat Gran (auto) Absolute Neuts (auto) Absolute Nucleated RBC Nucleated RBC % (auto) Neutrophils % (Manual) Band Neutrophils % Lymphocytes % (Manual) Monocytes % (Manual) Metamyelocytes % Abs Neuts (Manual) Lymphocytes # (Manual) Monocytes # (Manual) Metamyelocytes # Toxic Vacuolation Dohle Bodies Platelet Estimate Plt Morphology Comment RBC Morphology Smear Tech's Comments Smear Path Review PT INR APTT O2 Saturation ABG pH at Pt Temp ABG pCO2 at Pt Temp ABG pO2 at Pt Temp ABG HCO3 ABG Base Excess (Actual) VBG pH 7.47 H VBG pCO2 31 VBG pO2 54 VBG HCO3 23 VBG O2 Saturation 85.0 VBG Base Excess 0.6 Sodium Potassium Chloride Carbon Dioxide Anion Gap BUN Creatinine Estim Creat Clear Calc Estimated GFR POC Glucose 139 H 126 H Random Glucose Lactic Acid Calcium Phosphorus Magnesium Total Bilirubin AST ALT Alkaline Phosphatase Troponin I High Sens Total Protein Albumin Urine Color Urine Appearance Urine pH Ur Specific [place] Urine Protein Urine Glucose (UA) Urine Ketones Urine Blood Urine Nitrite Ur Leukocyte Esterase Urine RBC Urine WBC Ur Squamous Epith Cells Other Crystals Urine Bacteria Hyaline Casts Granular Casts CSF Tube Number CSF Volume CSF Appearance CSF Color CSF WBC CSF RBC CSF Neutrophils CSF Appearance (b) CSF Glucose CSF Total Protein CSF C.neoform/gat PCR CSF CMV DNA (PCR) CSF Enterovirus (PCR) CSF E. coli K1 (PCR) CSF H. influenzae (PCR) CSF HSV I (PCR) CSF HSV II (PCR) CSF HHV 6 (PCR) CSF L.monocytogenes PCR CSF N. meningitidis PCR LESA Virus DNA Rpt Status CSF Parechovirus (PCR) CSF S. agalactiae (PCR) CSF S. pneumoniae (PCR) CSF VZV (PCR) Random Vancomycin Urine Opiates Screen Urine Fentanyl Screen Ur Barbiturates Screen Ur Phencyclidine Scrn Ur Amphetamines Screen U Benzodiazepines Scrn Urine Cocaine Screen U Marijuana (THC) Screen COVID-19 (NIKKI) COVID-19 Clin [facility] 10/04/22 10/05/22 10/05/22 23:29 05:19 05:19 WBC 19.6 H RBC 4.14 L Hgb 12.5 L Hct 38.4 L MCV 92.8 MCH 30.2 MCHC 32.6 RDW 14.0 Plt Count 369 D MPV 11.3 Immature Gran % (Auto) 2.1 H Neut % (Auto) 75.4 H Lymph % (Auto) 8.8 L [place] % (Auto) 9.6 Eos % (Auto) 3.5 Baso % (Auto) 0.6 Lymph # (Auto) 1.7 [place] # (Auto) 1.9 H Eos # (Auto) 0.7 H Baso # (Auto) 0.1 Abs Immat Gran (auto) 0.41 H Absolute Neuts (auto) 14.7 H Absolute Nucleated RBC 0.000 Nucleated RBC % (auto) 0.0 Neutrophils % (Manual) Band Neutrophils % Lymphocytes % (Manual) Monocytes % (Manual) Metamyelocytes % Abs Neuts (Manual) Lymphocytes # (Manual) Monocytes # (Manual) Metamyelocytes # Toxic Vacuolation Dohle Bodies Platelet Estimate Plt Morphology Comment RBC Morphology Smear Tech's Comments VERIFIED Smear Path Review PT INR APTT O2 Saturation ABG pH at Pt Temp ABG pCO2 at Pt Temp ABG pO2 at Pt Temp ABG HCO3 ABG Base Excess (Actual) VBG pH VBG pCO2 VBG pO2 VBG HCO3 VBG O2 Saturation VBG Base Excess Sodium 145 Potassium 4.4 Chloride 112 H Carbon Dioxide 24 Anion Gap 13 BUN 17 H Creatinine 0.63 Estim Creat Clear Calc 121.9 Estimated GFR > 60 POC Glucose 134 H Random Glucose 116 H Lactic Acid Calcium 8.4 Phosphorus 3.8 Magnesium 2.0 Total Bilirubin 0.4 AST 47 H ALT 38 Alkaline Phosphatase 150 H Troponin I High Sens Total Protein 5.9 L Albumin 3.4 L Urine Color Urine Appearance Urine pH Ur Specific [place] Urine Protein Urine Glucose (UA) Urine Ketones Urine Blood Urine Nitrite Ur Leukocyte Esterase Urine RBC Urine WBC Ur Squamous Epith Cells Other Crystals Urine Bacteria Hyaline Casts Granular Casts CSF Tube Number CSF Volume CSF Appearance CSF Color CSF WBC CSF RBC CSF Neutrophils CSF Appearance (b) CSF Glucose CSF Total Protein CSF C.neoform/gat PCR CSF CMV DNA (PCR) CSF Enterovirus (PCR) CSF E. coli K1 (PCR) CSF H. influenzae (PCR) CSF HSV I (PCR) CSF HSV II (PCR) CSF HHV 6 (PCR) CSF L.monocytogenes PCR CSF N. meningitidis PCR LESA Virus DNA Rpt Status CSF Parechovirus (PCR) CSF S. agalactiae (PCR) CSF S. pneumoniae (PCR) CSF VZV (PCR) Random Vancomycin Urine Opiates Screen Urine Fentanyl Screen Ur Barbiturates Screen Ur Phencyclidine Scrn Ur Amphetamines Screen U Benzodiazepines Scrn Urine Cocaine Screen U Marijuana (THC) Screen COVID-19 (NIKKI) COVID-19 Clin Com 10/05/22 10/05/22 10/05/22 05:26 05:39 11:40 WBC RBC Hgb Hct MCV MCH MCHC RDW Plt Count MPV Immature Gran % (Auto) Neut % (Auto) Lymph % (Auto) [place] % (Auto) Eos % (Auto) Baso % (Auto) Lymph # (Auto) [place] # (Auto) Eos # (Auto) Baso # (Auto) Abs Immat Gran (auto) Absolute Neuts (auto) Absolute Nucleated RBC Nucleated RBC % (auto) Neutrophils % (Manual) Band Neutrophils % Lymphocytes % (Manual) Monocytes % (Manual) Metamyelocytes % Abs Neuts (Manual) Lymphocytes # (Manual) Monocytes # (Manual) Metamyelocytes # Toxic Vacuolation Dohle Bodies Platelet Estimate Plt Morphology Comment RBC Morphology Smear Tech's Comments Smear Path Review PT INR APTT O2 Saturation ABG pH at Pt Temp ABG pCO2 at Pt Temp ABG pO2 at Pt Temp ABG HCO3 ABG Base Excess (Actual) VBG pH 7.42 VBG pCO2 37 VBG pO2 52 VBG HCO3 24 VBG O2 Saturation 81.0 VBG Base Excess 0.2 Sodium Potassium Chloride Carbon Dioxide Anion Gap BUN Creatinine Estim Creat Clear Calc Estimated GFR POC Glucose 124 H 120 H Random Glucose Lactic Acid Calcium Phosphorus Magnesium Total Bilirubin AST ALT Alkaline Phosphatase Troponin I High Sens Total Protein Albumin Urine Color Urine Appearance Urine pH Ur Specific [place] Urine Protein Urine Glucose (UA) Urine Ketones Urine Blood Urine Nitrite Ur Leukocyte Esterase Urine RBC Urine WBC Ur Squamous Epith Cells Other Crystals Urine Bacteria Hyaline Casts Granular Casts CSF Tube Number CSF Volume CSF Appearance CSF Color CSF WBC CSF RBC CSF Neutrophils CSF Appearance (b) CSF Glucose CSF Total Protein CSF C.neoform/gat PCR CSF CMV DNA (PCR) CSF Enterovirus (PCR) CSF E. coli K1 (PCR) CSF H. influenzae (PCR) CSF HSV I (PCR) CSF HSV II (PCR) CSF HHV 6 (PCR) CSF L.monocytogenes PCR CSF N. meningitidis PCR LESA Virus DNA Rpt Status CSF Parechovirus (PCR) CSF S. agalactiae (PCR) CSF S. pneumoniae (PCR) CSF VZV (PCR) Random Vancomycin Urine Opiates Screen Urine Fentanyl Screen Ur Barbiturates Screen Ur Phencyclidine Scrn Ur Amphetamines Screen U Benzodiazepines Scrn Urine Cocaine Screen U Marijuana (THC) Screen COVID-19 (NIKKI) COVID-19 Clin Com 10/05/22 10/05/22 10/06/22 18:01 23:40 05:02 WBC RBC Hgb Hct MCV MCH MCHC RDW Plt Count MPV Immature Gran % (Auto) Neut % (Auto) Lymph % (Auto) [place] % (Auto) Eos % (Auto) Baso % (Auto) Lymph # (Auto) [place] # (Auto) Eos # (Auto) Baso # (Auto) Abs Immat Gran (auto) Absolute Neuts (auto) Absolute Nucleated RBC Nucleated RBC % (auto) Neutrophils % (Manual) Band Neutrophils % Lymphocytes % (Manual) Monocytes % (Manual) Metamyelocytes % Abs Neuts (Manual) Lymphocytes # (Manual) Monocytes # (Manual) Metamyelocytes # Toxic Vacuolation Dohle Bodies Platelet Estimate Plt Morphology Comment RBC Morphology Smear Tech's Comments Smear Path Review PT INR APTT O2 Saturation ABG pH at Pt Temp ABG pCO2 at Pt Temp ABG pO2 at Pt Temp ABG HCO3 ABG Base Excess (Actual) VBG pH VBG pCO2 VBG pO2 VBG HCO3 VBG O2 Saturation VBG Base Excess Sodium 143 Potassium 4.9 Chloride 108 Carbon Dioxide 27 Anion Gap 13 BUN 16 Creatinine 0.62 Estim Creat Clear Calc 123.8 Estimated GFR > 60 POC Glucose 121 H 132 H Random Glucose 109 Lactic Acid Calcium 8.6 Phosphorus 3.3 Magnesium 2.1 Total Bilirubin AST ALT Alkaline Phosphatase Troponin I High Sens Total Protein Albumin 3.3 L Urine Color Urine Appearance Urine pH Ur Specific [place] Urine Protein Urine Glucose (UA) Urine Ketones Urine Blood Urine Nitrite Ur Leukocyte Esterase Urine RBC Urine WBC Ur Squamous Epith Cells Other Crystals Urine Bacteria Hyaline Casts Granular Casts CSF Tube Number CSF Volume CSF Appearance CSF Color CSF WBC CSF RBC CSF Neutrophils CSF Appearance (b) CSF Glucose CSF Total Protein CSF C.neoform/gat PCR CSF CMV DNA (PCR) CSF Enterovirus (PCR) CSF E. coli K1 (PCR) CSF H. influenzae (PCR) CSF HSV I (PCR) CSF HSV II (PCR) CSF HHV 6 (PCR) CSF L.monocytogenes PCR CSF N. meningitidis PCR LESA Virus DNA Rpt Status CSF Parechovirus (PCR) CSF S. agalactiae (PCR) CSF S. pneumoniae (PCR) CSF VZV (PCR) Random Vancomycin Urine Opiates Screen Urine Fentanyl Screen Ur Barbiturates Screen Ur Phencyclidine Scrn Ur Amphetamines Screen U Benzodiazepines Scrn Urine Cocaine Screen U Marijuana (THC) Screen COVID-19 (NIKKI) COVID-19 Clin Com 10/06/22 10/06/22 10/06/22 05:02 05:05 05:35 WBC 14.5 H RBC 3.97 L Hgb 11.7 L Hct 36.6 L MCV 92.2 MCH 29.5 MCHC 32.0 RDW 14.2 Plt Count 387 MPV 10.4 Immature Gran % (Auto) 1.3 H Neut % (Auto) 71.7 Lymph % (Auto) 11.0 L [place] % (Auto) 11.3 H Eos % (Auto) 4.1 H Baso % (Auto) 0.6 Lymph # (Auto) 1.6 [place] # (Auto) 1.6 H Eos # (Auto) 0.6 H Baso # (Auto) 0.1 Abs Immat Gran (auto) 0.19 H Absolute Neuts (auto) 10.4 H Absolute Nucleated RBC 0.000 Nucleated RBC % (auto) 0.0 Neutrophils % (Manual) Band Neutrophils % Lymphocytes % (Manual) Monocytes % (Manual) Metamyelocytes % Abs Neuts (Manual) Lymphocytes # (Manual) Monocytes # (Manual) Metamyelocytes # Toxic Vacuolation Dohle Bodies Platelet Estimate Plt Morphology Comment RBC Morphology Smear Tech's Comments VERIFIED Smear Path Review PT INR APTT O2 Saturation ABG pH at Pt Temp ABG pCO2 at Pt Temp ABG pO2 at Pt Temp ABG HCO3 ABG Base Excess (Actual) VBG pH 7.44 H VBG pCO2 42 VBG pO2 50 VBG HCO3 29 H VBG O2 Saturation 81.0 VBG Base Excess 5.0 Sodium Potassium Chloride Carbon Dioxide Anion Gap BUN Creatinine Estim Creat Clear Calc Estimated GFR POC Glucose 120 H Random Glucose Lactic Acid Calcium Phosphorus Magnesium Total Bilirubin AST ALT Alkaline Phosphatase Troponin I High Sens Total Protein Albumin Urine Color Urine Appearance Urine pH Ur Specific [place] Urine Protein Urine Glucose (UA) Urine Ketones Urine Blood Urine Nitrite Ur Leukocyte Esterase Urine RBC Urine WBC Ur Squamous Epith Cells Other Crystals Urine Bacteria Hyaline Casts Granular Casts CSF Tube Number CSF Volume CSF Appearance CSF Color CSF WBC CSF RBC CSF Neutrophils CSF Appearance (b) CSF Glucose CSF Total Protein CSF C.neoform/gat PCR CSF CMV DNA (PCR) CSF Enterovirus (PCR) CSF E. coli K1 (PCR) CSF H. influenzae (PCR) CSF HSV I (PCR) CSF HSV II (PCR) CSF HHV 6 (PCR) CSF L.monocytogenes PCR CSF N. meningitidis PCR LESA Virus DNA Rpt Status CSF Parechovirus (PCR) CSF S. agalactiae (PCR) CSF S. pneumoniae (PCR) CSF VZV (PCR) Random Vancomycin Urine Opiates Screen Urine Fentanyl Screen Ur Barbiturates Screen Ur Phencyclidine Scrn Ur Amphetamines Screen U Benzodiazepines Scrn Urine Cocaine Screen U Marijuana (THC) Screen COVID-19 (NIKKI) COVID-19 Clin Com 10/06/22 10/06/22 10/06/22 11:25 17:45 23:24 WBC RBC Hgb Hct MCV MCH MCHC RDW Plt Count MPV Immature Gran % (Auto) Neut % (Auto) Lymph % (Auto) [place] % (Auto) Eos % (Auto) Baso % (Auto) Lymph # (Auto) [place] # (Auto) Eos # (Auto) Baso # (Auto) Abs Immat Gran (auto) Absolute Neuts (auto) Absolute Nucleated RBC Nucleated RBC % (auto) Neutrophils % (Manual) Band Neutrophils % Lymphocytes % (Manual) Monocytes % (Manual) Metamyelocytes % Abs Neuts (Manual) Lymphocytes # (Manual) Monocytes # (Manual) Metamyelocytes # Toxic Vacuolation Dohle Bodies Platelet Estimate Plt Morphology Comment RBC Morphology Smear Tech's Comments Smear Path Review PT INR APTT O2 Saturation ABG pH at Pt Temp ABG pCO2 at Pt Temp ABG pO2 at Pt Temp ABG HCO3 ABG Base Excess (Actual) VBG pH VBG pCO2 VBG pO2 VBG HCO3 VBG O2 Saturation VBG Base Excess Sodium Potassium Chloride Carbon Dioxide Anion Gap BUN Creatinine Estim Creat Clear Calc Estimated GFR POC Glucose 122 H 147 H 123 H Random Glucose Lactic Acid Calcium Phosphorus Magnesium Total Bilirubin AST ALT Alkaline Phosphatase Troponin I High Sens Total Protein Albumin Urine Color Urine Appearance Urine pH Ur Specific [place] Urine Protein Urine Glucose (UA) Urine Ketones Urine Blood Urine Nitrite Ur Leukocyte Esterase Urine RBC Urine WBC Ur Squamous Epith Cells Other Crystals Urine Bacteria Hyaline Casts Granular Casts CSF Tube Number CSF Volume CSF Appearance CSF Color CSF WBC CSF RBC CSF Neutrophils CSF Appearance (b) CSF Glucose CSF Total Protein CSF C.neoform/gat PCR CSF CMV DNA (PCR) CSF Enterovirus (PCR) CSF E. coli K1 (PCR) CSF H. influenzae (PCR) CSF HSV I (PCR) CSF HSV II (PCR) CSF HHV 6 (PCR) CSF L.monocytogenes PCR CSF N. meningitidis PCR LESA Virus DNA Rpt Status CSF Parechovirus (PCR) CSF S. agalactiae (PCR) CSF S. pneumoniae (PCR) CSF VZV (PCR) Random Vancomycin Urine Opiates Screen Urine Fentanyl Screen Ur Barbiturates Screen Ur Phencyclidine Scrn Ur Amphetamines Screen U Benzodiazepines Scrn Urine Cocaine Screen U Marijuana (THC) Screen COVID-19 (NIKKI) COVID-19 Clin [facility] 10/07/22 10/07/22 10/07/22 05:08 05:10 05:10 WBC 13.3 H RBC 3.82 L Hgb 11.6 L Hct 35.7 L MCV 93.5 MCH 30.4 MCHC 32.5 RDW 14.5 Plt Count 461 H MPV 10.9 Immature Gran % (Auto) 1.1 H Neut % (Auto) 68.7 Lymph % (Auto) 12.7 L [place] % (Auto) 12.4 H Eos % (Auto) 4.4 H Baso % (Auto) 0.7 Lymph # (Auto) 1.7 [place] # (Auto) 1.6 H Eos # (Auto) 0.6 H Baso # (Auto) 0.1 Abs Immat Gran (auto) 0.15 H Absolute Neuts (auto) 9.1 H Absolute Nucleated RBC 0.000 Nucleated RBC % (auto) 0.0 Neutrophils % (Manual) Band Neutrophils % Lymphocytes % (Manual) Monocytes % (Manual) Metamyelocytes % Abs Neuts (Manual) Lymphocytes # (Manual) Monocytes # (Manual) Metamyelocytes # Toxic Vacuolation Dohle Bodies Platelet Estimate Plt Morphology Comment RBC Morphology Smear Tech's Comments VERIFIED Smear Path Review PT INR APTT O2 Saturation ABG pH at Pt Temp ABG pCO2 at Pt Temp ABG pO2 at Pt Temp ABG HCO3 ABG Base Excess (Actual) VBG pH 7.48 H VBG pCO2 40 VBG pO2 52 VBG HCO3 30 H VBG O2 Saturation 83.0 VBG Base Excess 7.1 Sodium 140 Potassium 4.7 Chloride 105 Carbon Dioxide 27 Anion Gap 13 BUN 21 H Creatinine 0.58 Estim Creat Clear Calc 128.1 Estimated GFR > 60 POC Glucose Random Glucose 111 Lactic Acid Calcium 8.4 Phosphorus 3.2 Magnesium 2.1 Total Bilirubin AST ALT Alkaline Phosphatase Troponin I High Sens Total Protein Albumin 3.3 L Urine Color Urine Appearance Urine pH Ur Specific [place] Urine Protein Urine Glucose (UA) Urine Ketones Urine Blood Urine Nitrite Ur Leukocyte Esterase Urine RBC Urine WBC Ur Squamous Epith Cells Other Crystals Urine Bacteria Hyaline Casts Granular Casts CSF Tube Number CSF Volume CSF Appearance CSF Color CSF WBC CSF RBC CSF Neutrophils CSF Appearance (b) CSF Glucose CSF Total Protein CSF C.neoform/gat PCR CSF CMV DNA (PCR) CSF Enterovirus (PCR) CSF E. coli K1 (PCR) CSF H. influenzae (PCR) CSF HSV I (PCR) CSF HSV II (PCR) CSF HHV 6 (PCR) CSF L.monocytogenes PCR CSF N. meningitidis PCR LESA Virus DNA Rpt Status CSF Parechovirus (PCR) CSF S. agalactiae (PCR) CSF S. pneumoniae (PCR) CSF VZV (PCR) Random Vancomycin Urine Opiates Screen Urine Fentanyl Screen Ur Barbiturates Screen Ur Phencyclidine Scrn Ur Amphetamines Screen U Benzodiazepines Scrn Urine Cocaine Screen U Marijuana (THC) Screen COVID-19 (NIKKI) COVID-19 Clin Com 10/07/22 10/08/22 10/08/22 05:33 05:00 05:00 WBC 18.8 H RBC 4.09 L Hgb 12.1 L Hct 38.3 L MCV 93.6 MCH 29.6 MCHC 31.6 RDW 14.3 Plt Count 507 H MPV 10.1 Immature Gran % (Auto) 1.0 H Neut % (Auto) 77.1 H Lymph % (Auto) 8.0 L [place] % (Auto) 10.6 Eos % (Auto) 2.6 Baso % (Auto) 0.7 Lymph # (Auto) 1.5 [place] # (Auto) 2.0 H Eos # (Auto) 0.5 H Baso # (Auto) 0.1 Abs Immat Gran (auto) 0.18 H Absolute Neuts (auto) 14.5 H Absolute Nucleated RBC 0.000 Nucleated RBC % (auto) 0.0 Neutrophils % (Manual) Band Neutrophils % Lymphocytes % (Manual) Monocytes % (Manual) Metamyelocytes % Abs Neuts (Manual) Lymphocytes # (Manual) Monocytes # (Manual) Metamyelocytes # Toxic Vacuolation Dohle Bodies Platelet Estimate Plt Morphology Comment RBC Morphology Smear Tech's Comments VERIFIED Smear Path Review PT INR APTT O2 Saturation ABG pH at Pt Temp ABG pCO2 at Pt Temp ABG pO2 at Pt Temp ABG HCO3 ABG Base Excess (Actual) VBG pH VBG pCO2 VBG pO2 VBG HCO3 VBG O2 Saturation VBG Base Excess Sodium 140 Potassium 5.2 H Chloride 102 Carbon Dioxide 33 H Anion Gap 10 L BUN 21 H Creatinine 0.63 Estim Creat Clear Calc 112.2 Estimated GFR > 60 POC Glucose 121 H Random Glucose 95 Lactic Acid Calcium 8.8 Phosphorus 3.9 Magnesium 2.2 Total Bilirubin AST ALT Alkaline Phosphatase Troponin I High Sens Total Protein Albumin 3.5 Urine Color Urine Appearance Urine pH Ur Specific [place] Urine Protein Urine Glucose (UA) Urine Ketones Urine Blood Urine Nitrite Ur Leukocyte Esterase Urine RBC Urine WBC Ur Squamous Epith Cells Other Crystals Urine Bacteria Hyaline Casts Granular Casts CSF Tube Number CSF Volume CSF Appearance CSF Color CSF WBC CSF RBC CSF Neutrophils CSF Appearance (b) CSF Glucose CSF Total Protein CSF C.neoform/gat PCR CSF CMV DNA (PCR) CSF Enterovirus (PCR) CSF E. coli K1 (PCR) CSF H. influenzae (PCR) CSF HSV I (PCR) CSF HSV II (PCR) CSF HHV 6 (PCR) CSF L.monocytogenes PCR CSF N. meningitidis PCR LESA Virus DNA Rpt Status CSF Parechovirus (PCR) CSF S. agalactiae (PCR) CSF S. pneumoniae (PCR) CSF VZV (PCR) Random Vancomycin Urine Opiates Screen Urine Fentanyl Screen Ur Barbiturates Screen Ur Phencyclidine Scrn Ur Amphetamines Screen U Benzodiazepines Scrn Urine Cocaine Screen U Marijuana (THC) Screen COVID-19 (NIKKI) COVID-19 Clin Com 10/08/22 10/08/22 05:02 07:40 WBC RBC Hgb Hct MCV MCH MCHC RDW Plt Count MPV Immature Gran % (Auto) Neut % (Auto) Lymph % (Auto) [place] % (Auto) Eos % (Auto) Baso % (Auto) Lymph # (Auto) [place] # (Auto) Eos # (Auto) Baso # (Auto) Abs Immat Gran (auto) Absolute Neuts (auto) Absolute Nucleated RBC Nucleated RBC % (auto) Neutrophils % (Manual) Band Neutrophils % Lymphocytes % (Manual) Monocytes % (Manual) Metamyelocytes % Abs Neuts (Manual) Lymphocytes # (Manual) Monocytes # (Manual) Metamyelocytes # Toxic Vacuolation Dohle Bodies Platelet Estimate Plt Morphology Comment RBC Morphology Smear Tech's Comments Smear Path Review PT 14.0 H INR 1.2 H APTT 24.5 L O2 Saturation ABG pH at Pt Temp ABG pCO2 at Pt Temp ABG pO2 at Pt Temp ABG HCO3 ABG Base Excess (Actual) VBG pH 7.39 VBG pCO2 55 VBG pO2 55 VBG HCO3 34 H VBG O2 Saturation 84.0 VBG Base Excess 7.5 Sodium Potassium Chloride Carbon Dioxide Anion Gap BUN Creatinine Estim Creat Clear Calc Estimated GFR POC Glucose Random Glucose Lactic Acid Calcium Phosphorus Magnesium Total Bilirubin AST ALT Alkaline Phosphatase Troponin I High Sens Total Protein Albumin Urine Color Urine Appearance Urine pH Ur Specific [place] Urine Protein Urine Glucose (UA) Urine Ketones Urine Blood Urine Nitrite Ur Leukocyte Esterase Urine RBC Urine WBC Ur Squamous Epith Cells Other Crystals Urine Bacteria Hyaline Casts Granular Casts CSF Tube Number CSF Volume CSF Appearance CSF Color CSF WBC CSF RBC CSF Neutrophils CSF Appearance (b) CSF Glucose CSF Total Protein CSF C.neoform/gat PCR CSF CMV DNA (PCR) CSF Enterovirus (PCR) CSF E. coli K1 (PCR) CSF H. influenzae (PCR) CSF HSV I (PCR) CSF HSV II (PCR) CSF HHV 6 (PCR) CSF L.monocytogenes PCR CSF N. meningitidis PCR LESA Virus DNA Rpt Status CSF Parechovirus (PCR) CSF S. agalactiae (PCR) CSF S. pneumoniae (PCR) CSF VZV (PCR) Random Vancomycin Urine Opiates Screen Urine Fentanyl Screen Ur Barbiturates Screen Ur Phencyclidine Scrn Ur Amphetamines Screen U Benzodiazepines Scrn Urine Cocaine Screen U Marijuana (THC) Screen COVID-19 (NIKKI) COVID-19 Clin Com Airway TM Dist: >3cm Neck ROM: Limited Heart: RRR Lungs: CTA Assessment and Plan Assessment Anesthesia Assessment: Anesthesia Plan Discussed Final Anesthetic Review NPO: Yes ASA Class: V Final Preanesthetic Review: Meds/Allgs Chart Reviewed, Consent Obtained/Reviewed and Anes Risks/Benef Reviewed Patient Risk: High Procedure Risk: Intermediate Anesthetic Plan Anesthetic Plan: GA Disposition: Inp. Admit - ICU
--- NOTE | 2022-10-08 14:05 | P.OP_ITS ---
Operative Note Operative Note Date of Service: 10/08/22 Narrative: Preop diagnosis: Acute respiratory failure, with hypoxic encephalopathy Postop diagnosis: The same Procedure: 1.Tracheostomy tube placement 2.Peg tube placement Surgeon: Jerrod Suh MD 1st administrative support assistant: Pramod Farrar MD The patient is a 41-year-old male, who had been admitted to the hospital for drug overdose, with respiratory failure. He has been on the ventilator since admission on 09/26/2022. I have therefore been asked to place tracheostomy tube as well as percutaneous endoscopic gastrostomy tube. I had explained the planned procedure stools his father Dorian. He had given consent. The patient was brought to the operating room from the ICU and was positioned on the OR table.? The neck was hyperextended.? A surgical time-out was done.? The? anterior neck was prepped and draped in the usual sterile fashion.? The patient Received cefazolin 2 g IV preoperatively. I was able to easily feel the the thyroid and the cricothyroid.? I infiltrated my planned line of incision on the midline ? longitudinally with lidocaine 1%.? I made the incision using blade 15. This was carried down with electrocautery through the full-thickness of the skin And subcutaneous fat through the fascia.? I proceeded to gently dissect through the layers including the isthmus of the thyroid midline until I was able to visualize the tracheal rings.? I proceeded to? define these tracheal rings and the cricoidcricoid using the? peanut dissector.? I identified the 2nd tracheal ring.? A proceeded to make an incision on the 2nd and 3rd tracheal ring using blade 11 to enter the lumen of the trachea.? I was able to visualize the endotracheal tube.? With dilated this opening using the tracheal dilator.? In coordination with the anesthesiologist,? we proceeded to then withdraw the endotracheal tube until the tip was seen on the lumen.? I inserted the 8.0 Shiley? tracheostomy tube without any difficulty.? The obturator was removed.? We connected the tracheostomy tube to the oxygen source.? There was note of good tidal volumes as well as end-tidal CO2. I proceeded to then insert the inner cannula.? I secured the endotracheal tube to the skin with 2-0 sutures.? I closed the incision to make this snug around the tracheostomy tube with simple interrupted nylon 3-0 sutures.? Dressings were applied. We then proceeded to do the percutaneous endoscopic gastrostomy tube placement.? A bite block was position.? I inserted the scope through the bite block into the oropharynx.? I? followed the NG tube through the feels slit all the way to the stomach lumen.? I insufflated the stomach lumen to distend this.? There were no lesions seen? on the entire stomach mucosa.? I was able to easily see ? transillumination on the left upper quadrant near the midline? near the midline.? Furthermore, pressure with a finger on this same area produced indentation on the anterior wall seen endoscopically.? This area on the abdominal rodriguez therefore prepped and draped.? Lidocaine 1% was used for local anesthesia.? A small stab incision was made.? A large gauge needle with? cannula sheath was inserted through the small incision into the stomach lumen.? The needle was removed.? The guidewire was inserted and this was grasped with a snare.? I pulled the guidewire out all the way with the endoscope.? The NG tube was also withdrawn along with this.? I looped the PEG tube with the guidewire.? The? guidewire was then pulled? out of the, wall, pulling the PEG tube with this until this was snug.? I reinserted the endoscope all the weight in the stomach the inner bolster appeared to be in good position.? There was no bleeding.? I then took photographic documentation of the inner bolster The scope was then removed completely . Dressings were applied.? The external bolster was positioned to make this snug on the skin. The patient tolerated procedure well.? There ? were no immediate complications. ? Estimated blood loss was about 10 cc.? The patient was transferred back to the intensive care unit with stable vital signs.
--- NOTE | 2022-10-08 14:21 | PM.OP ---
Brief Operative Note Date of Service: 10/08/22 Pre-op diagnosis: cardiac arrest ; acute respiratory failure Post-op diagnosis: same Procedure: tracheostomy and PEG tube placement Implants: shiley 8 trach 20F peg tube Surgeon: KAMAR ARVIZU MD Anesthesia: GETA Was an Powder Mill Operator used for this Procedure?: Yes Powder Mill Operator: Pramod Farrar Estimated blood loss (mL): 5 Pathology: none sent Condition: stable Disposition: ICU
--- NOTE | 2022-10-08 14:28 | P.PNCC_ITS ---
Subjective Subjective Date of Service: 10/08/22 Interval History: he 41-year-old male chronic substance abuse this time cocaine and fentanyl cardiac arrest unknown amount of down time approximately 10 minute resuscitation once in the ER with intubation now and he has remained intubated and what appears to be clinical status epilepticus currently on Keppra and Dilantin but also on propofol and midazolam drips and the slightest stimulation seems to initiate a stent supple seizure activity as I had noted today he went from bilateral pinpoint nonreactive pupils at baseline to a markedly mydriatic bilateral but still reactive pupils and and through that time he had a bilateral regular movement of his eyebrows bilaterally and his eyelids but he otherwise remained relatively flaccid with bilateral upgoing toes and we know he has had significant anoxic injury but still has clinical seizure activity verses is a hyper sympathetic state intermittently bedside echo with normal LV and RV function no pericardial involvement and his chest x-ray shows a completely re-expanded left chest with chest tube in place but no infiltrates mental status can not be assessed because it in terms of initiating any holiday from sedation at all resident [place] the seizure activity so I am considering either an enhancing the amount of Keppra that he is on or adding yet and a another another drug and I might even resort to something like a ketamine Critical Care Time (minutes): 45 Physical Exam Vital Signs: Vital Signs: Last Vital Signs Temp 100.4 F 10/08/22 12:00 Pulse 112 H 10/08/22 12:00 Resp 29 H 10/08/22 12:00 BP 119/78 10/08/22 12:00 Pulse Ox 91 L 10/08/22 12:00 O2 Del Method Mechanical Ventil ation 10/08/22 12:00 O2 Flow Rate 40 09/28/22 03:00 FiO2 80 10/08/22 12:00 BMI result Body Mass Index 17.6 of visible seizure activity but he remains sedated and intubated and no interferes with the ventilator he is well synchronized still somewhat tachypneic with a high minutes ventilatory requirement bedside cardiovascular by echo class 1 abdomen soft no organomegaly and he had been tolerating his feedings now status post tracheostomy and PEG tube and B after discussion with day is sibling about it overall guarded prognosis my only recourse at this point is to be more aggressive with the antiseizure medication in case we are missing a significant degree of nonconvulsive status epilepticus skin is intact Objective Data Labs 10/08/22 05:00 10/08/22 05:00 Labs: Laboratory Results - last 24 hr 10/08/22 10/08/22 10/08/22 05:00 05:00 05:02 WBC 18.8 H RBC 4.09 L Hgb 12.1 L Hct 38.3 L MCV 93.6 MCH 29.6 MCHC 31.6 RDW 14.3 Plt Count 507 H MPV 10.1 Immature Gran % (Auto) 1.0 H Neut % (Auto) 77.1 H Lymph % (Auto) 8.0 L [place] % (Auto) 10.6 Eos % (Auto) 2.6 Baso % (Auto) 0.7 Lymph # (Auto) 1.5 [place] # (Auto) 2.0 H Eos # (Auto) 0.5 H Baso # (Auto) 0.1 Abs Immat Gran (auto) 0.18 H Absolute Neuts (auto) 14.5 H Absolute Nucleated RBC 0.000 Nucleated RBC % (auto) 0.0 Smear Tech's Comments VERIFIED PT INR APTT VBG pH 7.39 VBG pCO2 55 VBG pO2 55 VBG HCO3 34 H VBG O2 Saturation 84.0 VBG Base Excess 7.5 Sodium 140 Potassium 5.2 H Chloride 102 Carbon Dioxide 33 H Anion Gap 10 L BUN 21 H Creatinine 0.63 Estim Creat Clear Calc 112.2 Estimated GFR > 60 Random Glucose 95 Calcium 8.8 Phosphorus 3.9 Magnesium 2.2 Albumin 3.5 10/08/22 07:40 WBC RBC Hgb Hct MCV MCH MCHC RDW Plt Count MPV Immature Gran % (Auto) Neut % (Auto) Lymph % (Auto) [place] % (Auto) Eos % (Auto) Baso % (Auto) Lymph # (Auto) [place] # (Auto) Eos # (Auto) Baso # (Auto) Abs Immat Gran (auto) Absolute Neuts (auto) Absolute Nucleated RBC Nucleated RBC % (auto) Smear Tech's Comments PT 14.0 H INR 1.2 H APTT 24.5 L VBG pH VBG pCO2 VBG pO2 VBG HCO3 VBG O2 Saturation VBG Base Excess Sodium Potassium Chloride Carbon Dioxide Anion Gap BUN Creatinine Estim Creat Clear Calc Estimated GFR Random Glucose Calcium Phosphorus Magnesium Albumin Microbiology Microbiology Results: Microbiology 10/01/22 11:14 Cerebrospinal Fluid Gram Stain - Final 10/01/22 11:14 Cerebrospinal Fluid CSF Examination - Final 10/01/22 11:14 Cerebrospinal Fluid Fluid Description - Final 10/01/22 11:14 Cerebrospinal Fluid CSF Culture - Final No growth after 3 days. 09/27/22 06:18 Blood - Venous Blood Culture - Final No growth after 5 days. 09/27/22 06:18 Blood - Venous Blood Culture - Final No growth after 5 days. 09/26/22 03:34 Urine clean catch - Urine brown top Urine Culture - Final No growth. Progress Note: A&P Assessment and plan (1) Status epilepticus: Status: Acute (2) Hyperkalemia: Status: Acute (3) Acute kidney injury: Status: Acute (4) Encephalopathy acute: Status: Acute (5) Substance abuse: Status: Acute (6) Acute respiratory failure with hypoxia: Status: Acute (7) Pneumothorax, left: Status: Acute (8) Overdose: Status: Acute (9) Cardiac arrest: Status: Acute (10) Opioid dependence: Status: Acute (11) COPD (chronic obstructive pulmonary disease): Status: Acute (12) Acute anoxic encephalopathy: Status: Acute Plan I am 1st going to increase the Keppra following a 500 mg bolus now and then ago up to 1500 mg twice daily resume his feedings now that he is postop Quality Stroke Does the patient have a stroke diagnosis?: No VTE Prior VTE?: No VTE Risk Level:: Medical - moderate - high VTE Device Contraindication: N/A - Device Ordered VTE Drug Contraindication: N/A - Med Ordered
[2022-10-08] MEDS: Rocuronium Bromide 50 MG/5 ML VIAL 30 MG IVPUSH (14:59)
[2022-10-08] MEDS: levETIRAcetam in NaCl (iso-os) 500 MG/100 ML PIGGYBACK 400 MG IV (15:03)
--- NOTE | 2022-10-08 15:11 | PM.EVENT ---
Event Note Date of Service: 10/08/22 Event Note: Seen postop Status post tracheostomy and PEG tube placement earlier Good tidal volumes, good O2 sats on the vent Abdomen soft Both sites dry Continue ICU care Okay to start peg tube feeds tomorrow Patient's father updated by phone Time Spent With Patient Time: Total time managing care of this patient today ____ minutes.
--- NOTE | 2022-10-08 15:24 | MHC.CM.PN ---
EMR REVIEWED. CM SPOKE WITH FATHER JEREMY TO DISCUSS ANY QUESTIONS HE MAY HAVE REGARDING LTAC / SERVICES NEEDED WHEN PT ABLE TO DC . NO QUESTIONS AT THIS TIME, SUPPORT OFFERED. PT IS NOW S/P TRACH AND PEG PLACEMENT. CM WILL CONTINUE TO FOLLOW.
[2022-10-08] MEDS: Acetaminophen Supp 650 MG SUPP.RECT PR (20:45)
[2022-10-08 21:23] LABS: Lyme IgG CSF Immunoblot NO BANDS DETECTED; Lyme IgM CSF Immunoblot NO BANDS DETECTED
[2022-10-08 21:27] LABS: Glucose, Whole Blood 127 mg/dL (60-115)
[2022-10-08] MEDS: levETIRAcetam in NaCl (iso-os) 1,500 MG/100 ML PIGGYBACK 400 MG IV (21:43)
[2022-10-08] MEDS: Dextrose 5 % and 0.9 % NaCl 1,000 ML 100 ML IVCONT (21:52)
[2022-10-09] VITALS (36 sets, daily range): BP systolic 106–138; BP diastolic 58–77; PULSE 101–130; RESP 15–35; TEMP 34.7–39.3; O2SAT 88–98; BMI 16.9
[2022-10-09] MEDS: propofoL 1,000 MG/100 ML VIAL 15.03 MG IVCONT (02:30)
[2022-10-09] MEDS: Heparin Sodium,Porcine 5,000 UNIT/ML VIAL 5000 UNIT SUBCUT ×3 (04:36→19:30)
[2022-10-09 05:20] LABS: VBG HCO3 34 mmol/L (22-26); VBG pCO2 47 mmHg; VBG pH 7.46 (7.32-7.43); VBG pO2 51 mmHg
[2022-10-09 05:28] LABS: Venous Blood Gas Refer to POC result
[2022-10-09] MEDS: Chlorhexidine Gluc Oral Rinse 15 ML MOUTHWASH BUCCAL (05:29)
[2022-10-09] MEDS: Dextrose 5 % and 0.9 % NaCl 1,000 ML 100 ML IVCONT (05:31)
[2022-10-09 05:36] LABS: Basophils Absolute Auto 0.2 X10*3/uL (0.0-0.2); Basophils Percent Auto 0.8 % (0-2); Eosinophils Absolute Auto 0.1 X10*3/uL (0.0-0.4); Eosinophils Percent Auto 0.5 % (0-4); Hematocrit 34.6 % (42.0-52.0); Hemoglobin 11.2 g/dl (14.0-18.0); Imm Gran Abs Auto 0.14 X10*3/uL (0.00-0.03); Imm Gran Pct Auto 0.6 % (0.0-0.4); Lymphocytes Percent Auto 4.3 % (20-40); MANUAL DIFF FLAG SCAN; Mean Corpuscular HGB Conc 32.4 g/dl (31.0-36.0); Mean Corpuscular Hemoglobin 30.4 pg (27.0-33.0); Mean Corpuscular Volume 93.8 fL (80.0-98.0); Mean Platelet Volume 10.6 fL (9.4-12.4); Monocytes Absolute Auto 1.5 X10*3/uL (0.1-1.2); Monocytes Percent Auto 6.8 % (2-11); Neutrophils Absolute Auto 19.5 x10*3/uL (2.0-8.3); Platelet Count 484 X10*3/uL (160-400); Red Blood Count 3.69 X10*6/uL (4.60-5.80); Red Cell Distribution Width 14.2 % (11.0-16.0); SCAN SMEAR FLAG 1; White Blood Count 22.4 X10*3/uL (4.8-10.8)
[2022-10-09 05:53] LABS: Alanine Aminotransferase 78 U/L (0-40); Albumin Level 3.2 g/dL (3.5-5.0); Alkaline Phosphatase 201 U/L (39-117); Anion Gap 11 (12-20); Aspartate Amino Transferase 101 U/L (5-37); Bilirubin Total 0.7 mg/dL (0.0-1.0); Blood Urea Nitrogen 20 mg/dL (9-16); Calcium 8.5 mg/dL (8.4-10.2); Carbon Dioxide 31 mmol/L (22-29); Chloride 103 mmol/L (96-108); Creatinine Clr Calc Pharmacy 113.1; Estimated Glomerular Filt Rate > 60; Glucose Random 107 mg/dL (60-115); Potassium 4.1 mmol/L (3.3-5.1); Sodium 141 mmol/L (135-145)
[2022-10-09 06:06] LABS: SLIDE REVIEW VERIFIED
--- NOTE | 2022-10-09 07:40 | P.PNGS_ITS ---
Subjective Subjective Date of Service: 10/09/22 <Melania Villavicencio PA-C - Last Filed: 10/09/22 07:42> 10/09/22 <Jerrod Suh MD - Last Filed: 10/09/22 15:19> Interval history: POD#1 s/p trach/PEG tube. No events overnight. <Melania Villavicencio PA-C - Last Filed: 10/09/22 07:42> Physical Exam Vital Signs: Vital Signs: Last Vital Signs Temp 102.6 F H 10/09/22 07:00 Pulse 123 H 10/09/22 07:00 Resp 32 H 10/09/22 07:00 BP 126/68 10/09/22 07:00 Pulse Ox 93 10/09/22 07:00 O2 Del Method Mechanical Ventil ation 10/09/22 07:00 O2 Flow Rate 40 09/28/22 03:00 FiO2 80 10/09/22 07:00 BMI result Body Mass Index 16.9 <Melania Villavicencio PA-C - Last Filed: 10/09/22 07:42> Const: General: no acute distress <Melania Villavicencio PA-C - Last Filed: 10/09/22 07:42> Neck: Other: trach in place, site clean <Melania Villavicencio PA-C - Last Filed: 10/09/22 07:42> GI: Other: PEG tube in place, abd soft <Melania Villavicencio PA-C - Last Filed: 10/09/22 07:42> Objective Data Active Medications Acetaminophen (Acetaminophen Oral Liquid 650 Mg/20.3 Ml Solution) 650 mg PO Q6H PRN PRN Reason: Fever Albuterol Sulfate (Albuterol Sulfate (0.083%) 2.5 Mg/3 Ml Vial.Neb) 2.5 mg INHALE Q4H PRN PRN Reason: Wheezing Last Admin: 10/07/22 23:04 Dose: 2.5 mg Documented By: LAM Chlorhexidine Gluconate (Chlorhexidine Gluc Oral Rinse 15 Ml Mouthwash) 15 ml BUCCAL Q8H SULY Last Admin: 10/09/22 05:29 Dose: 15 ml Documented By: PETER Cisatracurium Besylate (Cisatracurium Besylate 20 Mg/10 Ml Vial) 20 mg IVPUSH Q30M PRN PRN Reason: ventilator synchrony Last Admin: 10/08/22 00:05 Dose: 20 mg Documented By: YULY Heparin Sodium (Porcine) (Heparin Sodium,Porcine 5,000 Unit/Ml Vial) 5,000 unit SUBCUT Q8H SULY Last Admin: 10/09/22 04:36 Dose: 5,000 unit Documented By: PETER Propofol (Diprivan) 1,000 mg in 100 mls @ 0 mls/hr IVCONT .Q0M SULY; Protocol Last Admin: 10/09/22 02:30 Dose: 50 mcg/kg/min, 15.03 mls/hr Documented By: PETER Norepinephrine Bitartrate (Levophed) 8 mg in 250 mls @ 0 mls/hr IV .Q0M SULY; Protocol Last Titration: 09/29/22 14:54 Dose: 0 mcg/kg/min, 0 mls/hr Documented By: CT Phenytoin Sodium 150 mg/ (Sodium Chloride) 103 mls @ 100 mls/hr IV BID [facility] Last Infusion: 10/08/22 23:33 Dose: 0 mls/hr Documented By: PETER Midazolam HCl (Versed) 50 mg in 50 mls @ 4 mls/hr IVCONT .[id number] [facility] Last Admin: 10/08/22 21:47 Dose: 4 mg/hr, 4 mls/hr Documented By: YULY Levetiracetam (Keppra) 1,500 mg in 100 mls @ 400 mls/hr IV BID [facility] Last Infusion: 10/08/22 23:33 Dose: 0 mls/hr Documented By: PETER Dextrose/Sodium Chloride (D5ns) 1,000 mls @ 100 mls/hr IVCONT .Q10H [facility] Last Admin: 10/09/22 05:31 Dose: 100 mls/hr Documented By: PETER Valproic Acid 1,000 mg/ (Dextrose) 60 mls @ 60 mls/hr IV ONCE ONE Stop: 10/09/22 08:14 Nystatin (Nystatin Oral Susp 500,000 Unit/5 Ml Oral.Susp) 500,000 unit BUCCAL TID SULY; Protocol Last Admin: 10/08/22 20:52 Dose: 500,000 unit Documented By: YULY Tobramycin Sulfate (Tobramycin Sulfate 80 Mg/2 Ml Vial) 300 mg INHALE RBID SULY Last Admin: 10/08/22 19:05 Dose: 300 mg Documented By: SIDDHARTH <Melania Villavicencio PA-C - Last Filed: 10/09/22 07:42> Labs CBC & Chem 7: 10/09/22 04:59 10/09/22 04:59 <Melania Villavicencio PA-C - Last Filed: 10/09/22 07:42> Labs: Laboratory Results - last 24 hr 10/01/22 10/08/22 10/08/22 11:14 07:40 21:23 MCV MCH MCHC RDW Plt Count MPV Immature Gran % (Auto) Neut % (Auto) Lymph % (Auto) [place] % (Auto) Eos % (Auto) Baso % (Auto) Lymph # (Auto) [place] # (Auto) Eos # (Auto) Baso # (Auto) Abs Immat Gran (auto) Absolute Neuts (auto) Absolute Nucleated RBC Nucleated RBC % (auto) Smear Tech's Comments PT 14.0 H INR 1.2 H APTT 24.5 L VBG pH VBG pCO2 VBG pO2 VBG HCO3 VBG O2 Saturation VBG Base Excess Anion Gap Estim Creat Clear Calc Estimated GFR POC Glucose 127 H Random Glucose Calcium Total Bilirubin AST ALT Alkaline Phosphatase Total Protein Albumin CSF Lyme IgG (Immblot) NO BANDS DETECTED CSF Lyme IgM (Immblot) NO BANDS DETECTED 10/09/22 10/09/22 10/09/22 04:59 04:59 05:12 MCV 93.8 MCH 30.4 MCHC 32.4 RDW 14.2 Plt Count 484 H MPV 10.6 Immature Gran % (Auto) 0.6 H Neut % (Auto) 87.0 H Lymph % (Auto) 4.3 L [place] % (Auto) 6.8 Eos % (Auto) 0.5 Baso % (Auto) 0.8 Lymph # (Auto) 1.0 L [place] # (Auto) 1.5 H Eos # (Auto) 0.1 Baso # (Auto) 0.2 Abs Immat Gran (auto) 0.14 H Absolute Neuts (auto) 19.5 H Absolute Nucleated RBC 0.000 Nucleated RBC % (auto) 0.0 Smear Tech's Comments VERIFIED PT INR APTT VBG pH 7.46 H VBG pCO2 47 VBG pO2 51 VBG HCO3 34 H VBG O2 Saturation 84.0 VBG Base Excess 9.0 Anion Gap 11 L Estim Creat Clear Calc 113.1 Estimated GFR > 60 POC Glucose Random Glucose 107 Calcium 8.5 Total Bilirubin 0.7 AST 101 H ALT 78 H Alkaline Phosphatase 201 H Total Protein 6.0 L Albumin 3.2 L CSF Lyme IgG (Immblot) CSF Lyme IgM (Immblot) <Melania Villavicencio PA-C - Last Filed: 10/09/22 07:42> Procedures Date of Service Date of Service: 10/09/22 <Melania Villavicencio PA-C - Last Filed: 10/09/22 07:42> Progress Note: A&P Assessment and plan (1) Acute respiratory failure with hypoxia: Status: Acute <Melania Villavicencio PA-C - Last Filed: 10/09/22 07:42> Assessment and Plan: Good tidal volumes and O2 sats surgical sites dry continue ICU care seen and examined independendently <Jerrod Suh MD - Last Filed: 10/09/22 15:19> (2) Cardiac arrest: Status: Acute <Melania Villavicencio PA-C - Last Filed: 10/09/22 07:42> Assessment and Plan: 41 year old male admitted on 09/26/2022 for cardiopulmonary arrest likely secondary to narcotic overdose. POD #1 s/p trach/PEG tube. Trach in place, good O2 sats, tidal volumes. PEG in place with soft abd. No acute surgical issues. Can begin to use PEG tube today. <ULICES Leon Last Filed: 10/09/22 07:42> Time Spent With Patient Time: Total time managing care of this patient today ____ minutes. <Melania Villavicencio PA-C - Last Filed: 10/09/22 07:42> Quality Stroke Does the patient have a stroke diagnosis?: No <ULICES Leon Last Filed: 10/09/22 07:42> VTE Prior VTE?: No <Melania Villavicencio PA-C - Last Filed: 10/09/22 07:42> VTE Risk Level:: Medical - moderate - high <ULICES Leon Last Filed: 10/09/22 07:42> VTE Device Contraindication: N/A - Device Ordered <ULICES Leon Last Filed: 10/09/22 07:42> VTE Drug Contraindication: N/A - Med Ordered <ULICES Leon Last Filed: 10/09/22 07:42>
[2022-10-09] MEDS: Tobramycin Sulfate 80 MG/2 ML VIAL 300 MG INHALE (07:59)
[2022-10-09 08:01] LABS: Erythrocyte Sedimentation Rate 67 MM/HR (0-15)
[2022-10-09] MEDS: Nystatin Oral Susp 500,000 UNIT/5 ML ORAL.SUSP 500000 UNIT BUCCAL (08:03)
[2022-10-09] MEDS: Valproic Acid (as Sodium Salt) 1,000 MG in Dextrose 5 % 50 ML 60 MG IV (08:04)
[2022-10-09] MEDS: levETIRAcetam in NaCl (iso-os) 1,500 MG/100 ML PIGGYBACK 400 MG IV ×2 (08:04→20:34)
[2022-10-09] MEDS: Midazolam HCl/NS 50 MG/50 ML PLAST..BAG IVCONT ×2 (09:25→19:30)
[2022-10-09] MEDS: VALPROIC ACID IV (09:55)
[2022-10-09] MEDS: SODIUM IV (09:55)
[2022-10-09] MEDS: fentaNYL citrate/PF 100 MCG/2 ML VIAL 50 MCG IVPUSH ×4 (10:53→20:53)
--- NOTE | 2022-10-09 12:30 | HO.POSTANES ---
Post Anesthesia Evaluation Post Anesthesia Evaluation Vital Signs: Vital Signs Temp Pulse Resp BP Pulse Ox O2 Del Method FiO2 10/09/22 11:53 70 10/09/22 11:44 32 H 10/09/22 11:21 70 10/09/22 11:11 29 H 10/09/22 11:05 29 H 10/09/22 10:53 33 H 10/09/22 08:00 70 10/09/22 08:11 115 H 30 H 10/09/22 08:00 80 10/09/22 11:00 102.2 F H 125 H 32 H 130/61 90 L Mechanical Ventilation 80 10/09/22 10:00 102.4 F H 126 H 31 H 138/69 89 L Mechanical Ventilation 80 10/09/22 09:00 102.0 F H 123 H 34 H 135/64 90 L Mechanical Ventilation 80 10/09/22 08:00 102.2 F H 116 H 30 H 120/67 98 Mechanical Ventilation 80 10/09/22 07:00 102.6 F H 123 H 32 H 126/68 93 Mechanical Ventilation 80 10/09/22 05:57 102.4 F H 120 H 32 H 124/67 92 Mechanical Ventilation 80 10/09/22 05:39 80 10/09/22 04:50 101.8 F H 118 H 32 H 132/77 92 Mechanical Ventilation 80 10/09/22 04:00 101.3 F H 115 H 30 H 124/75 93 Mechanical Ventilation 80 10/09/22 03:33 80 10/09/22 02:52 101.5 F H 112 H 32 H 124/72 95 Mechanical Ventilation 80 10/09/22 02:30 115 H 124/72 10/09/22 02:30 115 H 124/72 10/09/22 01:56 101.3 F H 114 H 29 H 108/68 93 Mechanical Ventilation 80 10/09/22 01:00 100.6 F H 111 H 22 H 118/69 94 Mechanical Ventilation 80 Anesthesia: General Endotracheal-GETA Mental Status: Sedated Pain Control: Satisfactory Nausea/Vomiting: None Hydration: Adequate Anesthesia-Related Issues: No Anes. Related Issues
[2022-10-09] MEDS: Acetaminophen Oral Liquid 650 MG/20.3 ML SOLUTION PO ×2 (13:01→18:15)
--- NOTE | 2022-10-09 13:17 | MHC.CM.PN ---
Pt s/p trach/peg placment on 10/08: now w/fever and cx pending. Clinical updates remitted to [facility] should family drop [facility] and convert to straight [facility]. Guardianship initiation to begin as pt did not have a HCP. Pt's father will likely serve as guardian. CM to follow for finalization of d/c planning.
--- NOTE | 2022-10-09 13:35 | PM.CCPN ---
Subjective Subjective Date of Service: 10/09/22 Interval History: 41-year-old male polysubstance abuser brought into the hospital by friends apneic in full arrest at least 10 minute resuscitation including intubation ensued it has been over 2 weeks no and is no evidence of any holiness of mental status and if anything he is in myoclonic status it does not look to be status epilepticus to me mostly involves of facial twitching eyebrows eyelids markedly dilated but responsive to light pupils gaze is somewhat downward but with a vertical nystagmus associated with it but he does have and positive ocular 0 vertebral reflexes and he has light reactivity and he certainly has spontaneous respirations not much in the way of cough or gag so the some variability to his cranial nerve function but he is otherwise all 4 extremities flaccid no response at all to pain certainly no verbal response still has a very low GCS score and this is more than 2 weeks out so although he has got some brainstem pressure preservation the persistent myoclonic status is a very poor prognosticator but it we had the tracheostomy and PEG tube he is now eating through the PEG tube at this point no other laboratory abnormality other than an elevated white count and a fever of 102.7 with no apparent source chest x-rays without infiltrate he has got a stat a very high but stable FiO2 and the chest x-ray remains fully expanded despite clamping off his left-sided chest tube so there was no recurrence of pneumothorax we might be discontinuing the chest tube and is respiratory pattern is still 1 of tachypnea with a degree of air trapping so I switched him over to a pressure control and with somewhat diminished pressure to keep his his tidal volumes down so it diminishes is air trapping Critical Care Time (minutes): 45 Physical Exam Vital Signs: Vital Signs: Last Vital Signs Temp 102.7 F H 10/09/22 13:00 Pulse 130 H 10/09/22 13:00 Resp 35 H 10/09/22 13:00 BP 136/72 10/09/22 13:00 Pulse Ox 94 10/09/22 13:00 O2 Del Method Mechanical Ventil ation 10/09/22 13:00 O2 Flow Rate 40 09/28/22 03:00 FiO2 80 10/09/22 13:00 BMI result Body Mass Index 16.9 Unresponsive to pain or to verbal with persistent myoclonic status Elevated fever and sinus tachycardia and hyperventilatory or tachypneic at I was concerned with drug fever so I stopped the Dilantin which I do not believe the serving a purpose I tried valproic acid full 40 milligrams/kilogram it may no difference in what I believe is myoclonic status and his fever may very well be [place] is no particular source but he has been re-cultured Abdomen soft no organomegaly Lungs are clear skin is intact Objective Data Labs 10/09/22 04:59 10/09/22 04:59 Labs: Laboratory Results - last 24 hr 10/01/22 10/08/22 10/09/22 11:14 21:23 04:59 WBC 22.4 H RBC 3.69 L Hgb 11.2 L Hct 34.6 L MCV 93.8 MCH 30.4 MCHC 32.4 RDW 14.2 Plt Count 484 H MPV 10.6 Immature Gran % (Auto) 0.6 H Neut % (Auto) 87.0 H Lymph % (Auto) 4.3 L [place] % (Auto) 6.8 Eos % (Auto) 0.5 Baso % (Auto) 0.8 Lymph # (Auto) 1.0 L [place] # (Auto) 1.5 H Eos # (Auto) 0.1 Baso # (Auto) 0.2 Abs Immat Gran (auto) 0.14 H Absolute Neuts (auto) 19.5 H Absolute Nucleated RBC 0.000 Nucleated RBC % (auto) 0.0 Smear Tech's Comments VERIFIED ESR VBG pH VBG pCO2 VBG pO2 VBG HCO3 VBG O2 Saturation VBG Base Excess Sodium Potassium Chloride Carbon Dioxide Anion Gap BUN Creatinine Estim Creat Clear Calc Estimated GFR POC Glucose 127 H Random Glucose Calcium Total Bilirubin AST ALT Alkaline Phosphatase Total Protein Albumin CSF Lyme IgG (Immblot) NO BANDS DETECTED CSF Lyme IgM (Immblot) NO BANDS DETECTED 10/09/22 10/09/22 10/09/22 04:59 04:59 05:12 WBC RBC Hgb Hct MCV MCH MCHC RDW Plt Count MPV Immature Gran % (Auto) Neut % (Auto) Lymph % (Auto) [place] % (Auto) Eos % (Auto) Baso % (Auto) Lymph # (Auto) [place] # (Auto) Eos # (Auto) Baso # (Auto) Abs Immat Gran (auto) Absolute Neuts (auto) Absolute Nucleated RBC Nucleated RBC % (auto) Smear Tech's Comments ESR 67 H VBG pH 7.46 H VBG pCO2 47 VBG pO2 51 VBG HCO3 34 H VBG O2 Saturation 84.0 VBG Base Excess 9.0 Sodium 141 Potassium 4.1 D Chloride 103 Carbon Dioxide 31 H Anion Gap 11 L BUN 20 H Creatinine 0.60 Estim Creat Clear Calc 113.1 Estimated GFR > 60 POC Glucose Random Glucose 107 Calcium 8.5 Total Bilirubin 0.7 AST 101 H ALT 78 H Alkaline Phosphatase 201 H Total Protein 6.0 L Albumin 3.2 L CSF Lyme IgG (Immblot) CSF Lyme IgM (Immblot) Microbiology Microbiology Results: Microbiology 10/01/22 11:14 Cerebrospinal Fluid Gram Stain - Final 10/01/22 11:14 Cerebrospinal Fluid CSF Examination - Final 10/01/22 11:14 Cerebrospinal Fluid Fluid Description - Final 10/01/22 11:14 Cerebrospinal Fluid CSF Culture - Final No growth after 3 days. 09/27/22 06:18 Blood - Venous Blood Culture - Final No growth after 5 days. 09/27/22 06:18 Blood - Venous Blood Culture - Final No growth after 5 days. 09/26/22 03:34 Urine clean catch - Urine brown top Urine Culture - Final No growth. 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: Status: Acute (2) Acute anoxic encephalopathy: Status: Acute (3) Status epilepticus: Status: Acute (4) Hyperkalemia: Status: Acute (5) Acute kidney injury: Status: Acute (6) Encephalopathy acute: Status: Acute (7) Substance abuse: Status: Acute (8) Pneumothorax, left: Status: Acute (9) Acute respiratory failure with hypoxia: Status: Acute (10) Overdose: Status: Acute (11) Cardiac arrest: Status: Acute (12) Anxiety: Status: Acute (13) Opioid dependence: Status: Acute (14) COPD (chronic obstructive pulmonary disease): Status: Acute Plan So for now I am stopping the propofol just keeping him on a Versed drip and I can evaluate responsiveness if that ever to if that were ever to really recover which I doubt I think the persistent myoclonus is a very poor prognosticator despite there being some degree of brainstem reflex preservation I still has no significant cognitive function and will observe this but still not continuing with the valproic acid and stopping the Dilantin because the fever Quality Stroke Does the patient have a stroke diagnosis?: No VTE Prior VTE?: No VTE Risk Level:: Medical - moderate - high VTE Device Contraindication: N/A - Device Ordered VTE Drug Contraindication: N/A - Med Ordered
--- NOTE | 2022-10-09 16:04 | PC.NURSE ---
Core temp max 102.7, HR maintaining 130s sinus, RR 32. BC and SC pending. MD notified - Fentanyl 50mcg IVP administered without effect. Tylenol 650mg administered and ice packs applied - core temp down to 99.7, HR maintaining low 100's sinus, RR 22.
[2022-10-10] VITALS (28 sets, daily range): BP systolic 83–177; BP diastolic 56–75; PULSE 90–125; RESP 12–32; TEMP 34.7–38.9; O2SAT 87–100; BMI 18.3
--- NOTE | 2022-10-10 | EEG_ITS ---
This is a 16 channel portable digital EEG performed in ICU. The patient is reported unresponsive and intubated. Background EEG rhythm is continuously comprising of burst of generalized sharp waves followed by suppression of activity for a second or few seconds. Generalized sharp waves sometime are single and sometime multiple. This EEG is not much different from previous EEGs. Cardiac lead did not reveal any significant abnormality. IMPRESSION: No change in the generalize discharges pattern seen on multiple EEGs suggestive of nonconvulsive status epilepticus versus severe anoxic encephalopathy and burst suppression from that. MD VISHNU Stewart/GREY / [id number]
[2022-10-10] MEDS: Acetaminophen Oral Liquid 650 MG/20.3 ML SOLUTION PO ×3 (00:17→14:45)
[2022-10-10] MEDS: fentaNYL citrate/PF 100 MCG/2 ML VIAL 50 MCG IVPUSH (00:23)
[2022-10-10] MEDS: Heparin Sodium,Porcine 5,000 UNIT/ML VIAL 5000 UNIT SUBCUT ×3 (03:41→19:26)
[2022-10-10 05:00] LABS: VBG Base Excess 9.2 mmol/L; VBG HCO3 32 mmol/L (22-26); VBG pCO2 40 mmHg; VBG pH 7.52 (7.32-7.43); VBG pO2 47 mmHg
[2022-10-10 05:17] LABS: Venous Blood Gas Refer to POC result
[2022-10-10 05:33] LABS: MANUAL DIFF FLAG NO
[2022-10-10 05:38] LABS: Basophils Absolute Auto 0.1 X10*3/uL (0.0-0.2); Basophils Percent Auto 0.6 % (0-2); Eosinophils Absolute Auto 0.1 X10*3/uL (0.0-0.4); Eosinophils Percent Auto 0.3 % (0-4); Hemoglobin 10.1 g/dl (14.0-18.0); Imm Gran Abs Auto 0.09 X10*3/uL (0.00-0.03); Imm Gran Pct Auto 0.6 % (0.0-0.4); Lymphocytes Absolute Auto 0.8 X10*3/uL (1.2-4.9); Lymphocytes Percent Auto 5.1 % (20-40); Mean Corpuscular HGB Conc 32.6 g/dl (31.0-36.0); Mean Corpuscular Hemoglobin 30.1 pg (27.0-33.0); Mean Corpuscular Volume 92.5 fL (80.0-98.0); Mean Platelet Volume 10.9 fL (9.4-12.4); Monocytes Absolute Auto 0.9 X10*3/uL (0.1-1.2); Monocytes Percent Auto 5.4 % (2-11); Neutrophils Absolute Auto 14.3 x10*3/uL (2.0-8.3); Platelet Count 412 X10*3/uL (160-400); Red Blood Count 3.35 X10*6/uL (4.60-5.80); Red Cell Distribution Width 14.6 % (11.0-16.0); White Blood Count 16.3 X10*3/uL (4.8-10.8)
[2022-10-10 05:56] LABS: Alanine Aminotransferase 111 U/L (0-40); Albumin Level 2.9 g/dL (3.5-5.0); Alkaline Phosphatase 221 U/L (39-117); Anion Gap 13 (12-20); Aspartate Amino Transferase 121 U/L (5-37); Bilirubin Total 0.7 mg/dL (0.0-1.0); Blood Urea Nitrogen 22 mg/dL (9-16); Carbon Dioxide 27 mmol/L (22-29); Chloride 102 mmol/L (96-108); Creatinine Clr Calc Pharmacy 147.2; Estimated Glomerular Filt Rate > 60; Glucose Random 109 mg/dL (60-115); Potassium 3.5 mmol/L (3.3-5.1); Sodium 138 mmol/L (135-145); Total Protein 5.5 g/dL (6.5-8.0)
[2022-10-10] MEDS: Midazolam HCl/PF 2 MG/2 ML VIAL 4 MG IVPUSH (06:48)
[2022-10-10] MEDS: Midazolam HCl/NS 50 MG/50 ML PLAST..BAG IVCONT ×2 (08:00→19:26)
[2022-10-10] MEDS: levETIRAcetam in NaCl (iso-os) 1,500 MG/100 ML PIGGYBACK 400 MG IV ×2 (08:02→19:59)
[2022-10-10] MEDS: vancomycin HCL 750 MG in 0.9 % Sodium Chloride 250 ML 265 MG IV (08:02)
[2022-10-10] MEDS: PHENOBARBITAL SODIUM IV (08:10)
[2022-10-10] MEDS: SODIUM CHLORIDE 0.9% IV (08:10)
--- NOTE | 2022-10-10 09:31 | MHC.CLN ---
F/U PT S/P TRACH AND PEG PT RECEIVING JEVITY 1.0 AT MAX GOAL RATE OF 60ML/HR WITH 240ML Q 6 HRS PROVIDES 1526KCALS (28KCALS/KG), 64G PROTEIN (1.3G/KG), 2234ML TOTAL WATER FROM FORMULA AND FLUSHES (40.6ML/KG)-PT REQUIRES HIGHER FLUID NEEDS AT THIS TIME R/T FEVER MONITOR TOLERANCE, RESIDUALS AND LYTES FOLLOWING WITH TEAM
[2022-10-10] MEDS: KCl 10 mEq in 5% Dex/0.45% Sod 10 MEQ/1,000 ML IV.SOLN 125 MEQ IVCONT ×2 (10:44→16:39)
[2022-10-10] MEDS: PHENobarbitaL sodium 65 MG/ML VIAL IVPUSH ×4 (11:03→16:03)
--- NOTE | 2022-10-10 11:32 | MHC.CM.PN ---
Call placed to pt's father and current decision maker, Dorian to review d/c plans and need for guardianship. Dorian states he would like to be appointed as pt's guardian and will be in to visit pt today to speak w/CM and give necessary personal/protected information for initiation of guardianship. CM reviewed LTAC plans and answered questions regarding levels of post hospital care and transition options. CM to meet w/Dorian when he visits.
--- NOTE | 2022-10-10 13:50 | MHC.CM.PN ---
Pt continues care in ICU following PEG/TRACH placement; Referred to [facility]: clinical updates remitted today: Guardianship will be filed next week in anticipation of LTAC. CM to follow
--- NOTE | 2022-10-10 15:56 | PM.CCPN ---
Subjective Subjective Date of Service: 10/10/22 Interval History: 41-year-old polysubstance abuser came in with a overdose consisting of cocaine and fentanyl he was apneic in full arrest required resuscitation and intubation and he has been unresponsive ever since and it has been over 2 weeks and since I know him he was on propofol and midazolam drips along with Dilantin and had almost incessant as activity that that really looked like it was myoclonic but clearly myoclonic status and was mostly involving his face out of concern that we might be masking a nonconvulsive foremost of status epilepticus especially with the propofol and then of course the having the desire to evaluate any potential anabaptist of mental status we backed off the propofol he remained in continuous status in but then he started to involve lower extremities we had EEG come up and he was clearly a status epilepticus and we loaded him with a phenobarbital which was very effective after 1st trying valproic acid which had no effect in addition to his other medicines which already all had includ ed [place] I gave a complete 40 milligram/kilogram dose of valproic acid again to no effect but a g of phenobarbital was effective and we started to build a maintenance dose and and the the he broke through so constantly that we decided to go yet to another drug in the went to ketamine and between 1500 mg at a time which seem to be affected on a p.r.n. basis as we increased his maintenance phenobarbital dose and currently he is not having any of that the activity which also is beneficial because he was in a terribly dyssynchronous with the ventilator as well in discussing this with neurology consult he recommended that we recheck the MRI of the brain just to see if there is any anatomic reason for the no for the longstanding persistent status and that will be pending in the in the morning but at least at this point the status epilepticus finally under control he has had a fever and very difficult to say if this is infectious but we have cultured him repeatedly and there polys in the sputum but no distinct infiltrate blood cultures to date are negative no significant white count or left shift had a concerned that this might be part of the central nervous system issue or part of a hyperadrenergic state at because it tends to correlate with a markedly elevated heart rate respiratory rate Critical Care Time (minutes): 60 Physical Exam Vital Signs: Vital Signs: Last Vital Signs Temp 101.3 F H 10/10/22 15:00 Pulse 121 H 10/10/22 15:00 Resp 30 H 10/10/22 15:00 BP 122/60 10/10/22 15:00 Pulse Ox 89 L 10/10/22 15:00 O2 Del Method Mechanical Ventil ation 10/10/22 15:00 O2 Flow Rate 40 09/28/22 03:00 FiO2 70 10/10/22 15:30 BMI result Body Mass Index 18.3 vital signs are normal but he has no response 90 even to deep pain but he has preservation of his brainstem reflexes namely pupillary reactivity to light corneals he has normal no doll's eyes in other words normal oculocephalics he also has a cough and gag and and spontaneous r espiratory mechanism abdomen is benign no again a megaly soft and tolerating feedings lungs without adventit ious sounds bedside echo showing cardiac exam is normal Objective Data Labs 10/10/22 04:50 10/10/22 04:50 Labs: Laboratory Results - last 24 hr 10/01/22 10/10/22 10/10/22 11:14 04:50 04:50 WBC 16.3 H RBC 3.35 L Hgb 10.1 L Hct 31.0 L MCV 92.5 MCH 30.1 MCHC 32.6 RDW 14.6 Plt Count 412 H MPV 10.9 Immature Gran % (Auto) 0.6 H Neut % (Auto) 88.0 H Lymph % (Auto) 5.1 L [place] % (Auto) 5.4 Eos % (Auto) 0.3 Baso % (Auto) 0.6 Lymph # (Auto) 0.8 L [place] # (Auto) 0.9 Eos # (Auto) 0.1 Baso # (Auto) 0.1 Abs Immat Gran (auto) 0.09 H Absolute Neuts (auto) 14.3 H Absolute Nucleated RBC 0.000 Nucleated RBC % (auto) 0.0 VBG pH VBG pCO2 VBG pO2 VBG HCO3 VBG O2 Saturation VBG Base Excess Sodium 138 Potassium 3.5 Chloride 102 Carbon Dioxide 27 Anion Gap 13 BUN 22 H Creatinine 0.50 Estim Creat Clear Calc 147.2 Estimated GFR > 60 Random Glucose 109 Calcium 8.0 L Total Bilirubin 0.7 AST 121 H ALT 111 H Alkaline Phosphatase 221 H Total Protein 5.5 L Albumin 2.9 L CSF Lyme IgG Bands Det TNP CSF Lyme IgM Bands Det TNP 10/10/22 04:52 WBC RBC Hgb Hct MCV MCH MCHC RDW Plt Count MPV Immature Gran % (Auto) Neut % (Auto) Lymph % (Auto) [place] % (Auto) Eos % (Auto) Baso % (Auto) Lymph # (Auto) [place] # (Auto) Eos # (Auto) Baso # (Auto) Abs Immat Gran (auto) Absolute Neuts (auto) Absolute Nucleated RBC Nucleated RBC % (auto) VBG pH 7.52 H VBG pCO2 40 VBG pO2 47 VBG HCO3 32 H VBG O2 Saturation 80.0 VBG Base Excess 9.2 Sodium Potassium Chloride Carbon Dioxide Anion Gap BUN Creatinine Estim Creat Clear Calc Estimated GFR Random Glucose Calcium Total Bilirubin AST ALT Alkaline Phosphatase Total Protein Albumin CSF Lyme IgG Bands Det CSF Lyme IgM Bands Det Microbiology Microbiology Results: Microbiology 10/09/22 02:38 Sputum - Suctioned Gram Stain - Final 10/09/22 02:38 Sputum - Suctioned Sputum Culture - Preliminary Culture in progress. 10/09/22 02:49 Blood - Venous Blood Culture - Preliminary No growth after 24 hours. 10/09/22 02:45 Blood - Venous Blood Culture - Preliminary No growth after 24 hours. 10/01/22 11:14 Cerebrospinal Fluid Gram Stain - Final 10/01/22 11:14 Cerebrospinal Fluid CSF Examination - Final 10/01/22 11:14 Cerebrospinal Fluid Fluid Description - Final 10/01/22 11:14 Cerebrospinal Fluid CSF Culture - Final No growth after 3 days. 09/27/22 06:18 Blood - Venous Blood Culture - Final No growth after 5 days. 09/27/22 06:18 Blood - Venous Blood Culture - Final No growth after 5 days. 09/26/22 03:34 Urine clean catch - Urine brown top Urine Culture - Final No growth. 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: Status: Acute (2) Acute anoxic encephalopathy: Status: Acute (3) Status epilepticus: Status: Acute (4) Hyperkalemia: Status: Acute (5) Acute kidney injury: Status: Acute (6) Encephalopathy acute: Status: Acute (7) Substance abuse: Status: Acute (8) Pneumothorax, left: Status: Acute (9) Acute respiratory failure with hypoxia: Status: Acute (10) Overdose: Status: Acute (11) Cardiac arrest: Status: Acute (12) Anxiety: Status: Acute (13) Opioid dependence: Status: Acute (14) COPD (chronic obstructive pulmonary disease): Status: Acute [facility] he is a status post respiratory arrest with severe anoxic encephalopathy and boating but poorly for prognosis is the persistence of probably some degree of of my clonus as well as status epilepticus this late in the game but now that is under control and the only thing of a sedating nature is the phenobarbital he is off the propofol so I hope at some point between that and shutting off the seizure activity we can evaluate mental status family but thus far no evidence of cognitive function he just has preservation of and brainstem reflexes and and there was definitely background brain activity so there is no declaration of brain here the fever at this point will await cultures for another day or 2 before deciding whether this is central or infectious Quality Stroke Does the patient have a stroke diagnosis?: No VTE Prior VTE?: No VTE Risk Level:: Medical - moderate - high VTE Device Contraindication: N/A - Device Ordered VTE Drug Contraindication: N/A - Med Ordered
[2022-10-10] MEDS: PHENOBARBITAL 20 MG/5 ML 130 MG PO (18:18)
[2022-10-10] MEDS: Ketamine HCl/NS 50 MG/5 ML SYRINGE IVPUSH (19:58)
[2022-10-11] VITALS (29 sets, daily range): BP systolic 95–120; BP diastolic 53–75; PULSE 95–122; RESP 16–30; TEMP 34–39.5; O2SAT 94–100; BMI 18.4
[2022-10-11] MEDS: PHENOBARBITAL 20 MG/5 ML 130 MG PO ×6 (00:32→22:12)
[2022-10-11] MEDS: Acetaminophen Oral Liquid 650 MG/20.3 ML SOLUTION PO ×3 (01:01→19:36)
[2022-10-11] MEDS: KCl 10 mEq in 5% Dex/0.45% Sod 10 MEQ/1,000 ML IV.SOLN 125 MEQ IVCONT (01:02)
[2022-10-11] MEDS: Midazolam HCl/NS 50 MG/50 ML PLAST..BAG IVCONT ×3 (02:11→17:18)
[2022-10-11] MEDS: Heparin Sodium,Porcine 5,000 UNIT/ML VIAL 5000 UNIT SUBCUT ×3 (03:53→19:36)
[2022-10-11 05:29] LABS: VBG Base Excess 6.8 mmol/L; VBG HCO3 29 mmol/L (22-26); VBG pCO2 37 mmHg; VBG pH 7.51 (7.32-7.43); VBG pO2 55 mmHg
[2022-10-11 05:48] LABS: Venous Blood Gas Refer to POC result
[2022-10-11 05:55] LABS: MANUAL DIFF FLAG NO
[2022-10-11 05:58] LABS: Basophils Absolute Auto 0.1 X10*3/uL (0.0-0.2); Basophils Percent Auto 0.8 % (0-2); Eosinophils Absolute Auto 0.1 X10*3/uL (0.0-0.4); Eosinophils Percent Auto 1.1 % (0-4); Hemoglobin 9.4 g/dl (14.0-18.0); Imm Gran Abs Auto 0.06 X10*3/uL (0.00-0.03); Imm Gran Pct Auto 0.6 % (0.0-0.4); Lymphocytes Absolute Auto 0.9 X10*3/uL (1.2-4.9); Lymphocytes Percent Auto 9.1 % (20-40); Mean Corpuscular HGB Conc 32.4 g/dl (31.0-36.0); Mean Corpuscular Hemoglobin 30.2 pg (27.0-33.0); Mean Corpuscular Volume 93.2 fL (80.0-98.0); Mean Platelet Volume 11.1 fL (9.4-12.4); Monocytes Absolute Auto 1.2 X10*3/uL (0.1-1.2); Monocytes Percent Auto 11.7 % (2-11); Neutrophils Absolute Auto 7.7 x10*3/uL (2.0-8.3); Neutrophils Percent Auto 76.7 % (45-73); Platelet Count 378 X10*3/uL (160-400); Red Blood Count 3.11 X10*6/uL (4.60-5.80); Red Cell Distribution Width 14.6 % (11.0-16.0)
[2022-10-11 06:15] LABS: Alanine Aminotransferase 93 U/L (0-40); Albumin Level 2.7 g/dL (3.5-5.0); Alkaline Phosphatase 187 U/L (39-117); Anion Gap 9 (12-20); Aspartate Amino Transferase 91 U/L (5-37); Bilirubin Total 0.5 mg/dL (0.0-1.0); Blood Urea Nitrogen 9 mg/dL (9-16); Calcium 7.7 mg/dL (8.4-10.2); Carbon Dioxide 28 mmol/L (22-29); Chloride 105 mmol/L (96-108); Creatinine Clr Calc Pharmacy 153.3; Estimated Glomerular Filt Rate > 60; Glucose Random 113 mg/dL (60-115); Potassium 3.4 mmol/L (3.3-5.1); Sodium 139 mmol/L (135-145); Total Protein 5.1 g/dL (6.5-8.0)
[2022-10-11] MEDS: Ketamine HCl 500 MG/5 ML VIAL 50 MG IVPUSH (06:23)
[2022-10-11] MEDS: levETIRAcetam in NaCl (iso-os) 1,500 MG/100 ML PIGGYBACK 400 MG IV ×2 (08:20→19:55)
[2022-10-11] MEDS: Potassium Chloride Packet 20 MEQ PACKET PO (08:20)
[2022-10-11] MEDS: Ketamine HCl/NS 50 MG/5 ML SYRINGE IVPUSH ×2 (08:21→08:37)
[2022-10-11] MEDS: PHENobarbitaL sodium 130 MG/ML VIAL IVPUSH (09:12)
--- NOTE | 2022-10-11 13:56 | P.PNCC_ITS ---
Subjective Subjective Date of Service: 10/11/22 Interval History: 41-year-old polysubstance abuser came in in full respiratory and cardiac arrest due to cocaine and and fentanyl overdose and he has been here for well over 2 weeks a currently has tracheostomy and PEG tube tolerating both now and is being observed for hoahaoism of cognitive function which has not yet at all occurred and has had refractory status epilepticus as well as myoclonus and finally all controlled now since the addition of phenobarbital currently on a maintenance dose with p.r.n. ketamine and background of Keppra and midazolam drip persistent fever but no significant white count or left shift but were growing a Gram-negative fina from his sputum and will probably cover him with Unasyn empirically because he clearly was an aspiration risk EEG yesterday with severe status epilepticus and we have obtained clinical control I do not think I have any reason to believe that he has got nonconvulsive status epilepticus at this point Critical Care Time (minutes): 45 Physical Exam Vital Signs: Vital Signs: Last Vital Signs Temp 101.1 F H 10/11/22 13:00 Pulse 108 H 10/11/22 13:00 Resp 21 H 10/11/22 13:00 BP 109/62 10/11/22 13:00 Pulse Ox 98 10/11/22 13:00 O2 Del Method Mechanical Ventil ation 10/11/22 13:00 O2 Flow Rate 40 09/28/22 03:00 FiO2 60 10/11/22 13:00 BMI result Body Mass Index 18.4 definitely quiet he has got diminished all 4 extremity tone and he is unarousable even to pain but the brainstem reflexes remain preserved MRI today shows no structural abnormality abdomen soft and no organomegaly bedside echo with normal cardiovascular function lungs without adventitious sounds Objective Data Labs 10/11/22 05:15 10/11/22 05:15 Labs: Laboratory Results - last 24 hr 10/11/22 10/11/22 10/11/22 05:15 05:15 05:20 WBC 10.0 RBC 3.11 L Hgb 9.4 L Hct 29.0 L MCV 93.2 MCH 30.2 MCHC 32.4 RDW 14.6 Plt Count 378 MPV 11.1 Immature Gran % (Auto) 0.6 H Neut % (Auto) 76.7 H Lymph % (Auto) 9.1 L [place] % (Auto) 11.7 H Eos % (Auto) 1.1 Baso % (Auto) 0.8 Lymph # (Auto) 0.9 L [place] # (Auto) 1.2 Eos # (Auto) 0.1 Baso # (Auto) 0.1 Abs Immat Gran (auto) 0.06 H Absolute Neuts (auto) 7.7 Absolute Nucleated RBC 0.000 Nucleated RBC % (auto) 0.0 VBG pH 7.51 H VBG pCO2 37 VBG pO2 55 VBG HCO3 29 H VBG O2 Saturation 87.0 VBG Base Excess 6.8 Sodium 139 Potassium 3.4 Chloride 105 Carbon Dioxide 28 Anion Gap 9 L BUN 9 Creatinine 0.48 L Estim Creat Clear Calc 153.3 Estimated GFR > 60 Random Glucose 113 Calcium 7.7 L Total Bilirubin 0.5 AST 91 H ALT 93 H Alkaline Phosphatase 187 H Total Protein 5.1 L Albumin 2.7 L Microbiology Microbiology Results: Microbiology 10/09/22 02:38 Sputum - Suctioned Gram Stain - Final 10/09/22 02:38 Sputum - Suctioned Sputum Culture - Preliminary Gram negative fina 10/09/22 02:49 Blood - Venous Blood Culture - Preliminary No growth after 48 hours. 10/09/22 02:45 Blood - Venous Blood Culture - Preliminary No growth after 48 hours. 10/01/22 11:14 Cerebrospinal Fluid Gram Stain - Final 10/01/22 11:14 Cerebrospinal Fluid CSF Examination - Final 10/01/22 11:14 Cerebrospinal Fluid Fluid Description - Final 10/01/22 11:14 Cerebrospinal Fluid CSF Culture - Final No growth after 3 days. 09/27/22 06:18 Blood - Venous Blood Culture - Final No growth after 5 days. 09/27/22 06:18 Blood - Venous Blood Culture - Final No growth after 5 days. 09/26/22 03:34 Urine clean catch - Urine brown top Urine Culture - Final No growth. 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 ketamine and maintenance dose of phenobarb in addition and will await assessment from Neurology now that we have all the data and we continue to observe for any hoahaoism of cognitive function to help gauge prognosis for potential recovery to the family prognosis here appears to be grim especially with the no persistence of the my a clonus in status epilepticus so late in the course Quality Stroke Does the patient have a stroke diagnosis?: No VTE Prior VTE?: No VTE Risk Level:: Medical - moderate - high VTE Device Contraindication: N/A - Device Ordered VTE Drug Contraindication: N/A - Med Ordered
[2022-10-11] MEDS: Ampicillin Sodium/Sulbactam Na 1.5 GM in 0.9 % Sodium Chloride 100 ML IV ×2 (14:54→19:36)
[2022-10-11] MEDS: Ketamine HCl/NS 50 MG/5 ML SYRINGE 100 MG IVPUSH (17:18)
[2022-10-12] VITALS (33 sets, daily range): BP systolic 89–117; BP diastolic 49–67; PULSE 88–119; RESP 14–32; TEMP 34.5–39; O2SAT 92–100; BMI 18.2
[2022-10-12] MEDS: Albuterol Sulfate (0.083%) 2.5 MG/3 ML VIAL.NEB INHALE (00:22)
[2022-10-12] MEDS: Ketamine HCl/NS 50 MG/5 ML SYRINGE 100 MG IVPUSH ×2 (01:16→12:15)
[2022-10-12] MEDS: Ampicillin Sodium/Sulbactam Na 1.5 GM in 0.9 % Sodium Chloride 100 ML IV (01:40)
[2022-10-12] MEDS: PHENOBARBITAL 20 MG/5 ML 130 MG PO ×4 (01:41→14:39)
[2022-10-12] MEDS: Heparin Sodium,Porcine 5,000 UNIT/ML VIAL 5000 UNIT SUBCUT (03:32)
[2022-10-12] MEDS: Piperacillin Sodium/Tazobactam 3.375 GM in 0.9 % Sodium Chloride 50 ML IV ×2 (03:39→09:29)
[2022-10-12] MEDS: vancomycin HCL 1,250 MG in 0.9 % Sodium Chloride 250 ML 166.67 MG IV (04:04)
[2022-10-12] MEDS: Midazolam HCl/NS 50 MG/50 ML PLAST..BAG IVCONT ×2 (05:08→16:44)
[2022-10-12] MEDS: Acetaminophen Oral Liquid 650 MG/20.3 ML SOLUTION PO ×2 (05:10→18:10)
[2022-10-12 05:52] LABS: VBG Base Excess 5.1 mmol/L; VBG HCO3 26 mmol/L (22-26); VBG pCO2 29 mmHg; VBG pH 7.56 (7.32-7.43); VBG pO2 45 mmHg
[2022-10-12 05:53] LABS: Venous Blood Gas Refer to POC result
[2022-10-12 05:59] LABS: MANUAL DIFF FLAG NO
[2022-10-12 06:05] LABS: Basophils Absolute Auto 0.1 X10*3/uL (0.0-0.2); Basophils Percent Auto 1.1 % (0-2); Eosinophils Absolute Auto 0.2 X10*3/uL (0.0-0.4); Eosinophils Percent Auto 1.3 % (0-4); Hematocrit 27.5 % (42.0-52.0); Hemoglobin 8.7 g/dl (14.0-18.0); Imm Gran Abs Auto 0.06 X10*3/uL (0.00-0.03); Imm Gran Pct Auto 0.5 % (0.0-0.4); Lymphocytes Absolute Auto 0.8 X10*3/uL (1.2-4.9); Lymphocytes Percent Auto 6.6 % (20-40); Mean Corpuscular HGB Conc 31.6 g/dl (31.0-36.0); Mean Corpuscular Hemoglobin 29.6 pg (27.0-33.0); Mean Corpuscular Volume 93.5 fL (80.0-98.0); Mean Platelet Volume 10.9 fL (9.4-12.4); Monocytes Absolute Auto 1.1 X10*3/uL (0.1-1.2); Monocytes Percent Auto 9.6 % (2-11); Neutrophils Absolute Auto 9.6 x10*3/uL (2.0-8.3); Neutrophils Percent Auto 80.9 % (45-73); Platelet Count 344 X10*3/uL (160-400); Red Blood Count 2.94 X10*6/uL (4.60-5.80); Red Cell Distribution Width 14.6 % (11.0-16.0); White Blood Count 11.9 X10*3/uL (4.8-10.8)
[2022-10-12 06:32] LABS: Alanine Aminotransferase 121 U/L (0-40); Albumin Level 2.6 g/dL (3.5-5.0); Alkaline Phosphatase 189 U/L (39-117); Anion Gap 14 (12-20); Aspartate Amino Transferase 129 U/L (5-37); Bilirubin Total 0.5 mg/dL (0.0-1.0); Blood Urea Nitrogen 8 mg/dL (9-16); Calcium 7.6 mg/dL (8.4-10.2); Carbon Dioxide 23 mmol/L (22-29); Chloride 107 mmol/L (96-108); Creatinine Clr Calc Pharmacy 152.7; Estimated Glomerular Filt Rate > 60; Glucose Random 128 mg/dL (60-115); Potassium 3.6 mmol/L (3.3-5.1); Sodium 140 mmol/L (135-145); Total Protein 5.1 g/dL (6.5-8.0)
--- NOTE | 2022-10-12 07:27 | PHA.PROG ---
Admission Date/Time: September 26, 2022 02:59 Indication: SSTI Weight in k.8 kg Adjusted body weight in K.78 [place] body weight in K.1 Obesity Dosing Indication % IBW: Serum Creatinine - Last 168 Hours 10/06/22 10/07/22 10/08/22 05:02 05:10 05:00 Creatinine 0.62 0.58 0.63 10/09/22 10/10/22 10/11/22 04:59 04:50 05:15 Creatinine 0.60 0.50 0.48 L 10/12/22 05:40 Creatinine 0.48 L Estimated CrCl and GFR - Last 168 Hours 10/06/22 10/07/22 10/08/22 05:02 05:10 05:00 Estim Creat Clear Calc 123.8 128.1 112.2 Estimated GFR > 60 > 60 > 60 10/09/22 10/10/22 10/11/22 04:59 04:50 05:15 Estim Creat Clear Calc 113.1 147.2 153.3 Estimated GFR > 60 > 60 > 60 10/12/22 05:40 Estim Creat Clear Calc 152.7 Estimated GFR > 60 Vancomycin Loading Dose: 1250 MG X 1 ( ORDERED BY [facility]) Current Vancomycin Dosing Regimen: 1000 MG Q12H Vancomycin Monitoring using AUC goal of 400 - 600 range with trough as surrogate marker: Date and Time for next Vancomycin Level to be drawn: 10/13/22 @1400 Pharmacist Comments on Vancomycin Plan: Vancomycin dosing will take advantage of [employer] as a clinical decision support tool that uses Bayesian modeling to calculate individual patient's pharmacokinetic parameters and forecast the patient's drug concentration time course with the target goal AUC 24 range of 400 - 600 mg/L/hr.
[2022-10-12] MEDS: levETIRAcetam in NaCl (iso-os) 1,500 MG/100 ML PIGGYBACK 400 MG IV ×2 (09:29→20:14)
[2022-10-12] MEDS: Enoxaparin Sodium 60 MG/0.6 ML SYRINGE 50 MG SUBCUT ×2 (11:07→22:06)
--- NOTE | 2022-10-12 11:43 | PM.CCPN ---
Subjective Subjective Date of Service: 10/12/22 Interval History: 41-year-old polysubstance abuser suffered a cardio respiratory arrest and brought in for after an unknown amount of time densely cyanotic requiring resuscitation intubation on the basis of fentanyl and cocaine and there was no hypothermia in follow-up but he had circulation restored remains ventilator dependent were rounding the no code towards 3 weeks at this point and an aide noticed initially was that he was in a per in a refractory persistent status epilepticus and there was probably some degree of myoclonic status as well so a was a little bit confusing but without continuous EEG we needed to tease apart and we stop the propofol his episodes became more generalized rather than just facial to gone the appearance of status epilepticus retry valproic acid and made no difference because of fevers and no apparent source of infection we stop the Dilantin that he had been on so he remained on propofol Versed and Keppra break and and was constantly with a stentable seizure activity mostly involving the face but he was on was unresponsive even to deep pain with wanted to stop the propofol because we needed to evaluate mental status ability to awaken but we felt at with mild clonus in status epilepticus this far out and having been probably persistent to a degree as a nonconvulsive were ID for a long me. Of time that it was likely a very very very poor prognosticator and and with discussion of this with the family who was already committed to the tracheostomy and PEG tube that was performed and we were finally able to predominantly with the use of phenobarbital after a 1 g loading dose and 130 mg Q 4 hourly maintenance dose conquer the seizures where he is now remain clinically seizure-free but we did prove with EEG that everything we saw was status epilepticus and now he gets small doses of 50-100 mg of p.r.n. ketamine if he breaks through to a degree at this point will be better able to from day-to-day evaluate progress if there were to be any In relation to his fever and extensive culture in process we noticed a distended right arm he has a right internal jugular central venous line I did a bedside examination and saw that he had subclavian and axillary thrombosis so the line was pulled as was expected but no replacement line we just put in a peripheral line and were going to treat that of because of its morbidity with with Lovenox full dose mg per kg and the sputum is finally grown Pseudomonas and I am going to change the piperacillin to cefepime and in addition to the vancomycin that he is on I have explained to the family that the the fact that he does have preserved brainstem reflexes namely light reactivity normal oculocephalics CT cough gag and spontaneous respiration it means that he is currently in a persistent vegetative state and is no MRI proved of any physical damage Critical Care Time (minutes): 45 Physical Exam Vital Signs: Vital Signs: Last Vital Signs Temp 100.4 F 10/12/22 11:00 Pulse 96 10/12/22 11:00 Resp 21 H 10/12/22 11:00 BP 95/51 L 10/12/22 11:00 Pulse Ox 95 10/12/22 11:00 O2 Del Method Mechanical Ventil ation 10/12/22 11:00 O2 Flow Rate 40 09/28/22 03:00 FiO2 50 10/12/22 11:37 BMI result Body Mass Index 18.2 All 4 extremities remain flaccid no withdrawal to pain Brainstem reflexes persist but all seizure activity quiet Cardiovascular within normal limits by bedside echo Lungs without adventitious sounds but with with sputum indicating get the new Pseudomonas is certainly raises question of an aspiration Abdomen is soft no organomegaly tolerating feedings Right upper extremity is warm and swollen with proof of deep vein thrombosis involving the subclavian and axillary systems that is being treated Skin otherwise intact Objective Data Labs 10/12/22 05:40 10/12/22 05:40 Labs: Laboratory Results - last 24 hr 10/12/22 10/12/22 10/12/22 05:40 05:40 05:44 WBC 11.9 H RBC 2.94 L Hgb 8.7 L Hct 27.5 L MCV 93.5 MCH 29.6 MCHC 31.6 RDW 14.6 Plt Count 344 MPV 10.9 Immature Gran % (Auto) 0.5 H Neut % (Auto) 80.9 H Lymph % (Auto) 6.6 L [place] % (Auto) 9.6 Eos % (Auto) 1.3 Baso % (Auto) 1.1 Lymph # (Auto) 0.8 L [place] # (Auto) 1.1 Eos # (Auto) 0.2 Baso # (Auto) 0.1 Abs Immat Gran (auto) 0.06 H Absolute Neuts (auto) 9.6 H Absolute Nucleated RBC 0.000 Nucleated RBC % (auto) 0.0 VBG pH 7.56 H VBG pCO2 29 VBG pO2 45 VBG HCO3 26 VBG O2 Saturation 80.0 VBG Base Excess 5.1 Sodium 140 Potassium 3.6 Chloride 107 Carbon Dioxide 23 Anion Gap 14 BUN 8 L Creatinine 0.48 L Estim Creat Clear Calc 152.7 Estimated GFR > 60 Random Glucose 128 H Calcium 7.6 L Total Bilirubin 0.5 AST 129 H ALT 121 H Alkaline Phosphatase 189 H Total Protein 5.1 L Albumin 2.6 L Microbiology Microbiology Results: Microbiology 10/09/22 02:38 Sputum - Suctioned Gram Stain - Final 10/09/22 02:38 Sputum - Suctioned Sputum Culture - Final Pseudomonas aeruginosa 10/09/22 02:49 Blood - Venous Blood Culture - Preliminary No growth after 48 hours. 10/09/22 02:45 Blood - Venous Blood Culture - Preliminary No growth after 48 hours. 10/01/22 11:14 Cerebrospinal Fluid Gram Stain - Final 10/01/22 11:14 Cerebrospinal Fluid CSF Examination - Final 10/01/22 11:14 Cerebrospinal Fluid Fluid Description - Final 10/01/22 11:14 Cerebrospinal Fluid CSF Culture - Final No growth after 3 days. 09/27/22 06:18 Blood - Venous Blood Culture - Final No growth after 5 days. 09/27/22 06:18 Blood - Venous Blood Culture - Final No growth after 5 days. 09/26/22 03:34 Urine clean catch - Urine brown top Urine Culture - Final No growth. 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: Status: Acute (2) Acute anoxic encephalopathy: Status: Acute (3) Status epilepticus: Status: Acute (4) Hyperkalemia: Status: Acute (5) Acute kidney injury: Status: Acute (6) Deep vein thrombosis (DVT) of axillary vein of right upper extremity: Status: Acute (7) Encephalopathy acute: Status: Acute (8) Substance abuse: Status: Acute (9) Pneumothorax, left: Status: Acute (10) Acute respiratory failure with hypoxia: Status: Acute (11) Overdose: Status: Acute (12) Cardiac arrest: Status: Acute (13) Anxiety: Status: Acute (14) Opioid dependence: Status: Acute (15) COPD (chronic obstructive pulmonary disease): Status: Acute Plan So the plan is to keep continue the cefepime and vancomycin for now and the Lovenox full dose and the above anti seizure medications and and just he evaluate for any gnosticist of cognitive function Quality Stroke Does the patient have a stroke diagnosis?: No VTE Prior VTE?: No VTE Risk Level:: Medical - moderate - high VTE Device Contraindication: N/A - Device Ordered VTE Drug Contraindication: N/A - Med Ordered
[2022-10-12] MEDS: cefEPime HCl 1 GM in 0.9 % Sodium Chloride 50 ML IV ×2 (12:15→23:44)
[2022-10-12] MEDS: vancomycin HCL 1,000 MG in 0.9 % Sodium Chloride 250 ML 270 MG IV (16:44)
[2022-10-12] MEDS: PHENobarbitaL sodium 130 MG/ML VIAL IV ×2 (18:10→22:50)
[2022-10-12] MEDS: Albumin Human 25 % 100 ML IV ×2 (21:12→22:09)
[2022-10-12] MEDS: Lactated Ringers 1,000 ML 999 ML IV (22:45)
[2022-10-12 23:25] LABS: Anion Gap 12 (12-20); Blood Urea Nitrogen 9 mg/dL (9-16); Calcium 7.9 mg/dL (8.4-10.2); Carbon Dioxide 25 mmol/L (22-29); Chloride 107 mmol/L (96-108); Creatinine Clr Calc Pharmacy 159.4; Estimated Glomerular Filt Rate > 60; Glucose Random 104 mg/dL (60-115); Potassium 3.6 mmol/L (3.3-5.1); Sodium 140 mmol/L (135-145)
[2022-10-13] VITALS (30 sets, daily range): BP systolic 98–119; BP diastolic 51–71; PULSE 85–114; RESP 17–30; TEMP 34.4–38.8; O2SAT 90–393; BMI 19.3
[2022-10-13 00:02] LABS: MANUAL DIFF FLAG NO
[2022-10-13 00:06] LABS: Basophils Absolute Auto 0.1 X10*3/uL (0.0-0.2); Basophils Percent Auto 1.1 % (0-2); Eosinophils Absolute Auto 0.3 X10*3/uL (0.0-0.4); Eosinophils Percent Auto 3.1 % (0-4); Hemoglobin 7.2 g/dl (14.0-18.0); Imm Gran Abs Auto 0.04 X10*3/uL (0.00-0.03); Imm Gran Pct Auto 0.5 % (0.0-0.4); Lymphocytes Absolute Auto 1.2 X10*3/uL (1.2-4.9); Mean Corpuscular HGB Conc 32.7 g/dl (31.0-36.0); Mean Corpuscular Hemoglobin 30.6 pg (27.0-33.0); Mean Corpuscular Volume 93.6 fL (80.0-98.0); Mean Platelet Volume 10.4 fL (9.4-12.4); Monocytes Percent Auto 11.9 % (2-11); Neutrophils Absolute Auto 5.8 x10*3/uL (2.0-8.3); Neutrophils Percent Auto 69.4 % (45-73); Platelet Count 261 X10*3/uL (160-400); Red Blood Count 2.35 X10*6/uL (4.60-5.80); Red Cell Distribution Width 14.5 % (11.0-16.0); White Blood Count 8.4 X10*3/uL (4.8-10.8)
[2022-10-13] MEDS: Acetaminophen Oral Liquid 650 MG/20.3 ML SOLUTION PO ×3 (01:17→21:50)
[2022-10-13] MEDS: PHENobarbitaL sodium 130 MG/ML VIAL IV ×3 (01:19→09:13)
[2022-10-13] MEDS: vancomycin HCL 1,000 MG in 0.9 % Sodium Chloride 250 ML 270 MG IV (03:34)
[2022-10-13] MEDS: Midazolam HCl/NS 50 MG/50 ML PLAST..BAG IVCONT (04:16)
[2022-10-13 04:51] LABS: VBG Base Excess 6.7 mmol/L; VBG HCO3 28 mmol/L (22-26); VBG pCO2 29 mmHg; VBG pH 7.59 (7.32-7.43); VBG pO2 55 mmHg
[2022-10-13 05:16] LABS: MANUAL DIFF FLAG NO
[2022-10-13 05:23] LABS: Basophils Absolute Auto 0.1 X10*3/uL (0.0-0.2); Basophils Percent Auto 0.8 % (0-2); Eosinophils Absolute Auto 0.3 X10*3/uL (0.0-0.4); Eosinophils Percent Auto 2.3 % (0-4); Hematocrit 25.8 % (42.0-52.0); Hemoglobin 8.4 g/dl (14.0-18.0); Imm Gran Abs Auto 0.05 X10*3/uL (0.00-0.03); Imm Gran Pct Auto 0.4 % (0.0-0.4); Lymphocytes Absolute Auto 0.9 X10*3/uL (1.2-4.9); Lymphocytes Percent Auto 7.5 % (20-40); Mean Corpuscular HGB Conc 32.6 g/dl (31.0-36.0); Mean Corpuscular Hemoglobin 29.9 pg (27.0-33.0); Mean Corpuscular Volume 91.8 fL (80.0-98.0); Mean Platelet Volume 10.7 fL (9.4-12.4); Monocytes Absolute Auto 1.1 X10*3/uL (0.1-1.2); Monocytes Percent Auto 9.5 % (2-11); Neutrophils Absolute Auto 9.5 x10*3/uL (2.0-8.3); Neutrophils Percent Auto 79.5 % (45-73); Platelet Count 325 X10*3/uL (160-400); Red Blood Count 2.81 X10*6/uL (4.60-5.80); Red Cell Distribution Width 14.5 % (11.0-16.0); White Blood Count 11.9 X10*3/uL (4.8-10.8)
[2022-10-13 05:39] LABS: Alanine Aminotransferase 111 U/L (0-40); Albumin Level 3.2 g/dL (3.5-5.0); Alkaline Phosphatase 208 U/L (39-117); Anion Gap 15 (12-20); Aspartate Amino Transferase 143 U/L (5-37); Bilirubin Total 0.5 mg/dL (0.0-1.0); Blood Urea Nitrogen 8 mg/dL (9-16); Calcium 8.2 mg/dL (8.4-10.2); Carbon Dioxide 23 mmol/L (22-29); Chloride 108 mmol/L (96-108); Creatinine Clr Calc Pharmacy 146.4; Estimated Glomerular Filt Rate > 60; Glucose Random 103 mg/dL (60-115); Potassium 3.6 mmol/L (3.3-5.1); Sodium 142 mmol/L (135-145); Total Protein 5.3 g/dL (6.5-8.0)
[2022-10-13 05:46] LABS: Venous Blood Gas Refer to POC result
[2022-10-13] MEDS: levETIRAcetam in NaCl (iso-os) 1,500 MG/100 ML PIGGYBACK 400 MG IV ×2 (07:59→20:05)
[2022-10-13] MEDS: Albumin Human 25 % 100 ML IV ×2 (07:59→09:03)
--- NOTE | 2022-10-13 08:01 | PM.CCPN ---
Subjective Subjective Date of Service: 10/13/22 Interval History: 41-year-old polysubstance abuser came in with cocaine fentanyl overdose apparently apneic in full cardiac arrest requiring resuscitation intubation an he remains intubated but post tracheostomy and gastrostomy and he had persistent myoclonic status is as well as status epilepticus which we proved by EEG probably for the entire 2 weeks afterwards which bodes very poorly prognostically but with no anatomic abnormality noted on MRI interestingly enough and finally on and on an extensive regimen in a because of the refractory status epilepticus in you which include Keppra and valproic acid 4 mg midazolam drip and 130 mg of phenobarb every 4 hours along with p.r.n. ketamine whenever he is stimulated the no in the suctioning process or the no bedside care etc. which he works there very effectively but we shut off the status and at this point he is outside of the 4 mg drip of the mid nasal and he is not really on any sedation I would like to be able to wean that as well and has been several days off of at least 4 off the propofol so we could assess cognitive function at some point if it were to become restored and he does have brainstem reflexes from light reactivity and positive of the no oculocephalics adeno down to spontaneous respiration cough gag etc. so can not declare brain but so far and a clinical basis he seems to be in a persistent vegetative state Critical Care Time (minutes): 45 Physical Exam Vital Signs: Vital Signs: Last Vital Signs Temp 101.1 F H 10/13/22 07:00 Pulse 100 10/13/22 07:00 Resp 25 H 10/13/22 07:00 BP 105/65 10/13/22 07:00 Pulse Ox 95 10/13/22 07:00 O2 Del Method Mechanical Ventil ation 10/13/22 07:00 O2 Flow Rate 40 09/28/22 03:00 FiO2 40 10/13/22 07:44 BMI result Body Mass Index 19.3 He has got a right upper extremity deep vein thrombosis including subclavian and axillary veins the arm is somewhat distended he is on full-dose Lovenox with arm elevation No response to manipulation or 2 deep pain Cardiac exam by bedside echo with normal LV and RV function Abdomen soft no organomegaly tolerating feedings at this point Chest without adventitious sounds but chest x-ray still shows a very very tiny volume left pleural effusion and probable left lower lobe infiltrate presumably an aspiration mechanism given the circumstances and the sputum seems to be growing Pseudomonas so I stopped the vancomycin and he remains on cefepime only Objective Data Labs 10/13/22 04:32 10/13/22 04:32 Labs: Laboratory Results - last 24 hr 10/12/22 10/12/22 10/13/22 23:00 23:57 04:32 WBC 8.4 RBC 2.35 L D Hgb 7.2 L Hct 22.0 L MCV 93.6 MCH 30.6 MCHC 32.7 RDW 14.5 Plt Count 261 MPV 10.4 Immature Gran % (Auto) 0.5 H Neut % (Auto) 69.4 Lymph % (Auto) 14.0 L [place] % (Auto) 11.9 H Eos % (Auto) 3.1 Baso % (Auto) 1.1 Lymph # (Auto) 1.2 [place] # (Auto) 1.0 Eos # (Auto) 0.3 Baso # (Auto) 0.1 Abs Immat Gran (auto) 0.04 H Absolute Neuts (auto) 5.8 Absolute Nucleated RBC 0.000 Nucleated RBC % (auto) 0.0 VBG pH VBG pCO2 VBG pO2 VBG HCO3 VBG O2 Saturation VBG Base Excess Sodium 140 142 Potassium 3.6 3.6 Chloride 107 108 Carbon Dioxide 25 23 Anion Gap 12 15 BUN 9 8 L Creatinine 0.46 L 0.53 Estim Creat Clear Calc 159.4 146.4 Estimated GFR > 60 > 60 Random Glucose 104 103 Calcium 7.9 L 8.2 L Total Bilirubin 0.5 AST 143 H ALT 111 H Alkaline Phosphatase 208 H Total Protein 5.3 L Albumin 3.2 L 10/13/22 10/13/22 04:32 04:41 WBC 11.9 H RBC 2.81 L Hgb 8.4 L Hct 25.8 L MCV 91.8 MCH 29.9 MCHC 32.6 RDW 14.5 Plt Count 325 MPV 10.7 Immature Gran % (Auto) 0.4 Neut % (Auto) 79.5 H Lymph % (Auto) 7.5 L [place] % (Auto) 9.5 Eos % (Auto) 2.3 Baso % (Auto) 0.8 Lymph # (Auto) 0.9 L [place] # (Auto) 1.1 Eos # (Auto) 0.3 Baso # (Auto) 0.1 Abs Immat Gran (auto) 0.05 H Absolute Neuts (auto) 9.5 H Absolute Nucleated RBC 0.000 Nucleated RBC % (auto) 0.0 VBG pH 7.59 H VBG pCO2 29 VBG pO2 55 VBG HCO3 28 H VBG O2 Saturation 90.0 VBG Base Excess 6.7 Sodium Potassium Chloride Carbon Dioxide Anion Gap BUN Creatinine Estim Creat Clear Calc Estimated GFR Random Glucose Calcium Total Bilirubin AST ALT Alkaline Phosphatase Total Protein Albumin Microbiology Microbiology Results: Microbiology 10/09/22 02:38 Sputum - Suctioned Gram Stain - Final 10/09/22 02:38 Sputum - Suctioned Sputum Culture - Final Pseudomonas aeruginosa 10/09/22 02:49 Blood - Venous Blood Culture - Preliminary No growth after 48 hours. 10/09/22 02:45 Blood - Venous Blood Culture - Preliminary No growth after 48 hours. 10/01/22 11:14 Cerebrospinal Fluid Gram Stain - Final 10/01/22 11:14 Cerebrospinal Fluid CSF Examination - Final 10/01/22 11:14 Cerebrospinal Fluid Fluid Description - Final 10/01/22 11:14 Cerebrospinal Fluid CSF Culture - Final No growth after 3 days. 09/27/22 06:18 Blood - Venous Blood Culture - Final No growth after 5 days. 09/27/22 06:18 Blood - Venous Blood Culture - Final No growth after 5 days. 09/26/22 03:34 Urine clean catch - Urine brown top Urine Culture - Final No growth. 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: Status: Acute (3) Acute anoxic encephalopathy: Status: Acute (4) Status epilepticus: Status: Acute (5) Hyperkalemia: Status: Acute (6) Acute kidney injury: Status: Acute (7) Encephalopathy acute: Status: Acute (8) Substance abuse: Status: Acute (9) Pneumothorax, left: Status: Acute (10) Acute respiratory failure with hypoxia: Status: Acute (11) Overdose: Status: Acute (12) Cardiac arrest: Status: Acute (13) Anxiety: Status: Acute (14) Opioid dependence: Status: Acute (15) COPD (chronic obstructive pulmonary disease): Status: Acute Plan So the plan is now to persist on the cefepime try to wean the midazolam if we possibly can so there is nothing confounding the assessment of his mental status and continue feedings of course as tolerated and full anticoagulation as there is no contraindication I still feel prognosis is grave and I am hoping to gone her the opinion of Neurology Quality Stroke Does the patient have a stroke diagnosis?: No VTE Prior VTE?: No VTE Risk Level:: Medical - moderate - high VTE Device Contraindication: N/A - Device Ordered VTE Drug Contraindication: N/A - Med Ordered
[2022-10-13] MEDS: Enoxaparin Sodium 60 MG/0.6 ML SYRINGE 50 MG SUBCUT ×2 (09:13→21:49)
--- NOTE | 2022-10-13 09:56 | MHC.CLN ---
F/U PT RECEIVING JEVITY 1.0 AT MAX GOAL RATE OF 60ML/HR WITH 240ML Q 6 HRS PROVIDES 1526KCALS (28KCALS/KG), 64G PROTEIN (1.3G/KG), 2234ML TOTAL WATER FROM FORMULA AND FLUSHES (40.6ML/kg) MONITOR TOLERANCE, RESIDUALS AND LYTES
[2022-10-13] MEDS: cefEPime HCl 1 GM in 0.9 % Sodium Chloride 50 ML IV ×2 (11:42→23:22)
--- NOTE | 2022-10-13 14:16 | PC.NURSE ---
[employer] inside sales account representative called, due to no plan towards [employer], [facility] case will be closed. A new case can always be opened if plans change, per inside sales account representative.
--- NOTE | 2022-10-13 14:34 | MHC.CM.PN ---
Pt continues to show no sign of neurological recovery: has had several long conversations w/family re: plans of care. Family remains undecided - pt has an involved father, sister and 18 year old son who are at different levels of understanding and acceptance of pt's condition making decision making strained. Pt had no HCP - pt's father has been serving as decision maker and if guardianship is pursued, he will likely be appointed by the court. Pastoral care offered to family. CM to follow.
[2022-10-13] MEDS: PHENOBARBITAL 20 MG/5 ML 130 MG PO ×3 (15:19→21:50)
[2022-10-14] VITALS (30 sets, daily range): BP systolic 93–123; BP diastolic 49–75; PULSE 90–104; RESP 20–31; TEMP 34.8–38.5; O2SAT 7–100; BMI 17.8
--- NOTE | 2022-10-14 | EEG_ITS ---
This is a 16-channel portable EEG. The patient is off sedation. The patient is on 3 antiepileptics. Background EEG rhythm is very low amplitude with normal EEG activity noted except every few seconds, there is burst of generalize sharply controlled discharges. This pattern is similar to his previous EEGs except that the interval between discharges is significantly prolonged compared to previous EEGs. Cardiac lead reveals tachycardia. IMPRESSION: Burst suppression pattern suggestive of severe encephalopathy. This type of pattern is usually noted with anoxic encephalopathy. MD VISHNU Stewart/GREY / [id number]
[2022-10-14] MEDS: PHENOBARBITAL 20 MG/5 ML 130 MG PO ×6 (02:58→21:12)
[2022-10-14] MEDS: Midazolam HCl/NS 50 MG/50 ML PLAST..BAG IVCONT (02:59)
[2022-10-14 04:34] LABS: VBG Base Excess 3.6 mmol/L; VBG HCO3 25 mmol/L (22-26); VBG pCO2 29 mmHg; VBG pH 7.54 (7.32-7.43); VBG pO2 64 mmHg
[2022-10-14 04:39] LABS: MANUAL DIFF FLAG NO
[2022-10-14 04:40] LABS: Basophils Absolute Auto 0.1 X10*3/uL (0.0-0.2); Basophils Percent Auto 0.9 % (0-2); Eosinophils Absolute Auto 0.4 X10*3/uL (0.0-0.4); Hematocrit 26.2 % (42.0-52.0); Hemoglobin 8.7 g/dl (14.0-18.0); Imm Gran Abs Auto 0.07 X10*3/uL (0.00-0.03); Imm Gran Pct Auto 0.6 % (0.0-0.4); Lymphocytes Absolute Auto 1.3 X10*3/uL (1.2-4.9); Lymphocytes Percent Auto 11.5 % (20-40); Mean Corpuscular HGB Conc 33.2 g/dl (31.0-36.0); Mean Corpuscular Hemoglobin 30.4 pg (27.0-33.0); Mean Corpuscular Volume 91.6 fL (80.0-98.0); Mean Platelet Volume 10.6 fL (9.4-12.4); Monocytes Absolute Auto 1.1 X10*3/uL (0.1-1.2); Monocytes Percent Auto 9.6 % (2-11); Neutrophils Absolute Auto 8.7 x10*3/uL (2.0-8.3); Neutrophils Percent Auto 74.4 % (45-73); Platelet Count 364 X10*3/uL (160-400); Red Blood Count 2.86 X10*6/uL (4.60-5.80); Red Cell Distribution Width 14.6 % (11.0-16.0); Venous Blood Gas Refer to POC result; White Blood Count 11.7 X10*3/uL (4.8-10.8)
[2022-10-14 04:56] LABS: Alanine Aminotransferase 137 U/L (0-40); Albumin Level 3.5 g/dL (3.5-5.0); Alkaline Phosphatase 222 U/L (39-117); Anion Gap 12 (12-20); Aspartate Amino Transferase 160 U/L (5-37); Bilirubin Total 0.3 mg/dL (0.0-1.0); Blood Urea Nitrogen 9 mg/dL (9-16); Calcium 8.2 mg/dL (8.4-10.2); Carbon Dioxide 24 mmol/L (22-29); Chloride 110 mmol/L (96-108); Creatinine Clr Calc Pharmacy 146.4; Estimated Glomerular Filt Rate > 60; Glucose Random 121 mg/dL (60-115); Phosphorus 1.8 mg/dL (2.7-4.5); Potassium 3.7 mmol/L (3.3-5.1); Sodium 142 mmol/L (135-145); Total Protein 5.7 g/dL (6.5-8.0)
[2022-10-14] MEDS: Acetaminophen Oral Liquid 650 MG/20.3 ML SOLUTION PO ×2 (05:23→17:05)
[2022-10-14] MEDS: Potassium Phosphate/NS 15 MMOL/250 ML PLAST..BAG 62.5 MMOL IV (05:24)
[2022-10-14] MEDS: levETIRAcetam in NaCl (iso-os) 1,500 MG/100 ML PIGGYBACK 400 MG IV ×2 (07:16→20:18)
[2022-10-14] MEDS: Enoxaparin Sodium 60 MG/0.6 ML SYRINGE 50 MG SUBCUT ×2 (10:12→21:15)
[2022-10-14] MEDS: cefEPime HCl 1 GM in 0.9 % Sodium Chloride 50 ML IV ×2 (11:30→23:12)
--- NOTE | 2022-10-14 12:10 | P.CNNE_ITS ---
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 His overall condition has not changed except that brainstem functions were relatively intact. Now and then he was showing generalized myoclonic type of movements. Review of Systems Review of Systems: Could not be done with him PMFSH Past Medical History Medical History Anxiety COPD (chronic obstructive pulmonary disease) Depression Opioid dependence Family History Family History Other Lung cancer Social History Social History Household Members: Friend(s) Housing: Apartment Do you presently have visiting nurse or other home services: No Alcohol intake: unknown Second Hand Smoke Exposure: No Substance Use Type: Crack/Cocaine, Marijuana and Opiates Currently Displaying Signs/Symptoms of Drug Intoxication Withdrawal: No Advance Directives: No Advance Directives Information Provided: No service: No Current occupational status: other Meds Allergies Allergy/AdvReac Type Severity Reaction Status Date / Time No Known Allergies Allergy Verified 09/26/22 09:09 Active Medications: Current Medications Acetaminophen (Acetaminophen Oral Liquid 650 Mg/20.3 Ml Solution) 650 mg PO Q6H PRN PRN Reason: Fever Last Admin: 10/14/22 05:23 Dose: 650 mg Albuterol Sulfate (Albuterol Sulfate (0.083%) 2.5 Mg/3 Ml Vial.Neb) 2.5 mg INHALE Q4H PRN PRN Reason: Wheezing Last Admin: 10/12/22 00:22 Dose: 2.5 mg Cisatracurium Besylate (Cisatracurium Besylate 20 Mg/10 Ml Vial) 20 mg IVPUSH Q30M PRN PRN Reason: ventilator synchrony Last Admin: 10/08/22 00:05 Dose: 20 mg Enoxaparin Sodium (Enoxaparin Sodium 60 Mg/0.6 Ml Syringe) 50 mg SUBCUT Q12H SULY Last Admin: 10/14/22 10:12 Dose: 50 mg Norepinephrine Bitartrate (Levophed) 8 mg in 250 mls @ 0 mls/hr IV .Q0M SULY; Protocol Last Titration: 09/29/22 14:54 Dose: Infused Levetiracetam (Keppra) 1,500 mg in 100 mls @ 400 mls/hr IV BID [facility] Last Infusion: 10/14/22 07:51 Dose: Infused Valproic Acid 1,000 mg/ Sodium (Chloride) 110 mls @ 100 mls/hr IV ONCE SULY Last Infusion: 10/10/22 17:46 Dose: Infused Cefepime HCl 1 gm/ Sodium (Chloride) 50 mls @ 100 mls/hr IV Q12H [facility] Last Admin: 10/14/22 11:30 Dose: 100 mls/hr Ketamine HCl (Ketamine Hcl/Ns 50 Mg/5 Ml Syringe) 100 mg IVPUSH Q1H PRN PRN Reason: seizure Last Admin: 10/12/22 12:15 Dose: 100 mg Phenobarbital (Phenobarbital Oral Liq 20 Mg/5 Ml Elixir) 130 mg PO Q4H [facility] Last Admin: 10/14/22 10:12 Dose: 130 mg Valproic Acid (Valproic Acid (As Sodium Salt) 250 Mg/5 Ml Solution) 500 mg PO TID [facility] Last Admin: 10/14/22 07:21 Dose: 500 mg Home Medications Medication Instructions Recorded Confirmed Last Taken Type albuterol sulfate 90 mcg/actuation 2 puff inhalation QID PRN wheezing 06/01/20 09/26/22 Unknown History aerosol inhaler Physical Exam Vital Signs: Vital Signs: Last Vital Signs Temp 100.6 F H 10/14/22 12:00 Pulse 97 10/14/22 12:00 Resp 29 H 10/14/22 12:00 BP 100/51 L 10/14/22 12:00 Pulse Ox 96 10/14/22 12:00 O2 Del Method Mechanical Ventil ation 10/14/22 12:00 O2 Flow Rate 40 09/28/22 03:00 FiO2 40 10/14/22 12:04 BMI result Body Mass Index 17.8 Neuro: Other: Intubated with sedation off. Pupils are before to 5 mm reactive to light. I was able to move his eyes with oculocephalic maneuver. Corneal reflexes were absent. With painful stimuli myoclonic movements on his face were noted and decerebrate rigidity was noted. Results Labs 10/14/22 04:26 10/14/22 04:27 Labs: Short CBC 10/14/22 Range/Units 04:26 WBC 11.7 H (4.8-10.8) X10*3/uL Hgb 8.7 L (14.0-18.0) g/dl Hct 26.2 L (42.0-52.0) % Plt Count 364 (160-400) X10*3/uL BMP 10/14/22 04:27 Sodium 142 Potassium 3.7 Chloride 110 H Carbon Dioxide 24 BUN 9 Creatinine 0.53 Calcium 8.2 L Liver Function 10/14/22 Range/Units 04:27 Total Bilirubin 0.3 (0.0-1.0) mg/dL AST 160 H (5-37) U/L ALT 137 H (0-40) U/L Alkaline Phosphatase 222 H (39-117) U/L Albumin 3.5 (3.5-5.0) g/dL Multiple EEGs have revealed generalize discharges followed by a period of very low activity. Today's EEG was different with prolonged periods of almost no activity followed by brief discharges. Microbiology Microbiology Results: Microbiology 10/09/22 02:49 Blood - Venous Blood Culture - Final No growth after 5 days. 10/09/22 02:45 Blood - Venous Blood Culture - Final No growth after 5 days. 10/09/22 02:38 Sputum - Suctioned Gram Stain - Final 10/09/22 02:38 Sputum - Suctioned Sputum Culture - Final Pseudomonas aeruginosa 10/01/22 11:14 Cerebrospinal Fluid Gram Stain - Final 10/01/22 11:14 Cerebrospinal Fluid CSF Examination - Final 10/01/22 11:14 Cerebrospinal Fluid Fluid Description - Final 10/01/22 11:14 Cerebrospinal Fluid CSF Culture - Final No growth after 3 days. 09/27/22 06:18 Blood - Venous Blood Culture - Final No growth after 5 days. 09/27/22 06:18 Blood - Venous Blood Culture - Final No growth after 5 days. 09/26/22 03:34 Urine clean catch - Urine brown top Urine Culture - Final No growth. Assessment and Plan (1) Anoxic encephalopathy: Status: Acute 41 years old man who is overall clinical picture is suggestive of anoxic encephalopathy. Despite that, his MRI of brain did not reveal visible damage. Because of his relative young age and the MRI findings, I recommend a c onservative approach and referral to a long-term facility to see if he might wake up in days to weeks time. At this time his brainstem functions are relatively intact while with stimulation he reveals myoclonic movements and decerebrate rigidity. If liver enzymes are further infected, I would recommend decreasing or withholding phenobarbital. Time Spent With Patient Time: Total time managing care of this patient today ____ minutes. Procedures Date of Service Date of Service: 10/14/22
[2022-10-14] MEDS: 0.9 % Sodium Chloride 1,000 ML 999 ML IV (12:26)
--- NOTE | 2022-10-14 13:38 | MHC.CM.PN ---
Pt continues care in ICU: having a repeat EEG and neuro eval today: family is having difficulty reaching goals of care decisions: pt's son feels pt will make a recovery if given sufficient time. Pt has been referred to [facility] for LTAC needs: clinical update remitted today: Guardianship will be filed today for appointment of pt's father Dorian. CM to follow.
--- NOTE | 2022-10-14 14:51 | PM.CCPN ---
Subjective Subjective Date of Service: 10/14/22 Interval History: 41-year-old with severe anoxic encephalopathy came in as a full cardiac arrest requiring a 7 minute resuscitation but in unknown amount of down time prior to the hospital and this was on the basis of fentanyl toxicity and since that time he know his initial examination is and for the 1st 3-5 days showed no evidence of brainstem function and he had the no clear-cut MRI abnormalities predominantly involving the bilateral thalamus and and which on subsequent MRIs beginning 10 days after the initial event it did subside but he has had persistent and refractory status epilepticus throughout all of his EEGs but several days ago we came up with a multi drug cocktail data Shala Li did the a stent supple status epilepticus and even myoclonic status and EEG today prove that there was no more seizure activity but he has severe background anoxic encephalopathy and is actually profound but the discrepancies with the anatomically normal looking MRI without any significant diffusion abnormalities currently so it on a on a clinical basis with all the poor prognosticate is within the 1st 72-96 hours and now with 18 19 days behind this with with no sign whatsoever of cognitive function no sleep-wake cycle but he does have jehovah's witness of some brainstem reflexes he can be declared brain but he severely encephalopathic from anoxia but and in inexplicable MRI and the prognosis appears to be very poor the question of course is how long will it take to figure out when a clear-cut clinical statement could be made that prospect of recovery are nearly out of the question He no longer has high temperature spikes but he has got a slightly increasing liver transaminase issue probably related to the phenobarbital which we may have to either cut back or withhold and his temperatures are down to just simply low-grade so I believe his aspiration pneumonitis is probably clinically responding to the antibiotics Critical Care Time (minutes): 45 Physical Exam Vital Signs: Vital Signs: Last Vital Signs Temp 100.4 F 10/14/22 14:00 Pulse 91 10/14/22 14:00 Resp 29 H 10/14/22 14:00 BP 101/55 L 10/14/22 14:00 Pulse Ox 94 10/14/22 14:00 O2 Del Method Mechanical Ventil ation 10/14/22 14:00 O2 Flow Rate 40 09/28/22 03:00 FiO2 40 10/14/22 14:00 BMI result Body Mass Index 17.8 Unresponsive even to deep pain but he does have decerebrate posturing Brainstem reflexes seem to be preserved EEG as described above Cardiac exam with good bilateral carotid upstrokes no bruits no resting gallops Abdomen soft no organomegaly Objective Data Labs 10/14/22 04:26 10/14/22 04:27 Labs: Laboratory Results - last 24 hr 10/14/22 10/14/22 10/14/22 04:26 04:26 04:27 WBC 11.7 H RBC 2.86 L Hgb 8.7 L Hct 26.2 L MCV 91.6 MCH 30.4 MCHC 33.2 RDW 14.6 Plt Count 364 MPV 10.6 Immature Gran % (Auto) 0.6 H Neut % (Auto) 74.4 H Lymph % (Auto) 11.5 L [place] % (Auto) 9.6 Eos % (Auto) 3.0 Baso % (Auto) 0.9 Lymph # (Auto) 1.3 [place] # (Auto) 1.1 Eos # (Auto) 0.4 Baso # (Auto) 0.1 Abs Immat Gran (auto) 0.07 H Absolute Neuts (auto) 8.7 H Absolute Nucleated RBC 0.000 Nucleated RBC % (auto) 0.0 VBG pH 7.54 H VBG pCO2 29 VBG pO2 64 VBG HCO3 25 VBG O2 Saturation 93.0 VBG Base Excess 3.6 Sodium 142 Potassium 3.7 Chloride 110 H Carbon Dioxide 24 Anion Gap 12 BUN 9 Creatinine 0.53 Estim Creat Clear Calc 146.4 Estimated GFR > 60 Random Glucose 121 H Calcium 8.2 L Phosphorus 1.8 L Magnesium 2.0 Total Bilirubin 0.3 AST 160 H ALT 137 H Alkaline Phosphatase 222 H Total Protein 5.7 L Albumin 3.5 Microbiology Microbiology Results: Microbiology 10/09/22 02:49 Blood - Venous Blood Culture - Final No growth after 5 days. 10/09/22 02:45 Blood - Venous Blood Culture - Final No growth after 5 days. 10/09/22 02:38 Sputum - Suctioned Gram Stain - Final 10/09/22 02:38 Sputum - Suctioned Sputum Culture - Final Pseudomonas aeruginosa 10/01/22 11:14 Cerebrospinal Fluid Gram Stain - Final 10/01/22 11:14 Cerebrospinal Fluid CSF Examination - Final 10/01/22 11:14 Cerebrospinal Fluid Fluid Description - Final 10/01/22 11:14 Cerebrospinal Fluid CSF Culture - Final No growth after 3 days. 09/27/22 06:18 Blood - Venous Blood Culture - Final No growth after 5 days. 09/27/22 06:18 Blood - Venous Blood Culture - Final No growth after 5 days. 09/26/22 03:34 Urine clean catch - Urine brown top Urine Culture - Final No growth. 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: Status: Acute (4) Acute anoxic encephalopathy: Status: Acute (5) Status epilepticus: Status: Acute (6) Hyperkalemia: Status: Acute (7) Acute kidney injury: Status: Acute (8) Encephalopathy acute: Status: Acute (9) Substance abuse: Status: Acute (10) Pneumothorax, left: Status: Acute (11) Acute respiratory failure with hypoxia: Status: Acute (12) Overdose: Status: Acute (13) Cardiac arrest: Status: Acute (14) Anxiety: Status: Acute (15) Opioid dependence: Status: Acute (16) COPD (chronic obstructive pulmonary disease): Status: Acute Plan So at this point we continue to support as above and and watch for indications that we might have to reduce and or discontinue phenobarbital altogether but all signs pointing towards very profound anoxic encephalopathy with poor to no prospect for recovery certainly will wait at least 30 days Quality Stroke Does the patient have a stroke diagnosis?: No VTE Prior VTE?: No VTE Risk Level:: Medical - moderate - high VTE Device Contraindication: N/A - Device Ordered VTE Drug Contraindication: N/A - Med Ordered
--- NOTE | 2022-10-14 15:27 | PC.NURSE ---
Assumed care of patient 07:00 Patient bathed at 08:00 with sponge bath 10:00 repeat EEG obtained. 11:45 MD had conference with family at bedside to discuss plan of care, repeat EEG. 12:00 MAPs low 62. MD notified and consulted regarding levophed gtt order, currently paused. Per MD hold levophed gtt and administer 1000 ml normal saline bolus @999 ml/hr. Normal saline bolus given. MAPs improved to goal >65. Patient repositioned Q2H, mouth care Q2H, prevlon system utilized, high fall precautions in place.
[2022-10-15] VITALS (29 sets, daily range): BP systolic 92–116; BP diastolic 54–72; PULSE 85–109; RESP 12–34; TEMP 34.9–39; O2SAT 91–100; BMI 17.8
[2022-10-15] MEDS: PHENOBARBITAL 20 MG/5 ML 130 MG PO ×3 (02:28→11:41)
[2022-10-15] MEDS: Acetaminophen Oral Liquid 650 MG/20.3 ML SOLUTION PO ×2 (03:10→11:40)
[2022-10-15 04:30] LABS: MANUAL DIFF FLAG NO
[2022-10-15 04:34] LABS: Basophils Absolute Auto 0.1 X10*3/uL (0.0-0.2); Basophils Percent Auto 0.8 % (0-2); Eosinophils Absolute Auto 0.3 X10*3/uL (0.0-0.4); Eosinophils Percent Auto 2.2 % (0-4); Hematocrit 26.9 % (42.0-52.0); Imm Gran Abs Auto 0.09 X10*3/uL (0.00-0.03); Imm Gran Pct Auto 0.7 % (0.0-0.4); Lymphocytes Absolute Auto 0.9 X10*3/uL (1.2-4.9); Lymphocytes Percent Auto 6.9 % (20-40); Mean Corpuscular HGB Conc 33.5 g/dl (31.0-36.0); Mean Corpuscular Hemoglobin 30.3 pg (27.0-33.0); Mean Corpuscular Volume 90.6 fL (80.0-98.0); Mean Platelet Volume 10.5 fL (9.4-12.4); Monocytes Absolute Auto 1.5 X10*3/uL (0.1-1.2); Monocytes Percent Auto 10.9 % (2-11); Neutrophils Absolute Auto 10.8 x10*3/uL (2.0-8.3); Neutrophils Percent Auto 78.5 % (45-73); Platelet Count 395 X10*3/uL (160-400); Red Blood Count 2.97 X10*6/uL (4.60-5.80); Red Cell Distribution Width 14.8 % (11.0-16.0); White Blood Count 13.7 X10*3/uL (4.8-10.8)
[2022-10-15 04:50] LABS: Alanine Aminotransferase 137 U/L (0-40); Albumin Level 3.4 g/dL (3.5-5.0); Alkaline Phosphatase 258 U/L (39-117); Anion Gap 12 (12-20); Aspartate Amino Transferase 152 U/L (5-37); Bilirubin Total 0.3 mg/dL (0.0-1.0); Blood Urea Nitrogen 8 mg/dL (9-16); Calcium 8.3 mg/dL (8.4-10.2); Carbon Dioxide 24 mmol/L (22-29); Chloride 110 mmol/L (96-108); Creatinine Clr Calc Pharmacy 132.9; Estimated Glomerular Filt Rate > 60; Glucose Random 130 mg/dL (60-115); Phosphorus 2.7 mg/dL (2.7-4.5); Sodium 142 mmol/L (135-145); Total Protein 5.7 g/dL (6.5-8.0)
[2022-10-15 06:02] LABS: VBG HCO3 25 mmol/L (22-26); VBG pCO2 26 mmHg; VBG pH 7.58 (7.32-7.43); VBG pO2 92 mmHg
[2022-10-15 06:04] LABS: Venous Blood Gas Refer to POC result
[2022-10-15] MEDS: levETIRAcetam in NaCl (iso-os) 1,500 MG/100 ML PIGGYBACK 400 MG IV ×2 (07:33→20:37)
[2022-10-15] MEDS: Enoxaparin Sodium 60 MG/0.6 ML SYRINGE 50 MG SUBCUT ×2 (11:41→21:42)
[2022-10-15] MEDS: cefEPime HCl 1 GM in 0.9 % Sodium Chloride 50 ML IV ×2 (11:42→23:58)
--- NOTE | 2022-10-15 12:52 | P.PNCC_ITS ---
Subjective Subjective Date of Service: 10/15/22 Interval History: 41-year-old male who on the basis of cocaine and fentanyl toxicity came in apneic and in full arrest 7 minute resuscitation here but unknown amount of down time prior to the hospital has a severe anoxic encephalopathy has not really awake and but did after 10-14 days developed brainstem reflexes and function has a persistent fever with now more of an intermittent fever spike up to 102 and with the elevation of the liver function tests some becoming increasingly concerned about drug fever related to the phenobarbital as I was initially with the Dilantin so I am actually not going to abruptly stop it because it took so long to control his status epilepticus am going to lower it from 130 mg to 65 mg and watch him overnight until tomorrow and then possibly either just back and down to 32 mg or discontinue it at that point He just had 1 bowel movement today when I clinically suspicious of C diff and he remains on cefepime to which she is sensitive that is with the Pseudomonas that grew from his sputum where he has got a clinical aspiration Critical Care Time (minutes): 45 Physical Exam Vital Signs: Vital Signs: Last Vital Signs Temp 102.2 F H 10/15/22 12:00 Pulse 102 H 10/15/22 12:00 Resp 31 H 10/15/22 12:00 BP 113/69 10/15/22 12:00 Pulse Ox 95 10/15/22 12:00 O2 Del Method Mechanical Ventil ation 10/15/22 12:00 O2 Flow Rate 40 09/28/22 03:00 FiO2 40 10/15/22 12:00 BMI result Body Mass Index 17.8 Febrile to 102 but yet he still remains unresponsive when stimulated however has the usual veno self extinguishing very brief myoclonic episode involving his face Chest without adventitious sounds but still adeno mildly tachypneic with 11-12 L minute ventilatory requirement Bedside echo with class 1 LV function Abdomen soft good bilateral breath sounds and a ischemia bowel sounds and no organomegaly Mild stage I left buttock pressure sore Objective Data Labs 10/15/22 04:17 10/15/22 04:17 Labs: Laboratory Results - last 24 hr 10/15/22 10/15/22 10/15/22 04:13 04:17 04:17 WBC 13.7 H RBC 2.97 L Hgb 9.0 L Hct 26.9 L MCV 90.6 MCH 30.3 MCHC 33.5 RDW 14.8 Plt Count 395 MPV 10.5 Immature Gran % (Auto) 0.7 H Neut % (Auto) 78.5 H Lymph % (Auto) 6.9 L [place] % (Auto) 10.9 Eos % (Auto) 2.2 Baso % (Auto) 0.8 Lymph # (Auto) 0.9 L [place] # (Auto) 1.5 H Eos # (Auto) 0.3 Baso # (Auto) 0.1 Abs Immat Gran (auto) 0.09 H Absolute Neuts (auto) 10.8 H Absolute Nucleated RBC 0.000 Nucleated RBC % (auto) 0.0 VBG pH 7.58 H VBG pCO2 26 VBG pO2 92 VBG HCO3 25 VBG O2 Saturation 99.0 VBG Base Excess 4.0 Sodium 142 Potassium 4.0 Chloride 110 H Carbon Dioxide 24 Anion Gap 12 BUN 8 L Creatinine 0.54 Estim Creat Clear Calc 132.9 Estimated GFR > 60 Random Glucose 130 H Calcium 8.3 L Phosphorus 2.7 Magnesium 2.0 Total Bilirubin 0.3 AST 152 H ALT 137 H Alkaline Phosphatase 258 H Total Protein 5.7 L Albumin 3.4 L Microbiology Microbiology Results: Microbiology 10/09/22 02:49 Blood - Venous Blood Culture - Final No growth after 5 days. 10/09/22 02:45 Blood - Venous Blood Culture - Final No growth after 5 days. 10/09/22 02:38 Sputum - Suctioned Gram Stain - Final 10/09/22 02:38 Sputum - Suctioned Sputum Culture - Final Pseudomonas aeruginosa 10/01/22 11:14 Cerebrospinal Fluid Gram Stain - Final 10/01/22 11:14 Cerebrospinal Fluid CSF Examination - Final 10/01/22 11:14 Cerebrospinal Fluid Fluid Description - Final 10/01/22 11:14 Cerebrospinal Fluid CSF Culture - Final No growth after 3 days. 09/27/22 06:18 Blood - Venous Blood Culture - Final No growth after 5 days. 09/27/22 06:18 Blood - Venous Blood Culture - Final No growth after 5 days. 09/26/22 03:34 Urine clean catch - Urine brown top Urine Culture - Final No growth. 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: Status: Acute (4) Acute anoxic encephalopathy: Status: Acute (5) Status epilepticus: Status: Acute (6) Hyperkalemia: Status: Acute (7) Acute kidney injury: Status: Acute (8) Encephalopathy acute: Status: Acute (9) Substance abuse: Status: Acute (10) Pneumothorax, left: Status: Acute (11) Acute respiratory failure with hypoxia: Status: Acute (12) Overdose: Status: Acute (13) Cardiac arrest: Status: Acute (14) Anxiety: Status: Acute (15) Opioid dependence: Status: Acute (16) COPD (chronic obstructive pulmonary disease): Status: Acute Plan Plan is to wean and discontinue phenobarbital and he has no breakthrough seizures we will not add anything else but my plan B would be in in case we need at look 0 some might p.o. and stay away from the [facility] Quality Stroke Does the patient have a stroke diagnosis?: No VTE Prior VTE?: No VTE Risk Level:: Medical - moderate - high VTE Device Contraindication: N/A - Device Ordered VTE Drug Contraindication: N/A - Med Ordered
[2022-10-15] MEDS: levoFLOXacin/D5W 750 MG/150 ML PIGGYBACK 100 MG IV (13:34)
--- NOTE | 2022-10-15 15:37 | MHC.CM.PN ---
EMR REVIEWED. PT REMAINS ON VENT IN ICU. CM CONTINUES TO FOLLOW AND BE AVAILABLE FOR FAMILY SUPPORT.
--- NOTE | 2022-10-15 17:25 | PC.NURSE ---
RALPH REMOVED 13:15. PT DTV BY 19:15. [place] [employer] APPLIED. PT VOIDED 2X AND PASSED VOIDING TRIAL.
[2022-10-15] MEDS: PHENOBARBITAL 20 MG/5 ML 65 MG PO (17:44)
[2022-10-15] MEDS: Chlorhexidine Gluc Oral Rinse 15 ML MOUTHWASH BUCCAL (20:37)
[2022-10-16] VITALS (31 sets, daily range): BP systolic 97–118; BP diastolic 58–73; PULSE 84–105; RESP 16–36; TEMP 33–38.4; O2SAT 92–99; BMI 17.8
[2022-10-16] MEDS: Acetaminophen Oral Liquid 650 MG/20.3 ML SOLUTION PO (00:04)
[2022-10-16] MEDS: PHENOBARBITAL 20 MG/5 ML 65 MG PO (00:04)
[2022-10-16 04:48] LABS: VBG Base Excess 4.9 mmol/L; VBG HCO3 25 mmol/L (22-26); VBG pCO2 25 mmHg; VBG pO2 60 mmHg
[2022-10-16 04:50] LABS: Venous Blood Gas Refer to POC result
[2022-10-16 04:57] LABS: Basophils Absolute Auto 0.1 X10*3/uL (0.0-0.2); Basophils Percent Auto 0.7 % (0-2); Eosinophils Absolute Auto 0.3 X10*3/uL (0.0-0.4); Eosinophils Percent Auto 2.3 % (0-4); Hematocrit 29.5 % (42.0-52.0); Hemoglobin 9.4 g/dl (14.0-18.0); Imm Gran Abs Auto 0.24 X10*3/uL (0.00-0.03); Imm Gran Pct Auto 1.6 % (0.0-0.4); Lymphocytes Absolute Auto 1.4 X10*3/uL (1.2-4.9); Lymphocytes Percent Auto 9.2 % (20-40); MANUAL DIFF FLAG SCAN; Mean Corpuscular HGB Conc 31.9 g/dl (31.0-36.0); Mean Corpuscular Hemoglobin 29.3 pg (27.0-33.0); Mean Corpuscular Volume 91.9 fL (80.0-98.0); Mean Platelet Volume 11.2 fL (9.4-12.4); Monocytes Absolute Auto 1.8 X10*3/uL (0.1-1.2); Monocytes Percent Auto 12.2 % (2-11); Neutrophils Absolute Auto 10.8 x10*3/uL (2.0-8.3); Platelet Count 287 X10*3/uL (160-400); Red Blood Count 3.21 X10*6/uL (4.60-5.80); Red Cell Distribution Width 15.4 % (11.0-16.0); SCAN SMEAR FLAG 1; White Blood Count 14.6 X10*3/uL (4.8-10.8)
[2022-10-16 05:15] LABS: Alanine Aminotransferase 171 U/L (0-40); Albumin Level 3.4 g/dL (3.5-5.0); Alkaline Phosphatase 282 U/L (39-117); Anion Gap 12 (12-20); Aspartate Amino Transferase 207 U/L (5-37); Bilirubin Total 0.4 mg/dL (0.0-1.0); Blood Urea Nitrogen 9 mg/dL (9-16); Calcium 8.3 mg/dL (8.4-10.2); Carbon Dioxide 25 mmol/L (22-29); Chloride 107 mmol/L (96-108); Creatinine Clr Calc Pharmacy 140.2; Estimated Glomerular Filt Rate > 60; Glucose Random 100 mg/dL (60-115); Magnesium 2.2 mg/dL (1.6-2.6); Phosphorus 2.9 mg/dL (2.7-4.5); Potassium 4.9 mmol/L (3.3-5.1); Sodium 139 mmol/L (135-145); Total Protein 5.8 g/dL (6.5-8.0)
[2022-10-16 05:19] LABS: SLIDE REVIEW VERIFIED
[2022-10-16] MEDS: PHENOBARBITAL 20 MG/5 ML 32 MG PO (06:05)
[2022-10-16] MEDS: Famotidine/PF 20 MG/2 ML VIAL IVPUSH (08:42)
[2022-10-16] MEDS: Chlorhexidine Gluc Oral Rinse 15 ML MOUTHWASH BUCCAL ×3 (08:42→19:59)
[2022-10-16] MEDS: Enoxaparin Sodium 60 MG/0.6 ML SYRINGE 50 MG SUBCUT ×2 (08:43→23:01)
[2022-10-16] MEDS: levETIRAcetam in NaCl (iso-os) 1,500 MG/100 ML PIGGYBACK 400 MG IV ×2 (08:56→20:01)
[2022-10-16] MEDS: Midazolam HCl/PF 2 MG/2 ML VIAL 4 MG IVPUSH ×3 (09:20→15:26)
[2022-10-16] MEDS: cefEPime HCl 1 GM in 0.9 % Sodium Chloride 50 ML IV (13:05)
[2022-10-16] MEDS: Ketamine HCl/NS 50 MG/5 ML SYRINGE 100 MG IVPUSH (13:06)
--- NOTE | 2022-10-16 13:16 | MHC.CM.PN ---
Met with pt's father, Dorian and sister Marla at their request. Goals of care reviewed with both feeling as though [employer] will be the option they decide on but will need pt's son, Todd, to agree with this plan. Todd is 18 and struggling with the severity and permanance of his father's condition. Dorian states that Todd is very slowly starting to accept the outcome of severe impairment and group home placement versus [employer]. Discussed spiritual care for pt and family: family would like Sacrament of the sick to be administered when they are ready. Guardianship filed for ? LTAC needs: CM to follow
--- NOTE | 2022-10-16 16:27 | PM.CCPN ---
Subjective Subjective Date of Service: 10/16/22 Interval History: 41-year-old male who suffered a cardio respiratory arrest for an unknown amount of time before the hospital based on cocaine and fentanyl toxicity had 7 minute resuscitation in the ER with intubation and has been unresponsive since even to deep pain Next week will be a month since here and will be somewhere between 10 and 14 days since the tracheostomy and PEG tube He has EEG confirmation that he is no longer in status epilepticus and myoclonic status which he had an on a prolonged basis for quite some time because he was refractory and 1 of the drugs that quieted the process down was phenobarbital but then the patient was persistently febrile and developed per increasing liver transaminases he had the ventrally I stopped the phenobarbital and the transaminitis is improving the fever is improving at this point and he remains on antibiotics for a probable pre-hospital aspiration but despite all this and being well supported etc. he still remains unresponsive it took him the better part of the 1st 10 days plus to redevelop brainstem reflexes and the last EEG was indicative of a profound anoxic encephalopathy which at strength to the very grim nature of the prognosis and very low likelihood that he would ever redeveloped a meaningful cognitive function Critical Care Time (minutes): 45 Physical Exam Vital Signs: Vital Signs: Last Vital Signs Temp 99.5 F 10/16/22 12:00 Pulse 99 10/16/22 15:00 Resp 33 H 10/16/22 15:00 BP 112/73 10/16/22 15:00 Pulse Ox 94 10/16/22 15:00 O2 Del Method Mechanical Ventil ation 10/16/22 15:00 O2 Flow Rate 40 09/28/22 03:00 FiO2 35 10/16/22 15:15 BMI result Body Mass Index 17.8 Unresponsive and fully supported ventilator and PEG tube Normal sinus rhythm is stable lung function no adventitious sounds Bedside echo with normal LV function He still has intermittent but very short lived Brigid clonus mostly involving facial muscles itself extinguishes quickly and that is only with stimulation usually pulmonary toileting Just has a small stage I overlying left buttock Objective Data Labs 10/16/22 04:32 10/16/22 04:32 Labs: Laboratory Results - last 24 hr 10/01/22 10/16/22 10/16/22 Unknown 04:32 04:32 WBC 14.6 H RBC 3.21 L Hgb 9.4 L Hct 29.5 L MCV 91.9 MCH 29.3 MCHC 31.9 RDW 15.4 Plt Count 287 D MPV 11.2 Immature Gran % (Auto) 1.6 H Neut % (Auto) 74.0 H Lymph % (Auto) 9.2 L [place] % (Auto) 12.2 H Eos % (Auto) 2.3 Baso % (Auto) 0.7 Lymph # (Auto) 1.4 [place] # (Auto) 1.8 H Eos # (Auto) 0.3 Baso # (Auto) 0.1 Abs Immat Gran (auto) 0.24 H Absolute Neuts (auto) 10.8 H Absolute Nucleated RBC 0.000 Nucleated RBC % (auto) 0.0 Smear Tech's Comments VERIFIED VBG pH VBG pCO2 VBG pO2 VBG HCO3 VBG O2 Saturation VBG Base Excess Sodium 139 Potassium 4.9 D Chloride 107 Carbon Dioxide 25 Anion Gap 12 BUN 9 Creatinine 0.51 Estim Creat Clear Calc 140.2 Estimated GFR > 60 Random Glucose 100 Calcium 8.3 L Phosphorus 2.9 Magnesium 2.2 Total Bilirubin 0.4 AST 207 H ALT 171 H Alkaline Phosphatase 282 H Total Protein 5.8 L Albumin 3.4 L CSF West Nile Virus SEE NOTE 10/16/22 10/16/22 04:35 04:44 WBC RBC Hgb Hct MCV MCH MCHC RDW Plt Count MPV Immature Gran % (Auto) Neut % (Auto) Lymph % (Auto) [place] % (Auto) Eos % (Auto) Baso % (Auto) Lymph # (Auto) [place] # (Auto) Eos # (Auto) Baso # (Auto) Abs Immat Gran (auto) Absolute Neuts (auto) Absolute Nucleated RBC Nucleated RBC % (auto) Smear Tech's Comments VBG pH 7.60 H* Cancelled VBG pCO2 25 Cancelled VBG pO2 60 Cancelled VBG HCO3 25 Cancelled VBG O2 Saturation 93.0 Cancelled VBG Base Excess 4.9 Cancelled Sodium Potassium Chloride Carbon Dioxide Anion Gap BUN Creatinine Estim Creat Clear Calc Estimated GFR Random Glucose Calcium Phosphorus Magnesium Total Bilirubin AST ALT Alkaline Phosphatase Total Protein Albumin CSF West Nile Virus Microbiology Microbiology Results: Microbiology 10/09/22 02:49 Blood - Venous Blood Culture - Final No growth after 5 days. 10/09/22 02:45 Blood - Venous Blood Culture - Final No growth after 5 days. 10/09/22 02:38 Sputum - Suctioned Gram Stain - Final 10/09/22 02:38 Sputum - Suctioned Sputum Culture - Final Pseudomonas aeruginosa 10/01/22 11:14 Cerebrospinal Fluid Gram Stain - Final 10/01/22 11:14 Cerebrospinal Fluid CSF Examination - Final 10/01/22 11:14 Cerebrospinal Fluid Fluid Description - Final 10/01/22 11:14 Cerebrospinal Fluid CSF Culture - Final No growth after 3 days. 09/27/22 06:18 Blood - Venous Blood Culture - Final No growth after 5 days. 09/27/22 06:18 Blood - Venous Blood Culture - Final No growth after 5 days. 09/26/22 03:34 Urine clean catch - Urine brown top Urine Culture - Final No growth. 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: Status: Acute (4) Acute anoxic encephalopathy: Status: Acute (5) Status epilepticus: Status: Acute (6) Hyperkalemia: Status: Acute (7) Acute kidney injury: Status: Acute (8) Encephalopathy acute: Status: Acute (9) Substance abuse: Status: Acute (10) Pneumothorax, left: Status: Acute (11) Acute respiratory failure with hypoxia: Status: Acute (12) Overdose: Status: Acute (13) Cardiac arrest: Status: Acute (14) Anxiety: Status: Acute (15) Opioid dependence: Status: Acute (16) COPD (chronic obstructive pulmonary disease): Status: Acute Plan Plan is to just maintain full support and we have p.r.n. Versed followed by ketamine if the Brigid clonus or seizure activity Keely persist and just waiting out time try to at least allow him the 30 days before deciding on comfort measures Quality Stroke Does the patient have a stroke diagnosis?: No VTE Prior VTE?: No VTE Risk Level:: Medical - moderate - high VTE Device Contraindication: N/A - Device Ordered VTE Drug Contraindication: N/A - Med Ordered
[2022-10-17] VITALS (31 sets, daily range): BP systolic 103–129; BP diastolic 51–92; PULSE 88–103; RESP 17–34; TEMP 34.7–38.4; O2SAT 89–98; BMI 17.6
[2022-10-17] MEDS: cefEPime HCl 1 GM in 0.9 % Sodium Chloride 50 ML IV ×3 (00:14→23:44)
[2022-10-17 05:11] LABS: VBG Base Excess 4.7 mmol/L; VBG HCO3 26 mmol/L (22-26); VBG pCO2 28 mmHg; VBG pH 7.56 (7.32-7.43); VBG pO2 79 mmHg
[2022-10-17 05:17] LABS: Basophils Absolute Auto 0.1 X10*3/uL (0.0-0.2); Basophils Percent Auto 0.6 % (0-2); Eosinophils Absolute Auto 0.2 X10*3/uL (0.0-0.4); Eosinophils Percent Auto 1.4 % (0-4); Hematocrit 31.1 % (42.0-52.0); Hemoglobin 10.5 g/dl (14.0-18.0); Imm Gran Abs Auto 0.17 X10*3/uL (0.00-0.03); Imm Gran Pct Auto 1.2 % (0.0-0.4); Lymphocytes Absolute Auto 1.2 X10*3/uL (1.2-4.9); Lymphocytes Percent Auto 7.9 % (20-40); MANUAL DIFF FLAG SCAN; Mean Corpuscular HGB Conc 33.8 g/dl (31.0-36.0); Mean Corpuscular Hemoglobin 30.3 pg (27.0-33.0); Mean Corpuscular Volume 89.6 fL (80.0-98.0); Mean Platelet Volume 10.2 fL (9.4-12.4); Monocytes Absolute Auto 1.9 X10*3/uL (0.1-1.2); Neutrophils Percent Auto 75.9 % (45-73); Platelet Count 495 X10*3/uL (160-400); Red Blood Count 3.47 X10*6/uL (4.60-5.80); Red Cell Distribution Width 15.8 % (11.0-16.0); SCAN SMEAR FLAG 1; White Blood Count 14.5 X10*3/uL (4.8-10.8)
[2022-10-17 05:18] LABS: Venous Blood Gas Refer to POC result
[2022-10-17 05:34] LABS: Alanine Aminotransferase 167 U/L (0-40); Albumin Level 3.6 g/dL (3.5-5.0); Alkaline Phosphatase 311 U/L (39-117); Anion Gap 15 (12-20); Aspartate Amino Transferase 147 U/L (5-37); Bilirubin Total 0.5 mg/dL (0.0-1.0); Blood Urea Nitrogen 12 mg/dL (9-16); Calcium 8.6 mg/dL (8.4-10.2); Carbon Dioxide 23 mmol/L (22-29); Chloride 104 mmol/L (96-108); Creatinine Clr Calc Pharmacy 133.6; Estimated Glomerular Filt Rate > 60; Glucose Random 112 mg/dL (60-115); Magnesium 2.3 mg/dL (1.6-2.6); Phosphorus 3.4 mg/dL (2.7-4.5); Potassium 4.7 mmol/L (3.3-5.1); Sodium 137 mmol/L (135-145); Total Protein 6.3 g/dL (6.5-8.0)
[2022-10-17 05:42] LABS: SLIDE REVIEW VERIFIED
[2022-10-17] MEDS: Midazolam HCl/PF 2 MG/2 ML VIAL 4 MG IVPUSH ×4 (07:26→16:52)
[2022-10-17] MEDS: levETIRAcetam in NaCl (iso-os) 1,500 MG/100 ML PIGGYBACK 400 MG IV ×2 (08:13→20:10)
[2022-10-17] MEDS: Chlorhexidine Gluc Oral Rinse 15 ML MOUTHWASH BUCCAL ×3 (08:13→20:10)
[2022-10-17] MEDS: Famotidine/PF 20 MG/2 ML VIAL IVPUSH (08:13)
[2022-10-17] MEDS: Ketamine HCl/NS 50 MG/5 ML SYRINGE 100 MG IVPUSH ×3 (08:24→15:02)
--- NOTE | 2022-10-17 08:45 | MHC.CLN ---
F/U PT RECEIVING JEVITY 1.0 AT MAX GOAL RATE OF 60ML/HR WITH 240ML Q 6 HRS PROVIDES 1526KCALS (28KCALS/KG), 64G PROTEIN (1.3G/KG), 2234ML TOTAL WATER FROM FORMULA AND FLUSHES (40.6ML/kg) RECOMMEND DECREASING FREE WATER FLUSHES TO 120Q 8 TO PROVIDE 1634ML TOTAL WATER FROM FORMULA AND FLUSHES (32ML/KG) FEVERS ARE STABLE AT THIS TIME; CAN ADJUST FREE WATER NEEDED CONTINUE TO MONITOR TOLERANCE, RESIDUALS AND LYTES
--- NOTE | 2022-10-17 10:05 | MHC.CM.PN ---
Received call from Kathy, pt's son's mother who remains close w/pt. Kathy states although Todd is struggling with his father's condition, he understands that there is no chance for a meaningful recovery and acknowledges that his father would not want to be in a termite treater care facility dependent on others. Todd supports ASSOCIATE PROFESSOR PHYSICIAN with an understanding of the outcome. At this time, he does not wish for a family meeting but may consider after the weekend - Kathy states Todd needs a few days to process the gravity of the situation. MD aware. Family will notify CM and/or ICU staff on time frame for [facility] arrangements. Guardianship process stopped in anticipation of ASSOCIATE PROFESSOR PHYSICIAN status. CM to follow.
[2022-10-17] MEDS: Enoxaparin Sodium 60 MG/0.6 ML SYRINGE 50 MG SUBCUT ×2 (11:15→21:58)
--- NOTE | 2022-10-17 14:56 | PM.CCPN ---
Subjective Subjective Date of Service: 10/17/22 Interval History: 41-year-old male and anoxic encephalopathy from cocaine and fentanyl overdose wide prolonged hypoxia remains unresponsive now over 3 weeks with tracheostomy and PEG all systems are well maintained on no sedation and he still is even unresponsive to deep pain and had a last EEG when he was free of the status epilepticus in the myoclonic status etc. that basically showed profoundly depressed background activity consistent with severe anoxic encephalopathy and discussions with the family were all now realize that he has a extremely poor even grave prognosis for recovery of meaningful cognitive function and are awaiting next week to complete a month before saying comfort measures Critical Care Time (minutes): 45 Physical Exam Vital Signs: Vital Signs: Last Vital Signs Temp 99.3 F 10/17/22 14:00 Pulse 101 H 10/17/22 14:00 Resp 30 H 10/17/22 14:00 BP 115/66 10/17/22 14:00 Pulse Ox 91 L 10/17/22 14:00 O2 Del Method Mechanical Ventil ation 10/17/22 14:00 O2 Flow Rate 40 09/28/22 03:00 FiO2 30 10/17/22 14:00 BMI result Body Mass Index 17.6 Unresponsive to deep pain no sedation on board Temperature maximum is a are diminishing now that he is off the phenobarbital and liver function tests are improving Abdomen is soft tolerating feedings Skin with a stage I pressure sore left buttock Cardiac exam normal sinus rhythm with normal LV and RV function by bedside echo Objective Data Labs 10/17/22 05:05 10/17/22 05:05 Labs: Laboratory Results - last 24 hr 10/17/22 10/17/22 10/17/22 05:03 05:05 05:05 WBC 14.5 H RBC 3.47 L Hgb 10.5 L Hct 31.1 L MCV 89.6 MCH 30.3 MCHC 33.8 RDW 15.8 Plt Count 495 H D MPV 10.2 Immature Gran % (Auto) 1.2 H Neut % (Auto) 75.9 H Lymph % (Auto) 7.9 L [place] % (Auto) 13.0 H Eos % (Auto) 1.4 Baso % (Auto) 0.6 Lymph # (Auto) 1.2 [place] # (Auto) 1.9 H Eos # (Auto) 0.2 Baso # (Auto) 0.1 Abs Immat Gran (auto) 0.17 H Absolute Neuts (auto) 11.0 H Absolute Nucleated RBC 0.000 Nucleated RBC % (auto) 0.0 Smear Tech's Comments VERIFIED VBG pH 7.56 H VBG pCO2 28 VBG pO2 79 VBG HCO3 26 VBG O2 Saturation 96.0 VBG Base Excess 4.7 Sodium 137 Potassium 4.7 Chloride 104 Carbon Dioxide 23 Anion Gap 15 BUN 12 Creatinine 0.53 Estim Creat Clear Calc 133.6 Estimated GFR > 60 Random Glucose 112 Calcium 8.6 Phosphorus 3.4 Magnesium 2.3 Total Bilirubin 0.5 AST 147 H ALT 167 H Alkaline Phosphatase 311 H Total Protein 6.3 L Albumin 3.6 Microbiology Microbiology Results: Microbiology 10/09/22 02:49 Blood - Venous Blood Culture - Final No growth after 5 days. 10/09/22 02:45 Blood - Venous Blood Culture - Final No growth after 5 days. 10/09/22 02:38 Sputum - Suctioned Gram Stain - Final 10/09/22 02:38 Sputum - Suctioned Sputum Culture - Final Pseudomonas aeruginosa 10/01/22 11:14 Cerebrospinal Fluid Gram Stain - Final 10/01/22 11:14 Cerebrospinal Fluid CSF Examination - Final 10/01/22 11:14 Cerebrospinal Fluid Fluid Description - Final 10/01/22 11:14 Cerebrospinal Fluid CSF Culture - Final No growth after 3 days. 09/27/22 06:18 Blood - Venous Blood Culture - Final No growth after 5 days. 09/27/22 06:18 Blood - Venous Blood Culture - Final No growth after 5 days. 09/26/22 03:34 Urine clean catch - Urine brown top Urine Culture - Final No growth. 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: Status: Acute (4) Acute anoxic encephalopathy: Status: Acute (5) Status epilepticus: Status: Acute (6) Hyperkalemia: Status: Acute (7) Acute kidney injury: Status: Acute (8) Encephalopathy acute: Status: Acute (9) Substance abuse: Status: Acute (10) Pneumothorax, left: Status: Acute (11) Acute respiratory failure with hypoxia: Status: Acute (12) Overdose: Status: Acute (13) Cardiac arrest: Status: Acute (14) Anxiety: Status: Acute (15) Opioid dependence: Status: Acute (16) COPD (chronic obstructive pulmonary disease): Status: Acute Plan Plan is continue support exactly as above trying to allow amount to next week which is his 4th week before declaring comfort measures or if by some miracle he were to awaken apply for a long-term acute care unit Quality Stroke Does the patient have a stroke diagnosis?: No VTE Prior VTE?: No VTE Risk Level:: Medical - moderate - high VTE Device Contraindication: N/A - Device Ordered VTE Drug Contraindication: N/A - Med Ordered
[2022-10-17] MEDS: Acetaminophen Oral Liquid 650 MG/20.3 ML SOLUTION PO (22:30)
[2022-10-18] VITALS (30 sets, daily range): BP systolic 106–129; BP diastolic 57–77; PULSE 82–100; RESP 11–34; TEMP 35–38.4; O2SAT 90–99; BMI 17.1
[2022-10-18] MEDS: Midazolam HCl/PF 2 MG/2 ML VIAL 4 MG IVPUSH (04:18)
[2022-10-18 05:49] LABS: VBG Base Excess 5.1 mmol/L; VBG HCO3 26 mmol/L (22-26); VBG pCO2 28 mmHg; VBG pH 7.57 (7.32-7.43); VBG pO2 44 mmHg
[2022-10-18 05:51] LABS: Venous Blood Gas Refer to POC result
[2022-10-18 06:00] LABS: Basophils Absolute Auto 0.1 X10*3/uL (0.0-0.2); Basophils Percent Auto 0.7 % (0-2); Eosinophils Absolute Auto 0.3 X10*3/uL (0.0-0.4); Eosinophils Percent Auto 2.1 % (0-4); Hematocrit 30.1 % (42.0-52.0); Hemoglobin 9.9 g/dl (14.0-18.0); Imm Gran Abs Auto 0.25 X10*3/uL (0.00-0.03); Imm Gran Pct Auto 2.1 % (0.0-0.4); Lymphocytes Absolute Auto 1.1 X10*3/uL (1.2-4.9); Lymphocytes Percent Auto 8.7 % (20-40); MANUAL DIFF FLAG SCAN; Mean Corpuscular HGB Conc 32.9 g/dl (31.0-36.0); Mean Corpuscular Volume 91.2 fL (80.0-98.0); Monocytes Absolute Auto 1.9 X10*3/uL (0.1-1.2); Monocytes Percent Auto 15.8 % (2-11); Neutrophils Absolute Auto 8.6 x10*3/uL (2.0-8.3); Neutrophils Percent Auto 70.6 % (45-73); Platelet Count 469 X10*3/uL (160-400); Red Cell Distribution Width 15.9 % (11.0-16.0); SCAN SMEAR FLAG 1; White Blood Count 12.1 X10*3/uL (4.8-10.8)
[2022-10-18 06:02] LABS: SLIDE REVIEW VERIFIED
[2022-10-18 06:21] LABS: Alanine Aminotransferase 116 U/L (0-40); Albumin Level 3.4 g/dL (3.5-5.0); Alkaline Phosphatase 275 U/L (39-117); Anion Gap 15 (12-20); Aspartate Amino Transferase 77 U/L (5-37); Bilirubin Total 0.4 mg/dL (0.0-1.0); Blood Urea Nitrogen 17 mg/dL (9-16); Calcium 8.5 mg/dL (8.4-10.2); Carbon Dioxide 25 mmol/L (22-29); Chloride 103 mmol/L (96-108); Creatinine Clr Calc Pharmacy 116.7; Estimated Glomerular Filt Rate > 60; Glucose Random 108 mg/dL (60-115); Magnesium 2.3 mg/dL (1.6-2.6); Phosphorus 2.8 mg/dL (2.7-4.5); Potassium 4.6 mmol/L (3.3-5.1); Sodium 138 mmol/L (135-145)
[2022-10-18] MEDS: Acetaminophen Oral Liquid 650 MG/20.3 ML SOLUTION PO (06:27)
[2022-10-18] MEDS: Chlorhexidine Gluc Oral Rinse 15 ML MOUTHWASH BUCCAL ×3 (09:32→20:20)
[2022-10-18] MEDS: Enoxaparin Sodium 60 MG/0.6 ML SYRINGE 50 MG SUBCUT ×2 (09:32→21:57)
[2022-10-18] MEDS: Famotidine/PF 20 MG/2 ML VIAL IVPUSH (09:32)
[2022-10-18] MEDS: levETIRAcetam in NaCl (iso-os) 1,500 MG/100 ML PIGGYBACK 400 MG IV ×2 (09:32→20:20)
[2022-10-18] MEDS: cefEPime HCl 1 GM in 0.9 % Sodium Chloride 50 ML IV ×2 (11:27→23:21)
--- NOTE | 2022-10-18 11:34 | PC.NURSE ---
Unable to administer PO Vimpat for PeG tube administration per Rodríguez in Pharmacy. Suspension release to be delivered per Rodríguez in Pharmacy. aware.
--- NOTE | 2022-10-18 12:12 | P.PNCC_ITS ---
Subjective Subjective Date of Service: 10/18/22 Interval History: 41-year-old male with severe in anoxic encephalopathy more than 3 weeks of complete unresponsiveness even to deep pain still does have brainstem reflexes and temperature is low-grade but diminishing and liver functions continue to improve and I believe this was all phenobarbital which has been withdrawn at this point and thus far does not have any breakthrough status episodes and but we have let co some I would to be on board because in because he still has multiple but short-lived and and sulfa extinguishing episodes of myoclonus/seizure Critical Care Time (minutes): 32 Physical Exam Vital Signs: Vital Signs: Last Vital Signs Temp 98.9 F 10/18/22 12:00 Pulse 96 10/18/22 12:00 Resp 29 H 10/18/22 12:00 BP 119/60 10/18/22 12:00 Pulse Ox 94 10/18/22 12:00 O2 Del Method Mechanical Ventil ation 10/18/22 12:00 O2 Flow Rate 40 09/28/22 03:00 FiO2 30 10/18/22 12:00 BMI result Body Mass Index 17.1 Completely comatose unresponsive to deep pain Bedside echo with normal LV and RV function Abdomen benign Lungs clear even to chest x-ray Objective Data Labs 10/18/22 05:44 10/18/22 05:44 Labs: Laboratory Results - last 24 hr 10/18/22 10/18/22 10/18/22 05:41 05:44 05:44 WBC 12.1 H RBC 3.30 L Hgb 9.9 L Hct 30.1 L MCV 91.2 MCH 30.0 MCHC 32.9 RDW 15.9 Plt Count 469 H MPV 10.0 Immature Gran % (Auto) 2.1 H Neut % (Auto) 70.6 Lymph % (Auto) 8.7 L [place] % (Auto) 15.8 H Eos % (Auto) 2.1 Baso % (Auto) 0.7 Lymph # (Auto) 1.1 L [place] # (Auto) 1.9 H Eos # (Auto) 0.3 Baso # (Auto) 0.1 Abs Immat Gran (auto) 0.25 H Absolute Neuts (auto) 8.6 H Absolute Nucleated RBC 0.000 Nucleated RBC % (auto) 0.0 Smear Tech's Comments VERIFIED VBG pH 7.57 H VBG pCO2 28 VBG pO2 44 VBG HCO3 26 VBG O2 Saturation 74.0 VBG Base Excess 5.1 Sodium 138 Potassium 4.6 Chloride 103 Carbon Dioxide 25 Anion Gap 15 BUN 17 H Creatinine 0.59 Estim Creat Clear Calc 116.7 Estimated GFR > 60 Random Glucose 108 Calcium 8.5 Phosphorus 2.8 Magnesium 2.3 Total Bilirubin 0.4 AST 77 H ALT 116 H Alkaline Phosphatase 275 H Total Protein 6.0 L Albumin 3.4 L Microbiology Microbiology Results: Microbiology 10/09/22 02:49 Blood - Venous Blood Culture - Final No growth after 5 days. 10/09/22 02:45 Blood - Venous Blood Culture - Final No growth after 5 days. 10/09/22 02:38 Sputum - Suctioned Gram Stain - Final 10/09/22 02:38 Sputum - Suctioned Sputum Culture - Final Pseudomonas aeruginosa 10/01/22 11:14 Cerebrospinal Fluid Gram Stain - Final 10/01/22 11:14 Cerebrospinal Fluid CSF Examination - Final 10/01/22 11:14 Cerebrospinal Fluid Fluid Description - Final 10/01/22 11:14 Cerebrospinal Fluid CSF Culture - Final No growth after 3 days. 09/27/22 06:18 Blood - Venous Blood Culture - Final No growth after 5 days. 09/27/22 06:18 Blood - Venous Blood Culture - Final No growth after 5 days. 09/26/22 03:34 Urine clean catch - Urine brown top Urine Culture - Final No growth. 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: Status: Acute (4) Acute anoxic encephalopathy: Status: Acute (5) Status epilepticus: Status: Acute (6) Hyperkalemia: Status: Acute (7) Acute kidney injury: Status: Acute (8) Encephalopathy acute: Status: Acute (9) Substance abuse: Status: Acute (10) Pneumothorax, left: Status: Acute (11) Acute respiratory failure with hypoxia: Status: Acute (12) Overdose: Status: Acute (13) Cardiac arrest: Status: Acute (14) Anxiety: Status: Acute (15) Opioid dependence: Status: Acute (16) COPD (chronic obstructive pulmonary disease): Status: Acute Plan We continue to support between the the ventilator and nutrition via the PEG tube and just follow his electrolytes to correct what we need to around the edges Quality Stroke Does the patient have a stroke diagnosis?: No VTE Prior VTE?: No VTE Risk Level:: Medical - moderate - high VTE Device Contraindication: N/A - Device Ordered VTE Drug Contraindication: N/A - Med Ordered
[2022-10-18] MEDS: Lacosamide Oral Solution 100 MG/10 ML SOLUTION 200 MG PO (20:39)
[2022-10-19] VITALS (31 sets, daily range): BP systolic 113–126; BP diastolic 57–83; PULSE 75–95; RESP 18–31; TEMP 35–38.3; O2SAT 93–99; BMI 17.3
[2022-10-19] MEDS: Acetaminophen Oral Liquid 650 MG/20.3 ML SOLUTION PO ×2 (01:58→20:21)
[2022-10-19 04:46] LABS: VBG Base Excess 5.9 mmol/L; VBG HCO3 28 mmol/L (22-26); VBG pCO2 35 mmHg; VBG pH 7.51 (7.32-7.43); VBG pO2 66 mmHg
[2022-10-19 04:47] LABS: Basophils Absolute Auto 0.1 X10*3/uL (0.0-0.2); Basophils Percent Auto 0.8 % (0-2); Eosinophils Absolute Auto 0.3 X10*3/uL (0.0-0.4); Eosinophils Percent Auto 2.5 % (0-4); Hematocrit 30.7 % (42.0-52.0); Hemoglobin 9.9 g/dl (14.0-18.0); Imm Gran Abs Auto 0.31 X10*3/uL (0.00-0.03); Imm Gran Pct Auto 2.6 % (0.0-0.4); Lymphocytes Absolute Auto 1.4 X10*3/uL (1.2-4.9); Lymphocytes Percent Auto 11.8 % (20-40); MANUAL DIFF FLAG SCAN; Mean Corpuscular HGB Conc 32.2 g/dl (31.0-36.0); Mean Corpuscular Hemoglobin 29.4 pg (27.0-33.0); Mean Corpuscular Volume 91.1 fL (80.0-98.0); Mean Platelet Volume 10.2 fL (9.4-12.4); Monocytes Absolute Auto 1.9 X10*3/uL (0.1-1.2); Neutrophils Percent Auto 66.3 % (45-73); Platelet Count 491 X10*3/uL (160-400); Red Blood Count 3.37 X10*6/uL (4.60-5.80); Red Cell Distribution Width 15.6 % (11.0-16.0); SCAN SMEAR FLAG 1; Venous Blood Gas Refer to POC result
[2022-10-19 05:03] LABS: Alanine Aminotransferase 124 U/L (0-40); Albumin Level 3.3 g/dL (3.5-5.0); Alkaline Phosphatase 273 U/L (39-117); Anion Gap 11 (12-20); Aspartate Amino Transferase 138 U/L (5-37); Bilirubin Total 0.4 mg/dL (0.0-1.0); Blood Urea Nitrogen 16 mg/dL (9-16); Calcium 8.4 mg/dL (8.4-10.2); Carbon Dioxide 26 mmol/L (22-29); Chloride 103 mmol/L (96-108); Creatinine Clr Calc Pharmacy 127.5; Estimated Glomerular Filt Rate > 60; Glucose Random 103 mg/dL (60-115); Magnesium 2.2 mg/dL (1.6-2.6); Phosphorus 2.9 mg/dL (2.7-4.5); Potassium 4.6 mmol/L (3.3-5.1); Sodium 135 mmol/L (135-145); Total Protein 5.9 g/dL (6.5-8.0)
[2022-10-19 05:04] LABS: SLIDE REVIEW VERIFIED
[2022-10-19] MEDS: levETIRAcetam in NaCl (iso-os) 1,500 MG/100 ML PIGGYBACK 400 MG IV ×2 (08:25→20:20)
[2022-10-19] MEDS: Chlorhexidine Gluc Oral Rinse 15 ML MOUTHWASH BUCCAL ×3 (08:25→20:19)
[2022-10-19] MEDS: Famotidine/PF 20 MG/2 ML VIAL IVPUSH (08:25)
[2022-10-19] MEDS: Lacosamide Oral Solution 100 MG/10 ML SOLUTION 200 MG PO ×2 (08:47→20:19)
[2022-10-19] MEDS: Enoxaparin Sodium 60 MG/0.6 ML SYRINGE 50 MG SUBCUT ×2 (09:59→22:27)
[2022-10-19] MEDS: cefEPime HCl 1 GM in 0.9 % Sodium Chloride 50 ML IV ×2 (11:06→23:33)
--- NOTE | 2022-10-19 13:16 | MHC.CM.PN ---
Patient remains vented/intubated in ICU. Anticipate probable LIMNOLOGIST on Thursday. Continue to monitor for d/c needs.
--- NOTE | 2022-10-19 15:23 | PM.CCPN ---
Subjective Subjective Date of Service: 10/19/22 Interval History: 41-year-old polysubstance abuse with cocaine and fentanyl intoxication suffered cardiorespiratory arrest unknown amount of time pre-hospital under went 7 minute resuscitation in hospital including intubation and for 3 and half weeks now the last 2 weeks of course with tracheostomy and PEG he has remained comatose unresponsive even to deep pain initially was a myoclonic status and status epilepticus and finally achieved a drug combination currently Keppra and valproic acid and lacosamide. With the initial development of fever I had concerns about Dilantin which I weaned and discontinued subsequently started phenobarbital which was very effective however again fevers developed as well as significant elevation of liver function tests and when I stop that there was some resolution of of liver functions as well as fever Other medical complications and had included an initial aspiration with clinical pneumonitis and sputum currently growing MRSA as well as Citrobacter and he is being covered for this and x-rays are doing well and we did a follow-up EEG after contouring the 2 status issues and the background activity showed evidence of severe anoxic encephalopathy so be it between that and the the know the month of unresponsiveness as I explained to the family in it it did bowed very poorly for his prognosis for meaningful recovery what took him 10 days to develop E did develop late and that was the brainstem reflexes which include light reactivity oculocephalics corneals cough gag and spontaneous respiration The family plans this week to potentially make him comfort measures only but until such time he remains on full support including tube feedings which he is tolerating Critical Care Time (minutes): 35 Physical Exam Vital Signs: Vital Signs: Last Vital Signs Temp 99.3 F 10/19/22 12:00 Pulse 94 10/19/22 15:00 Resp 30 H 10/19/22 15:00 BP 120/69 10/19/22 15:00 Pulse Ox 93 10/19/22 15:00 O2 Del Method Mechanical Ventil ation 10/19/22 15:00 O2 Flow Rate 40 09/28/22 03:00 FiO2 30 10/19/22 15:05 BMI result Body Mass Index 17.3 Normal sinus rhythm rate 93 with oxygen saturation 96% blood pressure is 120/66 for a mean of 76 All 4 extremities flaccid no spontaneous movement no response even to deep pain Abdomen soft no organomegaly tolerating feedings Chest is clear to auscultation no adventitious sounds Cardiac exam by bedside echo with normal LV and RV function Small stage I pressure sore left buttock Objective Data Labs 10/19/22 04:29 10/19/22 04:29 Labs: Laboratory Results - last 24 hr 10/19/22 10/19/22 10/19/22 04:29 04:29 04:37 WBC 12.0 H RBC 3.37 L Hgb 9.9 L Hct 30.7 L MCV 91.1 MCH 29.4 MCHC 32.2 RDW 15.6 Plt Count 491 H MPV 10.2 Immature Gran % (Auto) 2.6 H Neut % (Auto) 66.3 Lymph % (Auto) 11.8 L [place] % (Auto) 16.0 H Eos % (Auto) 2.5 Baso % (Auto) 0.8 Lymph # (Auto) 1.4 [place] # (Auto) 1.9 H Eos # (Auto) 0.3 Baso # (Auto) 0.1 Abs Immat Gran (auto) 0.31 H Absolute Neuts (auto) 8.0 Absolute Nucleated RBC 0.000 Nucleated RBC % (auto) 0.0 Smear Tech's Comments VERIFIED VBG pH 7.51 H VBG pCO2 35 VBG pO2 66 VBG HCO3 28 H VBG O2 Saturation 92.0 VBG Base Excess 5.9 Sodium 135 Potassium 4.6 Chloride 103 Carbon Dioxide 26 Anion Gap 11 L BUN 16 Creatinine 0.54 Estim Creat Clear Calc 127.5 Estimated GFR > 60 Random Glucose 103 Calcium 8.4 Phosphorus 2.9 Magnesium 2.2 Total Bilirubin 0.4 AST 138 H ALT 124 H Alkaline Phosphatase 273 H Total Protein 5.9 L Albumin 3.3 L Microbiology Microbiology Results: Microbiology 10/09/22 02:49 Blood - Venous Blood Culture - Final No growth after 5 days. 10/09/22 02:45 Blood - Venous Blood Culture - Final No growth after 5 days. 10/09/22 02:38 Sputum - Suctioned Gram Stain - Final 10/09/22 02:38 Sputum - Suctioned Sputum Culture - Final Pseudomonas aeruginosa 10/01/22 11:14 Cerebrospinal Fluid Gram Stain - Final 10/01/22 11:14 Cerebrospinal Fluid CSF Examination - Final 10/01/22 11:14 Cerebrospinal Fluid Fluid Description - Final 10/01/22 11:14 Cerebrospinal Fluid CSF Culture - Final No growth after 3 days. 09/27/22 06:18 Blood - Venous Blood Culture - Final No growth after 5 days. 09/27/22 06:18 Blood - Venous Blood Culture - Final No growth after 5 days. 09/26/22 03:34 Urine clean catch - Urine brown top Urine Culture - Final No growth. 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: Status: Acute (4) Acute anoxic encephalopathy: Status: Acute (5) Status epilepticus: Status: Acute (6) Hyperkalemia: Status: Acute (7) Acute kidney injury: Status: Acute (8) Encephalopathy acute: Status: Acute (9) Substance abuse: Status: Acute (10) Pneumothorax, left: Status: Acute (11) Acute respiratory failure with hypoxia: Status: Acute (12) Overdose: Status: Acute (13) Cardiac arrest: Status: Acute (14) Anxiety: Status: Acute (15) Opioid dependence: Status: Acute (16) COPD (chronic obstructive pulmonary disease): Status: Acute Plan Will continue the full support until such time as family decides and it was described to them as a prognostically grave situation for meaningful recovery and for an anoxic injury if recovery were to happen the expectation would be within that 1st month Quality Stroke Does the patient have a stroke diagnosis?: No VTE Prior VTE?: No VTE Risk Level:: Medical - moderate - high VTE Device Contraindication: N/A - Device Ordered VTE Drug Contraindication: N/A - Med Ordered
[2022-10-20] VITALS (30 sets, daily range): BP systolic 107–136; BP diastolic 65–77; PULSE 88–100; RESP 17–33; TEMP 35–38.7; O2SAT 92–99; BMI 16.4
[2022-10-20 04:28] LABS: VBG Base Excess 5.1 mmol/L; VBG HCO3 26 mmol/L (22-26); VBG pCO2 30 mmHg; VBG pH 7.55 (7.32-7.43); VBG pO2 77 mmHg
[2022-10-20 04:52] LABS: Basophils Absolute Auto 0.1 X10*3/uL (0.0-0.2); Basophils Percent Auto 0.9 % (0-2); Eosinophils Absolute Auto 0.3 X10*3/uL (0.0-0.4); Eosinophils Percent Auto 2.5 % (0-4); Hematocrit 30.9 % (42.0-52.0); Hemoglobin 10.3 g/dl (14.0-18.0); Imm Gran Abs Auto 0.47 X10*3/uL (0.00-0.03); Imm Gran Pct Auto 3.5 % (0.0-0.4); Lymphocytes Absolute Auto 1.3 X10*3/uL (1.2-4.9); Lymphocytes Percent Auto 9.8 % (20-40); MANUAL DIFF FLAG SCAN; Mean Corpuscular HGB Conc 33.3 g/dl (31.0-36.0); Mean Corpuscular Hemoglobin 30.8 pg (27.0-33.0); Mean Corpuscular Volume 92.5 fL (80.0-98.0); Mean Platelet Volume 10.7 fL (9.4-12.4); Monocytes Absolute Auto 2.1 X10*3/uL (0.1-1.2); Monocytes Percent Auto 15.4 % (2-11); Neutrophils Absolute Auto 9.1 x10*3/uL (2.0-8.3); Neutrophils Percent Auto 67.9 % (45-73); Platelet Count 566 X10*3/uL (160-400); Red Blood Count 3.34 X10*6/uL (4.60-5.80); Red Cell Distribution Width 15.4 % (11.0-16.0); SCAN SMEAR FLAG 1; White Blood Count 13.4 X10*3/uL (4.8-10.8)
[2022-10-20 04:59] LABS: Venous Blood Gas Refer to POC result
[2022-10-20 05:10] LABS: Alanine Aminotransferase 152 U/L (0-40); Albumin Level 3.4 g/dL (3.5-5.0); Alkaline Phosphatase 290 U/L (39-117); Anion Gap 14 (12-20); Aspartate Amino Transferase 199 U/L (5-37); Bilirubin Total 0.3 mg/dL (0.0-1.0); Blood Urea Nitrogen 16 mg/dL (9-16); Calcium 8.4 mg/dL (8.4-10.2); Carbon Dioxide 25 mmol/L (22-29); Chloride 102 mmol/L (96-108); Creatinine Clr Calc Pharmacy 121.9; Estimated Glomerular Filt Rate > 60; Glucose Random 104 mg/dL (60-115); Magnesium 2.2 mg/dL (1.6-2.6); Phosphorus 3.1 mg/dL (2.7-4.5); Potassium 4.8 mmol/L (3.3-5.1); Sodium 136 mmol/L (135-145); Total Protein 6.1 g/dL (6.5-8.0)
[2022-10-20 05:11] LABS: SLIDE REVIEW VERIFIED
[2022-10-20] MEDS: levETIRAcetam in NaCl (iso-os) 1,500 MG/100 ML PIGGYBACK 400 MG IV ×2 (08:24→21:19)
[2022-10-20] MEDS: Lacosamide Oral Solution 100 MG/10 ML SOLUTION 200 MG PO ×2 (08:24→21:19)
[2022-10-20] MEDS: Famotidine/PF 20 MG/2 ML VIAL IVPUSH (08:24)
[2022-10-20] MEDS: Chlorhexidine Gluc Oral Rinse 15 ML MOUTHWASH BUCCAL ×3 (08:25→21:19)
--- NOTE | 2022-10-20 09:57 | P.PNCC_ITS ---
Subjective Subjective Date of Service: 10/20/22 Interval History: 41-year-old gentleman with underlying history of substance abuse admitted on 09/26/2022 with an out of hospital cardiac arrest with unclear down time. Patient was brought to ER without pulse with CPR started immediately and returned spontaneous circulation achieved after approximately 7 minutes with patient intubated during the CPR and transferred to the intensive care unit thereafter. Hospital course complicated by left-sided pneumothorax, likely secondary to CPR, now status post placement of chest tube, still with air leak. Also, developmental of myoclonic jerks, loaded with Keppra and phenytoin, still intermittently requiring Versed. MRI with bilateral cell line make lesions, but no diffuse injury. Evaluated by neurology, EEG consistent with status epilepticus vs diffuse anoxia. Lumbar puncture obtained after neurology recommendations. Repeat EEG with the same pattern of status epilepticus versus diffuse anoxia.Tracheostomy and gastrostomy placed on 10/08/2022. Status epilepticus has resolved, however now underlying baseline activity on EEG is poor. Goals of care discussions are ongoing. No events overnight. Critical Care Time (minutes): 45 Physical Exam Vital Signs: Vital Signs: Last Vital Signs Temp 99.2 F 10/20/22 08:00 Pulse 92 10/20/22 09:00 Resp 25 H 10/20/22 09:00 BP 125/75 10/20/22 09:00 Pulse Ox 97 10/20/22 09:00 O2 Del Method Mechanical Ventil ation 10/20/22 09:00 O2 Flow Rate 40 09/28/22 03:00 FiO2 30 10/20/22 09:00 BMI result Body Mass Index 16.4 Const: General: no acute distress HEENT: Head: Yes other Eyes: Sclerae: sclerae normal Pupils: Equal, round and reactive pupils present Neck: Neck: Yes no lymphadenopathy and Yes other ( tracheostomy on vent) Resp: Auscultation: clear to auscultation bilaterally Cardio: Rate: regular rate Rhythm: regular rhythm Heart sounds: no gallops, no murmurs and no rubs GI: Inspection: Yes G-tube present Palpation (GI): Soft to palpation and Other GI palpation findings present ( Nontender) Auscultation: normal bowel sounds Neuro: Cranial nerves: Yes Equal, round and reactive pupils present Extrem: General: Yes no pedal edema, No clubbing and No cyanosis Objective Data Labs 10/20/22 04:20 10/20/22 04:20 Labs: Laboratory Results - last 24 hr 10/20/22 10/20/22 10/20/22 04:16 04:20 04:20 WBC 13.4 H RBC 3.34 L Hgb 10.3 L Hct 30.9 L MCV 92.5 MCH 30.8 MCHC 33.3 RDW 15.4 Plt Count 566 H MPV 10.7 Immature Gran % (Auto) 3.5 H Neut % (Auto) 67.9 Lymph % (Auto) 9.8 L [place] % (Auto) 15.4 H Eos % (Auto) 2.5 Baso % (Auto) 0.9 Lymph # (Auto) 1.3 [place] # (Auto) 2.1 H Eos # (Auto) 0.3 Baso # (Auto) 0.1 Abs Immat Gran (auto) 0.47 H Absolute Neuts (auto) 9.1 H Absolute Nucleated RBC 0.000 Nucleated RBC % (auto) 0.0 Smear Tech's Comments VERIFIED VBG pH 7.55 H VBG pCO2 30 VBG pO2 77 VBG HCO3 26 VBG O2 Saturation 96.0 VBG Base Excess 5.1 Sodium 136 Potassium 4.8 Chloride 102 Carbon Dioxide 25 Anion Gap 14 BUN 16 Creatinine 0.54 Estim Creat Clear Calc 121.9 Estimated GFR > 60 Random Glucose 104 Calcium 8.4 Phosphorus 3.1 Magnesium 2.2 Total Bilirubin 0.3 AST 199 H ALT 152 H Alkaline Phosphatase 290 H Total Protein 6.1 L Albumin 3.4 L Microbiology Microbiology Results: Microbiology 10/09/22 02:49 Blood - Venous Blood Culture - Final No growth after 5 days. 10/09/22 02:45 Blood - Venous Blood Culture - Final No growth after 5 days. 10/09/22 02:38 Sputum - Suctioned Gram Stain - Final 10/09/22 02:38 Sputum - Suctioned Sputum Culture - Final Pseudomonas aeruginosa 10/01/22 11:14 Cerebrospinal Fluid Gram Stain - Final 10/01/22 11:14 Cerebrospinal Fluid CSF Examination - Final 10/01/22 11:14 Cerebrospinal Fluid Fluid Description - Final 10/01/22 11:14 Cerebrospinal Fluid CSF Culture - Final No growth after 3 days. 09/27/22 06:18 Blood - Venous Blood Culture - Final No growth after 5 days. 09/27/22 06:18 Blood - Venous Blood Culture - Final No growth after 5 days. 09/26/22 03:34 Urine clean catch - Urine brown top Urine Culture - Final No growth. Progress Note: A&P Assessment and plan (1) Anoxic encephalopathy: Status: Acute (2) Acute respiratory failure with hypoxia: Status: Acute (3) Cardiac arrest: Status: Acute (4) Opioid dependence: Status: Acute (5) Substance abuse: Status: Acute Plan Assessment: 41-year-old gentleman with underlying substance abuse admitted with out of hospital cardiac arrest with CPR started in emergency room and return of spontaneous circulation achieved after approximately 7 minutes of CPR with patient intubated during the CPR Plan: Neuro: Acute encephalopathy after cardiac arrest with worsening myoclonus, now on Keppra, valproate, lacosamide with interruption of status epilepticus, but poor baseline EEG. Discussion goals of care are ongoing. Cardiac: Out of hospital cardiac arrest with CPR in emergency room and return of spontaneous circulation achieved. Continue to titrate off pressors as tolerated. Pulmonary: Intubated during the CPR, planned for tracheostomy and gastrostomy placement. Renal: Acute kidney injury likely secondary to volume depletion, resolved. Continue to monitor renal indices and urine output. Endo: No acute issues. GI: No acute issues. ID: No acute issues. Heme/Onc: No acute issues. Psych: No acute issues. Miscellaneous: No acute issues. Prophylaxis: Heparin, famotidine Diet: tube feeds Critical care time spent: 45 minutes Quality Stroke Does the patient have a stroke diagnosis?: No VTE Prior VTE?: No VTE Risk Level:: Medical - moderate - high VTE Device Contraindication: N/A - Device Ordered VTE Drug Contraindication: N/A - Med Ordered
[2022-10-20] MEDS: Enoxaparin Sodium 60 MG/0.6 ML SYRINGE 50 MG SUBCUT ×2 (10:14→21:19)
--- NOTE | 2022-10-20 10:33 | MHC.CLN ---
F/U PT RECEIVING JEVITY 1.0 AT MAX GOAL RATE OF 60ML/HR WITH WATER FLUSH 120ML Q 8 HRS PROVIDES 1526KCALS (32.2KCALS/KG), 64G PROTEIN (1.35G/KG), 1634ML TOTAL WATER FROM FORMULA AND FLUSHES (34.5ML/KG). TOLERATING CURRENT TUBE FEED/FLUSH. FOLLOWING WITH TEAM. CONTINUE TO MONITOR TOLERANCE, RESIDUALS AND LYTES.
[2022-10-20] MEDS: cefEPime HCl 1 GM in 0.9 % Sodium Chloride 50 ML IV ×2 (12:41→23:49)
[2022-10-21] VITALS (28 sets, daily range): BP systolic 102–136; BP diastolic 63–85; PULSE 94–122; RESP 20–34; TEMP 34.8–39.5; O2SAT 90–96; BMI 16.7
[2022-10-21] MEDS: Acetaminophen Oral Liquid 650 MG/20.3 ML SOLUTION PO ×2 (02:15→23:39)
[2022-10-21 04:46] LABS: VBG Base Excess 5.7 mmol/L; VBG HCO3 27 mmol/L (22-26); VBG pCO2 32 mmHg; VBG pH 7.54 (7.32-7.43); VBG pO2 80 mmHg
[2022-10-21 04:54] LABS: Venous Blood Gas Refer to POC result
[2022-10-21 04:59] LABS: Basophils Absolute Auto 0.2 X10*3/uL (0.0-0.2); Basophils Percent Auto 0.9 % (0-2); Eosinophils Absolute Auto 0.2 X10*3/uL (0.0-0.4); Eosinophils Percent Auto 1.1 % (0-4); Hematocrit 32.5 % (42.0-52.0); Hemoglobin 10.5 g/dl (14.0-18.0); Imm Gran Abs Auto 0.48 X10*3/uL (0.00-0.03); Imm Gran Pct Auto 2.9 % (0.0-0.4); Lymphocytes Absolute Auto 1.1 X10*3/uL (1.2-4.9); Lymphocytes Percent Auto 6.7 % (20-40); MANUAL DIFF FLAG SCAN; Mean Corpuscular HGB Conc 32.3 g/dl (31.0-36.0); Mean Corpuscular Volume 92.9 fL (80.0-98.0); Mean Platelet Volume 10.1 fL (9.4-12.4); Monocytes Absolute Auto 2.5 X10*3/uL (0.1-1.2); Monocytes Percent Auto 14.7 % (2-11); Neutrophils Absolute Auto 12.4 x10*3/uL (2.0-8.3); Neutrophils Percent Auto 73.7 % (45-73); Platelet Count 594 X10*3/uL (160-400); Red Cell Distribution Width 15.8 % (11.0-16.0); SCAN SMEAR FLAG 1; White Blood Count 16.8 X10*3/uL (4.8-10.8)
[2022-10-21 05:15] LABS: Albumin Level 3.4 g/dL (3.5-5.0); Anion Gap 13 (12-20); Blood Urea Nitrogen 18 mg/dL (9-16); Calcium 8.7 mg/dL (8.4-10.2); Carbon Dioxide 25 mmol/L (22-29); Chloride 104 mmol/L (96-108); Creatinine Clr Calc Pharmacy 115.4; Estimated Glomerular Filt Rate > 60; Glucose Random 126 mg/dL (60-115); Magnesium 2.1 mg/dL (1.6-2.6); Phosphorus 3.1 mg/dL (2.7-4.5); Potassium 4.6 mmol/L (3.3-5.1); Sodium 137 mmol/L (135-145)
[2022-10-21 05:28] LABS: SLIDE REVIEW VERIFIED
[2022-10-21] MEDS: Lacosamide Oral Solution 100 MG/10 ML SOLUTION 200 MG PO ×2 (07:53→21:19)
[2022-10-21] MEDS: Famotidine/PF 20 MG/2 ML VIAL IVPUSH (07:54)
[2022-10-21] MEDS: Chlorhexidine Gluc Oral Rinse 15 ML MOUTHWASH BUCCAL ×3 (07:54→21:19)
[2022-10-21] MEDS: levETIRAcetam in NaCl (iso-os) 1,500 MG/100 ML PIGGYBACK 400 MG IV ×2 (08:04→21:18)
[2022-10-21] MEDS: Midazolam HCl/PF 2 MG/2 ML VIAL 4 MG IVPUSH ×2 (08:06→19:39)
[2022-10-21] MEDS: Ketamine HCl/NS 50 MG/5 ML SYRINGE 100 MG IVPUSH ×5 (09:31→19:16)
--- NOTE | 2022-10-21 10:14 | PM.CCPN ---
Subjective Subjective Date of Service: 10/21/22 Interval History: 41-year-old gentleman with underlying history of substance abuse admitted on 09/26/2022 with an out of hospital cardiac arrest with unclear down time. Patient was brought to ER without pulse with CPR started immediately and returned spontaneous circulation achieved after approximately 7 minutes with patient intubated during the CPR and transferred to the intensive care unit thereafter. Hospital course complicated by left-sided pneumothorax, likely secondary to CPR, now status post placement of chest tube, still with air leak. Also, developmental of myoclonic jerks, loaded with Keppra and phenytoin, still intermittently requiring Versed. MRI with bilateral cell line make lesions, but no diffuse injury. Evaluated by neurology, EEG consistent with status epilepticus vs diffuse anoxia. Lumbar puncture obtained after neurology recommendations. Repeat EEG with the same pattern of status epilepticus versus diffuse anoxia.Tracheostomy and gastrostomy placed on 10/08/2022. Status epilepticus has resolved, however now underlying baseline activity on EEG is poor. Goals of care discussions are ongoing. No events overnight.No significant changes over the last 24 hours. Critical Care Time (minutes): 30 Physical Exam Vital Signs: Vital Signs: Last Vital Signs Temp 98.8 F 10/21/22 08:00 Pulse 101 H 10/21/22 10:00 Resp 29 H 10/21/22 10:00 BP 126/68 10/21/22 10:00 Pulse Ox 94 10/21/22 10:00 O2 Del Method Mechanical Ventil ation 10/21/22 10:00 O2 Flow Rate 40 09/28/22 03:00 FiO2 35 10/21/22 10:00 BMI result Body Mass Index 16.7 Const: General: no acute distress Eyes: Sclerae: sclerae normal Pupils: Equal, round and reactive pupils present Neck: Neck: Yes trachea midline and Yes tracheostomy present (on vent) Resp: Auscultation: clear to auscultation bilaterally Cardio: Rate: tachycardic Rhythm: regular rhythm Heart sounds: no gallops, no murmurs and no rubs GI: Inspection: Yes G-tube present Palpation (GI): Soft to palpation and Other GI palpation findings present ( Nontender) Auscultation: normal bowel sounds Neuro: Cranial nerves: Yes Equal, round and reactive pupils present Extrem: General: Yes no pedal edema, No clubbing and No cyanosis Objective Data Labs 10/21/22 04:39 10/21/22 04:39 Labs: Laboratory Results - last 24 hr 10/21/22 10/21/22 10/21/22 04:38 04:39 04:39 WBC 16.8 H RBC 3.50 L Hgb 10.5 L Hct 32.5 L MCV 92.9 MCH 30.0 MCHC 32.3 RDW 15.8 Plt Count 594 H MPV 10.1 Immature Gran % (Auto) 2.9 H Neut % (Auto) 73.7 H Lymph % (Auto) 6.7 L [place] % (Auto) 14.7 H Eos % (Auto) 1.1 Baso % (Auto) 0.9 Lymph # (Auto) 1.1 L [place] # (Auto) 2.5 H Eos # (Auto) 0.2 Baso # (Auto) 0.2 Abs Immat Gran (auto) 0.48 H Absolute Neuts (auto) 12.4 H Absolute Nucleated RBC 0.000 Nucleated RBC % (auto) 0.0 Smear Tech's Comments VERIFIED VBG pH 7.54 H VBG pCO2 32 VBG pO2 80 VBG HCO3 27 H VBG O2 Saturation 97.0 VBG Base Excess 5.7 Sodium 137 Potassium 4.6 Chloride 104 Carbon Dioxide 25 Anion Gap 13 BUN 18 H Creatinine 0.57 Estim Creat Clear Calc 115.4 Estimated GFR > 60 Random Glucose 126 H Calcium 8.7 Phosphorus 3.1 Magnesium 2.1 Albumin 3.4 L Microbiology Microbiology Results: Microbiology 10/09/22 02:49 Blood - Venous Blood Culture - Final No growth after 5 days. 10/09/22 02:45 Blood - Venous Blood Culture - Final No growth after 5 days. 10/09/22 02:38 Sputum - Suctioned Gram Stain - Final 10/09/22 02:38 Sputum - Suctioned Sputum Culture - Final Pseudomonas aeruginosa 10/01/22 11:14 Cerebrospinal Fluid Gram Stain - Final 10/01/22 11:14 Cerebrospinal Fluid CSF Examination - Final 10/01/22 11:14 Cerebrospinal Fluid Fluid Description - Final 10/01/22 11:14 Cerebrospinal Fluid CSF Culture - Final No growth after 3 days. 09/27/22 06:18 Blood - Venous Blood Culture - Final No growth after 5 days. 09/27/22 06:18 Blood - Venous Blood Culture - Final No growth after 5 days. 09/26/22 03:34 Urine clean catch - Urine brown top Urine Culture - Final No growth. Progress Note: A&P Assessment and plan (1) Anoxic encephalopathy: Status: Acute (2) Failure to wean from mechanical ventilation: Status: Acute (3) Cardiac arrest: Status: Acute (4) Substance abuse: Status: Acute (5) Overdose: Status: Acute Plan Assessment: 41-year-old gentleman with underlying substance abuse admitted with out of hospital cardiac arrest with CPR started in emergency room and return of spontaneous circulation achieved after approximately 7 minutes of CPR with patient intubated during the CPR Plan: Neuro: Acute encephalopathy after cardiac arrest with worsening myoclonus, now on Keppra, valproate, lacosamide with interruption of status epilepticus, but poor baseline EEG. Discussion goals of care are ongoing. Cardiac: Out of hospital cardiac arrest with CPR in emergency room and return of spontaneous circulation achieved. Pulmonary: Intubated during the CPR, status post tracheostomy and gastrostomy placement on 10/08/2021. Renal: Acute kidney injury likely secondary to volume depletion, resolved. Continue to monitor renal indices and urine output. Endo: No acute issues. GI: No acute issues. ID: No acute issues. Heme/Onc: No acute issues. Psych: No acute issues. Miscellaneous: No acute issues. Prophylaxis: Heparin, famotidine Diet: tube feeds Critical care time spent: 30 minutes Quality Stroke Does the patient have a stroke diagnosis?: No VTE Prior VTE?: No VTE Risk Level:: Medical - moderate - high VTE Device Contraindication: N/A - Device Ordered VTE Drug Contraindication: N/A - Med Ordered
[2022-10-21] MEDS: Enoxaparin Sodium 60 MG/0.6 ML SYRINGE 50 MG SUBCUT ×2 (12:03→21:19)
[2022-10-21] MEDS: cefEPime HCl 1 GM in 0.9 % Sodium Chloride 50 ML IV (12:06)
--- NOTE | 2022-10-21 14:48 | MHC.CM.PN ---
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 Per Kathy, Jesus Alberto feels strongly about waiting the full 30 days following pt's admission to ICU to ensure that pt will not regain brain functioning. Today is day 25. He is aware of the last EEG findings that document anoxic injury. Family requests to hold off on [facility]ick at this time. ICU care team updated on PA[employer] SUPERVISOR plan.
[2022-10-22] VITALS (32 sets, daily range): BP systolic 92–135; BP diastolic 51–76; PULSE 89–108; RESP 19–31; TEMP 32.7–39.2; O2SAT 92–98; BMI 16.4
[2022-10-22 04:48] LABS: VBG Base Excess 4.7 mmol/L; VBG HCO3 26 mmol/L (22-26); VBG pCO2 30 mmHg; VBG pH 7.54 (7.32-7.43); VBG pO2 78 mmHg
[2022-10-22 05:26] LABS: Basophils Absolute Auto 0.2 X10*3/uL (0.0-0.2); Basophils Percent Auto 0.8 % (0-2); Eosinophils Absolute Auto 0.1 X10*3/uL (0.0-0.4); Eosinophils Percent Auto 0.5 % (0-4); Hematocrit 32.1 % (42.0-52.0); Hemoglobin 10.4 g/dl (14.0-18.0); Imm Gran Abs Auto 0.46 X10*3/uL (0.00-0.03); Imm Gran Pct Auto 2.1 % (0.0-0.4); Lymphocytes Absolute Auto 1.5 X10*3/uL (1.2-4.9); Lymphocytes Percent Auto 6.9 % (20-40); MANUAL DIFF FLAG SCAN; Mean Corpuscular HGB Conc 32.4 g/dl (31.0-36.0); Mean Corpuscular Hemoglobin 29.8 pg (27.0-33.0); Mean Platelet Volume 10.7 fL (9.4-12.4); Monocytes Absolute Auto 3.3 X10*3/uL (0.1-1.2); Monocytes Percent Auto 15.2 % (2-11); Neutrophils Percent Auto 74.5 % (45-73); Platelet Count 546 X10*3/uL (160-400); Red Blood Count 3.49 X10*6/uL (4.60-5.80); Red Cell Distribution Width 15.9 % (11.0-16.0); SCAN SMEAR FLAG 1; White Blood Count 21.4 X10*3/uL (4.8-10.8)
[2022-10-22 05:42] LABS: Albumin Level 3.3 g/dL (3.5-5.0); Anion Gap 15 (12-20); Blood Urea Nitrogen 22 mg/dL (9-16); Calcium 8.3 mg/dL (8.4-10.2); Carbon Dioxide 22 mmol/L (22-29); Chloride 105 mmol/L (96-108); Creatinine Clr Calc Pharmacy 126.8; Estimated Glomerular Filt Rate > 60; Glucose Random 104 mg/dL (60-115); Magnesium 2.1 mg/dL (1.6-2.6); Phosphorus 3.2 mg/dL (2.7-4.5); Potassium 4.8 mmol/L (3.3-5.1); Sodium 137 mmol/L (135-145)
[2022-10-22 05:51] LABS: SLIDE REVIEW VERIFIED
[2022-10-22 07:10] LABS: Venous Blood Gas Refer to POC result
[2022-10-22] MEDS: Chlorhexidine Gluc Oral Rinse 15 ML MOUTHWASH BUCCAL ×3 (07:52→21:43)
[2022-10-22] MEDS: Famotidine/PF 20 MG/2 ML VIAL IVPUSH (07:52)
[2022-10-22] MEDS: Lacosamide Oral Solution 100 MG/10 ML SOLUTION 200 MG PO ×2 (07:52→21:43)
[2022-10-22] MEDS: levETIRAcetam in NaCl (iso-os) 1,500 MG/100 ML PIGGYBACK 400 MG IV ×2 (07:52→21:44)
[2022-10-22] MEDS: Enoxaparin Sodium 60 MG/0.6 ML SYRINGE 50 MG SUBCUT ×2 (09:34→21:50)
--- NOTE | 2022-10-22 09:35 | MHC.CLN ---
F/U DISCUSSED AT ROUNDS WITH REVIEWED LABS PT RECEIVING JEVITY 1.0 AT MAX GOAL RATE OF 60ML/HR WITH WATER FLUSH 120ML Q 8 HRS PROVIDES 1526KCALS (32.2KCALS/KG), 64G PROTEIN (1.35G/KG), 1634ML TOTAL WATER FROM FORMULA AND FLUSHES (34.5ML/KG) TOLERATING CURRENT TUBE FEED/FLUSH FOLLOWING WITH TEAM CONTINUE TO MONITOR TOLERANCE, RESIDUALS AND LYTES
--- NOTE | 2022-10-22 09:49 | MHC.CM.PN ---
Patient remains in ICU, CM will continue to follow and support as appropriate.
--- NOTE | 2022-10-22 10:34 | PM.CCPN ---
Subjective Subjective Date of Service: 10/22/22 Interval History: 41-year-old gentleman with underlying history of substance abuse admitted on 09/26/2022 with an out of hospital cardiac arrest with unclear down time. Patient was brought to ER without pulse with CPR started immediately and returned spontaneous circulation achieved after approximately 7 minutes with patient intubated during the CPR and transferred to the intensive care unit thereafter. Hospital course complicated by left-sided pneumothorax, likely secondary to CPR, now status post placement of chest tube, still with air leak. Also, developmental of myoclonic jerks, loaded with Keppra and phenytoin, still intermittently requiring Versed. MRI with bilateral cell line make lesions, but no diffuse injury. Evaluated by neurology, EEG consistent with status epilepticus vs diffuse anoxia. Lumbar puncture obtained after neurology recommendations. Repeat EEG with the same pattern of status epilepticus versus diffuse anoxia.Tracheostomy and gastrostomy placed on 10/08/2022. Status epilepticus has resolved, however now underlying baseline activity on EEG is poor. Goals of care discussions are ongoing. No events overnight. Critical Care Time (minutes): 30 Physical Exam Vital Signs: Vital Signs: Last Vital Signs Temp 98.5 F 10/22/22 07:00 Pulse 99 10/22/22 10:00 Resp 28 H 10/22/22 10:00 BP 115/61 10/22/22 10:00 Pulse Ox 94 10/22/22 10:00 O2 Del Method Mechanical Ventil ation 10/22/22 10:00 O2 Flow Rate 40 09/28/22 03:00 FiO2 35 10/22/22 10:00 BMI result Body Mass Index 16.4 Const: General: no acute distress Eyes: Sclerae: sclerae normal Pupils: Equal, round and reactive pupils present Neck: Neck: Yes trachea midline and Yes tracheostomy present (on vent) Resp: Auscultation: clear to auscultation bilaterally Cardio: Rate: tachycardic Rhythm: regular rhythm Heart sounds: no gallops, no murmurs and no rubs GI: Inspection: Yes G-tube present Palpation (GI): Soft to palpation and Other GI palpation findings present ( Nontender) Auscultation: normal bowel sounds Neuro: Cranial nerves: Yes Equal, round and reactive pupils present Extrem: General: Yes no pedal edema, No clubbing and No cyanosis Objective Data Labs 10/22/22 04:36 10/22/22 04:36 Labs: Laboratory Results - last 24 hr 10/22/22 10/22/22 10/22/22 04:36 04:36 04:39 WBC 21.4 H RBC 3.49 L Hgb 10.4 L Hct 32.1 L MCV 92.0 MCH 29.8 MCHC 32.4 RDW 15.9 Plt Count 546 H MPV 10.7 Immature Gran % (Auto) 2.1 H Neut % (Auto) 74.5 H Lymph % (Auto) 6.9 L [place] % (Auto) 15.2 H Eos % (Auto) 0.5 Baso % (Auto) 0.8 Lymph # (Auto) 1.5 [place] # (Auto) 3.3 H Eos # (Auto) 0.1 Baso # (Auto) 0.2 Abs Immat Gran (auto) 0.46 H Absolute Neuts (auto) 16.0 H Absolute Nucleated RBC 0.000 Nucleated RBC % (auto) 0.0 Smear Tech's Comments VERIFIED VBG pH 7.54 H VBG pCO2 30 VBG pO2 78 VBG HCO3 26 VBG O2 Saturation 96.0 VBG Base Excess 4.7 Sodium 137 Potassium 4.8 Chloride 105 Carbon Dioxide 22 Anion Gap 15 BUN 22 H Creatinine 0.52 Estim Creat Clear Calc 126.8 Estimated GFR > 60 Random Glucose 104 Calcium 8.3 L Phosphorus 3.2 Magnesium 2.1 Albumin 3.3 L Microbiology Microbiology Results: Microbiology 10/09/22 02:49 Blood - Venous Blood Culture - Final No growth after 5 days. 10/09/22 02:45 Blood - Venous Blood Culture - Final No growth after 5 days. 10/09/22 02:38 Sputum - Suctioned Gram Stain - Final 10/09/22 02:38 Sputum - Suctioned Sputum Culture - Final Pseudomonas aeruginosa 10/01/22 11:14 Cerebrospinal Fluid Gram Stain - Final 10/01/22 11:14 Cerebrospinal Fluid CSF Examination - Final 10/01/22 11:14 Cerebrospinal Fluid Fluid Description - Final 10/01/22 11:14 Cerebrospinal Fluid CSF Culture - Final No growth after 3 days. 09/27/22 06:18 Blood - Venous Blood Culture - Final No growth after 5 days. 09/27/22 06:18 Blood - Venous Blood Culture - Final No growth after 5 days. 09/26/22 03:34 Urine clean catch - Urine brown top Urine Culture - Final No growth. Progress Note: A&P Assessment and plan (1) Failure to wean from mechanical ventilation: Status: Acute (2) Anoxic encephalopathy: Status: Acute (3) Substance abuse: Status: Acute (4) Acute respiratory failure with hypoxia: Status: Acute (5) Overdose: Status: Acute (6) Cardiac arrest: Status: Acute Plan Assessment: 41-year-old gentleman with underlying substance abuse admitted with out of hospital cardiac arrest with CPR started in emergency room and return of spontaneous circulation achieved after approximately 7 minutes of CPR with patient intubated during the CPR Plan: Neuro: Acute encephalopathy after cardiac arrest with worsening myoclonus, now on Keppra, valproate, lacosamide with interruption of status epilepticus, but poor baseline EEG. Discussion goals of care are ongoing. Cardiac: Out of hospital cardiac arrest with CPR in emergency room and return of spontaneous circulation achieved. Pulmonary: Intubated during the CPR, status post tracheostomy and gastrostomy placement on 10/08/2021. Renal: Acute kidney injury likely secondary to volume depletion, resolved. Continue to monitor renal indices and urine output. Endo: No acute issues. GI: No acute issues. ID: No acute issues. Heme/Onc: No acute issues. Psych: No acute issues. Miscellaneous: No acute issues. Prophylaxis: Heparin, famotidine Diet: tube feeds Critical care time spent: 30 minutes Quality Stroke Does the patient have a stroke diagnosis?: No VTE Prior VTE?: No VTE Risk Level:: Medical - moderate - high VTE Device Contraindication: N/A - Device Ordered VTE Drug Contraindication: N/A - Med Ordered
[2022-10-22] MEDS: Acetaminophen Oral Liquid 650 MG/20.3 ML SOLUTION PO ×2 (11:03→21:43)
[2022-10-23] VITALS (31 sets, daily range): BP systolic 90–128; BP diastolic 52–70; PULSE 74–97; RESP 15–30; TEMP 34.8–39.4; O2SAT 6–100; BMI 16.3
--- NOTE | 2022-10-23 02:55 | PC.NURSE ---
ASSUMED CARE OF PT AT 1900. NO RESP DIFFICULTIES ON VENT. TRACH WITH LARGE AMOUNT OF PURULENT DRAINAGE AROUND STOMA. STOMA SITE IS RED. TRACH DSG CHANGED FREQUENTLY. TRACH SUCTIONED FOR SMALL TO MODERATE AMOUNT OF CLEAR SECRETIONS. PT IS UNRESONSIVE. PUPILS DILATED AT 6 MM, SLUGGISH TO REACT TO LIGHT. CONTINUES TO HAVE TWITCHING MOVEMENTS OF FACE. EXTREMITIES FLACCID. RECEIVING NO SEDATION.MONITOR SHOWS SR-ST, 90'S-104, NO ECTOPY. BP STABLE. TEMP UP TO 102.1 ORAL. COOL SPONGE BATH GIVEN AND TYLENOL GIVEN AND TEMP CAME DOWN TOO 100.6. U.O GOOD, >30 ML/HR. TUBE FEEDS TOLERATED AT MAX RATE OF 60 ML/HR.
[2022-10-23 04:51] LABS: VBG Base Excess 5.3 mmol/L; VBG HCO3 28 mmol/L (22-26); VBG pCO2 34 mmHg; VBG pH 7.51 (7.32-7.43); VBG pO2 48 mmHg
[2022-10-23 04:58] LABS: Venous Blood Gas Refer to POC result
[2022-10-23 05:11] LABS: Basophils Absolute Auto 0.1 X10*3/uL (0.0-0.2); Basophils Percent Auto 0.5 % (0-2); Eosinophils Absolute Auto 0.1 X10*3/uL (0.0-0.4); Eosinophils Percent Auto 0.5 % (0-4); Hematocrit 29.8 % (42.0-52.0); Hemoglobin 9.8 g/dl (14.0-18.0); Imm Gran Abs Auto 0.26 X10*3/uL (0.00-0.03); Imm Gran Pct Auto 1.5 % (0.0-0.4); Lymphocytes Absolute Auto 1.3 X10*3/uL (1.2-4.9); Lymphocytes Percent Auto 7.4 % (20-40); MANUAL DIFF FLAG SCAN; Mean Corpuscular HGB Conc 32.9 g/dl (31.0-36.0); Mean Corpuscular Hemoglobin 30.5 pg (27.0-33.0); Mean Corpuscular Volume 92.8 fL (80.0-98.0); Mean Platelet Volume 10.4 fL (9.4-12.4); Monocytes Absolute Auto 2.4 X10*3/uL (0.1-1.2); Monocytes Percent Auto 13.7 % (2-11); Neutrophils Absolute Auto 13.5 x10*3/uL (2.0-8.3); Neutrophils Percent Auto 76.4 % (45-73); Platelet Count 484 X10*3/uL (160-400); Red Blood Count 3.21 X10*6/uL (4.60-5.80); Red Cell Distribution Width 15.6 % (11.0-16.0); SCAN SMEAR FLAG 1; White Blood Count 17.6 X10*3/uL (4.8-10.8)
[2022-10-23 05:25] LABS: Albumin Level 3.2 g/dL (3.5-5.0); Anion Gap 13 (12-20); Blood Urea Nitrogen 20 mg/dL (9-16); Calcium 8.2 mg/dL (8.4-10.2); Carbon Dioxide 25 mmol/L (22-29); Chloride 103 mmol/L (96-108); Creatinine Clr Calc Pharmacy 126.8; Estimated Glomerular Filt Rate > 60; Glucose Random 106 mg/dL (60-115); Magnesium 2.1 mg/dL (1.6-2.6); Phosphorus 2.9 mg/dL (2.7-4.5); Potassium 4.5 mmol/L (3.3-5.1); Sodium 136 mmol/L (135-145)
[2022-10-23 05:37] LABS: SLIDE REVIEW VERIFIED
[2022-10-23] MEDS: Acetaminophen Oral Liquid 650 MG/20.3 ML SOLUTION PO ×2 (06:07→17:32)
[2022-10-23] MEDS: levETIRAcetam in NaCl (iso-os) 1,500 MG/100 ML PIGGYBACK 400 MG IV ×2 (08:58→21:55)
[2022-10-23] MEDS: Lacosamide Oral Solution 100 MG/10 ML SOLUTION 200 MG PO ×2 (08:58→21:55)
[2022-10-23] MEDS: Famotidine/PF 20 MG/2 ML VIAL IVPUSH (08:59)
[2022-10-23] MEDS: Chlorhexidine Gluc Oral Rinse 15 ML MOUTHWASH BUCCAL ×3 (08:59→21:54)
[2022-10-23] MEDS: Enoxaparin Sodium 60 MG/0.6 ML SYRINGE 50 MG SUBCUT ×2 (09:49→22:05)
--- NOTE | 2022-10-23 10:06 | P.PNCC_ITS ---
Subjective Subjective Date of Service: 10/23/22 Interval History: 41-year-old gentleman with underlying history of substance abuse admitted on 09/26/2022 with an out of hospital cardiac arrest with unclear down time. Patient was brought to ER without pulse with CPR started immediately and returned spontaneous circulation achieved after approximately 7 minutes with patient intubated during the CPR and transferred to the intensive care unit thereafter. Hospital course complicated by left-sided pneumothorax, likely secondary to CPR, now status post placement of chest tube, still with air leak. Also, developmental of myoclonic jerks, loaded with Keppra and phenytoin, still intermittently requiring Versed. MRI with bilateral cell line make lesions, but no diffuse injury. Evaluated by neurology, EEG consistent with status epilepticus vs diffuse anoxia. Lumbar puncture obtained after neurology recommendations. Repeat EEG with the same pattern of status epilepticus versus diffuse anoxia.Tracheostomy and gastrostomy placed on 10/08/2022. Status epilepticus has resolved, however now underlying baseline activity on EEG is poor. Goals of care discussions are ongoing. No events overnight. Tolerating pressure support trials. Critical Care Time (minutes): 30 Physical Exam Vital Signs: Vital Signs: Last Vital Signs Temp 99.4 F 10/23/22 08:00 Pulse 88 10/23/22 09:00 Resp 15 10/23/22 09:00 BP 96/61 10/23/22 09:00 Pulse Ox 98 10/23/22 09:00 O2 Del Method Mechanical Ventil ation 10/23/22 09:00 O2 Flow Rate 40 09/28/22 03:00 FiO2 30 10/23/22 09:00 BMI result Body Mass Index 16.3 Const: General: no acute distress and other Eyes: Sclerae: sclerae normal EOM: EOMs intact bilaterally Neck: Neck: Yes no lymphadenopathy and Yes tracheostomy present (on vent) Resp: Effort & Inspection: normal respiratory effort Cardio: Rate: regular rate Rhythm: regular rhythm Heart sounds: no gallops, no murmurs and no rubs GI: Inspection: Yes G-tube present Palpation (GI): Soft to palpation and Other GI palpation findings present ( Nontender) Auscultation: normal bowel sounds Extrem: General: Yes no pedal edema, No clubbing and No cyanosis Objective Data Labs 10/23/22 04:43 10/23/22 04:42 Labs: Laboratory Results - last 24 hr 10/23/22 10/23/22 10/23/22 04:42 04:42 04:43 WBC 17.6 H RBC 3.21 L Hgb 9.8 L Hct 29.8 L MCV 92.8 MCH 30.5 MCHC 32.9 RDW 15.6 Plt Count 484 H MPV 10.4 Immature Gran % (Auto) 1.5 H Neut % (Auto) 76.4 H Lymph % (Auto) 7.4 L [place] % (Auto) 13.7 H Eos % (Auto) 0.5 Baso % (Auto) 0.5 Lymph # (Auto) 1.3 [place] # (Auto) 2.4 H Eos # (Auto) 0.1 Baso # (Auto) 0.1 Abs Immat Gran (auto) 0.26 H Absolute Neuts (auto) 13.5 H Absolute Nucleated RBC 0.000 Nucleated RBC % (auto) 0.0 Smear Tech's Comments VERIFIED VBG pH 7.51 H VBG pCO2 34 VBG pO2 48 VBG HCO3 28 H VBG O2 Saturation 79.0 VBG Base Excess 5.3 Sodium 136 Potassium 4.5 Chloride 103 Carbon Dioxide 25 Anion Gap 13 BUN 20 H Creatinine 0.52 Estim Creat Clear Calc 126.8 Estimated GFR > 60 Random Glucose 106 Calcium 8.2 L Phosphorus 2.9 Magnesium 2.1 Albumin 3.2 L Microbiology Microbiology Results: Microbiology 10/09/22 02:49 Blood - Venous Blood Culture - Final No growth after 5 days. 10/09/22 02:45 Blood - Venous Blood Culture - Final No growth after 5 days. 10/09/22 02:38 Sputum - Suctioned Gram Stain - Final 10/09/22 02:38 Sputum - Suctioned Sputum Culture - Final Pseudomonas aeruginosa 10/01/22 11:14 Cerebrospinal Fluid Gram Stain - Final 10/01/22 11:14 Cerebrospinal Fluid CSF Examination - Final 10/01/22 11:14 Cerebrospinal Fluid Fluid Description - Final 10/01/22 11:14 Cerebrospinal Fluid CSF Culture - Final No growth after 3 days. 09/27/22 06:18 Blood - Venous Blood Culture - Final No growth after 5 days. 09/27/22 06:18 Blood - Venous Blood Culture - Final No growth after 5 days. 09/26/22 03:34 Urine clean catch - Urine brown top Urine Culture - Final No growth. Progress Note: A&P Assessment and plan (1) Failure to wean from mechanical ventilation: Status: Acute (2) Anoxic encephalopathy: Status: Acute (3) Substance abuse: Status: Acute (4) Overdose: Status: Acute (5) Cardiac arrest: Status: Acute Plan Assessment: 41-year-old gentleman with underlying substance abuse admitted with out of hospital cardiac arrest with CPR started in emergency room and return of spontaneous circulation achieved after approximately 7 minutes of CPR with patient intubated during the CPR Plan: Neuro: Acute encephalopathy after cardiac arrest with worsening myoclonus, now on Keppra, valproate, lacosamide with interruption of status epilepticus, but poor baseline EEG. Discussion goals of care are ongoing. Cardiac: Out of hospital cardiac arrest with CPR in emergency room and return of spontaneous circulation achieved. Pulmonary: Intubated during the CPR, status post tracheostomy and gastrostomy placement on 10/08/2021. Renal: Acute kidney injury likely secondary to volume depletion, resolved. Continue to monitor renal indices and urine output. Endo: No acute issues. GI: No acute issues. ID: No acute issues. Heme/Onc: No acute issues. Psych: No acute issues. Miscellaneous: No acute issues. Prophylaxis: Heparin, famotidine Diet: tube feeds Critical care time spent: 30 minutes Quality Stroke Does the patient have a stroke diagnosis?: No VTE Prior VTE?: No VTE Risk Level:: Medical - moderate - high VTE Device Contraindication: N/A - Device Ordered VTE Drug Contraindication: N/A - Med Ordered
--- NOTE | 2022-10-23 13:34 | MHC.CM.PN ---
Received call from Kathy, mother of pt's son Jesus Alberto. Kathy states she and Jesus Alberto would like to meet w/MD today to discuss [facility] vs LTC. Jesus Alberto is having a very difficult time processing pt's condition and outcomes. I ICU care team updated on request and will be available today around 3:30 or 4 to meet w/family. CM to follow for finalization of d/c needs: Should Jesus Alberto opt for continued care/support: pt will need guardianship and may need to drop [facility] for straight [facility] in order to facilitate placement.
[2022-10-24] VITALS (29 sets, daily range): BP systolic 93–117; BP diastolic 57–82; PULSE 73–97; RESP 12–29; TEMP 34.6–39.2; O2SAT 93–100; BMI 16.5
[2022-10-24] MEDS: Acetaminophen Oral Liquid 650 MG/20.3 ML SOLUTION PO ×3 (00:58→16:35)
--- NOTE | 2022-10-24 03:38 | PC.NURSE ---
OVERNIGHT PT DEVELOPED TEMP OF 102.9 RECTAL. RECEIVED TYLENOL, COOL SPONGE BATH AND THEN COOLING BLANKET ON. TEMP CAME DOWN TO 98.8R AT THIS TIME. COOLING BLANKET WAS TURNED OFF WHEN TEMP 99.8R. REMAINS ON VENT SETTINGS OF ACVC+ VIA TRACHEOSTOMY. FREQUENT COUGH/HIGH PRESSURE ALARMING AND COPIOUS AMOUNTS OF THICK MUCOID SECRETIONS AROUND TRACH NOTED. STOMA SITE IS PINK AND CLEANED WITH NORMAL SALINE. DSG CHANGED FREQUENTLY. TRACH SUCTIONED FOR LARGE AMT OF CLEAR MUCOUS. PT REMAINS UNRESPONSIVE. OPENS EYES SPONTANEOUSLY WITH BLANK STARE NOTED. NO TRACKING OR FOLLOWING. EXTREMITIES FLACCID. PUPILS 5MM EQUAL AND RTL. TUBE FEEDS VIA PEG ORDERED AND PT TOLERATING. BP STABLE. MONITOR SHOWS NSR, RATE 70'S-90'S, NO ECTOPY.
[2022-10-24 05:25] LABS: VBG Base Excess 6.6 mmol/L; VBG HCO3 30 mmol/L (22-26); VBG pCO2 39 mmHg; VBG pH 7.49 (7.32-7.43); VBG pO2 47 mmHg
[2022-10-24 05:33] LABS: Venous Blood Gas Refer to POC result
[2022-10-24] MEDS: Midazolam HCl/PF 2 MG/2 ML VIAL 4 MG IVPUSH ×4 (05:43→23:48)
[2022-10-24 05:50] LABS: Basophils Absolute Auto 0.1 X10*3/uL (0.0-0.2); Basophils Percent Auto 0.4 % (0-2); Eosinophils Absolute Auto 0.1 X10*3/uL (0.0-0.4); Eosinophils Percent Auto 0.8 % (0-4); Hemoglobin 10.2 g/dl (14.0-18.0); Imm Gran Abs Auto 0.19 X10*3/uL (0.00-0.03); Imm Gran Pct Auto 1.2 % (0.0-0.4); Lymphocytes Absolute Auto 1.5 X10*3/uL (1.2-4.9); Lymphocytes Percent Auto 9.4 % (20-40); MANUAL DIFF FLAG SCAN; Mean Corpuscular HGB Conc 31.9 g/dl (31.0-36.0); Mean Corpuscular Hemoglobin 29.8 pg (27.0-33.0); Mean Corpuscular Volume 93.6 fL (80.0-98.0); Mean Platelet Volume 10.6 fL (9.4-12.4); Monocytes Absolute Auto 2.1 X10*3/uL (0.1-1.2); Monocytes Percent Auto 13.3 % (2-11); Neutrophils Absolute Auto 11.9 x10*3/uL (2.0-8.3); Neutrophils Percent Auto 74.9 % (45-73); Platelet Count 391 X10*3/uL (160-400); Red Blood Count 3.42 X10*6/uL (4.60-5.80); Red Cell Distribution Width 15.1 % (11.0-16.0); SCAN SMEAR FLAG 1; White Blood Count 15.8 X10*3/uL (4.8-10.8)
[2022-10-24 06:06] LABS: Albumin Level 3.3 g/dL (3.5-5.0); Anion Gap 16 (12-20); Blood Urea Nitrogen 16 mg/dL (9-16); Calcium 8.4 mg/dL (8.4-10.2); Carbon Dioxide 24 mmol/L (22-29); Chloride 99 mmol/L (96-108); Creatinine Clr Calc Pharmacy 135.7; Estimated Glomerular Filt Rate > 60; Glucose Random 84 mg/dL (60-115); Phosphorus 3.4 mg/dL (2.7-4.5); Potassium 4.5 mmol/L (3.3-5.1); Sodium 134 mmol/L (135-145)
[2022-10-24 06:25] LABS: SLIDE REVIEW VERIFIED
[2022-10-24] MEDS: Chlorhexidine Gluc Oral Rinse 15 ML MOUTHWASH BUCCAL ×3 (08:40→20:15)
[2022-10-24] MEDS: Lacosamide Oral Solution 100 MG/10 ML SOLUTION 200 MG PO ×2 (08:40→20:15)
[2022-10-24] MEDS: levETIRAcetam in NaCl (iso-os) 1,500 MG/100 ML PIGGYBACK 400 MG IV ×2 (08:40→20:15)
[2022-10-24] MEDS: Famotidine/PF 20 MG/2 ML VIAL IVPUSH (08:40)
--- NOTE | 2022-10-24 09:41 | P.PNCC_ITS ---
Subjective Subjective Date of Service: 10/24/22 Interval History: 41-year-old gentleman with underlying history of substance abuse admitted on 09/26/2022 with an out of hospital cardiac arrest with unclear down time. Patient was brought to ER without pulse with CPR started immediately and returned spontaneous circulation achieved after approximately 7 minutes with patient intubated during the CPR and transferred to the intensive care unit thereafter. Hospital course complicated by left-sided pneumothorax, likely secondary to CPR, now status post placement of chest tube, still with air leak. Also, developmental of myoclonic jerks, loaded with Keppra and phenytoin, still intermittently requiring Versed. MRI with bilateral cell line make lesions, but no diffuse injury. Evaluated by neurology, EEG consistent with status epilepticus vs diffuse anoxia. Lumbar puncture obtained after neurology recommendations. Repeat EEG with the same pattern of status epilepticus versus diffuse anoxia.Tracheostomy and gastrostomy placed on 10/08/2022. Status epilepticus has resolved, however now underlying baseline activity on EEG is poor. Goals of care discussions are ongoing. No events overnight. Critical Care Time (minutes): 30 Physical Exam Vital Signs: Vital Signs: Last Vital Signs Temp 100.8 F H 10/24/22 09:00 Pulse 83 10/24/22 09:00 Resp 26 H 10/24/22 09:00 BP 105/71 10/24/22 09:00 Pulse Ox 98 10/24/22 09:00 O2 Del Method Mechanical Ventil ation 10/24/22 09:00 O2 Flow Rate 40 09/28/22 03:00 FiO2 30 10/24/22 09:00 BMI result Body Mass Index 16.5 Const: General: no acute distress Eyes: Sclerae: sclerae normal Pupils: Equal, round and reactive pupils present Neck: Neck: Yes no lymphadenopathy, Yes trachea midline, Yes supple and Yes tracheostomy present (on vent) Resp: Auscultation: clear to auscultation bilaterally Cardio: Rate: regular rate Rhythm: regular rhythm Heart sounds: no gal lops, no murmurs and no rubs GI: Palpation (GI): Soft to palpation and Other GI palpation findings present ( Nontender) Auscultation: normal bowel sounds Neuro: Cranial nerves: Yes Equal, round and reactive pupils present Extrem: General: Yes no pedal edema, No clubbing and No cyanosis Objective Data Labs 10/24/22 05:19 10/24/22 05:19 Labs: Laboratory Results - last 24 hr 10/24/22 10/24/22 10/24/22 05:16 05:19 05:19 WBC 15.8 H RBC 3.42 L Hgb 10.2 L Hct 32.0 L MCV 93.6 MCH 29.8 MCHC 31.9 RDW 15.1 Plt Count 391 MPV 10.6 Immature Gran % (Auto) 1.2 H Neut % (Auto) 74.9 H Lymph % (Auto) 9.4 L [place] % (Auto) 13.3 H Eos % (Auto) 0.8 Baso % (Auto) 0.4 Lymph # (Auto) 1.5 [place] # (Auto) 2.1 H Eos # (Auto) 0.1 Baso # (Auto) 0.1 Abs Immat Gran (auto) 0.19 H Absolute Neuts (auto) 11.9 H Absolute Nucleated RBC 0.000 Nucleated RBC % (auto) 0.0 Smear Tech's Comments VERIFIED VBG pH 7.49 H VBG pCO2 39 VBG pO2 47 VBG HCO3 30 H VBG O2 Saturation 76.0 VBG Base Excess 6.6 Sodium 134 L Potassium 4.5 Chloride 99 Carbon Dioxide 24 Anion Gap 16 BUN 16 Creatinine 0.49 L Estim Creat Clear Calc 135.7 Estimated GFR > 60 Random Glucose 84 Calcium 8.4 Phosphorus 3.4 Magnesium 2.0 Albumin 3.3 L Microbiology Microbiology Results: Microbiology 10/09/22 02:49 Blood - Venous Blood Culture - Final No growth after 5 days. 10/09/22 02:45 Blood - Venous Blood Culture - Final No growth after 5 days. 10/09/22 02:38 Sputum - Suctioned Gram Stain - Final 10/09/22 02:38 Sputum - Suctioned Sputum Culture - Final Pseudomonas aeruginosa 10/01/22 11:14 Cerebrospinal Fluid Gram Stain - Final 10/01/22 11:14 Cerebrospinal Fluid CSF Examination - Final 10/01/22 11:14 Cerebrospinal Fluid Fluid Description - Final 10/01/22 11:14 Cerebrospinal Fluid CSF Culture - Final No growth after 3 days. 09/27/22 06:18 Blood - Venous Blood Culture - Final No growth after 5 days. 09/27/22 06:18 Blood - Venous Blood Culture - Final No growth after 5 days. 09/26/22 03:34 Urine clean catch - Urine brown top Urine Culture - Final No growth. Progress Note: A&P Assessment and plan (1) Failure to wean from mechanical ventilation: Status: Acute (2) Anoxic encephalopathy: Status: Acute (3) Acute respiratory failure with hypoxia: Status: Acute (4) Overdose: Status: Acute (5) Cardiac arrest: Status: Acute Plan Assessment: 41-year-old gentleman with underlying substance abuse admitted with out of hospital cardiac arrest with CPR started in emergency room and return of spontaneous circulation achieved after approximately 7 minutes of CPR with patient intubated during the CPR Plan: Neuro: Acute encephalopathy after cardiac arrest with worsening myoclonus, now on Keppra, valproate, lacosamide with interruption of status epilepticus, but poor baseline EEG. Discussion goals of care are ongoing. Cardiac: Out of hospital cardiac arrest with CPR in emergency room and return of spontaneous circulation achieved. Pulmonary: Intubated during the CPR, status post tracheostomy and gastrostomy placement on 10/08/2021. Renal: Acute kidney injury likely secondary to volume depletion, resolved. Continue to monitor renal indices and urine output. Endo: No acute issues. GI: No acute issues. ID: No acute issues. Heme/Onc: No acute issues. Psych: No acute issues. Miscellaneous: No acute issues. Prophylaxis: Heparin, famotidine Diet: tube feeds Critical care time spent: 30 minutes Quality Stroke Does the patient have a stroke diagnosis?: No VTE Prior VTE?: No VTE Risk Level:: Medical - moderate - high VTE Device Contraindication: N/A - Device Ordered VTE Drug Contraindication: N/A - Med Ordered
[2022-10-24] MEDS: Enoxaparin Sodium 60 MG/0.6 ML SYRINGE 50 MG SUBCUT ×2 (09:57→22:59)
--- NOTE | 2022-10-24 10:07 | MHC.CLN ---
F/U DISCUSSED AT ROUNDS WITH REVIEWED LABS; NOTED FEVER LAST NIGHT PT RECEIVING JEVITY 1.0 AT MAX GOAL RATE OF 60ML/HR WITH WATER FLUSH 120ML Q 8 HRS PROVIDES 1526KCALS (32.2KCALS/KG), 64G PROTEIN (1.35G/KG), 1634ML TOTAL WATER FROM FORMULA AND FLUSHES (34.5ML/KG) TOLERATING CURRENT TUBE FEED/FLUSH CONTINUE TO MONITOR TOLERANCE, RESIDUALS AND LYTES
--- NOTE | 2022-10-24 14:18 | MHC.CM.PN ---
PT REMAINS ON VENT IN ICU, PER MD ROUNDS DEVELOPED A FEVER OVERNIGHT. CM WILL CONTINUE TO FOLLOW FOR PLAN AND OFFER FAMILY SUPPORT NEEDED.
[2022-10-25] VITALS (31 sets, daily range): BP systolic 97–130; BP diastolic 51–72; PULSE 78–102; RESP 14–28; TEMP 34.6–39; O2SAT 92–100; BMI 17.0
[2022-10-25] MEDS: Acetaminophen Oral Liquid 650 MG/20.3 ML SOLUTION PO ×3 (00:38→16:45)
[2022-10-25] MEDS: Midazolam HCl/PF 2 MG/2 ML VIAL 4 MG IVPUSH ×8 (03:35→23:14)
[2022-10-25 05:26] LABS: VBG Base Excess 8.7 mmol/L; VBG HCO3 31 mmol/L (22-26); VBG pCO2 37 mmHg; VBG pH 7.53 (7.32-7.43); VBG pO2 34 mmHg
[2022-10-25 06:44] LABS: Venous Blood Gas Refer to POC result
[2022-10-25 07:11] LABS: MANUAL DIFF FLAG NO
[2022-10-25 07:13] LABS: Basophils Absolute Auto 0.1 X10*3/uL (0.0-0.2); Basophils Percent Auto 0.3 % (0-2); Eosinophils Percent Auto 0.2 % (0-4); Hematocrit 30.5 % (42.0-52.0); Imm Gran Abs Auto 0.16 X10*3/uL (0.00-0.03); Lymphocytes Percent Auto 5.9 % (20-40); Mean Corpuscular HGB Conc 32.8 g/dl (31.0-36.0); Mean Corpuscular Hemoglobin 29.6 pg (27.0-33.0); Mean Corpuscular Volume 90.2 fL (80.0-98.0); Mean Platelet Volume 9.9 fL (9.4-12.4); Monocytes Absolute Auto 1.5 X10*3/uL (0.1-1.2); Monocytes Percent Auto 8.7 % (2-11); Neutrophils Percent Auto 83.9 % (45-73); Platelet Count 415 X10*3/uL (160-400); Red Blood Count 3.38 X10*6/uL (4.60-5.80); Red Cell Distribution Width 14.9 % (11.0-16.0); White Blood Count 16.6 X10*3/uL (4.8-10.8)
[2022-10-25 07:32] LABS: Albumin Level 3.1 g/dL (3.5-5.0); Anion Gap 12 (12-20); Blood Urea Nitrogen 13 mg/dL (9-16); Calcium 8.1 mg/dL (8.4-10.2); Carbon Dioxide 27 mmol/L (22-29); Chloride 101 mmol/L (96-108); Estimated Glomerular Filt Rate > 60; Glucose Random 127 mg/dL (60-115); Phosphorus 2.6 mg/dL (2.7-4.5); Potassium 3.9 mmol/L (3.3-5.1); Sodium 136 mmol/L (135-145)
[2022-10-25] MEDS: Lacosamide Oral Solution 100 MG/10 ML SOLUTION 200 MG PO ×2 (08:35→20:25)
[2022-10-25] MEDS: Chlorhexidine Gluc Oral Rinse 15 ML MOUTHWASH BUCCAL ×3 (08:35→20:25)
[2022-10-25] MEDS: Famotidine/PF 20 MG/2 ML VIAL IVPUSH (08:35)
[2022-10-25] MEDS: levETIRAcetam in NaCl (iso-os) 1,500 MG/100 ML PIGGYBACK 400 MG IV ×2 (08:35→20:19)
[2022-10-25] MEDS: Potassium Phosphate/NS 15 MMOL/250 ML PLAST..BAG 62.5 MMOL IV (09:11)
[2022-10-25] MEDS: Enoxaparin Sodium 60 MG/0.6 ML SYRINGE 50 MG SUBCUT ×2 (09:11→21:59)
--- NOTE | 2022-10-25 09:55 | P.PNCC_ITS ---
Subjective Subjective Date of Service: 10/25/22 Interval History: 41-year-old gentleman with underlying history of substance abuse admitted on 09/26/2022 with an out of hospital cardiac arrest with unclear down time. Patient was brought to ER without pulse with CPR started immediately and returned spontaneous circulation achieved after approximately 7 minutes with patient intubated during the CPR and transferred to the intensive care unit thereafter. Hospital course complicated by left-sided pneumothorax, likely secondary to CPR, now status post placement of chest tube, still with air leak. Also, developmental of myoclonic jerks, loaded with Keppra and phenytoin, still intermittently requiring Versed. MRI with bilateral cell line make lesions, but no diffuse injury. Evaluated by neurology, EEG consistent with status epilepticus vs diffuse anoxia. Lumbar puncture obtained after neurology recommendations. Repeat EEG with the same pattern of status epilepticus versus diffuse anoxia.Tracheostomy and gastrostomy placed on 10/08/2022. Status epilepticus has resolved, however now underlying baseline activity on EEG is poor. Goals of care discussions are ongoing. No events overnight. Critical Care Time (minutes): 30 Physical Exam Vital Signs: Vital Signs: Last Vital Signs Temp 100.6 F H 10/25/22 09:00 Pulse 91 10/25/22 09:00 Resp 25 H 10/25/22 09:00 BP 97/51 L 10/25/22 09:00 Pulse Ox 98 10/25/22 09:00 O2 Del Method Mechanical Ventil ation 10/25/22 09:00 O2 Flow Rate 40 09/28/22 03:00 FiO2 30 10/25/22 09:00 BMI result Body Mass Index 17.0 Const: General: no acute distress Eyes: Sclerae: sclerae normal EOM: EOMs intact bilaterally Neck: Neck: Yes no lymphadenopathy, Yes trachea midline, Yes supple and Yes tracheostomy present (on vent) Resp: Auscultation: clear to auscultation bilaterally Cardio: Rate: regular rate Rhythm: regular rhythm Heart sounds: no gallops, no murmurs and no rubs GI: Inspection: Yes G-tube present Palpation (GI): Soft to palpation and Other GI palpation findings present ( Nontender) Auscultation: normal bowel sounds Extrem: General: Yes no pedal edema, No clubbing and No cyanosis Objective Data Labs 10/25/22 07:07 10/25/22 07:07 Labs: Laboratory Results - last 24 hr 10/25/22 10/25/22 10/25/22 05:18 07:07 07:07 WBC 16.6 H RBC 3.38 L Hgb 10.0 L Hct 30.5 L MCV 90.2 MCH 29.6 MCHC 32.8 RDW 14.9 Plt Count 415 H MPV 9.9 Immature Gran % (Auto) 1.0 H Neut % (Auto) 83.9 H Lymph % (Auto) 5.9 L [place] % (Auto) 8.7 Eos % (Auto) 0.2 Baso % (Auto) 0.3 Lymph # (Auto) 1.0 L [place] # (Auto) 1.5 H Eos # (Auto) 0.0 Baso # (Auto) 0.1 Abs Immat Gran (auto) 0.16 H Absolute Neuts (auto) 14.0 H Absolute Nucleated RBC 0.000 Nucleated RBC % (auto) 0.0 VBG pH 7.53 H VBG pCO2 37 VBG pO2 34 VBG HCO3 31 H VBG O2 Saturation 57.0 VBG Base Excess 8.7 Sodium 136 Potassium 3.9 Chloride 101 Carbon Dioxide 27 Anion Gap 12 BUN 13 Creatinine 0.48 L Estim Creat Clear Calc 142.0 Estimated GFR > 60 Random Glucose 127 H Calcium 8.1 L Phosphorus 2.6 L Magnesium 2.0 Albumin 3.1 L Microbiology Microbiology Results: Microbiology 10/09/22 02:49 Blood - Venous Blood Culture - Final No growth after 5 days. 10/09/22 02:45 Blood - Venous Blood Culture - Final No growth after 5 days. 10/09/22 02:38 Sputum - Suctioned Gram Stain - Final 10/09/22 02:38 Sputum - Suctioned Sputum Culture - Final Pseudomonas aeruginosa 10/01/22 11:14 Cerebrospinal Fluid Gram Stain - Final 10/01/22 11:14 Cerebrospinal Fluid CSF Examination - Final 10/01/22 11:14 Cerebrospinal Fluid Fluid Description - Final 10/01/22 11:14 Cerebrospinal Fluid CSF Culture - Final No growth after 3 days. 09/27/22 06:18 Blood - Venous Blood Culture - Final No growth after 5 days. 09/27/22 06:18 Blood - Venous Blood Culture - Final No growth after 5 days. 09/26/22 03:34 Urine clean catch - Urine brown top Urine Culture - Final No growth. Progress Note: A&P Assessment and plan (1) Failure to wean from mechanical ventilation: Status: Acute (2) Anoxic encephalopathy: Status: Acute (3) Acute respiratory failure with hypoxia: Status: Acute (4) Overdose: Status: Acute (5) Cardiac arrest: Status: Acute (6) Substance abuse: Status: Acute Plan Assessment: 41-year-old gentleman with underlying substance abuse admitted with out of hospital cardiac arrest with CPR started in emergency room and return of spontaneous circulation achieved after approximately 7 minutes of CPR with patient intubated during the CPR Plan: Neuro: Acute encephalopathy after cardiac arrest with worsening myoclonus, now on Keppra, valproate, lacosamide with interruption of status epilepticus, but poor baseline EEG. Discussion goals of care are ongoing. Cardiac: Out of hospital cardiac arrest with CPR in emergency room and return of spontaneous circulation achieved. Pulmonary: Intubated during the CPR, status post tracheostomy and gastrostomy placement on 10/08/2021. Renal: Acute kidney injury likely secondary to volume depletion, resolved. Continue to monitor renal indices and urine output. Endo: No acute issues. GI: No acute issues. ID: No acute issues. Heme/Onc: No acute issues. Psych: No acute issues. Miscellaneous: No acute issues. Prophylaxis: Heparin, famotidine Diet: tube feeds Critical care time spent: 30 minutes Quality Stroke Does the patient have a stroke diagnosis?: No VTE Prior VTE?: No VTE Risk Level:: Medical - moderate - high VTE Device Contraindication: N/A - Device Ordered VTE Drug Contraindication: N/A - Med Ordered
[2022-10-26] VITALS (21 sets, daily range): BP systolic 97–117; BP diastolic 59–69; PULSE 76–132; RESP 16–38; TEMP 34.7–39.1; O2SAT 70–99; BMI 17.3
[2022-10-26] MEDS: Acetaminophen Oral Liquid 650 MG/20.3 ML SOLUTION PO ×2 (00:35→06:30)
[2022-10-26] MEDS: Midazolam HCl/PF 2 MG/2 ML VIAL 4 MG IVPUSH ×10 (00:35→23:34)
[2022-10-26 05:20] LABS: VBG Base Excess 10.1 mmol/L; VBG HCO3 33 mmol/L (22-26); VBG pCO2 39 mmHg; VBG pH 7.53 (7.32-7.43); VBG pO2 43 mmHg
[2022-10-26 05:48] LABS: Basophils Absolute Auto 0.1 X10*3/uL (0.0-0.2); Basophils Percent Auto 0.5 % (0-2); Eosinophils Percent Auto 0.1 % (0-4); Hematocrit 29.3 % (42.0-52.0); Hemoglobin 9.7 g/dl (14.0-18.0); Imm Gran Abs Auto 0.14 X10*3/uL (0.00-0.03); Imm Gran Pct Auto 0.7 % (0.0-0.4); Lymphocytes Absolute Auto 1.2 X10*3/uL (1.2-4.9); MANUAL DIFF FLAG SCAN; Mean Corpuscular HGB Conc 33.1 g/dl (31.0-36.0); Mean Corpuscular Hemoglobin 30.2 pg (27.0-33.0); Mean Corpuscular Volume 91.3 fL (80.0-98.0); Mean Platelet Volume 11.2 fL (9.4-12.4); Monocytes Absolute Auto 1.7 X10*3/uL (0.1-1.2); Monocytes Percent Auto 8.6 % (2-11); Neutrophils Absolute Auto 16.2 x10*3/uL (2.0-8.3); Neutrophils Percent Auto 84.1 % (45-73); Platelet Count 420 X10*3/uL (160-400); Red Blood Count 3.21 X10*6/uL (4.60-5.80); SCAN SMEAR FLAG 1; White Blood Count 19.3 X10*3/uL (4.8-10.8)
[2022-10-26 05:59] LABS: Venous Blood Gas Refer to POC result
[2022-10-26 06:06] LABS: Anion Gap 13 (12-20); Blood Urea Nitrogen 12 mg/dL (9-16); Calcium 8.2 mg/dL (8.4-10.2); Carbon Dioxide 26 mmol/L (22-29); Chloride 102 mmol/L (96-108); Creatinine Clr Calc Pharmacy 154.9; Estimated Glomerular Filt Rate > 60; Glucose Random 105 mg/dL (60-115); Phosphorus 3.2 mg/dL (2.7-4.5); Potassium 4.5 mmol/L (3.3-5.1); Sodium 136 mmol/L (135-145)
[2022-10-26 06:13] LABS: SLIDE REVIEW VERIFIED
[2022-10-26] MEDS: levETIRAcetam in NaCl (iso-os) 1,500 MG/100 ML PIGGYBACK 400 MG IV (08:00)
[2022-10-26] MEDS: Chlorhexidine Gluc Oral Rinse 15 ML MOUTHWASH BUCCAL (08:00)
[2022-10-26] MEDS: Lacosamide Oral Solution 100 MG/10 ML SOLUTION 200 MG PO (08:00)
[2022-10-26] MEDS: Famotidine/PF 20 MG/2 ML VIAL IVPUSH (08:00)
--- NOTE | 2022-10-26 10:06 | P.PNCC_ITS ---
Subjective Subjective Date of Service: 10/26/22 Interval History: 41-year-old gentleman with underlying history of substance abuse admitted on 09/26/2022 with an out of hospital cardiac arrest with unclear down time. Patient was brought to ER without pulse with CPR started immediately and returned spontaneous circulation achieved after approximately 7 minutes with patient intubated during the CPR and transferred to the intensive care unit thereafter. Hospital course complicated by left-sided pneumothorax, likely secondary to CPR, now status post placement of chest tube, still with air leak. Also, developmental of myoclonic jerks, loaded with Keppra and phenytoin, still intermittently requiring Versed. MRI with bilateral cell line make lesions, but no diffuse injury. Evaluated by neurology, EEG consistent with status epilepticus vs diffuse anoxia. Lumbar puncture obtained after neurology recommendations. Repeat EEG with the same pattern of status epilepticus versus diffuse anoxia.Tracheostomy and gastrostomy placed on 10/08/2022. Status epilepticus has resolved, however now underlying baseline activity on EEG is poor. Goals of care discussions are ongoing. No events overnight. Critical Care Time (minutes): 45 Physical Exam Vital Signs: Vital Signs: Last Vital Signs Temp 99.6 F 10/26/22 09:59 Pulse 81 10/26/22 09:59 Resp 18 10/26/22 09:59 BP 106/66 10/26/22 09:59 Pulse Ox 97 10/26/22 09:59 O2 Del Method Mechanical Ventil ation 10/26/22 09:59 O2 Flow Rate 40 09/28/22 03:00 FiO2 30 10/26/22 09:59 BMI result Body Mass Index 17.3 Const: General: no acute distress Eyes: Sclerae: sclerae normal EOM: EOMs intact bilaterally Neck: Neck: Yes no lymphadenopathy and Yes tracheostomy present (on vent) Resp: Effort & Inspection: normal respiratory effort and no respiratory distress Auscultation: clear to auscultation bilaterally Cardio: Rate: regular rate Rhythm: regular rhythm Heart sounds: no gallops, no murmurs and no rubs GI: Palpation (GI): Soft to palpation and Other GI palpation findings present ( Nontender) Auscultation: normal bowel sounds Extrem: General: Yes no pedal edema, No clubbing and No cyanosis Objective Data Labs 10/26/22 05:11 10/26/22 05:11 Labs: Laboratory Results - last 24 hr 10/26/22 10/26/22 10/26/22 05:10 05:11 05:11 WBC 19.3 H RBC 3.21 L Hgb 9.7 L Hct 29.3 L MCV 91.3 MCH 30.2 MCHC 33.1 RDW 15.0 Plt Count 420 H MPV 11.2 Immature Gran % (Auto) 0.7 H Neut % (Auto) 84.1 H Lymph % (Auto) 6.0 L [place] % (Auto) 8.6 Eos % (Auto) 0.1 Baso % (Auto) 0.5 Lymph # (Auto) 1.2 [place] # (Auto) 1.7 H Eos # (Auto) 0.0 Baso # (Auto) 0.1 Abs Immat Gran (auto) 0.14 H Absolute Neuts (auto) 16.2 H Absolute Nucleated RBC 0.000 Nucleated RBC % (auto) 0.0 Smear Tech's Comments VERIFIED VBG pH 7.53 H VBG pCO2 39 VBG pO2 43 VBG HCO3 33 H VBG O2 Saturation 72.0 VBG Base Excess 10.1 Sodium 136 Potassium 4.5 Chloride 102 Carbon Dioxide 26 Anion Gap 13 BUN 12 Creatinine 0.44 L Estim Creat Clear Calc 154.9 Estimated GFR > 60 Random Glucose 105 Calcium 8.2 L Phosphorus 3.2 Magnesium 2.0 Albumin 3.0 L Microbiology Microbiology Results: Microbiology 10/09/22 02:49 Blood - Venous Blood Culture - Final No growth after 5 days. 10/09/22 02:45 Blood - Venous Blood Culture - Final No growth after 5 days. 10/09/22 02:38 Sputum - Suctioned Gram Stain - Final 10/09/22 02:38 Sputum - Suctioned Sputum Culture - Final Pseudomonas aeruginosa 10/01/22 11:14 Cerebrospinal Fluid Gram Stain - Final 10/01/22 11:14 Cerebrospinal Fluid CSF Examination - Final 10/01/22 11:14 Cerebrospinal Fluid Fluid Description - Final 10/01/22 11:14 Cerebrospinal Fluid CSF Culture - Final No growth after 3 days. 09/27/22 06:18 Blood - Venous Blood Culture - Final No growth after 5 days. 09/27/22 06:18 Blood - Venous Blood Culture - Final No growth after 5 days. 09/26/22 03:34 Urine clean catch - Urine brown top Urine Culture - Final No growth. Progress Note: A&P Assessment and plan (1) Failure to wean from mechanical ventilation: Status: Acute (2) Anoxic encephalopathy: Status: Acute (3) Substance abuse: Status: Acute (4) Overdose: Status: Acute (5) Cardiac arrest: Status: Acute (6) Acute respiratory failure with hypoxia: Status: Acute Plan Assessment: 41-year-old gentleman with underlying substance abuse admitted with out of hospital cardiac arrest with CPR started in emergency room and return of spontaneous circulation achieved after approximately 7 minutes of CPR with patient intubated during the CPR Plan: Neuro: Acute encephalopathy after cardiac arrest with worsening myoclonus, now on Keppra, valproate, lacosamide with interruption of status epilepticus, but poor baseline EEG. Discussion goals of care are ongoing. Cardiac: Out of hospital cardiac arrest with CPR in emergency room and return of spontaneous circulation achieved. Pulmonary: Intubated during the CPR, status post tracheostomy and gastrostomy placement on 10/08/2021. Renal: Acute kidney injury likely secondary to volume depletion, resolved. Continue to monitor renal indices and urine output. Endo: No acute issues. GI: No acute issues. ID: No acute issues. Heme/Onc: No acute issues. Psych: No acute issues. Miscellaneous: No acute issues. Prophylaxis: Heparin, famotidine Diet: tube feeds Critical care time spent: 45 minutes Quality Stroke Does the patient have a stroke diagnosis?: No VTE Prior VTE?: No VTE Risk Level:: Medical - moderate - high VTE Device Contraindication: N/A - Device Ordered VTE Drug Contraindication: N/A - Med Ordered
[2022-10-26] MEDS: Enoxaparin Sodium 60 MG/0.6 ML SYRINGE 50 MG SUBCUT (10:38)
[2022-10-26] MEDS: Midazolam HCl/NS 50 MG/50 ML PLAST..BAG IVCONT ×2 (12:45→18:29)
[2022-10-26] MEDS: fentaNYL citrate/PF 100 MCG/2 ML VIAL IVPUSH (12:45)
--- NOTE | 2022-10-26 12:46 | PM.CCN ---
Critical Care Event Note Summary Date of Service: 10/26/22 Code activated: No Narrative: Family meeting held, essentially lack of any clinical improvement and overall Advair poor prognosis discussed. Family (including, son, sister, and father) reached decision to switch goals of care to comfort. Code status changed to comfort measures only. Critical Care Time (minutes): 0
[2022-10-26] MEDS: fentaNYL citrate/NS 1,000 MCG/100 ML PLAST..BAG 10 MCG IVCONT (12:50)
--- NOTE | 2022-10-26 18:36 | PC.NURSE ---
Pt's next of kin, son (Todd) decided to move forward with SALES AGENT FINANCIAL REPORT SERVICE at approximately 1200; family agreeable as well. Pt was terminally extubated at 1255 after starting on Fentanyl and Versed IV continuous. Pt on RA, satting in between mid 70s to mid 80s; requiring frequent oral and tracheal suctioning. Pt with occasional breakthrough seizure activity, requiring PRN IVP of Versed. TF stopped; PEG clamped per MD's order. Continue with EOL care. This abstract writer called [facility] to reopen the case on 10/25; followed up today; spoke with Zully, reference number; [id number], case declined. services per family will be at: [facility], [address], [place] [address].
[2022-10-26] MEDS: fentaNYL citrate/NS 1,000 MCG/100 ML PLAST..BAG 15 MCG IVCONT (20:42)
[2022-10-27] VITALS (11 sets, daily range): BP systolic 100–139; BP diastolic 59–93; PULSE 118–127; RESP 22–36; TEMP 37.7–38; O2SAT 66–82
[2022-10-27] MEDS: fentaNYL citrate/PF 100 MCG/2 ML VIAL IVPUSH ×3 (00:38→14:00)
[2022-10-27] MEDS: Midazolam HCl/NS 50 MG/50 ML PLAST..BAG IVCONT ×3 (00:54→15:57)
--- NOTE | 2022-10-27 01:37 | PC.NURSE ---
COMFORT CARE CONTINUED. FAMILY, SISTER, FATHER AND PT'S SON XANDER IN AND OUT TO SEE PT BUT ALL HAVE GONE HOME NOW. PT IS ON FENTANYL AND VERSED DRIPS. FENTANYL DRIP INCREASED TO 150 MCG/HR FOR WORK OF BREATHING WITH GOOD EFFECT. VERSED DRIP FOR SEIZURES AND PRN VERSED FOR BREAK THROUGH SEIZURES GIVEN WITH GOOD EFFECT. [place] CATH IN PLACE AND DRAINING DARK YELLOW URINE. EXTERNAL CATH CAME OFF AND PT WAS INCONTINENT OF MAD AMOUNT OF URINE. BEDBATH GIVEN AND NEW CONDOM CATH APPLIED. PT REPOSITIONED WITH HOB UP 30-40 DEGREES. FREQUENT SUCTIONING OF TRACH AND ORALLY REQUIED.
[2022-10-27] MEDS: fentaNYL citrate/NS 1,000 MCG/100 ML PLAST..BAG 15 MCG IVCONT ×3 (02:51→15:43)
[2022-10-27] MEDS: Scopolamine 1.5 MG PATCH.TD.3 EAR-BEHIND (06:36)
--- NOTE | 2022-10-27 09:30 | PM.EVENT ---
Event Note Date of Service: 10/27/22 Event Note: Discussed with Dr. Sullivan. Tx to medical floor on comfort measures. 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 Opioid dependence overdose Time Spent With Patient Time: Total time managing care of this patient today ____ minutes.
--- NOTE | 2022-10-27 09:48 | MHC.CLN ---
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
--- NOTE | 2022-10-27 09:49 | MHC.CM.PN ---
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 Family in to visit - CM to follow for any needs.
--- NOTE | 2022-10-27 09:51 | PM.CCPN ---
Subjective Subjective Date of Service: 10/27/22 Interval History: 41-year-old gentleman with underlying history of substance abuse admitted on 09/26/2022 with an out of hospital cardiac arrest with unclear down time. Patient was brought to ER without pulse with CPR started immediately and returned spontaneous circulation achieved after approximately 7 minutes with patient intubated during the CPR and transferred to the intensive care unit thereafter. Hospital course complicated by left-sided pneumothorax, likely secondary to CPR, now status post placement of chest tube, still with air leak. Also, developmental of myoclonic jerks, loaded with Keppra and phenytoin, still intermittently requiring Versed. MRI with bilateral cell line make lesions, but no diffuse injury. Evaluated by neurology, EEG consistent with status epilepticus vs diffuse anoxia. Lumbar puncture obtained after neurology recommendations. Repeat EEG with the same pattern of status epilepticus versus diffuse anoxia.Tracheostomy and gastrostomy placed on 10/08/2022. Status epilepticus has resolved, however now underlying baseline activity on EEG is poor. Multiple family meetings held, essentially lack of any clinical improvement and overall Advair poor prognosis discussed. Family (including, son, sister, and father) reached decision to switch goals of care to comfort on 10/26/2022. Code status changed to comfort measures only. Patient remained comfortable overnight. Critical Care Time (minutes): 0 Physical Exam Vital Signs: Vital Signs: Last Vital Signs Temp 99.5 F 10/26/22 11:00 Pulse 118 H 10/27/22 08:00 Resp 34 H 10/27/22 05:41 BP 134/70 10/27/22 05:41 Pulse Ox 72 L 10/27/22 08:00 O2 Del Method Room Air 10/27/22 08:00 O2 Flow Rate 40 09/28/22 03:00 FiO2 30 10/26/22 12:00 BMI result Body Mass Index 17.3 Const: General: comfortable Objective Data Labs 10/26/22 05:11 10/26/22 05:11 Microbiology Microbiology Results: Microbiology 10/09/22 02:49 Blood - Venous Blood Culture - Final No growth after 5 days. 10/09/22 02:45 Blood - Venous Blood Culture - Final No growth after 5 days. 10/09/22 02:38 Sputum - Suctioned Gram Stain - Final 10/09/22 02:38 Sputum - Suctioned Sputum Culture - Final Pseudomonas aeruginosa 10/01/22 11:14 Cerebrospinal Fluid Gram Stain - Final 10/01/22 11:14 Cerebrospinal Fluid CSF Examination - Final 10/01/22 11:14 Cerebrospinal Fluid Fluid Description - Final 10/01/22 11:14 Cerebrospinal Fluid CSF Culture - Final No growth after 3 days. 09/27/22 06:18 Blood - Venous Blood Culture - Final No growth after 5 days. 09/27/22 06:18 Blood - Venous Blood Culture - Final No growth after 5 days. 09/26/22 03:34 Urine clean catch - Urine brown top Urine Culture - Final No growth. Progress Note: A&P Assessment and plan (1) Anoxic encephalopathy: Status: Acute (2) Acute respiratory failure with hypoxia: Status: Acute (3) Overdose: Status: Acute (4) Cardiac arrest: Status: Acute Plan Patient in comfort measures status, comfortable on sedative drips. Quality Stroke Does the patient have a stroke diagnosis?: No VTE Prior VTE?: No VTE Risk Level:: Medical - moderate - high VTE Device Contraindication: N/A - Device Ordered VTE Drug Contraindication: N/A - Med Ordered
[2022-10-27] MEDS: Midazolam HCl/PF 2 MG/2 ML VIAL 4 MG IVPUSH ×8 (10:05→19:05)
[2022-10-27] MEDS: LORazepam 2 MG/ML VIAL 1 MG IVPUSH (22:29)
[2022-10-27] MEDS: Morphine Sulfate/NS 100 MG/100 ML PLAST..BAG 6 MG IVCONT (22:32)
[2022-10-28] MEDS: LORazepam 2 MG/ML VIAL 1 MG IVPUSH ×16 (00:02→23:46)
[2022-10-28] MEDS: HYDROmorphone HCl 1 MG/ML SYRINGE IVPUSH (00:35)
--- NOTE | 2022-10-28 05:13 | PC.NURSE ---
During the shift supervisor, pt was uncomfortable, had increased tremors & secretions through trach. 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 Family at bedside was concern of the pt's condition and this RN notified the Nursing Trace Clerk. Nursing Trace Clerk came to bedside and notified MD Posada of the pt's condition. Pt was then placed on RUBBER DOWN pump of Morphine starting at an rate of 6mg/hr. Pt received one time dose of Ativan 1mg IV push & Dilaudid 1mg IV push approximately after 00:00. There was some effectiveness after the medications, but pt was still uncomfortable and had tremors. This RN and Nursing Trace Clerk increased the RUBBER DOWN pump of Morphine to max rate of 9.9mg/hr, and MD Posada ordered Ativan 1mg Q10MIN. After the medication administration, pt became more comfortable, had no signs of tremors, and resting quietly in bed. Will continue to monitor pt's comfort/pain level and continue FILM LOADER order.
[2022-10-28] MEDS: Morphine Sulfate/NS 100 MG/100 ML PLAST..BAG 9.9 MG IVCONT ×2 (09:35→19:05)
--- NOTE | 2022-10-28 10:23 | P.PNIM_ITS ---
Subjective Subjective Date of Service: 10/28/22 Review of Systems Follow up LIC[facility] MAGISTRATE, ICU transfer Physical Exam Vital Signs: Vital Signs: Last Vital Signs Temp 100.4 F 10/27/22 19:57 Pulse 122 H 10/27/22 19:57 Resp 26 H 10/27/22 19:57 BP 100/59 L 10/27/22 19:57 Pulse Ox 82 L 10/27/22 19:57 O2 Del Method Room Air 10/27/22 19:57 O2 Flow Rate 40 09/28/22 03:00 FiO2 30 10/26/22 12:00 BMI result Body Mass Index 17.3 Laying in bed unresponsive, breathing easy Objective Data Active Medications Morphine Sulfate (Morphine Sulfate/Ns) 100 mg in 100 mls @ 0 mls/hr IVCONT .Q0M SULY; Protocol Last Admin: 10/28/22 09:35 Dose: 9.9 mg/hr, 9.9 mls/hr Documented By: SUE Lorazepam (Lorazepam 2 Mg/Ml Vial) 1 mg IVPUSH Q10M PRN PRN Reason: anxiety/restlessness Last Admin: 10/28/22 09:54 Dose: 1 mg Documented By: SOLEDAD Morphine Sulfate (Morphine Sulfate 2 Mg/Ml Cartridge) 2 mg IVPUSH Q10M PRN; Protocol PRN Reason: anxiety/restlessness Scopolamine (Scopolamine 1.5 Mg Patch.Td.3) 1.5 mg EAR-BEHIND Q72H [facility] Last Admin: 10/28/22 00:25 Dose: Not Given Documented By: JEY Non-Admin Reason: Previously Administered Labs 10/26/22 05:11 10/26/22 05:11 Assessment and Plan (1) Failure to wean from mechanical ventilation: Status: Acute Plan 41 year old man transferred from ICU 10/27/22. He has a history substance abuse and was initially admitted on 09/26/2022 with an [id number] cardiac arrest with unclear down time. He regained [place] after 7 minutes of CPR. He was subsequently intubated and transferred to the ICU. He had a pneumothorax which was likely a complication of CPR. Status post chest tube placement and since removed. He also had development of what appeared to be seizure activity for which she was loaded with Keppra and Dilantin. EEG consistent with status epilepticus. He is also status post tracheostomy and gastrostomy placed on 10/08/2022. He had very poor clinical improvement and poor prognosis. This was discussed at length with the patient's family and he was switched to comfort measures only on 10/26/2022. He was subsequently transferred to the medical floor and has been accompanied by his family members since. Cardiac arrest. Status post ICU level of care. Now comfort measures only. He did seem to have a rough night and was quite agitated and uncomfortable. His medications were switched and he was started on a morphine drip as well as lorazepam more frequently as needed. This did seem to help and has been resting in bed for quite a few hours mostly unresponsive/somnolent with family by his side. Other medical problems treated: Pneumothorax likely secondary to CPR Status epilepticus likely secondary to anoxia Opiate abuse CMP likely secondary to cardiac arrest Acute kidney injury likely secondary to volume depletion Status post tracheostomy Status post gastrostomy Acute encephalopathy Time Spent With Patient Time: Total time managing care of this patient today ____ minutes. Quality Stroke Does the patient have a stroke diagnosis?: No VTE Prior VTE?: No VTE Risk Level:: Medical - moderate - high VTE Device Contraindication: N/A - Device Ordered VTE Drug Contraindication: N/A - Med Ordered
[2022-10-28] MEDS: Morphine Sulfate 2 MG/ML CARTRIDGE IVPUSH (13:19)
[2022-10-28 15:25] VITALS: RESP 20
[2022-10-28 20:40] VITALS: RESP 22
[2022-10-29] MEDS: Morphine Sulfate 2 MG/ML CARTRIDGE IVPUSH (01:37)
--- NOTE | 2022-10-29 02:45 | PM.EVENT ---
Event Note Date of Service: 10/29/22 Event Note: I was called to patient's bedside to pronounce the patient. No spontaneous movements were present. There was no response to verbal or tactile stimulus. Pupils were mid dilated and fixed. No breath sounds were appreciated over either lung field. No carotid pulses were palpable. No heart sounds were auscultated over entire precordium. Patient was on comfort measures only. Patient pronounced on 10/29/2022 at 02:22. Condolences offered to sister at bedside. M.E. notified. Time Spent With Patient Time: Total time managing care of this patient today ____ minutes.
--- NOTE | 2022-11-04 13:32 | PM.DS ---
DS: Providers Provider Date of Service: 10/29/22 Date of admission: 09/26/22 02:59 Primary care physician: None Physician Consults: 09/29/22 14:21 Consult to Neurology Routine Consulting Provider: [facility] Reason for consultation: Persistent encephalopathy after cardiac arrest 10/07/22 13:17 Consult to General Surgery Routine Consulting Provider: [facility] Surgeons Reason for consultation: Evaluate for tracheostomy and gastrostomy placement Has provider been notified: No DS: Diagnosis Discharge Diagnosis (1) Failure to wean from mechanical ventilation: Status: Acute DS: Summary Time Spent with Patient Time attestation: Total time managing care of this patient today ____ minutes. Physical Exam Vital Signs: Vital Signs: Last Vital Signs Temp 100.4 F 10/27/22 19:57 Pulse 122 H 10/27/22 19:57 Resp 22 H 10/28/22 20:40 BP 100/59 L 10/27/22 19:57 Pulse Ox 82 L 10/27/22 19:57 O2 Del Method Room Air 10/27/22 19:57 O2 Flow Rate 40 09/28/22 03:00 FiO2 30 10/26/22 12:00 BMI result Body Mass Index 17.3 DS: Data Data Completed and Pending Completed studies during hospitalization [Text1]: Procedures Bypass Trachea to Cutaneous with Tracheostomy Device, Percutaneous Approach (09/26/22) Drainage of Left Main Bronchus, Via Natural or Artificial Opening Endoscopic (09/26/22) Drainage of Left Pleural Cavity with Drainage Device, Open Approach (09/26/22) Drainage of Right Main Bronchus, Via Natural or Artificial Opening Endoscopic (09/26/22) Drainage of Spinal Canal, Percutaneous Approach, Diagnostic (09/26/22) Drainage of Trachea, Via Natural or Artificial Opening Endoscopic (09/26/22) Insertion of Endotracheal Airway into Trachea, Via Natural or Artificial Opening (09/26/22) Insertion of Feeding Device into Stomach, Percutaneous Approach (09/26/22) Insertion of Infusion Device into Superior Vena Cava, Percutaneous Approach (09/26/22) Introduction of Vasopressor into Central Vein, Percutaneous Approach (09/26/22) Performance of Cardiac Output, Single, Manual (09/26/22) Respiratory Ventilation, Greater than 96 Consecutive Hours (09/26/22) Ultrasonography of Superior Vena Cava, Guidance (09/26/22) Discharge Plan Discharge Date/Time: 10/29/22 02:22 Patient Disposition: Referrals: Physician,None [Primary Care Provider] - 1 Week Discharge Medications: No Action albuterol sulfate 90 mcg/actuation HFA aerosol inhaler 2 puff inhalation QID PRN (Reason: wheezing) Discharge Orders: Discharge Order (Routine); Ordered 10/29/22 Ordered By: Rafal Posada Discharge Date/Time: 10/29/22 02:22
--- NOTE | 2022-11-04 13:32 | PM.DDS ---
Discharge Sum: Prov Provider Primary care physician: None Physician Consults: 09/29/22 14:21 Consult to Neurology Routine Consulting Provider: [facility] Reason for consultation: Persistent encephalopathy after cardiac arrest 10/07/22 13:17 Consult to General Surgery Routine Consulting Provider: [facility] Sur[facility] Reason for consultation: Evaluate for tracheostomy and gastrostomy placement Has provider been notified: No Discharge Sum: Diag Contributing Factors (1) Failure to wean from mechanical ventilation: Discharge Sum: Summary Date and Time Date of admission: 09/26/22 02:59 Date of : 10/29/22 Time of : 02:22 Summary Details: 41 year old man transferred from ICU 10/27/22.? He has a history substance abuse and was initially admitted on 09/26/2022 with an [id number] cardiac arrest with unclear down time.? He regained [place] after 7 minutes of CPR.? He was subsequently intubated and transferred to the ICU.? He had a pneumothorax which was likely a complication of CPR.? Status post chest tube placement and since removed.? He also had development of what appeared to be seizure activity for which she was loaded with Keppra and Dilantin.? EEG consistent with status epilepticus.? He is also status post tracheostomy and gastrostomy placed on 10/08/2022.? He had very poor clinical improvement and poor prognosis.? This was discussed at length with the patient's family and he was switched to comfort measures only on 10/26/2022.? He was subsequently transferred to the medical floor and has been accompanied by his family members since. Cardiac arrest. Status post ICU level of care after out of hospital cardiac arrest.?Made comfort measures only.? Other medical problems treated: Pneumothorax likely secondary to CPR Status epilepticus likely secondary to anoxia Opiate abuse CMP likely secondary to cardiac arrest Acute kidney injury likely secondary to volume depletion Status post tracheostomy Status post gastrostomy Acute encephalopathy Additional Data Confirmation of as documented by pronouncing clinician: no pulse, no respirations, no heart sounds and pupils fixed and dilated Attending/PCP notified?: Yes Attending physician: Gretel Tran NP Was code activated?: No Advance directives: Yes
== END 2022-10-29 02:22 | disposition expired | DRG 5 ==
LOC: HO.ED 02:23 → HO.EDOVER 03:08 → HO.ICU 03:10 → HO.S3 10-27 16:04
PROVIDERS: Internal Medicine Cardiovascular Disease; Internal Medicine Pulmonary Disease; Physician Assistant Medical; Registered Nurse Community Health; Surgery; Admitting Provider Nurse Practitioner Family; Emergency Provider Internal Medicine; Visit Provider Nurse Practitioner Acute Care
PROC: 0B113F4 Bypass Trachea to Cutaneous with Tracheostomy Device, Percutaneous Approach (ICD-10-PCS; principal; 2022-10-08 13:00)
DX: T40.411A Poisoning by fentanyl or fentanyl analogs, accidental (unintentional), initial encounter (principal); I46.8 Cardiac arrest due to other underlying condition; G93.1 Anoxic brain damage, not elsewhere classified; N17.9 Acute kidney failure, unspecified; E87.0 Hyperosmolality and hypernatremia; J95.811 Postprocedural pneumothorax; L89.322 Pressure ulcer of left buttock, stage 2; J96.01 Acute respiratory failure with hypoxia; Z51.5 Encounter for palliative care; T40.5X1A Poisoning by cocaine, accidental (unintentional), initial encounter; Z99.11 Dependence on respirator [ventilator] status; I51.81 Takotsubo syndrome; R63.6 Underweight; Z68.1 Body mass index [BMI] 19.9 or less, adult; T42.3X5A Adverse effect of barbiturates, initial encounter; E87.5 Hyperkalemia; G25.3 Myoclonus; F41.9 Anxiety disorder, unspecified; F32.A Depression, unspecified; J44.9 Chronic obstructive pulmonary disease, unspecified; F11.20 Opioid dependence, uncomplicated
CPT/HCPCS: 36415; 36600; 70450; 70551; 71045; 76705; 80048; 80053; 80202; 80307; 81001; 82040; 82803; 82945; 82947; 83605; 83735; 84100; 84157; 84484; 85007; 85025; 85027; 85610; 85652; 85730; 86617; 87015; 87040; 87070; 87077; 87086; 87186; 87205; 87483; 87635; 87798; 89051; 92950; 93005; 93306; 93971; 94002; 94003; 94640; 95816; 99285; C1758; J0133; J0171; J0295; J0690; J0692; J1170; J1643; J1650; J1940; J1953; J1956; J2060; J2250; J2251; J2270; J2543; J2560; J2795; J2930; J3010; J3260; J3370; J3371; J3475; P9047